=== PATIENT | male | born 1965 | race Caucasian/White ===

== ENCOUNTER → 2018-06-12 08:52 | Outpatient (CLI) | payer OTHER, SELFPAY ==
--- NOTE | 2018-06-12 08:55 | CT_ITS ---
STUDY: CT MAXILLOFACIAL SINUSES REASON FOR EXAM: Male, 53 years old. Chronic sinusitis. No prior sinus surgery. Antibiotics x 3 rounds RADIATION DOSAGE (If Supplied By Facility): CTDIvol = ( 33.06 ) mGy, DLP = ( 759.47 ) mGycm TECHNIQUE: The patient was scanned in a multi detector CT scanner. High resolution axial imaging was performed without the administration of intravenous contrast material. Sagittal and coronal images were reconstructed. Individualized dose optimization techniques were used for this CT. COMPARISON: CT brain noncontrast 09/13/2013 FINDINGS: FRONTAL SINUSES: Normal aeration, without mucosal inflammatory disease. ETHMOIDAL SINUSES: Normal aeration, with minimal mucosal thickening of the posterior ethmoid sinuses. MAXILLARY SINUSES: Normal aeration, without mucosal inflammatory disease. SPHENOIDAL SINUSES: Normal aeration, without mucosal inflammatory disease. There is patency of the bilateral maxillary infundibuli with normal uncinate processes, ethmoid bullae, and hiatus semilunaris. Normal bilateral middle turbinates. Normal bilateral inferior turbinates. There is no nasal septal deviation but a right sided nasal septal spur. There is patency of the bilateral nasal airways. The visualized osseous structures are normal. The visualized bilateral orbital contents are normal. Bilateral scattered cervical lymph nodes likely lymphoid hyperplasia. Atherosclerosis of the left carotid artery bulb. The bilateral mastoid air cells are clear. CT/Sinus/Facial Bone IMPRESSION: Minimal chronic posterior ethmoid sinus disease with mucosal thickening of approximately 1 mm. No outer sinus inflammation detected. Electronically Signed: Kendra Barnett MD at 7:47 EDT , Service support ,
== END ==
PROVIDERS: Family Provider Internal Medicine; PCP Internal Medicine; Visit Provider Otolaryngology
DX: J32.9 Chronic sinusitis, unspecified (principal)
CPT/HCPCS: 70486

== ENCOUNTER 2020-09-22 10:49 | Emergency (ER) | payer OTHER, SELFPAY ==
[2020-09-22 10:51] VITALS: BP 155/98; PULSE 102; RESP 17; TEMP 37; O2SAT 95; BMI 36.1
--- NOTE | 2020-09-22 11:12 | ED.DCSUM_ITS ---
- ER Visit Summary Date of Service: 09/22/20 Chief Complaint: Cough and fever History of Present Illness: The patient is a [address] [id number] diabetes and hypertension. Patient states he had a telemedicine visit and was started on medications for shingles but did not have any rash. For the last several days he has had a cough of clear sputum and a fever as high as 101.9. Said his on months ago had Covid but his Covid test was negative at that time. Also states he has some mild body aches. He denies any dysuria. No abdominal pain. No diarrhea. No chest pain. No earache. No sore throat. Physical Examination: Middle-aged male no acute distress. Vital signs are stable. Currently is afebrile his temperature is 98. His pulse ox is 95% on room air no signs hypoxia. He is in no distress. HEENT exam unremarkable. Posterior pharynx normal. No erythema or exudate. Neck nontender no lymphadenopathy no meningismus. Lungs clear to auscultation bilaterally. Heart regular rhythm rate about 95 no murmur. Chest wall nontender. Chest wall no rash. Back no rash. Back nontender. Abdomen soft nontender normal bowel sounds no peritoneal signs. Both the right upper and right lower quadrants are unremarkable. He is mildly obese. Patient is moving all 4 extremities. Calves nontender without edema or cords. Neurologically is awake alert with no focal motor deficits. Test Results: Rapid Covid antigen is positive. Portable chest x-ray 1 view interpreted by myself shows no acute abnormality. Normal cardiac silhouette mediastinum. Normal lung hutton. No pneumonia. No infiltrate. Radiologist also read the film as normal. Emergency Department Course and Treatment: Patient with URI symptoms. Clinically does not look ill. Most likely has a viral syndrome. Exam is be nign. Rapid Covid test and chest x-ray being obtained. Treatment Plan: Plenty of fluids and rest. Tylenol as needed. Follow-up with his doctor as needed. Disposition: Discharge Impression: Positive coronavirus (COVID-19) viral syndrome History of diabetes and hypertension This note was generated with [employer] dictation software. It may contain incorrect words, spelling, and punctuation that were not noted in review of the chart prior to signing ED Disposition - Plan for ED Patient: Referrals: Kristian Cadet MD [Primary Care Provider] -
--- NOTE | 2020-09-22 11:35 | RAD_ITS ---
STUDY: X-RAY CHEST REASON FOR EXAM: Male, 55 years old. cough and fever. TECHNIQUE: Single AP portable view of the chest. COMPARISON: 09/13/2013 FINDINGS: The lungs are clear and expanded. There is no demonstrated pleural abnormality. Normal size heart. Normal mediastinum and orion. Normal visualized pulmonary arteries. Normal visualized aortic arch and descending thoracic aorta. Normal visualized thoracic spine. Normal visualized ribs, clavicles, and shoulders. There is no demonstrated abnormality of the visualized soft tissue structures of the upper abdomen. RAD/Chest 1 View (Portable) IMPRESSION: Normal x-ray examination of the chest. Electronically Signed: Ryne Tagn MD at 12:01 EST Tel , Service support ,
--- NOTE | 2020-09-22 12:12 | ED.DEP ---
ED Disposition - Plan for ED Patient: Disposition: Home or Assisted Living Instructions: Coronavirus Disease 2019 (COVID-19): Caring for Yourself or Others Referrals: Kristian Cadet MD [Primary Care Provider] - 1 Week if not improving Additional Instructions: Plenty of fluids and rest. Tylenol Motrin as needed for fever. Quarantine for the next 7 days or 10 days from when your symptoms started on Thursday. Your coronavirus test was positive. Return if feeling a lot worse. Follow-up with your doctor if not improving.
== END 2020-09-22 12:17 | disposition home or self-care (01) ==
PROVIDERS: Emergency Provider Emergency Medicine; PCP Internal Medicine
DX: U07.1 COVID-19 (principal); E11.9 Type 2 diabetes mellitus without complications; I10 Essential (primary) hypertension; E66.9 Obesity, unspecified
CPT/HCPCS: 71045; 87426; 99282

== ENCOUNTER 2020-09-27 22:44 | Emergency (ER) | payer OTHER, SELFPAY ==
[2020-09-27 22:44] VITALS: BP 159/93; PULSE 113; RESP 16; TEMP 37.2; O2SAT 96; BMI 36.0
[2020-09-27 22:46] VITALS: BP 159/93; PULSE 100; RESP 22; TEMP 37.2; O2SAT 93
--- NOTE | 2020-09-27 22:56 | ED.VIS.GEN ---
History of Present Illness Chief Complaint: General Illness Informant: Patient Narrative: 55-year-old male presenting on day 8 of Covid symptoms. He notes myalgias and headache that is not relieved with Tylenol Motrin. He states he has had some diarrhea. Has been trying to stay hydrated so he has been doing Pedialyte today. He states that his chest feels tight but he is not having much shortness of breath. He states he has a history of diabetes and hypertension. He states that the first day of symptoms he talked to his doctor and they prescribed him a medicine that begins with asked for shingles. He does not know what it is but he is no longer taking it. Past Medical History - Allergies and Home Meds Allergies/Adverse Reactions: Allergies No Known Allergies Allergy (Verified 09/27/20 22:46) Primary Care Physician: Kristian Cadet MD [Primary Care Provider] - As Needed Past Medical History: - - Hypertension diabetes Surgical History: noncontributory Lives: Spouse/ Significant Other Smoking Status: Unknown if ever smoked Drugs: None Review of Systems General: Reports: Chills, Fever, Malaise. Denies: Sweats Eyes: Denies: Visual changes - bilaterally, Diplopia ENT: Reports: Rhinorrhea. Denies: Sore throat Cardiovascular: Denies: Chest pain, Palpitations Respiratory: Reports: Dyspnea, Cough. Denies: Dyspnea on exertion Gastrointestinal: Denies: Abdominal pain, Nausea, Vomiting, Diarrhea, Melena, Hematochezia Genitourinary: Denies: Dysuria, Hematuria, Frequency Musculoskeletal: Reports: Myalgias, Arthralgias. Denies: Back pain, Extremity Pain Skin: Denies: Rash, Wounds Neurological: Reports: Headache. Denies: Weakness, Numbness Physical Exam Vital Signs/Narrative: Vital Signs Temp Pulse Resp BP Pulse Ox 09/27/20 22:44 98.9 F 113 H 16 159/93 H 96 Inital Vital Signs reviewed: Yes General: Well nourished, Well developed, No Acute Distress Head: Normocephalic, Atraumatic Eyes: Perrl, EOMI ENT: Moist mucous membranes, No rhinorrhea Neck: Supple, Nontender Cardiovascular: Regular rate, No murmurs, Tachycardia Respiratory: No distress, CTA bilaterally, Chest nontender Abdomen: Soft, Nontender, Nondistended, Normal bowel sounds Back: Nontender, Normal Inspection Extremities: Nontender, No edema Skin: Normal color, No rash Neurological: Alert, Oriented x3, Cranial nerves II-XII grossly intact, Normal Strength, Normal Sensation Psychological: Normal affect, Normal Mood Diagnostic/Tx/Re-eval Clinical Impression(s) from Imaging Studies Chest X-Ray 09/27/20 23:19 IMPRESSION: No acute cardiopulmonary disease. There is no major interval change. Electronically Signed: Misael DengDO at 23:40 EST Tel [phone], Service support , Laboratory Last Values WBC 4.4 K/mm3 (4.4-11.0) 09/27/20 23:14 RBC 4.60 M/mm3 (4.6-6.2) 09/27/20 23:14 Hgb 13.6 g/dL (13.0-16.5) 09/27/20 23:14 Hct 40.4 % (40-54) 09/27/20 23:14 MCV 87.8 fL (80-94) 09/27/20 23:14 MCH 29.6 pg (27.0-32.0) 09/27/20 23:14 MCHC 33.7 g/dL (32-36) 09/27/20 23:14 RDW Std Deviation 41.4 fl (35.1-43.9) 09/27/20 23:14 RDW Coeff of Naamn 12.9 % (11.6-14.6) 09/27/20 23:14 Plt Count 219 K/mm3 (150-450) 09/27/20 23:14 MPV 8.5 fl (6.2-12.0) 09/27/20 23:14 Immature Gran % (Auto) 1.600 % (0.0-0.9) H 09/27/20 23:14 Neut % (Auto) 62.3 % (47-70) 09/27/20 23:14 Lymph % (Auto) 25.6 % (19-41) 09/27/20 23:14 [place] % (Auto) 8.9 % (0-10) 09/27/20 23:14 Eos % (Auto) 1.4 % (0-5) 09/27/20 23:14 Baso % (Auto) 0.2 % (0-1) 09/27/20 23:14 Absolute Neuts (auto) 2.7 X10^3/uL (2.0-7.7) 09/27/20 23:14 Absolute Lymphs (auto) 1.12 X10^3/uL (0.83-4.51) 09/27/20 23:14 Nucleated RBC % 0 % (0-5) 09/27/20 23:14 Sodium 136 mmol/L (136-145) 09/27/20 23:14 Potassium 3.6 mmol/L (3.5-5.1) 09/27/20 23:14 Chloride 102 mmol/L (98-107) 09/27/20 23:14 Carbon Dioxide 29.0 mmol/L (21.0-32.0) 09/27/20 23:14 Anion Gap 5 (5-15) 09/27/20 23:14 BUN 16 mg/dL (7-18) 09/27/20 23:14 Creatinine 1.29 mg/dL (0.70-1.30) 09/27/20 23:14 Estim Creat Clear Calc 63.94 ml/min 09/27/20 23:14 Est GFR (MDRD) Af Amer 74 mL/min (>60) 09/27/20 23:14 Est GFR (MDRD) Non-Af 61 mL/min (>60) 09/27/20 23:14 BUN/Creatinine Ratio 12.4 RATIO (10-20) 09/27/20 23:14 Glucose 137 mg/dL (74-106) H 09/27/20 23:14 Calcium 8.7 mg/dL (8.5-10.1) 09/27/20 23:14 Total Bilirubin 0.50 mg/dL (0.20-1.00) 09/27/20 23:14 AST 55 U/L (15-37) H 09/27/20 23:14 ALT 89 U/L (16-61) H 09/27/20 23:14 Alkaline Phosphatase 53 U/L (45-117) 09/27/20 23:14 Total Protein 7.2 g/dL (6.4-8.2) 09/27/20 23:14 Albumin 3.4 g/dL (3.2-5.0) 09/27/20 23:14 Globulin 3.8 g/dL (2.2-4.2) 09/27/20 23:14 Albumin/Globulin Ratio 0.9 RATIO (0.9-2.4) 09/27/20 23:14 - Medical Decision Making Patient's vital signs show normal oxygen saturation and blood pressure. He is slightly tachycardic. Basic blood work was obtained. Patient received IV fluids and Toradol. Basic blood work was negative. Slight elevation in his liver transaminases. My interpretation of the single view portable chest x-ray is no acute process. Patient will be discharged home with continued supportive care. I can write for some Toradol see if that improves his headache and myalgias. He is requesting a short course of steroids and I can write for some Decadron. ED Disposition - Plan for ED Patient: Disposition: Home or Assisted Living Diagnosis: COVID-19 Instructions: Coronavirus Disease 2019 (COVID-19): Caring for Yourself or Others Prescriptions: Dexamethasone [Decadron] 6 mg PO DAILY 4 Days #4 tab Prescription Printed Ketorolac [Toradol] 10 mg PO Q8H PRN #15 tab PRN Reason: Pain Prescription Printed Referrals: Kristian Cadet MD [Primary Care Provider] - As Needed Additional Instructions: Do not use ibuprofen or other anti-inflammatories if taking the Toradol. You may still use acetaminophen.
[2020-09-27] MEDS: Ketorolac 30 MG/ML Syringe IV (23:12)
[2020-09-27] MEDS: 0.9% Normal Saline 1,000 ML 1000 ML IV (23:12)
[2020-09-27 23:14] VITALS: PULSE 100; RESP 22; O2SAT 93
--- NOTE | 2020-09-27 23:19 | RAD_ITS ---
STUDY: X-RAY CHEST REASON FOR EXAM: Male, 55 years old. COVID 19. Dyspnea. TECHNIQUE: Single AP portable view of the chest. COMPARISON: 09/22/2020 FINDINGS: The lungs are clear and expanded. There is no demonstrated pleural abnormality. Normal size heart. Normal mediastinum and orion. Normal visualized pulmonary arteries. Normal visualized aortic arch and descending thoracic aorta. No visualized osseous changes. There is no demonstrated abnormality of the visualized soft tissue structures of the upper abdomen. RAD/Chest 1 View (Portable) IMPRESSION: No acute cardiopulmonary disease. There is no major interval change. Electronically Signed: Misael Deng DO at 23:40 EST Tel [phone], Service support ,
[2020-09-27 23:26] LABS: Absolute Lymphocyte Count 1.12 X10^3/uL (0.83-4.51); Absolute Neutrophil Count 2.7 X10^3/uL (2.0-7.7); Basophil# 0.01 X10^3/uL; Basophil% 0.2 % (0-1); Eosinophil# 0.06 X10^3/uL; Eosinophils% 1.4 % (0-5); Hematocrit 40.4 % (40-54); Hemoglobin 13.6 g/dL (13.0-16.5); Lymphocyte # 1.12 X10^3/ul (4.0); Lymphocyte % 25.6 % (19-41); Mean Corp Hgb Conc 33.7 g/dL (32-36); Mean Corpuscular Hgb 29.6 pg (27.0-32.0); Mean Corpuscular Volume 87.8 fL (80-94); Mean Platelet Vol. 8.5 fl (6.2-12.0); Monocyte# 0.39 X10^3/uL; Monocyte% 8.9 % (0-10); NRBC Flagged by Analyzer 0 % (0-5); Neutrophil # 2.73 X10^3/uL (2.7-7.7); Neutrophil % 62.3 % (47-70); Platelet Count 219 K/mm3 (150-450); RBC Distribution Width CV 12.9 % (11.6-14.6); RBC Distribution Width SD 41.4 fl (35.1-43.9); White Blood Count 4.4 K/mm3 (4.4-11.0)
[2020-09-27 23:41] LABS: ALB/GLOB Ratio 0.9 RATIO (0.9-2.4); AST(SGOT) 55 U/L (15-37); Alanine Aminotransfer ALT/SGPT 89 U/L (16-61); Albumin, Serum 3.4 g/dL (3.2-5.0); Alkaline Phosphatase 53 U/L (45-117); Anion Gap 5 (5-15); BUN 16 mg/dL (7-18); BUN/Creat Ratio 12.4 RATIO (10-20); Calcium,Total 8.7 mg/dL (8.5-10.1); Chloride 102 mmol/L (98-107); Creatinine, Serum 1.29 mg/dL (0.70-1.30); EST Glomerular Filtration Rate 61 mL/min (>60); Est Glom Filt Rate - Afr Amer 74 mL/min (>60); Estimated Creatinine Clearance 63.94 ml/min; Globulin 3.8 g/dL (2.2-4.2); Glucose 137 mg/dL (74-106); Potassium 3.6 mmol/L (3.5-5.1); Protein, Total 7.2 g/dL (6.4-8.2); Sodium Level 136 mmol/L (136-145)
[2020-09-28 00:07] VITALS: BP 170/90; PULSE 93; RESP 20; O2SAT 94
[2020-09-28] MEDS: dexAMETHasone 2 MG TABLET 6 MG PO (00:07)
== END 2020-09-28 00:36 | disposition home or self-care (01) ==
LOC: ED 23:30
PROVIDERS: Emergency Provider Emergency Medicine; PCP Internal Medicine
DX: U07.1 COVID-19 (principal); R19.7 Diarrhea, unspecified; R00.0 Tachycardia, unspecified; E11.9 Type 2 diabetes mellitus without complications; I10 Essential (primary) hypertension; Z79.899 Other long term (current) drug therapy
CPT/HCPCS: 71045; 80053; 85025; 96361; 96374; 99284; J7030; A4216

== ENCOUNTER 2025-04-11 16:15 | Outpatient (CLI) | payer OTHER, SELFPAY ==
--- NOTE | 2025-04-11 | COLBX_PTH ---
PATIENT: REJI BROOKS [facility] U#:[id number] AGE/SX: 59/M ROOM: RE04/11/[address]: Dr. Adele Davis MD : 1965 BED: DIS: 04/11/2025 SPEC #: [id number] RECD: 04/11/25 15:10 STATUS: RAFA REMary #: [id number] ANGELA: 04/11/25 00:[address]: Adele Davis DEPT: SURGICAL PATHOLOGY RECD BY: Frederic Cagle ENTERED: 04/11/25 16:16 SP TYPE: COLON BX OTHR DR: Dr. Kristian Cadet MD Tissues: A - Transverse colon Procedures: Surgery Specimen Level IV HEADER OPERATION: Colonoscopy PRE-OP DIAGNOSIS: Screening TISSUE SUBMITTED: A- Transverse colon polyp MICROSCOPIC DIAGNOSIS A. Transverse colon, polyp, biopsy: * Tubular adenoma MICROSCOPIC DESCRIPTION Slides are reviewed. GROSS DESCRIPTION A. Received in fixative is one container labeled with the patient's name and designated Transverse colon polyp. The specimen consists of one irregular fragment of light solomon soft tissue that measures 1 cm. The specimen is totally submitted in one cassette. 04/11/2025 CPT:73193
== END 2025-04-11 23:59 | disposition home or self-care (01) ==
PROVIDERS: PCP Internal Medicine; Referring Provider Surgery; Visit Provider Surgery
DX: Z12.11 Encounter for screening for malignant neoplasm of colon (principal); D12.3 Benign neoplasm of transverse colon
CPT/HCPCS: 88305

== ENCOUNTER 2025-09-15 12:14 | Emergency (ER) | payer OTHER, SELFPAY ==
[2025-09-15] VITALS (11 sets, daily range): BP systolic 133–162; BP diastolic 82–96; PULSE 53–103; RESP 16–30; TEMP 36–36.8; O2SAT 94–96; BMI 32.8
--- NOTE | 2025-09-15 13:01 | CT_ITS ---
PROCEDURE: CTA CHEST W/WO CONTRAST 09/15/2025 REASON FOR EXAM: CHEST PAIN POST OP PT / PULMONARY EMBOLISM TECHNIQUE: Procedure Code: [id number] Modality: CT Procedure: CTA CHEST W/WO CONTRAST Multidetector CT angiography of the chest with intravenous contrast including multiplanar and post-processed maximum intensity projection (MIP) were generated and interpreted. CONTRAST: Isovue 3 7 VOLUME: 100 mL One or more dose reduction techniques were used (e.g., Automated exposure control, adjustment of the mA and/or kV according to patient size, use of iterative reconstruction technique). RADIATION DOSE SUMMARY: DLP: 559.16 mGycm COMPARISON: None available. FINDINGS: Opacification of the pulmonary arterial tree is suboptimal. Pulmonary artery and thoracic vessels: There are no filling defects in the central pulmonary arteries. No evidence of thoracic aortic dissection. The main pulmonary artery and thoracic aorta are normal in caliber. Scattered atherosclerotic calcification and thoracic aorta. Pulmonary parenchyma: No focal lung consolidation. Mild dependent atelectasis.. Airways: The central airways are patent. Pleural space: No pneumothorax or pleural effusion. Heart and pericardium: The heart is normal in size. No pericardial effusion. There are coronary artery calcifications. Mediastinum and orion: Unremarkable. Osseous structures: No aggressive osseous lesion. Degenerative changes of the thoracic spine. Upper visualized abdomen: Unremarkable. CT/CTA Chest W/WO Contrast IMPRESSION: 1. Suboptimal opacification of the pulmonary arterial tree secondary to contras t bolus timing limits evaluation of segmental and subsegmental pulmonary arterial tree. No central pulmonary embolism. 2. No evidence of thoracic aortic dissection. 3. No focal lung consolidation. Reading Location: [id number]
--- NOTE | 2025-09-15 13:01 | EKG12_ITS ---
Test Reason : CP Blood Pressure : */* mmHG Vent. Rate : 95 BPM Atrial Rate : 95 BPM P-R Int : 160 ms QRS Dur : 98 ms QT Int : 350 ms P-R-T Axes : 28 -6 -18 degrees QTcB Int : 439 ms Normal sinus rhythm Normal ECG Confirmed by Miguel A Kaminski ([id number]), editor book LICHA LAROSE ([id number]) on 09/19/2025 6:17:03 AM Referred By: HAYDEE/ESTRADA Confirmed By: Miguel A Kaminski
--- OUTSIDE RECORDS SUMMARY | 2025-09-15 13:10 | XMS RPT_ITS | CCD ---
Author Organization [facility] Inform ion Partnership [facility] Care Team Providers Care Dairy Husbandry Worker Name Role Phone Helio HOGAN, Kristian Redding Primary Care Provider Helio HOGAN, Kristian Redding Primary Care Provider Adriana DOCUMENTATION NURSE.Ina DE LEÓN Unavailable Helio HOGAN, Dr. Townsend Primary Care Provider Ryan HOGAN, Dr. Angulo Attending Provider Ryan HOGAN, Dr. Angulo Referring Provider Kristian Cadet Primary Care Unavailable Adele Davis Referring Unavailable Adele Davis Attending Unavailable HA LOPEZ MD Attending Unavailable HA LOPEZ MD Primary Care Unavailable HA LOPEZ MD Admitting Unavailable KRISTIAN CADET Consulting Unavailable PROVIDER, UNKNOWN Consulting Unavailable INA WINSTON Referring Unavailable KRISTIAN CADET Primary Care Unavailable KRISTIAN CADET Primary Care Unavailable KRISTIAN CADET Primary Care Unavailable KRISTIAN CADET Referring Unavailable HELIO, KRISTIAN Redding Primary Care Unavailable HELIO, KRISTIAN Redding Primary Care Unavailable MERVIN ABREU Attending Unavailable KRISTIAN CADET Primary Care Unavailable KRISTIAN CADET Attending Unavailable INA WINSTON Referring Unavailable HELIO, KRISITAN Redding Primary Care Unavailable KRISTIAN CADET Referring Unavailable HELIO, KRISTIAN Redding Primary Care Unavailable ADELE DAVIS Attending Unavailable KRISTIAN CADET Referring Unavailable HELIO, KRISTIAN Redding Primary Care Unavailable REBA SUAREZ Attending Unavailable ADELE DAVIS Referring Unavailable HELIO, KRISTIAN Redding Primary Care Unavailable KRISTIAN CADET Primary Care Unavailable VY JORDAN Attending Unavailable KRISTIAN CADET Primary Care Unavailable EVA CHAIDEZ Attending Unavailable KRISTIAN CADET Primary Care Unavailable INA WINSTON Attending Unavailable KRISTIAN CADET Primary Care Unavailable INA WINSTON Referring Unavailable KRISTIAN CADET Primary Care Unavailable HELIO HOGAN, DR TOWNSEND Primary Care Unavailadriane AGUILAR MD, DR REJI Stoddard Attending Emerald Shearer MD, DR REJI Stoddard Attending Unavailab Derek HOGAN, DR TOWNSEND Primary Care Unavailadriane CADET MD, DR TOWNSEND Primary Care Unavailadriane AGUILAR MD, DR REJI Stoddard Attending Emerald Reed MD, DR TOWNSEND Primary Care Physician Allergies Allergy Classification Reported Allergen(s) Allergy Type Date of Onset Reaction(s) Facility (20 sources) Hops extract; Translations: [HOPS] Drug Allergy 04-12-2014 Itching [facility] (20 sources) Seasonal allergy; Translations: [SEASONAL ALLERGIES] Allergy to substance 05-22-2015 Unknown [facility] Medications Current Medications Medication Drug Class(es) Dates Sig (Normalized) Sig (Original) Advair Diskus 100 mcg-50 mcg/inh inhalation powder (2 sources) Start: 08-01-2025 take 1 dose by inhalation twice daily Advair Diskus 100 mcg-50 mcg/inh inhalation powder Dose = 1 puff(s), Inhalation, BID, 0 Refill(s) Start Date: 08/01/25 Status: Ordered Medication Dispense Status: Completed Total Allowed Fills: 1 Fills Dispensed: 0 Albuterol (20 sources) beta2-Adrenergic Agonist Start: 08-01-2025 take 1 puff(s) by inhalation every four hours as needed for wheezing Ventolin HFA MDI (90 mcg/inh) inhalation aerosol 1 puff(s), Inhalation, q4h, PRN as needed for shortness of breath or wheezing, # 6.7 gram(s), 0 Refill(s) Start Date: 08/01/25 Status: Ordered Medication Dispense Status: Completed Quantity: 6.7 Unit: g Total Allowed Fills: 1 Fills Dispensed: 0 Start: 04-01-2023 take 2 puff(s) by in halation every four hours as needed for wheezing albuterol HFA (PROVENTIL HFA, VENTOLIN HFA) 90 mcg/actuation inhaler Indications: Flu-like symptoms Inhale 2 Puffs as instructed every 4 hours as needed for wheezing/shortness of breath. 1 Each 1 04/01/2023 Active Start: 09-04-2022 take 2 puff(s) by in halation every four hours as needed for wheezing albuterol HFA (PROVENTIL HFA, VENTOLIN HFA) 90 mcg/actuation inhaler Indications: Flu-like symptoms Inhale 2 Puffs as instructed every 4 hours as needed for wheezing/shortness of breath. 1 Each 1 09/04/2022 Active Comment on above: Inhale 2 Puffs as in structed every 4 hours as needed for wheezing/shortness of breath. amoxicillin 875 mg / clavulanate 125 mg oral tablet (11 sources) Penicillin-class Antibacterial Start: 03-01-20 End: 03-08-20 take 1 tablet by mouth every twelve hours amoxicillin-clavu lanate potassium (AUGMENTIN) 875-125 mg per tablet Take 1 tablet by mouth every 12 hours for 7 days. 14 tablet 03/01/2025 03/08/2025 Active Start: 12-17-2024 End: 12-27-2024 take 1 tablet by mouth twice daily amoxicillin-clavulanate potassium (AUGMENTIN) 875-125 mg per tablet Indications: Acute non-recurrent streptococcal tonsillitis Take 1 tablet by mouth two times a day for 10 days. 20 tablet 12/17/2024 12/27/2024 Active Start: 11-14-2024 End: 11-21-2024 take 1 tablet by mouth twice daily amoxicillin-clavulanate potassium (AUGMENTIN) 875-125 mg per tablet Take 1 tablet by mouth two times a day for 7 days. 14 tablet 11/14/2024 11/21/2024 Active Start: 10-03-2024 End: 10-10-2024 take 1 tablet by mouth twice daily amoxicillin-clavulanate potassium (AUGMENTIN) 875-125 mg per tablet Indications: Sinus pressure Take 1 tablet by mouth two times a day for 7 days. 14 tablet 10/03/2024 10/10/2024 Active Start: 07-21-2023 End: 07-28-2023 take 1 tablet by mouth twice daily amoxicillin-clavulanate potassium (AUGMENTIN) 875-125 mg per tablet Take 1 tablet by mouth two times a day for 7 days. 14 tablet 0 07/21/2023 07/28/2023 Active Start: 08-13-2022 End: 08-18-2022 take 1 tablet by mouth twice daily amoxicillin-clavulanic acid (AUGMENTIN) 875-125 mg per tablet Take 1 tablet by mouth twice daily for 5 days. 10 tablet 0 08/13/2022 08/18/2022 Active Start: 05-21-2022 End: 05-28-2022 take 1 tablet by mouth twice daily amoxicillin-clavulanic acid (AUGMENTIN) 875-125 mg per tablet Indications: Sinus pressure Take 1 tablet by mouth twice daily for 7 days. 14 tablet 0 05/21/2022 05/28/2022 Active Start: 12-28-2021 End: 01-02-2022 take 1 tablet by mouth twice daily amoxicillin-clavulanic acid (AUGMENTIN) 875-125 mg per tablet Take 1 tablet by mouth twice daily for 5 days. 10 tablet 0 12/28/2021 01/02/2022 Active Comment on above: Take 1 tablet by terrie th twice daily for 5 days. Take 1 tablet by terrie th twice daily for 7 days. Take 1 tablet by terrie th two times a day for 7 days. aspirin 81 mg delayed release oral tablet (20 sources) Platelet Aggregation Inhibitor, Nonsteroidal Anti-inflammatory Drug Start: 08-01-2025 aspirin 81 mg oral delayed release tablet Dose : 81 mg = 1 tab(s), Oral, Daily, 0 Refill(s) Start Date: 08/01/25 Status: Ordered Medication Dispense Status: Completed Total Allowed Fills: 1 Fills Dispensed: 0 Start: 10-19-2009 aspirin(ECOTRI N LOW STRENGTH 81 MG TAB) Indications: Hypertension , Other and unspecified hyperlipidemia 0 10/19/2009 Active Budesonide / formoterol (20 sources) Corticosteroid, beta2-Adrenergic Agonist Start: 03-28-2025 take 2 puff(s) by inhalation twice daily budesonide-formoterol (SYMBICORT) 160-4.5 mcg/actuation inhaler Inhale 2 puffs as instructed two times a day. 2 each 6 03/28/2025 Active Start: 10-28-2023 End: 03-28-2025 take 2 puff(s) by inhalation twice daily budesonide-formoterol (SYMBICORT) 160-4.5 mcg/actuation inhaler Inhale 2 Puffs as instructed two times a day. 2 Each 6 10/28/2023 03/28/2025 Discontinued Start: 10-28-2023 take 2 puff(s) by in halation twice daily budesonide-formoterol (SYMBICORT) 160-4.5 mcg/actuation inhaler Inhale 2 Puffs as instructed two times a day. 2 Each 10/28/2023 Active Comment on above: Inhale 2 Puffs as in structed two times a day. cetirizine hydrochloride 10 mg oral tablet (20 sources) Histamine-1 Receptor Antagonist Start: 08-01-2025 cetirizine 10 mg oral tablet Dose : 10 mg = 1 tab(s), Oral, Daily, PRN for allergy symptoms, # 10 tab(s), 0 Refill(s) Start Date: 08/01/25 Status: Ordered Medication Dispense Status: Completed Quantity: 10.0 Unit: tab(s) Total Allowed Fills: 1 Fills Dispensed: 0 Start: 03-09-2021 End: 07-14-2023 Cetirizine (ZYRTEC) 10 mg ca p 03/09/2021 07/14/2023 Discontinued chlorthalidone 25 mg oral tablet (20 sources) Thiazide-like Diuretic Start: 07-14-2023 End: 03-02-2025 take 1 tablet by mouth once daily chlorthalidone (HYGROTON) 25 mg tablet Indications: Primary hypertension Take 1 tablet by mouth once daily. 90 tablet 3 03/03/2025 Active Comment on above: Take 1 tablet by terrie once daily. cholecalciferol 5000 unt / folic acid 1 mg oral tablet (20 sources) Vitamin D vitamin D3-folic acid 5,000 unit- 1 mg tab Take by mouth. Active Comment on above: Take by mouth. Chondroitin Sulfates / Glucosamine (2 sources) Start: 08-01-2025 take 1 dose by mouth once daily Glucosamine Chondroitin Oral, qDay, 0 Refill(s) Start Date: 08/01/25 Status: Ordered Medication Dispense Status: Completed Total Allowed Fills: 1 Fills Dispensed: 0 Co Q-10 100 mg oral capsule (2 sources) Start: 08-01-2025 Co Q-10 100 mg oral capsule Dose : 100 mg = 1 cap(s), Oral, Daily, 0 Refill(s) Start Date: 08/01/25 Status: Ordered Medication Dispense Status: Completed Total Allowed Fills: 1 Fills Dispensed: 0 COMPOUNDED PRESCRIPTION (20 sources) Start: 08-25-2018 COMPOUNDED PRESCRIPTION Allergy shots per [facility] 08/25/2018 Active Start: 08-25-2018 COMPOUNDED PRE SCRIPTION Allergy shots per [facility] 0 08/25/2018 Active Comment on above: Allergy shots per [facility] CPAP (20 sources) Start: 11-21-19 16 CPAP Indications: GENNY (obstructive sleep apnea) AutoPAP 8-20 cmH2O, suitable mask, humidity, filters. Lifetime supplies. Dx: 327.23. Fax compliance rpt to [facility] in 6 weeks. 1 Device 0 11/21/2015 Active Comment on above: AutoPAP 8-20 cmH2O, suitable mask, humidity, filters. Lifetime supplies. Dx: 327.23. Fax compliance rpt to [employer] in 6 weeks. CPAP/BIPAP/OTHER (20 sources) Start: 05-10-20 24 End: 09-25-19 52 CPAP/BIPAP/OTHER Type .CPAPSettings into a note to see current settings/supplies/DME information. 1 Each 05/10/2024 09/25/2051 Active cyclobenzaprine hydrochloride 10 mg oral tablet (10 sources) Muscle Relaxant Start: 05-07-20 End: 08-05-20 22 take 1 tablet by mouth every twelve hours as needed cyclobenzaprine (FLEXERIL) 10 mg tablet Take 1 tablet by mouth twice daily as needed. 180 tablet 0 05/07/2022 08/05/2022 Active Start: 10-31-2021 End: 01-29-2022 take 1 tablet by mouth every twelve hours as needed cyclobenzaprine (FLEXERIL) 10 mg tablet Take 1 tablet by mouth twice daily as needed. 180 tablet 0 10/31/2021 01/29/2022 Active Comment on above: Take 1 tablet by terrie twice daily as needed. doxycycline hyclate 100 mg oral tablet (4 sources) Tetracycline-clas s Drug Start: End: take 1 tablet by mouth twice daily doxycycline (VIBRA-TABS) 100 mg tablet Indications: Rhinosinusitis Take 1 tablet by mouth two times a day for 7 days. 14 tablet 07/30/2024 08/06/2024 Active Start: 10-21-2023 End: 10-28-2023 take 1 tablet by mouth twice daily doxycycline (VIBRA-TABS) 100 mg tablet Take 1 tablet by mouth two times a day for 7 days. 14 tablet 0 10/21/2023 10/28/2023 Comment on above: Take 1 tablet by terrie th two times a day for 7 days. 0.5 ml dulaglutide 1.5 mg/ml auto-injector (20 sources) GLP-1 Receptor Agonist Start: 08-01-2025 Trulicity Pen 0.75 mg/0.5 mL subcutaneous solution Dose : 0.75 mg = 0.5 mL, Subcutaneous, qWeek, 0 Refill(s), 0.5 mL/Pen Start Date: 08/01/25 Status: Ordered Medication Dispense Status: Completed Total Allowed Fills: 1 Fills Dispensed: 0 Start: 03-28-2025 inject 1.5 mg by sub cutaneous injection every week dulaglutide (TRULICITY) 1.5 mg/0.5 mL pen injector Indications: Controlled type 2 diabetes mellitus without complication, without long-term current use of insulin (HCC) Inject 1.5 mg subcutaneously one time a week. 6 mL 3 03/28/2025 Active Start: 02-14-2025 End: 03-28-2025 inject 0.75 mg by subcutaneous injection every week dulaglutide (TRULICITY) 0.75 mg/0.5 mL pen injector Indications: Controlled type 2 diabetes mellitus without complication, without long-term current use of insulin (HCC) Inject 0.75 mg subcutaneously one time a week. Inject dose once per week. Discard Pen After 1 each 02/17/2025 03/28/2025 Discontinued (Dosage adjustment) Start: 02-22-2024 End: 09-28-2024 inject 0.75 mg by subcutaneous injection every week dulaglutide (TRULICITY) 0.75 mg/0.5 mL pen injector Indications: Controlled type 2 diabetes mellitus without complication, without long-term current use of insulin (HCC) Inject 0.75 mg subcutaneously one time a week. Inject dose once per week. Discard Pen After 6 Each 1 09/28/2024 Active Start: 08-09-2022 End: 02-20-2024 inject 0.75 mg by subcutaneous injection every week dulaglutide (TRULICITY) 0.75 mg/0.5 mL pen injector Indications: Controlled type 2 diabetes mellitus without complication, without long-term current use of insulin (HCC) Inject 0.75 mg subcutaneously one time a week. Inject dose once per week. Discard Pen After 6 Each 1 07/14/2023 10/24/2023 Discontinued Comment on above: Inject 0.75 mg subcu taneously one time a week. Inject dose once per week. Discard Pen After fexofenadine hydrochloride 180 mg oral tablet (20 sources) Histamine-1 Receptor Antagonist take 1 tablet by mouth once daily fexofenadine (JOSUE) 180 mg tablet Take 180 mg by mouth once daily. Active Comment on above: Take 180 mg by mouth once daily. fluticasone propionate 0.05 mg/actuat metered dose nasal spray (20 sources) Corticosteroid Start: 08-01-20 take 50 ug nasal route twice daily fluticasone proprionate NASAL 50 mcg/ spray 50 mcg Dose = 1 spray(s), Nostril, each, BID, 0 Refill(s) Start Date: 08/01/25 Status: Ordered Medication Dispense Status: Completed Total Allowed Fills: 1 Fills Dispensed: 0 Start: 04-01-2023 End: 05-17-2025 take 2 spray(s) by mouth twice daily fluticasone (FLONASE) 50 mcg/actuation nasal spray Indications: Allergic rhinitis, unspecified seasonality, unspecified trigger Use 2 sprays in each nostril two times a day. Rinse mouth after use. 6 each 05/17/2025 Active Start: 2022 take 2 spray(s) by m outh twice daily fluticasone (FLONASE) 50 mcg/actuation nasal spray Indications: Allergic rhinitis, unspecified seasonality, unspecified trigger Use 2 Sprays in each nostril twice daily. Rinse mouth after use. 6 Each 3 2022 Active Start: 11-02-2020 End: 04-29-2022 take 2 spray(s) by mouth once daily fluticasone (FLONASE) 50 mcg/actuation nasal spray Indications: Allergic rhinitis, unspecified seasonality, unspecified trigger Use 2 Sprays in each nostril once daily. Rinse mouth after use. 3 Each 1 10/30/2021 04/29/2022 Discontinued Comment on above: Use 2 Sprays in each nostril once daily. Rinse mouth after use. Use 2 Sprays in each nostril twice daily. Rinse mouth after use. glucosamine/msm/chondroitin A ([id number]-[id number]-BSL ORAL) (20 sources) glucosamine/msm/ chondroiti n A (SISSBWWHGAL-UKGOEQ-PXI ORAL) Take by mouth. Active glucosamine/msm/ chondroitin A (NBCICNMMIDA-LWYXRH-FKW ORAL) Take by mouth. 0 Active Comment on above: Take by mouth. guaiFENesin (20 sources) End: 09-28-2024 guaifenesin (MUCINEX ORAL) T kalin by mouth. 09/28/2024 Discontinued (Course of therapy completed) guaifenesin (MUC INEX ORAL) Take by mouth. Active guaifenesin (MUC INEX ORAL) Take by mouth. 0 Active Comment on above: Take by mouth. herbal/nutritional product (2 sources) Start: 025 herbal/nutritional product URGENT LIVER 911, 0 Refill(s) Start Date: 08/01/25 Status: Ordered Medication Dispense Status: Completed Total Allowed Fills: 1 Fills Dispensed: 0 hydroCHLOROthiazide 12.5 mg oral tablet (20 sources) Thiazide Diuretic Start: 025 take 1 dose by mouth once daily hydroCHLOROthiazide Dose : 12.5 mg =, Oral, qDay, 0 Refill(s) Start Date: 08/01/25 Status: Ordered Medication Dispense Status: Completed Total Allowed Fills: 1 Fills Dispensed: 0 Start: 04-01-2023 End: 07-14-2023 take 1 tablet by mouth once daily hydroCHLOROthiazide 25 mg tablet Indications: Primary hypertension Take 1 tablet by mouth once daily. 90 tablet 3 04/01/2023 07/14/2023 Discontinued (Changing Therapy/Dosage Form) Start: 06-10-2021 End: 06-23-2022 take 1 tablet by mouth once daily hydroCHLOROthiazide (HYDRODIURIL, ESIDRIX) 25 mg tablet Indications: Primary hypertension Take 1 tablet by mouth once daily. 90 tablet 3 06/10/2021 06/23/2022 Discontinued Comment on above: Take 1 tablet by terrie th once daily. hydroCHLOROthiazide 12.5 mg / lisinopril 20 mg oral tablet (2 sources) Thiazide Diuretic, Angiotensin Converting Enzyme Inhibitor Start: take 1 tablet by mouth once daily hydrochlorothiazi de-lisinopril 12.5 mg-20 mg oral tablet Dose = 1 tab(s), Oral, Daily, # 30 tab(s), 0 Refill(s) Start Date: 08/01/25 Status: Ordered Medication Dispense Status: Completed Quantity: 30.0 Unit: tab(s) Total Allowed Fills: 1 Fills Dispensed: 0 Ipratropium (20 sources) Anticholinergic Start: ipratropium (0.03%) nasal 21 mcg/spray (Atrovent Nasal) Nasal, 0 Refill(s) Start Date: 08/01/25 Status: Ordered Medication Dispense Status: Completed Total Allowed Fills: 1 Fills Dispensed: 0 Start: 04-01-2023 Ipratropium Br omide (ATROVENT) 21 mcg (0.03 %) nasal spray Indications: Allergic rhinitis, unspecified seasonality, unspecified trigger Use 2 Sprays in the nose twice daily as needed (rhinorrhea). 30 mL 3 04/01/2023 Active Start: 09-25-2022 Ipratropium Br omide (ATROVENT) 21 mcg (0.03 %) nasal spray Indications: Allergic rhinitis, unspecified seasonality, unspecified trigger Use 2 Sprays in the nose twice daily as needed (rhinorrhea). 30 mL 3 09/25/2022 Active Start: 10-27-2020 End: 09-25-2022 Ipratropium [place] (ATROVEN T) 0.03 % nasal spray Indications: Allergic rhinitis, unspecified seasonality, unspecified trigger Use 2 Sprays in the nose every 12 hours. 3 Bottle 1 10/27/2020 09/25/2022 Discontinued Comment on above: Use 2 Sprays in the nose every 12 hours. Use 2 Sprays in the nose twice daily as needed (rhinorrhea). ketorolac tromethamine 10 mg oral tablet (1 source) Nonsteroidal Anti-inflammatory Drug, Cyclooxygenase Inhibitor Start: 09-27-19 take 1 tablet by mouth every eight hours as needed for pain Ketorolac 10 MG tablet Active 10 mg PO Q8H as needed for Pain September 28, 2020 12:08am lisinopril 20 mg oral tablet (20 sources) Angiotensin Converting Enzyme Inhibitor Start: 01-08-20 take 1 tablet by mouth once daily lisinopril (ZESTRIL) 20 mg tablet Indications: Primary hypertension Take 1 tablet by mouth once daily. 90 tablet 3 01/07/2025 Active Start: 04-01-2023 End: 01-05-2025 take 1 tablet by mouth once daily lisinopril (ZESTRIL) 20 mg tablet Indications: Primary hypertension Take 1 tablet by mouth once daily. 90 tablet 3 03/15/2024 01/05/2025 Discontinued Start: 09-13-2013 End: 06-23-2022 take 1 tablet by mouth once daily lisinopril (ZESTRIL, PRINIVIL) 20 mg tablet Indications: Primary hypertension Take 1 tablet by mouth once daily. 90 tablet 3 06/10/2021 06/23/2022 Discontinued Comment on above: Take 1 tablet by terrie th once daily. Magnesium Aspartate (20 sources) MAGNESIUM ASPART ATE HCL ORAL Take by mouth. Active MAGNESIUM ASPART ATE HCL ORAL Take by mouth. 0 Active Comment on above: Take by mouth. Magnesium Oxide (2 sources) Start: 08-01-2025 magnesium oxide Oral, 0 Refill(s) Start Date: 08/01/25 Status: Ordered Medication Dispense Status: Completed Total Allowed Fills: 1 Fills Dispensed: 0 meclizine hydrochloride 25 mg oral tablet (1 source) Antiemetic Start: 09-13-2013 take 1 tablet by mouth four times daily as needed Meclizine 25 MG tablet Active 25 mg PO 4 TIMES DAILY NEEDED as needed for Vertigo September 13, 2013 1:00am 24 hr metFORMIN hydrochloride 500 mg extended release oral tablet (20 sources) Biguanide Start: 08-01-2025 metFORMIN 500 mg oral tablet EXTENDED RELEASE Dose : 500 mg = 1 tab(s), Oral, Daily, # 100 tab(s), 0 Refill(s) Start Date: 08/01/25 Status: Ordered Medication Dispense Status: Completed Quantity: 100.0 Unit: tab(s) Total Allowed Fills: 1 Fills Dispensed: 0 Start: 01-07-2025 take 1 tablet by terrie th once daily at breakfast metFORMIN ER (GLUCOPHAGE XR) 500 mg 24 hr tablet Indications: Controlled type 2 diabetes mellitus without complication, without long-term current use of insulin (HCC) Take 1 tablet by mouth daily with breakfast. 90 tablet 3 01/07/2025 Active Start: 04-01-2023 End: 01-05-2025 take 1 tablet by mouth once daily at breakfast metFORMIN ER (GLUCOPHAGE XR) 500 mg 24 hr tablet Indications: Controlled type 2 diabetes mellitus without complication, without long-term current use of insulin (HCC) Take 1 tablet by mouth daily with breakfast. 90 tablet 3 03/15/2024 01/05/2025 Discontinued Start: 10-27-2020 End: 09-25-2022 take 1 tablet by mouth once daily at breakfast metFORMIN ER (GLUCOPHAGE XR) 500 mg 24 hr tablet Indications: Controlled type 2 diabetes mellitus without complication, without long-term current use of insulin (HCC) Take 1 tablet by mouth daily with breakfast. 90 tablet 3 09/25/2022 Active Comment on above: Take 1 tablet by terrie th daily with breakfast. montelukast 10 mg oral tablet (20 sources) Leukotriene Receptor Antagonist Start: 08-01-2025 montelukast 10 mg oral tablet 0 Refill(s) Start Date: 08/01/25 Status: Ordered Medication Dispense Status: Completed Total Allowed Fills: 1 Fills Dispensed: 0 Start: 01-07-2025 take 1 tablet by terrie th once daily at bedtime montelukast (SINGULAIR) 10 mg tablet Take 1 tablet by mouth daily at bedtime. 90 tablet 3 01/07/2025 Active Start: 04-01-2023 End: 01-05-2025 take 1 tablet by mouth once daily at bedtime montelukast (SINGULAIR) 10 mg tablet Take 1 tablet by mouth daily at bedtime. 90 tablet 3 03/15/2024 01/05/2025 Discontinued Start: 11-01-2021 End: 09-25-2022 take 1 tablet by mouth once daily at bedtime montelukast (SINGULAIR) 10 mg tablet Take 1 tablet by mouth daily at bedtime. 90 tablet 3 09/25/2022 Active Start: 10-27-2020 End: 10-30-2021 take 1 tablet by mouth once daily at bedtime montelukast (SINGULAIR) 10 mg tablet Take 1 tablet by mouth daily at bedtime. 90 tablet 3 10/27/2020 10/30/2021 Discontinued Comment on above: Take 1 tablet by terrie th daily at bedtime. Mucus Relief ER (2 sources) Start: 08-01-20 take 1 dose by mouth every twelve hours Mucus Relief ER Oral, q12h, 0 Refill(s) Start Date: 08/01/25 Status: Ordered Medication Dispense Status: Completed Total Allowed Fills: 1 Fills Dispensed: 0 Multivitamin preparation (2 sources) Start: 08-01-20 take 1 tablet by mouth once daily Multivitamin Dose = 1 tab(s), Oral, Daily, 0 Refill(s) Start Date: 08/01/25 Status: Ordered Medication Dispense Status: Completed Total Allowed Fills: 1 Fills Dispensed: 0 oseltamivir 75 mg oral capsule (1 source) Neuraminidase Inhibitor Start: 09-04-20 End: 09-09-20 take 1 capsule by mouth twice daily oseltamivir (TAMIFLU) 75 mg capsule Indications: Flu-like symptoms Take 1 capsule by mouth twice daily for 5 days. 10 capsule 0 09/04/2022 09/09/2022 Active Comment on above: Take 1 capsule by mo uth twice daily for 5 days. pantoprazole 40 mg delayed release oral tablet (20 sources) Proton Pump Inhibitor Start: 08-01-20 pantoprazole 40 mg oral enteric coated tablet Dose : 40 mg = 1 tab(s), Oral, qDay, # 30 tab(s), 0 Refill(s) Start Date: 08/01/25 Status: Ordered Medication Dispense Status: Completed Quantity: 30.0 Unit: tab(s) Total Allowed Fills: 1 Fills Dispensed: 0 Start: 01-07-2025 take 1 tablet by terrie th once daily 30 minutes before breakfast pantoprazole DR (PROTONIX) 40 mg tablet Indications: Gastroesophageal reflux disease without esophagitis Take 1 tablet by mouth once daily. 30 minutes before breakfast, take on empty stomach. 90 tablet 3 01/07/2025 Active Start: 04-01-2023 End: 01-05-2025 take 1 tablet by mouth once daily 30 minutes before breakfast pantoprazole DR (PROTONIX) 40 mg tablet Indications: Gastroesophageal reflux disease without esophagitis Take 1 tablet by mouth once daily. 30 minutes before breakfast, take on empty stomach. 90 tablet 3 03/15/2024 01/05/2025 Discontinued Start: 10-27-2020 End: 09-25-2022 take 1 tablet by mouth once daily 30 minutes before breakfast pantoprazole DR (PROTONIX) 40 mg tablet Indications: Gastroesophageal reflux disease without esophagitis Take 1 tablet by mouth once daily. 30 minutes before breakfast, take on empty stomach. 90 tablet 3 09/25/2022 Active Comment on above: Take 1 tablet by terrie once daily. 30 minutes before breakfast, take on empty stomach. polyethylene glycol 3350 35163 mg powder for oral solution (20 sources) Osmotic Laxative Start: 5 take 17 doses by mouth twice daily MiraLax oral powder for reconstitution Dose : 17 gram(s) =, Oral, BID, # 238 gram(s), 0 Refill(s) Start Date: 08/01/25 Status: Ordered Medication Dispense Status: Completed Quantity: 238.0 Unit: g Total Allowed Fills: 1 Fills Dispensed: 0 Start: 01-16-2021 End: 06-23-2022 polyethylene glycol 3350 (MS RALAX) 17 gram/dose powder Indications: Fatty liver disease, nonalcoholic Take 17 g by mouth twice daily. 850 g 5 06/23/2022 Active Comment on above: Take 17 g by mouth t wice daily. polyethylene glycol 3350 011686 mg / potassium chloride 2980 mg / sodium bicarbonate 6720 mg / sodium chloride 5840 mg / sodium sulfate 89983 mg powder for oral solution (1 source) Osmotic Laxative Start: 5 End: 5 peg 3350-electrolytes (GAVILYTE-C) 240-22.72-6.72 -5.84 gram solution Indications: Special screening for malignant neoplasms, colon Take 4,000 mL by mouth one time only for 1 dose. 4000 mL 03/28/2025 03/28/2025 Active Saw Newport 500 mg ORAL Cap (20 sources) Start: 1 take 1 capsule by mouth once Saw Newport 500 mg ORAL Cap Indications: Unspecified hyperplasia of prostate with urinary obstruction and other lower urinary tract symptoms (LUTS) Per package directions for prostate symptoms. 0 10/29/2010 Active Comment on above: Per package directio ns for prostate symptoms. saw palmetto oral capsule (2 sources) Start: 5 saw palmetto oral capsule 0 Refill(s) Start Date: 08/01/25 Status: Ordered Medication Dispense Status: Completed Total Allowed Fills: 1 Fills Dispensed: 0 simvastatin 40 mg oral tablet (20 sources) HMG-CoA Reductase Inhibitor Start: 5 simvastatin 40 mg oral tablet Dose : 40 mg = 1 tab(s), Oral, qHS, # 100 tab(s), 0 Refill(s) Start Date: 08/01/25 Status: Ordered Medication Dispense Status: Completed Quantity: 100.0 Unit: tab(s) Total Allowed Fills: 1 Fills Dispensed: 0 Start: 01-07-2025 take 1 tablet by terrie th once daily at bedtime simvastatin (ZOCOR) 40 mg tablet Indications: Other hyperlipidemia Take 1 tablet by mouth daily at bedtime. 90 tablet 3 01/07/2025 Active Start: 04-01-2023 End: 01-05-2025 take 1 tablet by mouth once daily at bedtime simvastatin (ZOCOR) 40 mg tablet Indications: Other hyperlipidemia Take 1 tablet by mouth daily at bedtime. 90 tablet 3 03/15/2024 01/05/2025 Discontinued Start: 10-27-2020 End: 09-25-2022 take 1 tablet by mouth once daily at bedtime simvastatin (ZOCOR) 40 mg tablet Indications: Other hyperlipidemia Take 1 tablet by mouth daily at bedtime. 90 tablet 3 09/25/2022 Active Start: 09-13-2013 take 1 tablet by terrie th at bedtime Simvastatin 20 MG tablet Active 20 mg PO AT BEDTIME September 13, 2013 1:00am Comment on above: Take 1 tablet by terrie th daily at bedtime. THERAPEUTIC MULTIVITAMIN TAB (20 sources) Start: 11-23-2007 THERAPEUTIC MULTIVITAMIN TAB Take one(1) tablet daily. 0 11/23/2007 Active Comment on above: Take one(1) tablet d aily. ubidecarenone (COQ-10 ORAL) (20 sources) ubidecarenone (C OQ-10 ORAL) Take by mouth. Active ubidecarenone (C OQ-10 ORAL) Take by mouth. 0 Active Comment on above: Take by mouth. Vitamin D3 125 mcg (5000 intl units) oral capsule (2 sources) Start: 08-01-2025 Vitamin D3 125 mcg (5000 intl units) oral capsule Dose : 125 mcg = 1 cap(s), Oral, qDay, # 100 cap(s), 0 Refill(s) Start Date: 08/01/25 Status: Ordered Medication Dispense Status: Completed Quantity: 100.0 Unit: cap(s) Total Allowed Fills: 1 Fills Dispensed: 0 Completed/Discontinued Medications Medication Drug Class(es) Dates Sig (Normalized) Sig (Original) calcium chloride 0.0014 meq/ml / potassium chloride 0.004 meq/ml / sodium chloride 0.103 meq/ml / sodium lactate 0.028 meq/ml injectable solution (1 source) Start: 04-11-2025 End: 04-11-2025 take 30 mL intravenously every hour 30 mL/hr, INTRAVENOUS, CONTINUOUS, Starting on Thu04/11/25 at 0730, Until Thu04/11/25 at 0817, Preprocedure dexamethasone 6 mg oral tablet (1 source) Corticosteroid Start: 09-27-2020 End: 10-01-2020 take 1 tablet by mouth once daily Dexamethasone 6 MG tablet Discontinued 6 mg PO DAILY 4 4 0 September 27, 2020 1:00am September 30, 2020 1:00am October 01, 2020 1:03am 1 ml fentaNYL 0.05 mg/ml injection (1 source) Opioid Agonist Start: 04-11-2025 End: 04-11-2025 25-100 mcg, INTRAVENOUS, DIRECTED, Starting on Thu04/11/25 at 0800, Until Thu04/11/25 at 1159, DOSING DIRECTED BY PHYSICIAN FOR PROCEDURAL SEDATION ONLY, Intraprocedure fluticasone / salmeterol (20 sources) Corticosteroid, beta2-Adrenergic Agonist Start: 10-25-2023 End: 10-28-2023 take 1 puff(s) by mouth twice daily fluticasone-salmete rol (ADVAIR DISKUS) 100-50 mcg/dose inhaler Inhale 1 Puff as instructed two times a day. Rinse mouth out after use with water. 3 Each 3 10/25/2023 10/28/2023 Discontinued (Not on Formulary) Start: 10-25-2023 take 1 puff(s) by mo uth twice daily fluticasone-salmeterol (ADVAIR DISKUS) 100-50 mcg/dose inhaler Inhale 1 Puff as instructed two times a day. Rinse mouth out after use with water. 3 Each 3 10/25/2023 Active Start: 04-01-2023 End: 10-24-2023 take 1 puff(s) by mouth twice daily fluticasone-salmeterol (ADVAIR DISKUS) 100-50 mcg/dose inhaler Inhale 1 Puff as instructed twice daily. Rinse mouth out after use with water. 3 Each 3 04/01/2023 10/24/2023 Discontinued Start: 04-01-2023 take 1 puff(s) by mo uth twice daily fluticasone-salmeterol (ADVAIR DISKUS) 100-50 mcg/dose inhaler Inhale 1 Puff as instructed twice daily. Rinse mouth out after use with water. 3 Each 3 04/01/2023 Active Start: 09-25-2022 take 1 puff(s) by mo uth twice daily fluticasone-salmeterol (ADVAIR DISKUS) 100-50 mcg/dose inhaler Inhale 1 Puff as instructed twice daily. Rinse mouth out after use with water. 3 Each 3 09/25/2022 Active Start: 10-30-2021 End: 09-25-2022 take 1 puff(s) by mouth twice daily fluticasone-salmeterol (ADVAIR DISKUS) 100-50 mcg/dose inhaler Inhale 1 Puff as instructed twice daily. Rinse mouth out after use with water. 3 Each 3 10/30/2021 09/25/2022 Discontinued Start: 10-30-2021 take 1 puff(s) by mo uth twice daily fluticasone-salmeterol (ADVAIR DISKUS) 100-50 mcg/dose inhaler Inhale 1 Puff as instructed twice daily. Rinse mouth out after use with water. 3 Each 3 10/30/2021 Active Start: 10-27-2020 End: 10-29-2021 take 1 puff(s) by mouth twice daily fluticasone-salmeterol (ADVAIR DISKUS) 100-50 mcg/dose Inhale 1 Puff as instructed twice daily. Rinse mouth out after use with water. 3 Inhaler 3 10/27/2020 10/29/2021 Discontinued Comment on above: Inhale 1 Puff as ins tructed twice daily. Rinse mouth out after use with water. Inhale 1 Puff as ins tructed two times a day. Rinse mouth out after use with water. 5 ml midazolam 1 mg/ml injection (1 source) Benzodiazepine Start: End: 1-5 mg, INTRAVENOUS, DIRECTED, Starting on Thu04/11/25 at 0800, Until Thu04/11/25 at 1159, DOSING DIRECTED BY PHYSICIAN FOR PROCEDURAL SEDATION ONLY, Intraprocedure 2 ml ondansetron 2 mg/ml injection (1 source) Serotonin-3 Receptor Antagonist Start: End: 4 mg, INTRAVENOUS, DIRECTED, Starting on Thu04/11/25 at 0830, Until Thu04/11/25 at 1229, Dosing as directed for intraprocedural use only, Intraprocedure pioglitazone 15 mg oral tablet (14 sources) Peroxisome Proliferator Receptor alpha Agonist, Peroxisome Proliferator Receptor gamma Agonist, Thiazolidinedione Start: End: take 1 tablet by mouth once daily pioglitazone (ACTOS) 15 mg tablet Take 1 tablet by mouth once daily. 30 tablet 3 01/28/2022 06/23/2022 Discontinued (Clinical Decision) Start: 08-13-2021 End: 10-29-2021 take 1 tablet by mouth once daily pioglitazone (ACTOS) 15 mg tablet Take 1 tablet by mouth once daily. 30 tablet 3 08/13/2021 10/29/2021 Discontinued Comment on above: Take 1 tablet by terrie th once daily. predniSONE 10 mg oral tablet (13 sources) Start: 10-21-2023 End: 03-23-2024 predniSONE (DELTASONE) 10 mg tablet Take 4 tabs daily for 3 days, then 2 tabs daily for 3 days, then 1 tab daily for 3 days with food. 21 tablet 0 10/21/2023 03/23/2024 Discontinued (Course of therapy completed) Start: 09-04-2022 End: 09-09-2022 take 2 tablets by mouth once daily predniSONE (DELTASONE) 20 mg tablet Indications: Flu-like symptoms Take 2 tablets by mouth once daily for 5 days. 10 tablet 0 09/04/2022 09/09/2022 Active Start: 05-21-2022 End: 05-26-2022 take 2 tablets by mouth once daily predniSONE (DELTASONE) 20 mg tablet Indications: URI, acute , Sinus pressure Take 2 tablets by mouth once daily for 5 days. 10 tablet 0 05/21/2022 05/26/2022 Active Start: 12-25-2021 End: 12-30-2021 take 5 tablets by mouth once daily, then take 4 tablets by mouth once daily, then take 3 tablets by mouth once daily, then take 2 tablets by mouth once daily, then take 1 tablet by mouth once daily predniSONE (DELTASONE) 10 mg tablet Indications: Cough , Mild intermittent asthmatic bronchitis with acute exacerbation Take 5 tablets by mouth once daily for 1 day, THEN 4 tablets once daily for 1 day, THEN 3 tablets once daily for 1 day, THEN 2 tablets once daily for 1 day, THEN 1 tablet once daily for 1 day. 15 tablet 0 12/25/2021 12/30/2021 Comment on above: Take 5 tablets by [facility] once daily for 1 day, THEN 4 tablets once daily for 1 day, THEN 3 tablets once daily for 1 day, THEN 2 tablets once daily for 1 day, THEN 1 tablet once daily for 1 day. Take 2 tablets by [facility] once daily for 5 days. Take 4 tabs daily fo r 3 days, then 2 tabs daily for 3 days, then 1 tab daily for 3 days with food. 0.25 mg, 0.5 mg dose 1.5 ml semaglutide 1.34 mg/ml pen injector (4 sources) Start: 06-23-20 End: 08-09-20 semaglutide (OZEMPIC) 0.25 mg or 0.5 mg(2 mg/1.5 mL) pen Indications: Controlled type 2 diabetes mellitus without complication, without long-term current use of insulin (HCC) Inject 0.25 mg subcutaneously one time a week. 1 Each 0 06/23/2022 08/09/2022 Discontinued (Not on Formulary) Comment on above: Inject 0.25 mg subcu taneously one time a week. vitamin e 450 mg oral capsule (1 source) Start: 05-10-20 End: 12-13-19 22 take 1 capsule by mouth once daily Vitamin E, dl, acetate, 1,000 unit capsule Take 1 capsule by mouth once daily. 30 capsule 05/10/2021 12/12/2021 Discontinued Problems Active Problems Problem Classification Problem Date Documented Date Episodic/Chronic Asthma (20 sources) Mild intermittent asthma; Translations: [Mild intermittent asthma with (acute) exacerbation] Onset: 01-18-2015 Chronic Diabetes mellitus without complication (20 sources) Type 2 diabetes mellitus without complication; Translations: [Type 2 diabetes mellitus without complications] Onset: 11-10-2019 11-10-2019 Chronic Disorders of lipid metabolism (20 sources) Hyperlipidemia; Translations: [Hyperlipidemia, unspecified] Onset: 10-04-2015 10-04-2015 Chronic Esophageal disorders (20 sources) Gastroesophageal reflux disease; Translations: [Gastro-esophageal reflux disease without esophagitis] Onset: 07-01-2012 07-01-2012 Chronic Essential hypertension (20 sources) Hypertensive disorder; Translations: [Essential (primary) hypertension] Onset: 10-19-2009 10-19-2009 Chronic Headache; including migraine (1 source) Sinus headache; Translations: [Sinus headache] 07-14-2023 Episodic Hepatitis (2 sources) Nonalcoholic steatohepatitis; Translations: [Nonalcoholic steatohepatitis (ADAN)] Chronic Hyperplasia of prostate (20 sources) Benign prostatic hypertrophy with outflow obstruction; Translations: [Benign prostatic hyperplasia with lower urinary tract symptoms] Onset: 10-29-2010 08-24-2017 Chronic Immunizations and screening for infectious disease (5 sources) Vaccination needed; Translations: [Encounter for immunization] Episodic Osteoarthritis (20 sources) Osteoarthritis of left knee joint; Translations: [Unilateral primary osteoarthritis, left knee] Onset: 09-17-2016 09-17-2016 Chronic Other and unspecified benign neoplasm (1 source) Tubular adenoma of colon; Translations: [Benign neoplasm of colon, unspecified] 04-20-2025 Episodic Other inflammatory condition of skin (1 source) Erythema; Translations: [Erythematous condition, unspecified] 04-29-2025 Episodic Other inflammatory condition of skin (1 source) Erythematous condition, unspecified; Translations: [Redness of skin] Onset: 04-29-2025 Episodic Other liver diseases (17 sources) Non-alcoholic fatty liver; Translations: [Fatty (change of) liver, not elsewhere classified] Onset: 01-23-2021 01-23-2021 Chronic Other liver diseases (20 sources) Fatty (change of) liver, not elsewhere classified; Translations: [Other chronic nonalcoholic liver disease] Onset: 01-23-2021 01-23-2021 Chronic Other lower respiratory disease (4 sources) Cough; Translations: [Cough] Episodic Other nutritional; endocrine; and metabolic disorders (20 sources) Obese class II; Translations: [Obesity, unspecified] Onset: 08-25-2018 Resolved: 06-10-2021 Chronic Other upper respiratory disease (20 sources) Allergic rhinitis; Translations: [Allergic rhinitis, unspecified] Onset: 01-18-2015 01-18-2015 Chronic Other upper respiratory disease (1 source) Congestion of nasal sinus; Translations: [Nasal congestion] Episodic Other upper respiratory disease (1 source) Nasal sinus problem; Translations: [Other specified disorders of nose and nasal sinuses] Episodic Other upper respiratory disease (1 source) Other specified disorders of nose and nasal sinuses; Translations: [Other disease of nasal cavity and sinuses] 10-03-2024 Episodic Other upper respiratory infections (4 sources) Chronic sinusitis, unspecified; Translations: [Unspecified sinusitis (chronic)] Onset: 03-01-2025 07-30-2024 Chronic Other upper respiratory infections (6 sources) Acute upper respiratory infection; Translations: [Acute upper respiratory infection, unspecified] Onset: 07-24-2025 Episodic Otitis media and related conditions (1 source) Acute bilateral otitis media ; Translations: [Otitis media, unspecified, bilateral] 11-14-2024 Episodic Residual codes; unclassified (20 sources) Obstructive sleep apnea syndrome; Translations: [Obstructive sleep apnea (adult) (pediatric)] Onset: 10-19-2009 09-17-2016 Chronic Residual codes; unclassified (1 source) Obstructive sleep apnea (adult) (pediatric); Translations: [GENNY on CPAP] Onset: 09-17-2016 Chronic Residual codes; unclassified (1 source) Other specified personal risk factors, not elsewhere classified; Translations: [Other specified personal history presenting hazards to health] Episodic Residual codes; unclassified (1 source) Influenza-like symptoms; Translations: [Other general symptoms and signs] Episodic Unclassified (1 source) Obesity, Class II, BMI 35-39.9; Translations: [Obesity, Class II, BMI 35-39.9] Onset: 06-23-2022 Viral infection (2 sources) Viral disease; Translations: [Viral infection, unspecified] 10-03-2024 Episodic Past or Other Problems Problem Classification Problem Date Documented Da te Episodic/Chronic Acute and chronic tonsillitis (20 sources) Hypertrophy of tonsils; Translations: [Hypertrophy of tonsils] Onset: 11-21-2015 Resolved: 02-22-2018 02-22-2018 Chronic Diabetes mellitus without complication (20 sources) Impaired fasting glycemia; Translations: [Impaired fasting glucose] Onset: 11-25-2015 Resolved: 11-10-2019 11-10-2019 Episodic Diverticulosis and diverticulitis (20 sources) Diverticulitis of large intestine without perforation or abscess without bleeding; Translations: [Diverticulitis of colon (without mention of hemorrhage)] Onset: 05-01-2006 Resolved: 01-18-2015 01-18-2015 Chronic Nonmalignant breast conditions (20 sources) Gynecomastia; Translations: [Hypertrophy of breast] Onset: 05-18-2014 Resolved: 02-22-2018 02-22-2018 Episodic Other and unspecified benign neoplasm (20 sources) Adenomatous polyp of colon ; Translations: [Benign neoplasm of colon, unspecified] Onset: 10-23-2014 01-18-2015 Episodic Other and unspecified benign neoplasm (1 source) Benign neoplasm of colon, unspecified; Translations: [Tubular adenoma of colon] Onset: 04-21-2025 Episodic Other connective tissue disease (20 sources) History of total knee arthroplasty; Translations: [Presence of unspecified artificial knee joint] Onset: 04-12-2014 Resolved: 01-18-2015 01-18-2015 Chronic Other connective tissue disease (20 sources) Calcaneal spur; Translations: [Calcaneal spur, unspecified foot] Onset: 05-05-2011 Resolved: 12-30-2011 12-30-2011 Episodic Other gastrointestinal disorders (20 sources) Irritable bowel syndrome; Translations: [Irritable bowel syndrome without diarrhea] Resolved: 02-22-2018 02-22-2018 Chronic Other nutritional; endocrine; and metabolic disorders (20 sources) Obese class I; Translations: [Obesity, unspecified] Onset: 06-10-2021 Resolved: 01-09-2023 06-10-2021 Chronic Other screening for suspected conditions (not mental disorders or infectious disease) (14 sources) Patient encounter status; Translations: [Encounter for screening for malignant neoplasm of prostate] Onset: 09-28-2024 Episodic Screening and history of mental health and substance abuse codes (2 sources) Encounter for screening for depression; Translations: [Encounter for screening examination for other mental health and behavioral disorders] Onset: 03-28-2025 Episodic Spondylosis; intervertebral disc disorders; other back problems (20 sources) Acute back pain with sciatica; Translations: [Lumbago with sciatica, right side] Onset: 10-31-2021 Resolved: 06-23-2022 10-31-2021 Episodic Unclassified (1 source) Fatty liver disease, nonalcoholic 10-11-2024 Unclassified (1 source) Elevated LFTs 10-11-2024 Unclassified (2 sources) Patient encounter status 03-28-2025 Results Test Name Value Interpretation Reference Range Facility CT KNEE W/O CONTRAST LEFTon 08-02-2025 CT KNEE W/O CONTRAST LEFT ORIGINAL EXAMINATION: CT OF THE LEFT KNEE WITHOUT CONTRAST 08/01/2025 11:46 am TECHNIQUE: CT of the left knee was performed without the administration of intravenous contrast. Multiplanar reformatted images are provided for review. Automated exposure control, iterative reconstruction, and/or weight based adjustment of the mA/kV was utilized to reduce the radiation dose to as low as reasonably achievable. [facility] protocol for with axial images through the left hip and left ankle. COMPARISON: None. HISTORY ORDERING SYSTEM PROVIDED HISTORY: Reason for Exam: Varus deformity, not elsewhere classified, left knee FINDINGS: There is no acute fracture or dislocation. There is no suspicious lytic or blastic osseous lesion. There is no aggressive periosteal reaction. Pubic symphysis maintained. There is a sclerotic multilobulated 1 cm lesion in the left acetabulum anteriorly favored to reflect a small bone island. Mild circumferential bladder wall thickening. The prostate is enlarged measuring up to 5.9 cm in transverse dimension. Tricompartmental osteoarthritis. Severe degenerative changes in the medial compartment with [id number], subchondral sclerosis, subchondral cysts and marginal osteophyte formation. Tricompartmental spurring. Spurring of the tibial spines are to condylar notch. Lateral coronal tibiofemoral subluxation. Trivial popliteal Hamilton's cyst. No significant knee joint effusion. There is no evidence of solid or cystic soft tissue mass. Limited evaluation the neurovascular structures lack of contrast. IMPRESSION: 1. Tricompartmental osteoarthritis of the knee most pronounced and severe in the medial compartment. 2. Prostatomegaly. 3. Mild circumferential bladder wall thickening, correlate with urinalysis. 4. Additional findings as detailed above. Interpreted by: Yasmine Jefferson Preliminary Report By: Yasmine Jefferson Electronically signed By Yasmine Jefferson Dictated Date: 08/02/2025 9:31:47 AM Prelim Date: 08/02/2025 9:39:10 AM Sign Date: 08/02/2025 9:39:10 AM Ordering Provider: REJI AGUILAR Normal [facility] .Auto Diffon 08-01-2025 Basophil, Absolute 0.0 10 3/mcL Normal 0.0-0.3 [facility] Comment on above: Performed By: #### A LB, ADIFF, ANEU, A1C, ABSGEL, BMP, GFR, CBC, ABOGEL #### [address] [address] Basophils/100 WBC (Bld) 0.7 % Normal 0.0-2.[address] [facility] Comment on above: Performed By: #### A LB, ADIFF, ANEU, A1C, ABSGEL, BMP, GFR, CBC, ABOGEL #### [address] [address] Eosinophil, Absolute 0.2 10 3/mcL Normal 0.0-0.7 [facility] Comment on above: Performed By: #### A LB, ADIFF, ANEU, A1C, ABSGEL, BMP, GFR, CBC, ABOGEL #### [address] [address] Eosinophils/100 WBC (Bld) 2.6 % Normal 0.0-6.[address] [facility] Comment on above: Performed By: #### A LB, ADIFF, ANEU, A1C, ABSGEL, BMP, GFR, CBC, ABOGEL #### [address] [address] Lymphocyte, Absolute 1.9 10 3/mcL Normal 0.9-4.3 [facility] Comment on above: Performed By: #### A LB, ADIFF, ANEU, A1C, ABSGEL, BMP, GFR, CBC, ABOGEL #### [address] [address] Lymphocytes/100 WBC (Bld) 30.9 % Normal 20.0-40.[address] [facility] Comment on above: Performed By: #### A LB, ADIFF, ANEU, A1C, ABSGEL, BMP, GFR, CBC, ABOGEL #### [address] [address] Monocyte, Absolute 0.5 10 3/mcL Normal 0.1-1.4 [facility] Comment on above: Performed By: #### A LB, ADIFF, ANEU, A1C, ABSGEL, BMP, GFR, CBC, ABOGEL #### [address] [address] Monocytes/100 WBC (Bld) 8.3 % Normal 2.0-13.[address] [facility] Comment on above: Performed By: #### A LB, ADIFF, ANEU, A1C, ABSGEL, BMP, GFR, CBC, ABOGEL #### [address] [address] Neutrophils/100 WBC (Bld) 57.5 % Normal 50.0-75.[address] [facility] Comment on above: Performed By: #### A LB, ADIFF, ANEU, A1C, ABSGEL, BMP, GFR, CBC, ABOGEL #### [address] [address] .GFRon 08-01-2025 Estimated Glomerular Filtration Rate 81 ml/min/1.73sqm Normal [facility] Comment on above: Result Comment: Stages of Chronic Kidney Disease (CKD) Stage Description eGFR(ml/min/1.73 sq.m.) CKD 1 Normal kidney function or >=90 normal kindney function with possible kidney damage (ex. Proteinuria) CKD 2 Kidney damage with mild loss 60-89 of kidney function CKD 3a Mild to moderate loss of kidney 45-59 function CKD 3b Moderate to severe loss of 30-44 of kindey function CKD 4 Severe loss of kidney function 15-29 CKD 5 Kidney failure <15 Note: (go live 2024) the eGFR calculation was updated to the 2020 CKD-EPI creatinine equation without a race factor to calculate the eGFR results. Performed By: #### A LB, ADIFF, ANEU, A1C, ABSGEL, BMP, GFR, CBC, ABOGEL #### [address] [address] .NEUABSon 08-01-2025 Neutrophil, Absolute 3.6 10 3/mcL Normal 2.3-8.1 [facility] Comment on above: Performed By: #### A LB, ADIFF, ANEU, A1C, ABSGEL, BMP, GFR, CBC, ABOGEL #### [address] [address] A1Con 08-01-2025 Glucose [Mass/Vol] 140 mg/dL Normal [facility] Comment on above: Result Comment: Maria Victoria mated Average Glucose calculated by equation ((28.7xA1C)-46.7) Estimated average glucose (eAG) is a calculated value from Hemoglobin A1C and is artist representative of the average blood glucose level in the last 2-3 month period. Normal range: less than 114 mg/dL Performed By: #### A LB, ADIFF, ANEU, A1C, ABSGEL, BMP, GFR, CBC, ABOGEL #### [address] [address] HbA1c (Bld) [Mass fraction] 6.5 % High 4.3-6.[address] [facility] Comment on above: Performed By: #### A LB, ADIFF, ANEU, A1C, ABSGEL, BMP, GFR, CBC, ABOGEL #### [id number] [place], [place] [address] ABO/Rh (Gel)on 08-01-2025 ABO/Rh Interp Positive Invalid Interpretation Code [facility] Comment on above: Performed By: #### A LB, ADIFF, ANEU, A1C, ABSGEL, BMP, GFR, CBC, ABOGEL #### [address] [address] ABS (Gel)on 08-01-2025 ABSC Interp (Gel) Negative Normal [facility] Comment on above: Performed By: #### A LB, ADIFF, ANEU, A1C, ABSGEL, BMP, GFR, CBC, ABOGEL #### [address] [address] ALBon 08-01-2025 Albumin Level 3.9 G/dL Normal 3.4-4.8 [facility] [facility] Comment on above: Performed By: #### A LB, ADIFF, ANEU, A1C, ABSGEL, BMP, GFR, CBC, ABOGEL #### [address] [address] BMPon 08-01-2025 BUN/Creatinine Ratio 25 ratio Normal 7-27 [facility] Comment on above: Performed By: #### A LB, ADIFF, ANEU, A1C, ABSGEL, BMP, GFR, CBC, ABOGEL #### [address] [address] Calcium [Mass/Vol] 9.4 mg/dL Normal 8.4-10.2 [facility] Comment on above: Performed By: #### A LB, ADIFF, ANEU, A1C, ABSGEL, BMP, GFR, CBC, ABOGEL #### [address] [address] Chloride [Moles/Vol] 100 mmol/L Normal 98-107 [facility] Comment on above: Performed By: #### A LB, ADIFF, ANEU, A1C, ABSGEL, BMP, GFR, CBC, ABOGEL #### [address] [address] CO2 [Moles/Vol] 26 mmol/L Normal 23-[address] [facility] Comment on above: Performed By: #### A LB, ADIFF, ANEU, A1C, ABSGEL, BMP, GFR, CBC, ABOGEL #### [address] [address] Creatinine [Mass/Vol] 1.05 mg/dL Normal 0.67-1.[address] [facility] Comment on above: Performed By: #### A LB, ADIFF, ANEU, A1C, ABSGEL, BMP, GFR, CBC, ABOGEL #### [address] [address] Electrolyte Balance 11.0 mEq/L Normal 4.0-15.0 [facility] Comment on above: Performed By: #### A LB, ADIFF, ANEU, A1C, ABSGEL, BMP, GFR, CBC, ABOGEL #### [address] [address] Glucose [Mass/Vol] 164 mg/dL High 80-115 [facility] Comment on above: Performed By: #### A LB, ADIFF, ANEU, A1C, ABSGEL, BMP, GFR, CBC, ABOGEL #### [address] [address] Potassium [Moles/Vol] 3.9 mmol/L Normal 3.5-5.[address] [facility] Comment on above: Performed By: #### A LB, ADIFF, ANEU, A1C, ABSGEL, BMP, GFR, CBC, ABOGEL #### [address] [address] Sodium [Moles/Vol] 137 mmol/L Normal 136-145 [facility] Comment on above: Performed By: #### A LB, ADIFF, ANEU, A1C, ABSGEL, BMP, GFR, CBC, ABOGEL #### [address] [address] Urea nitrogen [Mass/Vol] 26 mg/dL High 7-[address] [facility] Comment on above: Performed By: #### A LB, ADIFF, ANEU, A1C, ABSGEL, BMP, GFR, CBC, ABOGEL #### [address] [address] CBCon 08-01-2025 Erythrocyte distribution width (RBC) [Ratio] 13.5 % Normal 11.5-15.[address] [facility] Comment on above: Order Comment: Pre-A dmission Testing Performed By: #### A LB, ADIFF, ANEU, A1C, ABSGEL, BMP, GFR, CBC, ABOGEL #### [place] [address] Hematocrit (Bld) [Volume fraction] 41.9 % Normal 40.0-52.[address] [facility] Comment on above: Order Comment: Pre-A dmission Testing Performed By: #### A LB, ADIFF, ANEU, A1C, ABSGEL, BMP, GFR, CBC, ABOGEL #### [place] [address] Hgb 14.4 G/dL Normal 13.0-17.[address] [facility] Comment on above: Order Comment: Pre-A dmission Testing Performed By: #### A LB, ADIFF, ANEU, A1C, ABSGEL, BMP, GFR, CBC, ABOGEL #### [place] [address] MCH (RBC) [Entitic mass] 31.0 pg Normal 27.0-33.[address] [facility] Comment on above: Order Comment: Pre-A dmission Testing Performed By: #### A LB, ADIFF, ANEU, A1C, ABSGEL, BMP, GFR, CBC, ABOGEL #### [place] [address] MCHC 34.4 G/dL Normal 32.0-36.[address] [facility] Comment on above: Order Comment: Pre-A dmission Testing Performed By: #### A LB, ADIFF, ANEU, A1C, ABSGEL, BMP, GFR, CBC, ABOGEL #### [place] [address] MCV (RBC) [Entitic vol] 90.2 fL Normal 81.0-100.[address] [facility] Comment on above: Order Comment: Pre-A dmission Testing Performed By: #### A LB, ADIFF, ANEU, A1C, ABSGEL, BMP, GFR, CBC, ABOGEL #### [place] [id number] Platelet 298 10 3/mcL Normal 150-[address] [facility] Comment on above: Order Comment: Pre-A dmission Testing Performed By: #### A LB, ADIFF, ANEU, A1C, ABSGEL, BMP, GFR, CBC, ABOGEL #### [address] [address] Platelet mean volume (Bld) [Entitic vol] 7.4 fL Normal 6.4-10.[address] [facility] Comment on above: Order Comment: Pre-A dmission Testing Performed By: #### A LB, ADIFF, ANEU, A1C, ABSGEL, BMP, GFR, CBC, ABOGEL #### [place] [address] [place], [place] [address] RBC 4.64 10 6/mcL Normal 4.50-6.[address] [facility] Comment on above: Order Comment: Pre-A dmission Testing Performed By: #### A LB, ADIFF, ANEU, A1C, ABSGEL, BMP, GFR, CBC, ABOGEL #### [address] [address] WBC 6.3 10 3/mcL Normal 4.5-10.[address] [facility] Comment on above: Order Comment: Pre-A dmission Testing Performed By: #### A LB, ADIFF, ANEU, A1C, ABSGEL, BMP, GFR, CBC, ABOGEL #### [address] [address] LABORATORYOrdered By: Mika Soriano on 08-01-2025 ABO and Rh group Nom (Bld) Blood group A Rh(D) positive Invalid Interpretation Code AO BB Auto SS Blood group antibody screen Ql Negative ABSC (08/01/25 10:29 AM) Normal AO BB Auto SS LABORATORYOrdered By: SYSTEM SYSTEM on 08-01-2025 Albumin BCP dye [Mass/Vol] 3.9 G/dL Normal 3.4 - 4.8 G/dL AO ADM SS Basophils (Bld) [#/Vol] 0.0 103/mcL Normal 0.0 - 0.3 10^3/mcL AO Workflow SS Basophils/100 WBC (Bld) 0.7 % Normal 0.0 - 2.5 % AO Workflow SS Calcium [Mass/Vol] 9.4 mg/dL Normal 8.4 - 10. 2 mg/dL AO ADM SS Chloride [Moles/Vol] 100 mmol/L Normal 98 - 10 7 mmol/L AO ADM SS CO2 [Moles/Vol] 26 mmol/L Normal 23 - 31 mmol/L AO ADM SS Creatinine [Mass/Vol] 1.05 mg/dL Normal 0.67 - 1.17 mg/dL AO ADM SS Electrolyte Balance 11.0 mEq/L Normal 4.0 - 15 .0 mEq/L AO ADM SS Eosinophil, Absolute 0.2 103/mcL Normal 0.0 - 0 .7 10^3/mcL AO Workflow SS Eosinophils/100 WBC (Bld) 2.6 % Normal 0.0 - 6.0 % AO Workflow SS Erythrocyte distribution width (RBC) [Ratio] 13.5 % Normal 11.5 - 15.5 % AO Workflow SS GLOMERULAR FILTRATION RATE/1.73 SQ M.PREDICTED:ARVRAT:P T:SER/PLAS/BLD:QN:CR EATININE-BASED FORMULA (CKD-EPI 2020) 81 ml/min/1.73sqm Invalid Interpretation Code AO Chemistry S Comment on above: Interpretive Data: Stages of Chronic Kidney Disease (CKD) Stage Description eGFR(ml/min/1.73 sq.m.) CKD 1 Normal kidney function or >=90 normal kindney function with possible kidney damage (ex. Proteinuria) CKD 2 Kidney damage with mild loss 60-89 of kidney function CKD 3a Mild to moderate loss of kidney 45-59 function CKD 3b Moderate to severe loss of 30-44 of kindey function CKD 4 Severe loss of kidney function 15-29 CKD 5 Kidney failure <15 Note: (go live 2024) the eGFR calculation was updated to the 2020 CKD-EPI creatinine equation without a race factor to calculate the eGFR results. Glucose [Mass/Vol] 164 mg/dL High 80 - 115 mg/dL AO ADM SS Glucose [Mass/Vol] 140 mg/dL Invalid Interpretation Code AO Chemistry S Comment on above: Interpretive Data: E stimated average glucose (eAG) is a calculated value from Hemoglobin A1C and is artist representative of the average blood glucose level in the last 2-3 month period. Normal range: less than 114 mg/dL HbA1c (Bld) [Mass fraction] 6.5 % High 4.3 - 6.4 % AO ADM SS Hematocrit (Bld) [Volume fraction] 41.9 % Normal 40.0 - 52.0 % AO Workflow SS Hemoglobin (Bld) [Mass/Vol] 14.4 G/dL Normal 13.0 - 17.5 G/dL AO Workflow SS Lymphocytes (Bld) [#/Vol] 1.9 103/mcL Normal 0.9 - 4.3 10^3/mcL AO Workflow SS Lymphocytes/100 WBC (Bld) 30.9 % Normal 20.0 - 40.0 % AO Workflow SS MCH (RBC) [Entitic mass] 31.0 pg Normal 27.0 - 33.0 pg AO Workflow SS MCHC 34.4 G/dL Normal 32.0 - 36.0 G/dL AO Workflow SS MCV (RBC) [Entitic vol] 90.2 fL Normal 81.0 - 100.0 fL AO Workflow SS Monocytes (Bld) [#/Vol] 0.5 103/mcL Normal 0.1 - 1.4 10^3/mcL AO Workflow SS Monocytes/100 WBC (Bld) 8.3 % Normal 2.0 - 13.0 % AO Workflow SS Neutrophils (Bld) [#/Vol] 3.6 103/mcL Normal 2.3 - 8.1 10^3/mcL AO Workflow SS Neutrophils/100 WBC (Bld) 57.5 % Normal 50.0 - 75.0 % AO Workflow SS Platelet mean volume (Bld) [Entitic vol] 7.4 fL Normal 6.4 - 10.5 fL AO Workflow SS Platelets (Bld) [#/Vol] 298 103/mcL Normal 150 - 450 10^3/mcL AO Workflow SS Potassium [Moles/Vol] 3.9 mmol/L Normal 3.5 - 5.1 mmol/L AO ADM SS RBC (Bld) [#/Vol] 4.64 106/mcL Normal 4.50 - 6.0 0 10^6/mcL AO Workflow SS Sodium [Moles/Vol] 137 mmol/L Normal 136 - 145 mmol/L AO ADM SS Urea nitrogen [Mass/Vol] 26 mg/dL High 7 - 18 mg/dL AO ADM SS Urea nitrogen/Creatinine [Mass ratio] 25 ratio Normal 7 - 27 ratio AO ADM SS WBC (Bld) [#/Vol] 6.3 103/mcL Normal 4.5 - 10.8 10^3/mcL AO Workflow SS LABORATORYOrdered By: Myriam Dick on 08-01-2025 MRSA (PCR) Not Detected 1 (08/01/25 10:29 AM) Normal Not Detected Auto Viro/Sero SS Comment on above: Result Comment: [place] [id number] MRSA PCR Int See Below 2 *NA* (08/01/25 10:29 AM) Invalid Interpretation Code Auto Viro/Sero SS Comment on above: Result Comment: Clinical Interpretation: MRSA DNA not detected by Real-Time Polymerase Chain Reaction (PCR). A negative result may be due to intermittent colonization. Colonization may vary depending on patient treatment, patient status, or exposure to high-risk environments. As with all PCR based in vitro diagnostic tests, extremely low levels of target below the limit of detection of the assay may be detected, but results may not be reproducible. MRSAPCRon 08-01-2025 MRSA (PCR) Not detected Normal Not Detected [facility] Comment on above: Result Comment: [place] [id number] Performed By: #### M RSAPCR #### [place] [address] MRSA PCR Int See Below Normal [facility] Comment on above: Result Comment: Clinical Interpretation: MRSA DNA not detected by Real-Time Polymerase Chain Reaction (PCR). A negative result may be due to intermittent colonization. Colonization may vary depending on patient treatment, patient status, or exposure to high-risk environments. As with all PCR based in vitro diagnostic tests, extremely low levels of target below the limit of detection of the assay may be detected, but results may not be reproducible. Performed By: #### M RSAPCR #### [place] [id number] CNOVon 07-24-2025 CNOV Office Visit (WOU[facility]) REJI BRITO ([id number]) 1965 M NFR Date Time Provider Department 07/24/25 9:30 AM EVA CHAIDEZ During your visit today, we recorded the following information about you: Temperature Pulse Respiration Blood pressure 98.1 degrees 80/minute 21/minute 140/90 Weight 109.3 kg Eva Chaidez PA-C 07/24/2025 10:04 AM Signed [facility] Subjective Reji Brito is a 60 year old male. Patient presents with: Cough: Sinus issues, congestion, MARQUEZ x 2 weeks Patient is a 60-year-old male who complains of worsening congestion, sinus pressure, sinus pain, ear pain, throat irritation and cough that he has been experiencing for the past 2 weeks. Patient also reports low-grade fever. Patient has no history of asthma or COPD and does not smoke. Patient has been taking [id number] medications with no improvement in his symptoms. Cough Associated symptoms include ear pain and sore throat. Review of Systems HENT: Positive for congestion, ear pain, postnasal drip, sinus pressure, sneezing and sore throat. Respiratory: Positive for cough. Objective BP 140/90 Pulse 80 Temp 36.7 ?C (98.1 ?F) Resp 21 Wt 109.3 kg (240 lb 15.4 oz) SpO2 97% BMI 35.84 kg/m? Physical Exam Vitals and nursing note reviewed. Constitutional: Appearance: Normal appearance. He is normal weight. HENT: Head: Normocephalic and atraumatic. Right Ear: Tympanic membrane, ear canal and external ear normal. Left Ear: Tympanic membrane, ear canal and external ear normal. Nose: Congestion present. Mouth/Throat: Mouth: Mucous membranes are moist. Pharynx: Oropharynx is clear. Eyes: Extraocular Movements: Extraocular movements intact. Conjunctiva/sclera: Conjunctivae normal. Pupils: Pupils are equal, round, and reactive to light. Cardiovascular: Rate and Rhythm: Normal rate and regular rhythm. Pulses: Normal pulses. Heart sounds: Normal heart sounds. Pulmonary: Effort: Pulmonary effort is normal. Breath sounds: Normal breath sounds. Musculoskeletal: Cervical back: Normal range of motion and neck supple. Skin: General: Skin is warm and dry. Capillary Refill: Capillary refill takes less than 2 seconds. Neurological: General: No focal deficit present. Mental Status: He is alert and oriented to person, place, and time. Psychiatric: Mood and Affect: Mood normal. Behavior: Behavior normal. Thought Content: Thought content normal. Judgment: Judgment normal. MDM Physical exam findings as noted above. Patient was provided with prescriptions for Augmentin 875-125 mg and Tessalon 100 mg. Supportive care instructions were discussed the patient verbalizes good understanding of same. CLINICAL IMPRESSION: Acute Sinusitis ASSESSMENT/PLAN: 1. Acute non-recurrent sinusitis, unspecified location - ICD9: 461.9, ICD10: J01.90 - AMOXICILLIN 875 MG-POTASSIUM CLAVULANATE 125 MG TABLET - BENZONATATE 100 MG CAPSULE MDM Risk of Complications, Morbidity, and/or Mortality Presenting problems: low Diagnostic procedures: low Management options: ian Chaidez PA-C Allergies As of Date: 07/24/2025 Noted Allergy Reaction HOPS 04/12/2014 9 - Itching SEASONAL ALLERGIES 05/22/2015 16 - Unknown Comments: Trees, grasses, weeds, ragweed and cockroaches verified by skin testing Date Reviewed: 07/24/2025 Reviewed by: Jamee Sibley MA - Fully Assessed Reason for Visit: Cough [28] Cmt: Sinus issues, congestion, MARQUEZ x 2 weeks Primary Visit Diagnosis:Acute non-recurrent sinusitis, unspecified location [J01.90] Order(s):amoxicillin-clavul anate potassium (AUGMENTIN) 875-125 mg per tabletTake 1 tablet by mouth two times a day for 5 days.Disp: 10 tabletRfl: 0 benzonatate (TESSALON PERLE) 100 mg capsuleTake 1 capsule by mouth three times a day as needed for cough for up to 7 days.Disp: 21 capsuleRfl: 0 Prescriptions as of 07/24/2025 - amoxicillin-clavulanate potassium (AUGMENTIN) 875-125 mg per tablet Take 1 tablet by mouth two times a day for 5 days. - benzonatate (TESSALON PERLE) 100 mg capsule Take 1 capsule by mouth three times a day as needed for cough for up to 7 days. - fluticasone (FLONASE) 50 mcg/actuation nasal spray Use 2 sprays in each nostril two times a day. Rinse mouth after use. - budesonide-formoterol (SYMBICORT) 160-4.5 mcg/actuation inhaler Inhale 2 puffs as instructed two times a day. - dulaglutide (TRULICITY) 1.5 mg/0.5 mL pen injector Inject 1.5 mg subcutaneously one time a week. - chlorthalidone (HYGROTON) 25 mg tablet Take 1 tablet by mouth once daily. - lisinopril (ZESTRIL) 20 mg tablet Take 1 tablet by mouth once daily. - metFORMIN ER (GLUCOPHAGE XR) 500 mg 24 hr tablet Take 1 tablet by mouth daily with breakfast. - montelukast (SINGULAIR) 10 mg tablet Take 1 tablet by mouth daily at bedtime. - pantoprazole DR (PROTON (more content not included)... Normal [facility] URINE CULTURE [CCL]on 2024 Bacteria identified Cx Nom (U) URCUL See Results Below See Below CULTURE, URINE No growth (<1,000 CFU/ml) SOURCE: Urine (Nonspecific) [facility] [address] [place] [address] Guilherme Garcia III, M.D. [id number] SEND TO IC NO Normal [facility] Comment on above: Performed By: #### 2 [id number] #### [facility],[address] [place] [address] ED MED ADMINISTRATION DETAIL on 06-29-2025 ED MED ADMINISTRATION DETAIL Wellness Instructor - REJI BRITO, : 1965, , [place] [address] [id number] 06/28/2025 Patient: REJI BRITO Sex: Male : 1965 Age: 60y MEASUREMENTS: Wt: 107.0 kg, Ht/Aidan: 71.0 in, BMI: 32.91 ALLERGIES: No known drug allergies Medication Ordered Medication Administration Date/Time MORPHine IVP 4 21:57 06/28 MORPHine IVP 4 mg given via Site# 1. Given mg (NOW x1, Allergies verified and confirmed 5 rights. IV patency 21:57 06/28/2025 HIGH ALERT established. IV site checked: no pain, redness, or swelling. Deandra Denis R.N. MEDICATION) IV flushed thoroughly pre-medication administration. IVP Scanned given by nurse. Information reviewed with patient including reason for taking this medication, signs of allergic reaction, precautions and sedative warning. Verbalizes understanding. - 21:57 Deandra Denis R.N. KetorOLAC 21:58 10 KetorOLAC (Toradol) IVP 15 mg given via Given (Toradol) IVP 15 Site# 1. Allergies verified and confirmed 5 rights. IV 21:58 06/28/2025 mg (NOW x1) patency established. IV site checked: no pain, redness, or Deandra Denis R.N. swelling. IV flushed thoroughly pre-medication Scanned administration. IVP given by nurse. Information reviewed with patient including reason for taking this medication, signs of allergic reaction and precautions. Verbalizes understanding. Medication Wastage: 15 mg wasted. - 21:58 Deandra Denis R.N. 1 of 2 Wellness Instructor - REJI BRITO, : 1965, , Lidocaine 21:58 06/28 Lidocaine (Lidoderm) Transdermal Patch 1 Given (Lidoderm) patch given. Applied to affected area and secured by tape. 21:58 06/28/2025 Transdermal Allergies verified and confirmed 5 rights. Information Deandra Denis R.N. Patch 1 patch reviewed with patient including reason for taking this Scanned (NOW x1) medication, signs of allergic reaction and precautions. Verbalizes understanding. - 21:59 Deandra Denis R.N. Cyclobenzaprine 21:58 06/28 Cyclobenzaprine (Flexeril) PO 5 mg given. Given (Flexeril) PO 5 Allergies verified and confirmed 5 rights. Information 21:58 06/28/2025 mg (NOW x1) reviewed with patient including reason for taking this Deandra Denis R.N. medication, signs of allergic reaction, precautions and Scanned sedative warning. Verbalizes understanding. Medication Wastage: 5 mg wasted. - 21:58 Deandra Denis R.N. 2 of 2 [facility] ED NURSES CLINICAL NOTEon ED NURSES CLINICAL NOTE Nurse Narrative - REJI BRITO, : 1965, , Nurse Clinical Narrative [address] [place] [address] [phone] 06/28/2025 21:02:00 Patient: REJI BRITO Sex: Male : 1965 Age: 60y Disposition: Discharge to Home Disposition Decision Time: 00:03 06/29/2025 Departure Time: 00:15 06/29/2025 TRIAGE Arrived by private vehicle. Primary physician (Curtis). Triage time: 21:03 06/28/2025. Acuity: LEVEL 3. Chief Complaint: ABDOMINAL PAIN and (back/abdominal pain, left groin pain started yesterday). Alert. This started yesterday. The patient has had abdominal pain. No nausea, vomiting, diarrhea or fever. SEPSIS SCREEN: NEGATIVE. SIRS criteria negative. No possible sources of infection. -- 21:18 06/28/25 EDT Arianna Urena R.N. 21:06 06/28/25. BP: 143/80 (large cuff) taken on right arm, while lying. MAP: 101. HR: 82. Regular and normal rate. RR: 18. Regular and unlabored. Rate is normal. O2 saturation: 98% on room air. Temperature: 97.8 F. Pain level now 8/10. Describes the pain as aching. Constant. (lower abdominal pain, lower back pain and left groin pain). -- 21:18 06/28/25 EDT Arianna Urena R.N. Measurements: 21:18 06/28/25 Wt: 107.0 kg, Ht/Aidan: 71.0 in, BMI: 32.91 -- 21:18 06/28/25 EDT Arianna Urena R.N. Medications: 1 of 5 Nurse Narrative - REJI BRITO, : 1965, , simvastatin 40 mg tablet -- 21:20 06/28/25 EDT Arianna Urena R.N. lisinopril 20 mg tablet -- 21:20 06/28/25 EDT Arianna Urena R.N. chlorthalidone 25 mg tablet -- 21:20 06/28/25 SHARITA Urena R.N. montelukast 10 mg tablet -- 21:20 06/28/25 MARINAT Arianna Urena R.N. metformin ER 500 mg tablet,extended release 24 hr -- 21:20 06/28/25 MARINAT Arianna Urena R.N. fluticasone propionate 50 mcg/actuation nasal spray,suspension -- 21:20 06/28/25 MARINAT Arianna Urena R.N. Symbicort 160 mcg-4.5 mcg/actuation HFA aerosol inhaler -- 21:20 06/28/25 SHARITA Urena R.N. pantoprazole 40 mg tablet,delayed release -- 21:20 06/28/25 MARINAT Arianna Urena R.N. Trulicity 1.5 mg/0.5 mL subcutaneous pen injector -- 21:20 06/28/25 SHARITA Urena R.N. chlorthalidone 25 mg tablet: 25 mg once a day . -- 21:20 06/28/25 MARINAT Arianna Urena R.N. fluticasone propionate 50 mcg/actuation nasal spray,suspension: 2 sprays once a day . -- 21:20 06/28/25 SHARITA Urena R.N. lisinopril 20 mg tablet: 20 mg once a day . -- 21:21 06/28/25 SHARITA Urena R.N. metformin ER 500 mg tablet,extended release 24 hr: 500 mg once a day . -- 21:21 06/28/25 MARINAT Arianna Urena R.N. montelukast 10 mg tablet: 10 mg once a day . -- 21:22 06/28/25 MARINAT Arianna Urena R.N. pantoprazole 40 mg tablet,delayed release: 40 mg once a day . -- 21:22 06/28/25 MARINAT Arianna Urena R.N. simvastatin 40 mg tablet: 40 mg once a day . -- 21:22 06/28/25 MARINAT Arianna Urena R.N. Symbicort 160 mcg-4.5 mcg/actuation HFA aerosol inhaler: 2 inhalations once a day . -- 21:22 06/28/25 EDT Arianna Urena R.N. Trulicity 1.5 mg/0.5 mL subcutaneous pen injector: 1.5 mg weekly . -- 21:23 06/28/25 EDT Arianna Urena R.N. Allergies: no known drug allergies -- 21:15 06/28/25 EDT Arianna Urena R.N. Problems: Diabetes Mellitus -- 21:15 06/28/25 EDT Arianna Urena R.N. Hypertension -- 21:15 06/28/25 EDT Arianna Urena R.N. Seasonal allergic rhinitis -- 21:15 06/28/25 EDT Arianna Urena R.N. Surgeries: Colonoscopy -- 21:15 06/28/25 EDT Arianna Urena R.N. History 2 of 5 Nurse Narrative - TODDREJI MORALES, : 1965, , 21:03 06/28/25. SOCIAL HX: Never smoker. No alcohol use or drug use. The patient has not traveled outside the [place] Infectious disease exposure: No infectious disease exposure. ABUSE ASSESSMENT: The patient answered yes to the question(s) Do you feel safe in your home? and no to the question(s) Are you afraid to go home?. SELF HARM ASSESSMENT: Self harm assessment was performed. The patient answered no to the question(s) Have you recently felt down, depressed, or hopeless? and Do you have thoughts of harming or killing yourself?. FALL RISK ASSESSMENT: Fall risk assessment completed. No risk factors identified. -- 21:18 06/28/25 EDT Arianna Urena R.N. Interventions 21:03 06/28/25. Identification band on patient. Advanced care plan discussed with patient. Patient does not have advanced directive. -- 21:18 06/28/25 MARINAT Arianna Urena R.N. PHYSICAL ASSESSMENT 21:32 06/28/25. GENERAL / NEURO / PSYCH: Alert. Oriented X 4. Appears in pain. ( pt C/O lower back pain that radiates to left hip and left lower quadrant pain.). HEENT: Mucous membranes are pink. RESPIRATORY: Respirations not labored. Breath sounds within normal limits. CVS: Normal sinus rhythm noted. Capillary refill less than 2 seconds. GI / : The patient has had nausea. Abdomen soft. Abdominal tenderness. Bowel sounds within normal limits. SKIN (more content not included)... Normal [facility] ED ORDER SHEET (CPOE ONLY)on 06-29-2025 ED ORDER SHEET (CPOE ONLY) Order Sheet - REJI BRITO, : 1965, , Order Sheet [place] [id number] [place] [address] [id number] 06/28/2025 Patient: REJI BRITO Sex: Male : 1965 Age: 60y MEASUREMENTS: Wt: 107.0 kg, Ht/Aidan: 71.0 in, BMI: 32.91 ALLERGIES: No known drug allergies MEDICATION/IV/DRIP/FLUID ORDERS Acknowledge Order Description Priority Entered d Completed MORPHine IVP4 mg (NOW 21:46 06/28/2025 21:47 21:57 x1, HIGH ALERT MEDICATION) Ha Lopez M.D. 06/28/2025 06/28/2025 Deandra Edmonds, R.N. R.N. Reason for ordering with Benefits outweigh risks --21:46 06/28/2025 ricardo Gupta: Bella KetorOLAC (Toradol) IVP15 21:46 06/28/2025 21:47 21:58 mg (NOW x1) Ha Lopez M.D. 06/28/2025 06/28/2025 Deandra Edmonds R.N. R.N. Reason for ordering with Benefits outweigh risks --21:46 06/28/2025 ricardo Gupta: Bella Lidocaine (Lidoderm) 21:46 06/28/2025 21:47 21:59 Transdermal Patch1 patch Ha Lopez M.D. 06/28/2025 06/28/2025 (NOW x1) Deandra Edmonds R.N. R.N. 1 of 3 Order Sheet - REJI BRITO, : 1965, , Cyclobenzaprine (Flexeril) 21:46 06/28/2025 21:47 21:58 PO5 mg (NOW x1) Ha Lopez M.D. 06/28/2025 06/28/2025 Deandra Edmonds R.N. R.N. Reason for ordering with Benefits outweigh risks --21:46 06/28/2025 Ha Lopez, alerts: M.Alex[facility] LAB ORDERS Acknowledge Order Description Priority Entered d Collected Completed CBC w Diff Stat Stat 21:46 21:47 21:56 06/28/2025 06/28/2025 06/28/2025 Deandra Gupta R.N. Alivia King, R.N. M.D. CMP Stat Stat 21:46 21:47 21:56 06/28/2025 06/28/2025 06/28/2025 Deandra Gupta R.N. Alivia King, R.N. M.D. EKG - ED Stat Stat 21:46 21:47 21:56 06/28/2025 06/28/2025 06/28/2025 Deandra Gupta R.N. Alivia King, R.N. M.D. Urinalysis Stat Stat 21:46 21:47 23:30 06/28/2025 06/28/2025 06/28/2025 Deandra Gupta R.N. Anne Rutt, R.N. M.D. Urine Culture [CCL] Stat 21:46 21:47 23:30 Stat 06/28/2025 06/28/2025 06/28/2025 Deandra Gupta R.N. Anne Rutt, R.N. 2 of 3 Order Sheet - REJI BRITO, : 1965, , [facility] DIAGNOSTIC ST[facility]Y ORDERS Acknowledge Order Description Priority Entered d Completed CT ABD/PEL w Cont Stat Stat 21:46 06/28/2025 21:47 23:24 Ha Lopez M.D. 06/28/2025 06/28/2025 Arianna Edmonds R.N. R.N. Reason for Study: Abdominal Pain STAFF ORDERS Acknowledge Order Description Priority Entered d Collected Completed Bladder Scan 21:46 21:47 22:24 06/28/2025 06/28/2025 06/28/2025 Deandra Gupta R.N. Alivia King, R.N. M.D. [Electronically signed by Ha Lopez M.D. (06/29/2025 00:41 EDT)] 3 of 3 Normal [facility] ED PHYSICIAN CLINICAL REPORT on 06-29-2025 ED PHYSICIAN CLINICAL REPORT Narrative - REJI BRITO, : 1965, , Physician Clinical Narrative [address] [address] [id number] 06/28/2025 21:02:00 Patient: REJI BRITO Sex: Male : 1965 Age: 60y Disposition: Discharge to Home Disposition Decision Time: 00:03 06/29/2025 Departure Time: 00:15 06/29/2025 Measurements Wt: 107.0 kg, Ht/Aidan: 71.0 in, BMI: 32.91 Initial Vital Sign Measured Isai Time BP MAP HR RR O2Sat ETCO2 Temp n GCS RTS 21:06 143/80 101 82 18 98% RA 97.8 F 8 06/28/2025 Time Seen: 21:40 06/28/2025. HISTORY OF PRESENT ILLNESS Chief Complaint: BACK PAIN. It is described as being in the area of the left SI joint. Additional history - Has been going on for several weeks. Goes from his sacroiliac joint on the left to the knee and further down his leg and is a shooting and burning pain however now has pain in the groin and lower abdomen along with abdominal swelling. Denies any fever, chills, nausea, vomiting. Denies any weakness currently. He is not taking anything significant for pain. Has tried chiropractors offices along with ultrasound procedures to help with the pain. Was given a steroid shot and now this is delayed his knee replacement which will not be able to happen for at least 3 weeks. Denies any traumatic injury. Has a history of a broken tailbone as a kid but otherwise no recent trauma. No fever, chills, nausea, vomiting. No reported fecal incontinence. No issues with urinary retention. 1 of 10 REJI Kohli, : 1965, , Similar symptoms previously. ( Never radiating to the groin). Recent medical care: The patient was seen recently by a health care provider. ( Chiropractor's office. Also at orthopedics). REVIEW OF SYSTEMS All other systems reviewed and are negative. PAST HISTORY See nurses notes. Diabetes Mellitus Hypertension Seasonal allergic rhinitis Surgeries: Colonoscopy Medications: chlorthalidone 25 mg tablet: 25 mg once a day . fluticasone propionate 50 mcg/actuation nasal spray,suspension: 2 sprays once a day . lisinopril 20 mg tablet: 20 mg once a day . metformin ER 500 mg tablet,extended release 24 hr: 500 mg once a day . montelukast 10 mg tablet: 10 mg once a day . pantoprazole 40 mg tablet,delayed release: 40 mg once a day . simvastatin 40 mg tablet: 40 mg once a day . Symbicort 160 mcg-4.5 mcg/actuation HFA aerosol inhaler: 2 inhalations once a day . Trulicity 1.5 mg/0.5 mL subcutaneous pen injector: 1.5 mg weekly . Allergies: no known drug allergies ADDITIONAL NOTES The nursing notes have been reviewed. 2 of 10 REJI Kohli, : 1965, , PHYSICAL EXAM Vital Signs: Have been reviewed. Appearance: Alert. No acute distress. HEENT: Normal external inspection. Eyes: Pupils equal, round and reactive to light. Neck: Normal inspection. Neck nontender. Painless ROM. CVS: Heart sounds normal. Pulses normal. Respiratory: No respiratory distress. Painless inspiration. Breath sounds normal. Abdomen: No visible injury. Soft. Mild tenderness in the suprapubic area and left lower quadrant. Bowel sounds normal. No organomegaly. No mass. Back: Normal inspection. No tenderness. Painless ROM. No vertebral point tenderness, soft tissue tenderness or CVA tenderness. (Patient has some pain with palpation of the SI joint on the left side). Rectal: (Good gluteal squeeze). Extremities: Extremities exhibit normal ROM. Extremities nontender. Neuro: Oriented X 3. No cranial nerve deficit. No weakness. No sensory deficit. Straight leg raising: (Negative). Normal gait. (The patient has normal sensation of the bilateral lower extremities. Equal bilaterally. Patient has 2+ DP pulses bilaterally. Has normal plantar and patellar reflexes bilaterally.). LABS, X-RAYS, AND EKG 12-LEAD EKG: Rhythm is sinus with 1 P wave for every QRS 1 QRS for every P wave. ND, QRS, QT intervals are unremarkable. No axis deviation noted. No ST segment elevation or depression. Unremarkable T waves. Unremarkable EKG. Laboratory Tests: CBC + DIFF Final ANGELA: 06/28/2025 21:55:00 EDT MsgRcvd: 06/28/2025 22:17 EDT Lab Test Result Reference Status Received 06/28/2025 22:17 CBC + DIFF Final EDT CBC-COMPLETE BLOOD COUNT 3 of 10 [facility] - REJI BRITO, : 1965, , 06/28/2025 22:17 WBC 8.2 x 10/UL 4.5 - 10.8 Final EDT 06/28/2025 22:17 RBC 4.52 x 10/UL 4.50 - 6.00 Final EDT 06/28/2025 22:17 HEMOGLOBIN 13.8 g/dl 13.0 - 17.5 Final EDT 39.9 % 06/28/2025 22:17 HEMATOCRIT 40.0 - 52.0 Final Below low normal EDT 06/28/2025 22:17 MCV 88 fl 81 - 98 Final EDT 06/28/2025 22:17 MCH 30 pg 2 (more content not included)... Normal [facility] ED [facility] 06-29-2025 ED [facility] - REJI BRITO, : 1965, , [address] [address] [id number] 06/28/2025 Patient: REJI BRITO Sex: Male : 1965 Age: 60y Item Facility Profession Category Description Code al Code Quantity Fee Total Nurse/E/M EMERGENCY 761380 1 $0.00 $0.00 DEPT VISIT HIGH SEVERITYFU NCJ (92953- 25) Nurse/IV/IM/ IVP 082357 1 $0.00 $0.00 Infusions additional push (88268) Nurse/IV/IM/ IVP initial 804848 1 $0.00 $0.00 Infusions (53844) Physician/ Bladder scan 249683 1 $0.00 $0.00 Procedures (95291) Grand Total $0.00 Providers Ha Lopez M.D. 1 of 2 [facility] - REJI BRITO, : 1965, , Chief Complaint BACK PAIN. Principal Diagnosis Sciatica, L side. 2 of 2 [facility] ED VISIT SUMMARYon ED VISIT SUMMARY Visit Overview - REJI BHATTI, : 1965, , Visit [address] [address] [id number] 06/28/2025 Patient: REJI BRITO Sex: Male : 1965 Age: 60y 06/29/2025 12:41 AM EDT ED Arrival:21:02 06/28/2025 Status: Recent Travel:no EDT Language:eng Adv Directive:No Isolation Status: Infectious Disease Ethnicity:N Fall Risk:no risk Exposure:no Measurements:5'11 / 180.3 cm 236.0 lb / 107.0 Self-Harm Status:risk Sepsis Screen:negative kg Chief Complaint:ABDOMINAL PAIN, (back/abdominal pain, left groin pain started yesterday), and (Valezquez) ALLERGIES No Known Drug Allergies HOME MEDICATIONS chlorthalidone 25 mg tablet: 25 mg once a day . 1 of 3 Visit Overview - REJI BRITO, : 1965, , fluticasone propionate 50 mcg/actuation nasal spray,suspension: 2 sprays once a day . lisinopril 20 mg tablet: 20 mg once a day . metformin ER 500 mg tablet,extended release 24 hr: 500 mg once a day . montelukast 10 mg tablet: 10 mg once a day . pantoprazole 40 mg tablet,delayed release: 40 mg once a day . simvastatin 40 mg tablet: 40 mg once a day . Symbicort 160 mcg-4.5 mcg/actuation HFA aerosol inhaler: 2 inhalations once a day . Trulicity 1.5 mg/0.5 mL subcutaneous pen injector: 1.5 mg weekly . PAST MEDICAL HISTORY / PROBLEMS Diabetes Mellitus Hypertension Seasonal allergic rhinitis See nurses notes PAST SURGICAL HISTORY Colonoscopy SOCIAL HISTORY Smoking status: No Alcohol use: No Drug use: No ED COURSE MEDICATIONS GIVEN IN EMERGENCY DEPARTMENT 21:57 06/28/25 MORPHine IVP 4 mg 21:58 06/28/25 Cyclobenzaprine (Flexeril) PO 5 mg 21:58 06/28/25 KetorOLAC (Toradol) IVP 15 mg 21:58 06/28/25 Lidocaine (Lidoderm) Transdermal Patch 1 patch IV SITE INFORMATION INTAKE OUTPUT 2 of 3 Visit Overview - REJI BRITO, : 1965, , REASSESMENT (most recent) 21:32 06/28/25. GENERAL / NEURO / PSYCH: Alert. Oriented X 4. Appears in pain. ( pt C/O lower back pain that radiates to left hip and left lower quadrant pain.). HEENT: Mucous membranes are pink. RESPIRATORY: Respirations not labored. Breath sounds within normal limits. CVS: Normal sinus rhythm noted. Capillary refill less than 2 seconds. GI / : The patient has had nausea. Abdomen soft. Abdominal tenderness. Bowel sounds within normal limits. SKIN: Skin is warm and dry. VITAL SIGNS First Vitals Last Vitals Temp 21:06 06/28/25 97.8 F Temp 00:09 06/29/25 BP 21:06 06/28/25 143/80 BP 00:09 06/29/25 110/64 HR 21:06 06/28/25 82 HR 00:09 06/29/25 87 RR 21:06 06/28/25 18 RR 00:09 06/29/25 O2 Sat 21:06 06/28/25 98% RA O2 Sat 00:09 06/29/25 Pain 21:06 06/28/25 8 Pain 00:09 06/29/25 ETCO2 21:06 06/28/25 ETCO2 00:09 06/29/25 GCS 21:06 06/28/25 GCS 00:09 06/29/25 RTS 21:06 06/28/25 RTS 00:09 06/29/25 PROCEDURES NURSING INTERVENTIONS LABS / STUDIES LABS / STUDIES ORDERED CBC w Diff CMP CT ABD/PEL w Cont EKG - ED Urinalysis Urine Culture [CCL] CLINICAL IMPRESSION 3 of 3 Normal [facility] ED VITALS FLOW SHEETon 06-29 ED VITALS FLOW SHEET Vitals - REJI BRITO, : 1965, , Vital Sign Flow Sheet [address] [address] [id number] 06/28/2025 Patient: REJI BRITO Sex: Male : 1965 Age: 60y Measurements Wt: 107.0 kg, Ht/Aidan: 71.0 in, BMI: 32.91 Measured Isai Time BP MAP HR RR O2Sat ETCO2 Temp n GCS RTS 00:09 110/64 79 87 06/29/2025 23:17 89 94% 06/28/2025 23:12 73 94% 06/28/2025 23:10 140/96 104 91 06/28/2025 21:06 143/80 101 82 18 98% RA 97.8 F 8 06/28/2025 1 of 1 Normal [facility] Bacteria Ur Culton 5 Bacteria identified Cx Nom (U) CULTURE, URINE: No growth (<1,000 CFU/ml) Normal [facility] Comment on above: Performed By: #### 6 30-4 ####[facility] LABCLIA [id number] [place] [address] [place] CBC + DIFFon 06-28-2025 Baso # 0.04 x10EE3/UL Normal 0.00 - 0.10 [facility] Comment on above: Performed By: #### 2 16456 #### [facility],[address] [place] [address] Basophils/100 WBC (Bld) 0.5 % Normal 0.0 - 2.0 [facility] Comment on above: Performed By: #### 2 40937 #### [facility],[address] [place] [address] CBC + DIFF Normal [facility] Comment on above: Result Comment: CBC- COMPLETE BLOOD COUNT Performed By: #### 2 29806 #### [facility],[address] [place] [address] EO # 0.26 x10EE3/UL Normal 0.00 - 0.50 [facility] Comment on above: Performed By: #### 2 81082 #### [facility],[address] [place] [address] Eosinophils/100 WBC (Bld) 3.2 % Normal 0.0 - 7.0 [facility] Comment on above: Performed By: #### 2 13350 #### [facility],[address] [place] [address] Erythrocyte distribution width (RBC) [Ratio] 12.9 % Normal 12.0 - 15.6 [facility] Comment on above: Performed By: #### 2 85342 #### [facility],[address] [place] [address] Hematocrit (Bld) [Volume fraction] 39.9 % Low 40.0 - 52.0 [facility] Comment on above: Performed By: #### 2 43519 #### [facility],[address] [place] [address] Hemoglobin (Bld) [Mass/Vol] 13.8 g/dL Normal 13.0 - 17.5 [facility] Comment on above: Performed By: #### 2 68383 #### [facility],[address] [place] [address] Lymph # 2.49 x10EE3/UL Normal 0.80 - 2.80 [facility] Comment on above: Performed By: #### 2 69495 #### [facility],[address] [place] [address] Lymphocytes/100 WBC (Bld) 30.3 % Normal 20.0 - 45.0 [facility] Comment on above: Performed By: #### 2 13967 #### [facility],[address] [place], [place] [phone] MANUAL DIFF N/A Normal [facility] Comment on above: Performed By: #### 2 16268 #### [facility],[address] [place] [address] MCH (RBC) [Entitic mass] 30 pg Normal 27 - 33 [facility] Comment on above: Performed By: #### 2 00052 #### [facility],[address] [place] [address] MCHC 35 X10 3 Normal 32 - 36 [facility] Comment on above: Performed By: #### 2 68284 #### [facility],[address] [place], [place] [phone] MCV (RBC) [Entitic vol] 88 fL Normal 81 - 98 [facility] Comment on above: Performed By: #### 2 58848 #### [facility],[address] [place], [place] [phone] [place] # 0.78 x10EE3/UL Normal 0.20 - 1.00 [facility] Comment on above: Performed By: #### 2 99840 #### [facility],[address] [place] [address] MONOS % 9.5 % Normal 0.0 - 10.0 [facility] Comment on above: Performed By: #### 2 58077 #### [facility],[address] [place] [address] Morphology Brad (Bld) [Interp] N/A Normal [facility] Comment on above: Performed By: #### 2 19529 #### [facility],[address] [place] [address] Neut # 4.65 x10EE3/UL Normal 1.50 - 7.10 [facility] Comment on above: Performed By: #### 2 68071 #### [place] [address] Neutrophils/100 WBC (Bld) 56.5 % Normal 46.0 - 76.0 [facility] Comment on above: Performed By: #### 2 15412 #### [place] [address] PLATELET 293 x10EE3/UL Normal 150 - 450 [facility] Comment on above: Performed By: #### 2 08170 #### [place] [address] Platelet mean volume (Bld) [Entitic vol] 7.1 fL Normal 6.4 - 10.5 [facility] Comment on above: Result Comment: AUTO MATED DIFFERENTIAL Performed By: #### 2 21271 #### [place] [address] RBC 4.52 x 10EE6/UL Normal 4.50 - 6.00 [facility] Comment on above: Performed By: #### 2 74635 #### [place] [address] WBC 8.2 x 10EE3/UL Normal 4.5 - 10.8 [facility] Comment on above: Performed By: #### 2 22123 #### [address] [address] CMP with eGFRon 06-28-2025 AGE 60 years Normal [facility] Comment on above: Performed By: #### 2 28575 #### [facility],[address] [place] [address] Albumin [Mass/Vol] 3.6 g/dL Normal 3.4 - 5.0 [facility] Comment on above: Performed By: #### 2 65359 #### [facility],[address] [place] [address] Albumin/Globulin [Mass ratio] 1.1 {ratio} Normal 0.9 - 1.6 [facility] Comment on above: Performed By: #### 2 22582 #### [facility],[address] [place] [address] ALK PHOS 53 U/L Normal 46 - 116 [facility] Comment on above: Performed By: #### 2 15429 #### [facility],[address] [place] [address] ALT [Catalytic activity/Vol] 63 U/L Normal 16 - 63 [facility] Comment on above: Performed By: #### 2 59875 #### [facility],[address] [place] [address] Anion gap [Moles/Vol] 14 mmol/L Normal 10 - 20 [facility] Comment on above: Performed By: #### 2 79482 #### [facility],[address] [place] [address] AST [Catalytic activity/Vol] 33 U/L Normal 15 - 37 [facility] Comment on above: Performed By: #### 2 89855 #### [facility],[address] [place] [address] B/C RATIO 15 ratio Normal 0 - 30 [facility] Comment on above: Performed By: #### 2 25122 #### [facility],[address] [place] [address] Bilirubin [Mass/Vol] 0.4 mg/dL Normal 0.2 - 1.0 [facility] Comment on above: Performed By: #### 2 04005 #### [facility],[address] [place] [address] Calcium [Mass/Vol] 8.7 mg/dL Normal 8.5 - 10.1 [facility] Comment on above: Performed By: #### 2 09142 #### [facility],[address] [place], [place] [phone] Chloride [Moles/Vol] 100 mmol/L Normal 98 - 107 [facility] Comment on above: Performed By: #### 2 76578 #### [facility],[address] [place] [address] CMP with eGFR Normal [facility] Comment on above: Result Comment: COMP REHENSIVE METABOLIC PANEL Performed By: #### 2 57675 #### [facility],[address] [place] [address]101 CO2 [Moles/Vol] 28.5 mmol/L Normal 21.0 - 32.0 [facility] Comment on above: Performed By: #### 2 74264 #### [facility],[address] [place] [address] Creatinine [Mass/Vol] 1.37 mg/dL High 0.70 - 1.30 [facility] Comment on above: Performed By: #### 2 80540 #### [facility],[address] [place] [address] eGFR 53 ML/MINUTE Low 60 - 999 [facility] Comment on above: Performed By: #### 2 55416 #### [facility],[address] [place] [address] GFR/1.73 sq M.predicted among non-blacks MDRD (S/P/Bld) [Vol rate/Area] mL/min/{1.73_m2} Normal 60 - 999 [facility] Comment on above: Result Comment: ACCO RDING TO THE NATIONAL KIDNEY DISEASE EDUCATION PROGRAM(NKDE), A NORMAL eGFR IS A VALUE GREATER THAN OR EQUAL TO 60 ML/MIN/1.73 SQ METERS. CHRONIC KIDNEY DISEASE: <60mL/MIN/1.73 SQ METERS KIDNEY FAILURE: <15mL/MIN/1.73 SQ METERS THIS TEST SHOULD ONLY BE USED FOR PATIENTS 18 YEARS OF AGE AND OLDER. Performed By: #### 2 98886 #### [address] [address] Globulin (S) [Mass/Vol] 3.3 g/dL Normal 1.5 - 3.8 [facility] Comment on above: Performed By: #### 2 90496 #### [address] [address] Glucose [Mass/Vol] 129 mg/dL High 74 - 106 [facility] Comment on above: Performed By: #### 2 17875 #### [address] [address] Potassium [Moles/Vol] 4.0 mmol/L Normal 3.5 - 5.1 [facility] Comment on above: Performed By: #### 2 24866 #### [address] [address] Protein [Mass/Vol] 6.9 g/dL Normal 6.4 - 8.2 [facility] Comment on above: Performed By: #### 2 15985 #### [address] [address] Sodium [Moles/Vol] 138 mmol/L Normal 136 - 145 [facility] Comment on above: Performed By: #### 2 58562 #### [address] [address] Urea nitrogen [Mass/Vol] 20 mg/dL High 7 - 18 [facility] Comment on above: Performed By: #### 2 56622 #### [address] [address] [address] ABDOMEN/PELVIS [facility] 2024 CT ABDOMEN/PELVIS [address] ? [place] [address] ? Patient: REJI BRITO Phone#: : 1965 Age: 60 Gender: M Pt. Type: ER Account: [id number] Location: 052 Ordering: DR. HA LOPEZ Exam Date: 06/28/2025/23:11 Family Phys: Charge Code: 854632 Physician: Hockley Order #: [id number] Dose#: 28.8 PROCEDURE: CT ABDOMEN/PELVIS WITH CONTRAST COMPARISON: None. INDICATIONS: Abdominal pain. TECHNIQUE: After obtaining the patient's consent, CT images were created with non-ionic intravenous contrast material. All CT scans at this facility use dose modulation, iterative reconstruction, and/or weight based dosing when appropriate to reduce radiation dose to as low as reasonably achievable. IV CONTRAST: Omnipaque 350,80ml TOTAL DOSE: 28.8 CTDIvol(mGy) FINDINGS: LIVER: Normal. No enlargement, atrophy, abnormal density, or significant focal lesion. BILIARY: Gallbladder is present and contains a calcified stone measuring 0.6 cm. PANCREAS: There is mild pancreatic atrophy. SPLEEN: Normal. No enlargement or focal lesion. There is a splenule adjacent to the lower pole of the spleen KIDNEYS: Nonobstructing right nephrolithiasis measuring 0.3 cm. Nonobstructing left nephrolithiasis measuring 0.7 cm. Kidneys enhance and excrete contrast symmetrically. No hydronephrosis. ADRENALS: Normal. No mass or enlargement. AORTA/VASCULAR: No aortic aneurysm. Atherosclerotic calcifications of the aorta and branch vessels RETROPERITONEUM: Normal. No mass or adenopathy. BOWEL/MESENTERY: Ingested materials present in the stomach. No bowel obstruction or dilatation. Moderate to large stool burden throughout the colon. Appendix is present. Radiopaque density present adjacent to the tip the appendix. ABDOMINAL WALL: Fat containing umbilical hernia. URINARY BLADDER: Normal. No visible focal wall thickening, lesion, or calculus. PELVIC NODES: Normal. No adenopathy. Continued Report - Page 2 of 2 Patient: REJI BRITO Phone#: : 1965 Age: 60 Gender: M Pt. Type: ER Account: [id number] Location: 052 Ordering: DR. HA LOPEZ Exam Date: 06/28/2025/23:11 Family Phys: Charge Code: [id number] Physician: Hockley Order #: [id number] Dose#: 28.8 PELVIC ORGANS: Prostate is enlarged measuring 5.6 x 4.2 by 5.9 cm. BONES: Mild disc height loss from T12-L1 through L4-5. Facet arthropathy in the lower lumbar spine. LUNG BASES: Normal. No visible pulmonary or pleural disease. OTHER: Negative. CONCLUSION: 1. No appreciable acute intra-abdominal or pelvic abnormality 2. Cholelithiasis 3. Bilateral nonobstructing renal calculi 4. Constipation Dictated by: Joana Romero MD on 06/29/2025 at 9:37 Approved by: Joana Romero MD on 06/29/2025 at 9:44 Normal [facility] URINALYSISon 06-28-2025 Bilirubin Ql (U) Negative Normal NORMAL: NEGATIVE [facility] Comment on above: Performed By: #### 2 49357 #### [facility],[address] [place] [address] Clarity (U) clear Normal NORMAL: CLEAR [facility] Comment on above: Performed By: #### 2 84944 #### [facility],[address] [place] [address] Color (U) yellow Normal NORMAL: YELLOW [facility] Comment on above: Performed By: #### 2 23147 #### [facility],[address] [place] [address] Glucose Ql (U) NORM Normal NORMAL: NORMAL [facility] Comment on above: Performed By: #### 2 82896 #### [facility],[address] [place] [address] Hemoglobin Ql (U) Negative Normal NORMAL: NEGATIVE [facility] Comment on above: Performed By: #### 2 20831 #### [facility],[address] [place], [place] [phone] Ketone Negative Normal NORMAL: NEGATIVE [facility] Comment on above: Performed By: #### 2 52895 #### [facility],[address] [place] [address] Leukocytes Negative Normal NORMAL: NEGATIVE [facility] Comment on above: Performed By: #### 2 25376 #### [facility],[address] [place], [place] [phone] Nitrite Ql (U) Negative Normal NORMAL: NEGATIVE [facility] Comment on above: Performed By: #### 2 40578 #### [facility],[address] [place] [address] pH (U) 5 [pH] Normal NORMAL: 5.0-8.0 [facility] Comment on above: Performed By: #### 2 34149 #### [facility],[address] [place] [address] Protein Ql (U) 15 Abnormal NORMAL: NEGATIVE [facility] Comment on above: Performed By: #### 2 69043 #### [facility],[address] [place] [address] Sp [place] 1.020 Normal NORMAL: 1.010-1.030 [facility] Comment on above: Performed By: #### 2 70073 #### [facility],[address] [place] [address] Specimen Type R Normal [facility] Comment on above: Performed By: #### 2 10243 #### [facility],[address] [place], [place] [phone] Urinalysis dipstick W Reflex Microscopic panel (U) NOT INDICATED Normal [facility] Comment on above: Performed By: #### 2 20978 #### [facility],[address] [place], [place] [phone] Urobilinog NORM Normal NORMAL: NORMAL [facility] Comment on above: Performed By: #### 2 08335 #### [facility],[address] [facility] [address] CNOVon 04-29-2025 CNOV Office Visit ([facility]) REJI BRITO ([id number]) 1965 M NFR Date Time Provider Department 04/29/25 10:45 AM VY JORDAN During your visit today, we recorded the following information about you: Temperature Pulse Respiration Blood pressure 98.2 degrees 78/minute 20/minute 118/80 Weight 106.9 kg Vy Jordan APRN.WORD PROCESSOR TECHNICIAN 04/29/2025 11:17 AM Signed [facility] Subjective Reji Brito is a 59 year old male. Patient presents with: Rash: Rash on right side of face just noticed this morning HPI Facial Rash: - Rash on the face, extending to the neck. - Onset after being looked at by someone. - Denies applying any marker or being scratched. - Has a cat that he frequently picks up. - Denies eating anything unusual like peanuts or red foods. Review of Systems Skin: (+) facial rash Objective BP 118/80 Pulse 78 Temp 36.8 ?C (98.2 ?F) Resp 20 Wt 106.9 kg (235 lb 10.8 oz) SpO2 96% BMI 35.06 kg/m? Physical Exam General: No acute distress. Skin: Erythematous rash on face extending to neck. { 1. Redness of skin (L53.9) - Acute facial erythema of unclear etiology; no known exposure to irritants, allergens, or trauma reported. - Advised patient that the condition is benign and not a cause for concern. and Recording using [employer] software for draft documentation of the visit was discussed with the patient/authorized artist representative; all questions welcomed and answered. Patient/authorized artist representative agreed to proceed MDM Procedures Allergies As of Date: 04/29/2025 Noted Allergy Reaction HOPS 04/12/2014 9 - Itching SEASONAL ALLERGIES 05/22/2015 16 - Unknown Comments: Trees, grasses, weeds, ragweed and cockroaches verified by skin testing Date Reviewed: 04/29/2025 Reviewed by: Jamee Sibley MA - Fully Assessed Reason for Visit: Rash [1087] Cmt: Rash on right side of face just noticed this morning Primary Visit Diagnosis:Redness of skin [L53.9] Prescriptions as of 04/29/2025 - budesonide-formoterol (SYMBICORT) 160-4.5 mcg/actuation inhaler Inhale 2 puffs as instructed two times a day. - dulaglutide (TRULICITY) 1.5 mg/0.5 mL pen injector Inject 1.5 mg subcutaneously one time a week. - chlorthalidone (HYGROTON) 25 mg tablet Take 1 tablet by mouth once daily. - lisinopril (ZESTRIL) 20 mg tablet Take 1 tablet by mouth once daily. - metFORMIN ER (GLUCOPHAGE XR) 500 mg 24 hr tablet Take 1 tablet by mouth daily with breakfast. - montelukast (SINGULAIR) 10 mg tablet Take 1 tablet by mouth daily at bedtime. - pantoprazole DR (PROTONIX) 40 mg tablet Take 1 tablet by mouth once daily. 30 minutes before breakfast, take on empty stomach. - simvastatin (ZOCOR) 40 mg tablet Take 1 tablet by mouth daily at bedtime. - fluticasone (FLONASE) 50 mcg/actuation nasal spray Use 2 Sprays in each nostril two times a day. Rinse mouth after use. - CPAP/BIPAP/OTHER Type .CPAPSettings into a note to see current settings/supplies/DME information. - Ipratropium [place] (ATROVENT) 21 mcg (0.03 %) nasal spray Use 2 Sprays in the nose twice daily as needed (rhinorrhea). - albuterol HFA (PROVENTIL HFA, VENTOLIN HFA) 90 mcg/actuation inhaler Inhale 2 Puffs as instructed every 4 hours as needed for wheezing/shortness of breath. - polyethylene glycol 3350 (MIRALAX) 17 gram/dose powder Take 17 g by mouth twice daily. - fexofenadine (JOSUE) 180 mg tablet Take 180 mg by mouth once daily. - FREESTYLE LANCETS 28 gauge - ubidecarenone (COQ-10 ORAL) Take by mouth. - MAGNESIUM ASPARTATE HCL ORAL Take by mouth. - glucosamine/msm/chondroitin A ([id number]-QBOMCU-DJG ORAL) Take by mouth. - vitamin D3-folic acid 5,000 unit- 1 mg tab Take by mouth. - blood sugar diagnostic (BLOOD GLUCOSE TEST) test strip Test blood sugar(s) 2 times daily. Dx: Type 2 DM - Controlled E11.9 Insulin: No - COMPOUNDED PRESCRIPTION Allergy shots per [facility] - CPAP AutoPAP 8-20 cmH2O, suitable mask, humidity, filters. Lifetime supplies. Dx: 327.23. Fax compliance rpt to [facility] in 6 weeks. - Saw [place] 500 mg ORAL Cap Per package directions for prostate symptoms. - aspirin(ECOTRIN LOW STRENGTH 81 MG TAB) - THERAPEUTIC MULTIVITAMIN TAB Take one(1) tablet daily. Problem List As Of Date 04/29/2025 Noted Resolved Hypertension [I10] Irritable bowel syndrome [K58.9] 02/22/2018 Hyperlipidemia [E78.5] Diverticulitis of colon (without mention of hem*05/01/2006 01/18/2015 GENNY on CPAP [G47.33] 10/19/2009 BPH with obstruction/lower urinary tract sympto*10/29/2010 Calcaneal spur [M77.30] 05/05/2011 12/30/2011 GERD (gastroesophageal reflux disease) [K21.9] 07/01/2012 Total knee replacement status [Z96.659] 04/12/2014 01/18/2015 Adenomatous colon polyp [D12.6] 10/23/2014 Gynecomastia, male [N62] 05/18/2014 02/22/2018 Asthmatic bronchitis [J45.909] 01/18/2015 (more content not included)... [facility] CNOVon 04-21-2025 CNOV Office Visit (GENSWS ) REJI BRITO ([id number]) 1965 M NFR Date Time Provider Department 04/21/25 9:00 AM REBA SUAREZ During your visit today, we recorded the following information about you: Reba Suarez APRN.CNP 04/21/2025 9:17 AM Signed FOLLOW UP VISIT - ENDOSCOPY Reji Brito 1965 [id number] REFERRING PHYSICIAN: Adele Davis [address] [facility] [id number] Reji Brito is a patient I am following for screening colonoscopy. Dr. Davis performed lower endoscopy on 04/11/2025. The patient was found to have Impression: - Non-bleeding internal hemorrhoids. - One 1 to 2 mm polyp in the transverse colon, removed with a cold snare. Resected and retrieved. Pathology demonstrated: MICROSCOPIC DIAGNOSIS A. Transverse colon, polyp, biopsy: Tubular adenoma The patient notes no complaints since the procedure. VITALS: There were no vitals taken for this visit. General: patient is alert, cooperative, pleasant and in no acute distress On examination, the abdomen is benign. Assessment ASSESSMENT/PLAN: 1. Tubular adenoma of colon - ICD9: 211.3, ICD10: D12.6 The operative findings and pathology report were reviewed with the patient, and the patient has had the opportunity to ask questions and have questions answered. If the patient notes any problems or changes in bowel function, the patient should contact me immediately. Otherwise I recommend follow up endoscopy in 5 years. HM updated. Discussed treatment plan and patient voices understanding. Patient's questions answered appropriately. Medications and potential side effects were discussed and patient voices understanding. Return to the office as scheduled or as needed for worsening/no improvement. Reba Suarez APRN.CNP Referring Provider: ADELE DAVIS [[id number]] Allergies As of Date: 04/21/2025 Noted Allergy Reaction HOPS 04/12/2014 9 - Itching SEASONAL ALLERGIES 05/22/2015 16 - Unknown Comments: Trees, grasses, weeds, ragweed and cockroaches verified by skin testing Date Reviewed: 04/21/2025 Reviewed by: Reba Suarez APRN.CNP - Fully Assessed Reason for Visit: Follow Up [171] Cmt: Follow up. Denies GI problems Primary Visit Diagnosis:Tubular adenoma of colon [D12.6] Prescriptions as of 04/21/2025 - budesonide-formoterol (SYMBICORT) 160-4.5 mcg/actuation inhaler Inhale 2 puffs as instructed two times a day. - dulaglutide (TRULICITY) 1.5 mg/0.5 mL pen injector Inject 1.5 mg subcutaneously one time a week. - chlorthalidone (HYGROTON) 25 mg tablet Take 1 tablet by mouth once daily. - lisinopril (ZESTRIL) 20 mg tablet Take 1 tablet by mouth once daily. - metFORMIN ER (GLUCOPHAGE XR) 500 mg 24 hr tablet Take 1 tablet by mouth daily with breakfast. - montelukast (SINGULAIR) 10 mg tablet Take 1 tablet by mouth daily at bedtime. - pantoprazole DR (PROTONIX) 40 mg tablet Take 1 tablet by mouth once daily. 30 minutes before breakfast, take on empty stomach. - simvastatin (ZOCOR) 40 mg tablet Take 1 tablet by mouth daily at bedtime. - fluticasone (FLONASE) 50 mcg/actuation nasal spray Use 2 Sprays in each nostril two times a day. Rinse mouth after use. - CPAP/BIPAP/OTHER Type .CPAPSettings into a note to see current settings/supplies/DME information. - Ipratropium [place] (ATROVENT) 21 mcg (0.03 %) nasal spray Use 2 Sprays in the nose twice daily as needed (rhinorrhea). - albuterol HFA (PROVENTIL HFA, VENTOLIN HFA) 90 mcg/actuation inhaler Inhale 2 Puffs as instructed every 4 hours as needed for wheezing/shortness of breath. - polyethylene glycol 3350 (MIRALAX) 17 gram/dose powder Take 17 g by mouth twice daily. - fexofenadine (JOSUE) 180 mg tablet Take 180 mg by mouth once daily. - FREESTYLE LANCETS 28 gauge - ubidecarenone (COQ-10 ORAL) Take by mouth. - MAGNESIUM ASPARTATE HCL ORAL Take by mouth. - glucosamine/msm/chondroitin A ([id number]-HOXAAO-PSN ORAL) Take by mouth. - vitamin D3-folic acid 5,000 unit- 1 mg tab Take by mouth. - blood sugar diagnostic (BLOOD GLUCOSE TEST) test strip Test blood sugar(s) 2 times daily. Dx: Type 2 DM - Controlled E11.9 Insulin: No - COMPOUNDED PRESCRIPTION Allergy shots per [facility] - CPAP AutoPAP 8-20 cmH2O, suitable mask, humidity, filters. Lifetime supplies. Dx: 327.23. Fax compliance rpt to [facility] in 6 weeks. - Saw Newport 500 mg ORAL Cap Per package directions for prostate symptoms. - aspirin(ECOTRIN LOW STRENGTH 81 MG TAB) - THERAPEUTIC MULTIVITAMIN TAB Take one(1) tablet daily. Problem List As Of Date 04/21/2025 Noted Resolved Hypertension [I10] Irritable bowel syndrome [K58.9] 02/22/2018 Hyperlipidemia [E78.5] Diverticulitis of colon (without mention of hem*05/01/2006 01/18/2015 GENNY on CPAP [G47.33] 10/19/2009 BPH with obstruction/lower urinary tract (more content not included)... [facility] [id number] 04-11-2025 [id number] HNO ID: [id number] Author: MAUREEN CASTAÑEDA RN Service: ? Author Type: Registered Nurse Type: [id number] Filed: 04/11/2025 08:40 Note Text: The patient received a copy of Colonoscopy discharge instructions that contain information for how to contact the physician who performed the procedure and when to seek medical care. [facility] Colonoscopyon 04-11-2025 Colonoscopy [facility] Gastrointestinal Endoscopy Patient Name: Reji Brito Procedure Date: 04/11/2025 7:42 AM Date of : 1965 Admit Type: Outpatient Age: 59 Gender: Male Note Status: Finalized Procedure: Colonoscopy Indications: Screening for colorectal malignant neoplasm Providers: Adele Davis MD Patient Profile: Refer to note in patient chart for documentation of history and physical. Last Colonoscopy: 2019. Referring Physician: Kristian Cadet (Referring ) Medicines: Midazolam 3 mg IV, Fentanyl 100 micrograms IV, Ondansetron 4 mg IV Complications: No immediate complications. Requesting Provider: Procedure: Pre-Anesthesia Assessment: - Prior to the procedure, a History and Physical was performed, and patient medications and allergies were reviewed. The patient is competent. The risks and benefits of the procedure and the sedation options and risks were discussed with the patient. All questions were answered and informed consent was obtained. Patient identification and proposed procedure were verified by the physician in the pre-procedure area. Mental Status Examination: alert and oriented. Airway Examination: normal oropharyngeal airway and neck mobility. Respiratory Examination: clear to auscultation. CV Examination: normal. Prophylactic Antibiotics: The patient does not require prophylactic antibiotics. Prior Anticoagulants: The patient has taken no anticoagulant or antiplatelet agents. ASA Grade Assessment: III - A patient with severe systemic disease. After reviewing the risks and benefits, the patient was deemed in satisfactory condition to undergo the procedure. The anesthesia plan was to use moderate sedation / analgesia (conscious sedation). Immediately prior to administration of medications, the patient was re-assessed for adequacy to receive sedatives. The heart rate, respiratory rate, oxygen saturations, blood pressure, adequacy of pulmonary ventilation, and response to care were monitored throughout the procedure. The physical status of the patient was re-assessed after the procedure. After I obtained informed consent, the scope was passed under direct vision. Throughout the procedure, the patient's blood pressure, pulse, and oxygen saturations were monitored continuously. The Colonoscope was introduced through the anus and advanced to the cecum, identified by the appendiceal orifice, ileocecal valve and palpation. The colonoscopy was performed without difficulty. The patient tolerated the procedure well. The quality of the bowel preparation was adequate to identify polyps greater than 5 mm in size. The appendiceal orifice and the rectum were photographed. Moderate Sedation: The administration of moderate sedation was initiated at 07:45. Moderate (conscious) sedation was personally administered by the endoscopist. The following parameters were monitored: oxygen saturation, heart rate, blood pressure, respiratory rate, EKG, adequacy of pulmonary ventilation, and response to care. Total physician intraservice time was 20 minutes. Findings: The perianal and digital rectal examinations were normal. Non-bleeding internal hemorrhoids were found. A 1 to 2 mm polyp was found in the transverse colon. The polyp was sessile. The polyp was removed with a cold snare. Resection and retrieval were complete. Verification of patient identification for the specimen was done by the nurse. Estimated blood loss was minimal. Impression: - Non-bleeding internal hemorrhoids. - One 1 to 2 mm polyp in the transverse colon, removed with a cold snare. Resected and retrieved. Recommendation: - Repeat colonoscopy date to be determined after pending pathology results are reviewed for surveillance based on pathology results. Recommend MAC anesthesia for future endoscopies - patient with low oxygen saturation and recall - - Follow up with Mary Suarez NP, , may be via televisit for discussion of pathology results and determination of timing of future endoscopies - Patient has a contact number available for emergencies. The signs and symptoms of potential delayed complications were discussed with the patient. Return to normal activities tomorrow. Written discharge instructions were provided to the patient. - Continue present medications. - Resume previous diet. Procedure Code(s): --- Professional --- 45823, Colonoscopy, flexible; with removal of tumor(s), polyp(s), or other lesion(s) by snare technique 21382, 59, Moderate sedation services provided by the same physician or other qualified health specialist wound care performing the diagnostic or therapeutic service that the sedation supports, requiring the presence of an independent trained observer to assist in the monitoring of the patient's level of consciousness and physiological status; initial 15 minutes of intraservice t (more content not included)... [facility] Colonoscopy Study observatio non 04-11-2025 [facility] Gastrointestinal Endoscopy Patient Name: Reji Brito Procedure Date: 04/11/2025 7:42 AM Date of : 1965 Admit Type: Outpatient Age: 59 Gender: Male Note Status: Finalized Procedure: Colonoscopy Indications: Screening for colorectal malignant neoplasm Providers: Adele Davis MD Patient Profile: Refer to note in patient chart for documentation of history and physical. Last Colonoscopy: 2019. Referring Physician: Kristian Cadet (Referring ) Medicines: Midazolam 3 mg IV, Fentanyl 100 micrograms IV, Ondansetron 4 mg IV Complications: No immediate complications. Requesting Provider: Procedure: Pre-Anesthesia Assessment: - Prior to the procedure, a History and Physical was performed, and patient medications and allergies were reviewed. The patient is competent. The risks and benefits of the procedure and the sedation options and risks were discussed with the patient. All questions were answered and informed consent was obtained. Patient identification and proposed procedure were verified by the physician in the pre-procedure area. Mental Status Examination: alert and oriented. Airway Examination: normal oropharyngeal airway and neck mobility. Respiratory Examination: clear to auscultation. CV Examination: normal. Prophylactic Antibiotics: The patient does not require prophylactic antibiotics. Prior Anticoagulants: The patient has taken no anticoagulant or antiplatelet agents. ASA Grade Assessment: III - A patient with severe systemic disease. After reviewing the risks and benefits, the patient was deemed in satisfactory condition to undergo the procedure. The anesthesia plan was to use moderate sedation / analgesia (conscious sedation). Immediately prior to administration of medications, the patient was re-assessed for adequacy to receive sedatives. The heart rate, respiratory rate, oxygen saturations, blood pressure, adequacy of pulmonary ventilation, and response to care were monitored throughout the procedure. The physical status of the patient was re-assessed after the procedure. After I obtained informed consent, the scope was passed under direct vision. Throughout the procedure, the patient's blood pressure, pulse, and oxygen saturations were monitored continuously. The Colonoscope was introduced through the anus and advanced to the cecum, identified by the appendiceal orifice, ileocecal valve and palpation. The colonoscopy was performed without difficulty. The patient tolerated the procedure well. The quality of the bowel preparation was adequate to identify polyps greater than 5 mm in size. The appendiceal orifice and the rectum were photographed. Moderate Sedation: The administration of moderate sedation was initiated at 07:45. Moderate (conscious) sedation was personally administered by the endoscopist. The following parameters were monitored: oxygen saturation, heart rate, blood pressure, respiratory rate, EKG, adequacy of pulmonary ventilation, and response to care. Total physician intraservice time was 20 minutes. Findings: The perianal and digital rectal examinations were normal. Non-bleeding internal hemorrhoids were found. A 1 to 2 mm polyp was found in the transverse colon. The polyp was sessile. The polyp was removed with a cold snare. Resection and retrieval were complete. Verification of patient identification for the specimen was done by the nurse. Estimated blood loss was minimal. Impression: - Non-bleeding internal hemorrhoids. - One 1 to 2 mm polyp in the transverse colon, removed with a cold snare. Resected and retrieved. Recommendation: - Repeat colonoscopy date to be determined after pending pathology results are reviewed for (more content not included)... PROVATION [facility] Radiology Study observation (narrative) [facility] HISTORY PHYSICALon 5 HISTORY PHYSICAL HNO ID: [id number] Author: ADELE DAVIS MD Service: General Surgery Author Type: Physician Type: H&P Filed: 04/11/2025 07:28 Note Text: HISTORY AND PHYSICAL Reji Brito 1965 REFERRING PHYSICIAN: Kristian Cadet MD CHIEF COMPLAINT: No chief complaint on file. HPI: The patient is a 59 year old male here for colonoscopy. Last colonoscopy 2019 at [facility] of colon cancer in family. PAST MEDICAL HISTORY Diagnosis Date Acute right-sided back pain with sciatica 10/31/2021 Adenomatous colon polyp 10/23/2014 Allergic rhinitis 01/18/2015 Asthma ([facility]) Controlled type 2 diabetes mellitus without complication, without long-term current use of insulin ([facility]) 11/10/2019 Coronary artery disease COVID-19 09/24/2020 Depressive disorder 2008 DIVERTICULITIS OF COLON W/O BLEED 05/01/2006 Gynecomastia, male 05/18/2014 Hypertension Irritable bowel syndrome Lumbar disc disease 2003 Nonalcoholic fatty liver disease GENNY (obstructive sleep apnea) 10/19/2009 CPAP 8 cm H2O [facility] Other and unspecified hyperlipidemia Primary osteoarthritis of left knee 09/17/2016 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 Tonsillar hypertrophy 11/21/2015 Total knee replacement status 04/12/2014 Vertigo 08/2013 PAST SURGICAL HISTORY Procedure Laterality Date ARTHRP KNE CONDYLEANDPLATU MEDIALANDLAT COMPARTMENTS 01/03/2014 Knee replacement, total, Right COLONOSCOPY FLX DX W/COLLJ SPEC WHEN PFRMD 10/23/2014 Colonoscopy COLONOSCOPY GEN ANES 03/12/2020 hemorrhoids ENDOSCOPIC SEPTOPLASTY Bilateral 06/2018 [facility] SIGMOIDOSCOPY FLX DX W/COLLJ SPEC BR/WA IF PFRMD 03/17/2000 Sigmoidoscopy, flexible Current Outpatient Medications Medication Sig budesonide-formoterol (SYMBICORT) 160-4.5 mcg/actuation inhaler Inhale 2 puffs as instructed two times a day. dulaglutide (TRULICITY) 1.5 mg/0.5 mL pen injector Inject 1.5 mg subcutaneously one time a week. chlorthalidone (HYGROTON) 25 mg tablet Take 1 tablet by mouth once daily. lisinopril (ZESTRIL) 20 mg tablet Take 1 tablet by mouth once daily. metFORMIN ER (GLUCOPHAGE XR) 500 mg 24 hr tablet Take 1 tablet by mouth daily with breakfast. montelukast (SINGULAIR) 10 mg tablet Take 1 tablet by mouth daily at bedtime. pantoprazole DR (PROTONIX) 40 mg tablet Take 1 tablet by mouth once daily. 30 minutes before breakfast, take on empty stomach. simvastatin (ZOCOR) 40 mg tablet Take 1 tablet by mouth daily at bedtime. fluticasone (FLONASE) 50 mcg/actuation nasal spray Use 2 Sprays in each nostril two times a day. Rinse mouth after use. CPAP/BIPAP/OTHER Type .CPAPSettings into a note to see current settings/supplies/DME information. Ipratropium [place] (ATROVENT) 21 mcg (0.03 %) nasal spray Use 2 Sprays in the nose twice daily as needed (rhinorrhea). albuterol HFA (PROVENTIL HFA, VENTOLIN HFA) 90 mcg/actuation inhaler Inhale 2 Puffs as instructed every 4 hours as needed for wheezing/shortness of breath. polyethylene glycol 3350 (MIRALAX) 17 gram/dose powder Take 17 g by mouth twice daily. fexofenadine (JOSUE) 180 mg tablet Take 180 mg by mouth once daily. FREESTYLE LANCETS 28 gauge ubidecarenone (COQ-10 ORAL) Take by mouth. MAGNESIUM ASPARTATE HCL ORAL Take by mouth. glucosamine/msm/chondroitin A (BJPEUYWYLQE-VVWLPQ-DEZ ORAL) Take by mouth. vitamin D3-folic acid 5,000 unit- 1 mg tab Take by mouth. blood sugar diagnostic (BLOOD GLUCOSE TEST) test strip Test blood sugar(s) 2 times daily. Dx: Type 2 DM - Controlled E11.9 Insulin: No COMPOUNDED PRESCRIPTION Allergy shots per [facility] CPAP AutoPAP 8-20 cmH2O, suitable mask, humidity, filters. Lifetime supplies. Dx: 327.23. Fax compliance rpt to [facility] in 6 weeks. Saw Newport 500 mg ORAL Cap Per package directions for prostate symptoms. aspirin(ECOTRIN LOW STRENGTH 81 MG TAB) THERAPEUTIC MULTIVITAMIN TAB Take one(1) tablet daily. Current Facility-Administered Medications Medication Dose Route Frequency lactated ringers iv infusion 30 mL/hr INTRAVENOUS CONTINUOUS ALLERGIES: Hops and Seasonal Allergies PERSONAL HISTORY: Social History Tobacco Use Smoking status: Never Smokeless tobacco: Never Vaping Use Vaping status: Never Used Substance Use Topics Alcohol use: No Drug use: No FAMILY HISTORY Problem Relation Age of Onset Hypertension Mother Stroke Mother 86 age 86 Stroke Father Coronary Artery Disease Father PVD. Stents. Alive age 79 Hypertension Sister Heart Sister Lipids Sister Breast Cancer Sister Lipids Brother Kidney stones Brother COPD Paternal Grandfather MS age 50s Colon Cancer No Family History REVIEW OF SYMPTOMS: Denies chest pain Denies shortness of breath Physical examination: Vital signs in chart, reviewed and noted by me General - WD/WN in no apparent distress, alert and oriented Head - Normocephalic. EOM intact with sclera clear. Mouth with mucus membranes moist (more content not included)... [facility] Surgery Specimen Level Angelica 04-11-2025 Surgery Specimen Level IV Patient Age/Sex Location Account Attending Physician REJI BRITO 59/M [facility] [id number] Dr. Adele Davis MD Specimen: [id number] Received: 04/11/25 Status: RAFA Kaye Num: [id number] Spec Type: COLON BX Subm Dr: Dr. Adele Davis MD HEADER OPERATION: Colonoscopy PRE-OP DIAGNOSIS: Screening TISSUE SUBMITTED: A- Transverse colon polyp MICROSCOPIC DIAGNOSIS A. Transverse colon, polyp, biopsy: * Tubular adenoma MICROSCOPIC DESCRIPTION Slides are reviewed. GROSS DESCRIPTION A. Received in fixative is one container labeled with the patient's name and designated Transverse colon polyp. The specimen consists of one irregular fragment of light solomon soft tissue that measures 1 cm. The specimen is totally submitted in one cassette. CAMary 04/11/2025 CPT:36783 Patient Age/Sex Location Account Attending Physician REJI BRITO 59/M LABSPEC [id number] Dr. Adele Davis MD Signed (signature on file) Dr. Sarah Smith DO 04/19/25 1126 Normal [facility] Comment on above: Performed By: #### P SUIV #### [facility] [address] [place], [place], [address] [facility] 04-03-2025 CNPN Telephone (INTMWS) REJI BRITO ([id number]) 1965 M NF Date Time Provider Department 04/03/25 KRISTIAN CADET INTWS During your visit today, we recorded the following information about you: Zita Mullen RN 04/03/2025 3:13 PM Signed Spouse calls to request a CD copy of the x-ray of left knee completed on 03/28/2025. Please call spouse (Arti) at [phone] when available for sheepskin pickler. Arti also requests referral to orthopaedics be faxed. Faxed as requested to [phone]. Zita Mullen, Aubrie Gomez, DAFNE 04/03/2025 3:24 PM Signed CD READY FOR C[facility] AT [facility] Pt knows pt has to sign or a note from pt Allergies As of Date: 04/03/2025 Noted Allergy Reaction HOPS 04/12/2014 9 - Itching SEASONAL ALLERGIES 05/22/2015 16 - Unknown Comments: Trees, grasses, weeds, ragweed and cockroaches verified by skin testing Date Reviewed: 03/28/2025 Reviewed by: Gayatri Garcia LPN - Fully Assessed Reason for Visit: Consult [502] Copy of CD Left Knee [Other] Prescriptions as of 04/04/2025 - budesonide-formoterol (SYMBICORT) 160-4.5 mcg/actuation inhaler Inhale 2 puffs as instructed two times a day. - dulaglutide (TRULICITY) 1.5 mg/0.5 mL pen injector Inject 1.5 mg subcutaneously one time a week. - chlorthalidone (HYGROTON) 25 mg tablet Take 1 tablet by mouth once daily. - lisinopril (ZESTRIL) 20 mg tablet Take 1 tablet by mouth once daily. - metFORMIN ER (GLUCOPHAGE XR) 500 mg 24 hr tablet Take 1 tablet by mouth daily with breakfast. - montelukast (SINGULAIR) 10 mg tablet Take 1 tablet by mouth daily at bedtime. - pantoprazole DR (PROTONIX) 40 mg tablet Take 1 tablet by mouth once daily. 30 minutes before breakfast, take on empty stomach. - simvastatin (ZOCOR) 40 mg tablet Take 1 tablet by mouth daily at bedtime. - fluticasone (FLONASE) 50 mcg/actuation nasal spray Use 2 Sprays in each nostril two times a day. Rinse mouth after use. - CPAP/BIPAP/OTHER Type .CPAPSettings into a note to see current settings/supplies/DME information. - Ipratropium [place] (ATROVENT) 21 mcg (0.03 %) nasal spray Use 2 Sprays in the nose twice daily as needed (rhinorrhea). - albuterol HFA (PROVENTIL HFA, VENTOLIN HFA) 90 mcg/actuation inhaler Inhale 2 Puffs as instructed every 4 hours as needed for wheezing/shortness of breath. - polyethylene glycol 3350 (MIRALAX) 17 gram/dose powder Take 17 g by mouth twice daily. - fexofenadine (JOSUE) 180 mg tablet Take 180 mg by mouth once daily. - FREESTYLE LANCETS 28 gauge - ubidecarenone (COQ-10 ORAL) Take by mouth. - MAGNESIUM ASPARTATE HCL ORAL Take by mouth. - glucosamine/msm/chondroitin A (ATUASRNSXYF-DGMOVS-VEG ORAL) Take by mouth. - vitamin D3-folic acid 5,000 unit- 1 mg tab Take by mouth. - blood sugar diagnostic (BLOOD GLUCOSE TEST) test strip Test blood sugar(s) 2 times daily. Dx: Type 2 DM - Controlled E11.9 Insulin: No - COMPOUNDED PRESCRIPTION Allergy shots per [facility] - CPAP AutoPAP 8-20 cmH2O, suitable mask, humidity, filters. Lifetime supplies. Dx: 327.23. Fax compliance rpt to [facility] in 6 weeks. - Saw Newport 500 mg ORAL Cap Per package directions for prostate symptoms. - aspirin(ECOTRIN LOW STRENGTH 81 MG TAB) - THERAPEUTIC MULTIVITAMIN TAB Take one(1) tablet daily. Problem List As Of Date 04/03/2025 Noted Resolved Hypertension [I10] Irritable bowel syndrome [K58.9] 02/22/2018 Hyperlipidemia [E78.5] Diverticulitis of colon (without mention of hem*05/01/2006 01/18/2015 GENNY on CPAP [G47.33] 10/19/2009 BPH with obstruction/lower urinary tract sympto*10/29/2010 Calcaneal spur [M77.30] 05/05/2011 12/30/2011 GERD (gastroesophageal reflux disease) [K21.9] 07/01/2012 Total knee replacement status [Z96.659] 04/12/2014 01/18/2015 Adenomatous colon polyp [D12.6] 10/23/2014 Gynecomastia, male [N62] 05/18/2014 02/22/2018 Asthmatic bronchitis [J45.909] 01/18/2015 Allergic rhinitis [J30.9] 01/18/2015 Tonsillar hypertrophy [J35.1] 11/21/2015 02/22/2018 Impaired fasting glucose [R73.01] 11/25/2015 11/10/2019 Primary osteoarthritis of left knee [M17.12] 09/17/2016 Obesity, Class II, BMI 35-39.9 [E66.812] 08/25/2018 06/10/2021 Controlled type 2 diabetes mellitus without com*11/10/2019 Fatty liver disease, nonalcoholic [K76.0] 01/23/2021 Obesity, Class I, BMI 30-34.9 [E66.811] 06/10/2021 01/09/2023 Acute right-sided back pain with sciatica [M54.*10/31/2021 06/23/2022 Spasm of lumbar paraspinous muscle [M62.830] 10/31/2021 Obesity, Class II, BMI 35-39.9 [E66.812] 06/23/2022 Encounter Status:Closed by ZITA MULLEN on 04/04/25 Normal [facility] ALBUMIN/CREATININE RATIO, UR INEon 03-28-2025 Albumin DL <= 20 mg/L (U) [Mass/Vol] mg/dL Normal [facility] Comment on above: Order Comment: Speci men Type: URINE SPECIMEN Ordering Facility: [facility] Address: [address] [place] [address] Performed By: #### U ACR #### [facility] CLIA [id number] [address] [place] [address] [place] Albumin/Creatinine (U) [Mass ratio] <11 Normal <30 [facility] Comment on above: Order Comment: Speci men Type: URINE SPECIMEN Ordering Facility: [facility] Address: [address] [place] [address] Result Comment: Adul t Male and Female Nephrotic Criteria: <30 mg/g is considered normal to mildly increased 30-300 mg/g is considered moderately increased >300 mg/g is considered severely increased KDIGO. (2013). KDIGO 2012 Clinical Practice Guideline for the Evaluation and Management of Chronic Kidney Disease. Official Journal of the International Society of Nephrology, 3(1), 1-150. Performed By: #### U ACR #### [facility] CLIA [id number] [address] [place] [address] [place] Creatinine (U) [Mass/Vol] 114.2 mg/dL Normal 20.0-300.0 [facility] Comment on above: Order Comment: Speci men Type: URINE SPECIMEN Ordering Facility: [facility] Address: [address] [place] [address] Performed By: #### U ACR #### [facility] CLIA [id number] [address] [place] [address] STATES OF [facility] CNOVon 03-28-2025 CNOV Office Visit (INTMWS ) REJI BRITO ([id number]) 1965 M NFR Date Time Provider Department 03/28/25 8:00 AM KRISTIAN CADET INTMWS During your visit today, we recorded the following information about you: Temperature Pulse Respiration Blood pressure 97.4 degrees 84/minute 16/minute 120/82 Weight Height 106.8 kg 1.746 m Gayatri Garcia LPN 03/28/2025 9:03 AM Signed [facility] OPEN ACCESS QUESTIONNAIRE 1. Are you currently having any new or unusual stomach/gastrointestinal issues at this time such as constipation, diarrhea, abdominal pain, rectal bleeding etc?No 2. Do you have any difficulty swallowing? No 3. Do you have any implanted devices such as a defibrillator, pacemaker, cardiac stents or deep brain stimulator? No 4. Do you take any Blood thinners such as Coumadin, Plavix, Xarelto, Eliquis, Brilinta or any other blood thinner? YES:Low dose aspirin 5. Do you have any new or past cardiac (heart) or pulmonary (lung) issues? No 6. Do you currently use any oxygen? No 7. Have you been hospitalized in the past 6 weeks? No 8. Have you had difficulty with anesthesia previously re: Difficult intubation? No Other difficulty or allergic reaction to anesthesia other than post op N/V? No 9. Are you on dialysis? No 10. Do you have any bleeding disorders such as hemophilia or Factor 5? No 11. Are you an Insulin Dependent Diabetic? Yes: insulin dependent IF ANY OF THE TOP ELEVEN QUESTIONS ARE ANSWERED YES PLEASE SCHEDULE THE PATIENT FOR A CONSULT. advised 12. Is the patient's BMI 40 or greater? No:There is no height or weight on file to calculate BMI.. 13. Do you take any narcotics or anti-Anxiety medications? No 14. Do you use any illegal or recreational drugs including marijuana? No 15. Any alcohol use: No. 16. Have you been diagnosed with chronic liver disease such as hepatitis or cirrhosis? Yes / Fatty liver disease, nonalcoholic 17. Do you have a seizure disorder? No 18. Do you have ulcerative colitis or Crohn's disease? No 19. Are you or could you be ? No 20. Any other important health information we should be made aware of prior to your colonoscopy? No To be completed by LIP: Did patient have MAC anesthesia with a previous endoscopy procedure? No Patient appropriate for Open Access Colonoscopy: Yes: appropriate for Open Access Procedure Checklist: Prior to closing the encounter: Complete questionnaire: Yes Confirm Prep order has been Ordered/Pended: Yes. Patient's procedure could be delayed if not given the script for the prep. Please ensure the prep is escripted to pharmacy or printed. Instructions for the prep will print upon filing or pending this smartset. Please send all open access questionnaires to [facility] Pool #[id number] Kristian Cadet MD 03/28/2025 9:03 AM Signed This note was created using [employer]. Subjective Patient presents with: Physical Reji Brito is a 59 year old male. ASTHMA CONTROL TEST Date: 03/28/2025 In the last 4 weeks, how much of the time did your asthma keep you from getting as much done at work or home that you wanted to do? None of the time (5) In the last 4 weeks, how often have you had shortness of breath? Once or twice per week (4) In the last 4 weeks, how often did your asthma symptoms (wheezing, coughing, shortness of breath, chest tightness or pain) wake you up at night or earlier than usual? Not at all (5) In the last 4 weeks, how often have you used your rescue inhaler or nebulizer medication (such as Albuterol, Proventil, Ventolin, Maxair, Xoponex, or Primatene Mist)? Not at all (5) In the last 4 weeks, how would you rate your asthma control? Well controlled (4) Total: more than 20 He was using his CPAP nightly with good benefit. He cannot sleep without his CPAP. He gets his CPAP supplies from [employer]. He sees Dr. John Salcedo for ENT and allergies; [facility]. He needs to reschedule with GI in [place]. He had acute left knee posterior pain and swelling in October. He saw an online provider who recommended home exercises and this was better but still achy on arising in the morning, improving with activity. He had no injury. He had total right knee done in the past by Dr. Hardeep Carvajal. Review of Systems Constitutional: Negative for appetite change, fever and unexpected weight change. HENT: Positive for postnasal drip and sinus pressure. Respiratory: Negative for cough, shortness of breath and wheezing. Cardiovascular: Negative for chest pain, palpitations and leg swelling. Gastrointestinal: Positive for constipation. Negative for abdominal pain, diarrhea, nausea and vomiting. Genitourinary: Negative for difficulty urinating and dysuria. Musculoskeletal: Positive for arthralgias (left knee, right hip associated with left knee). Negative for back pain and (more content not included)... Normal [facility] Comprehensive metabolic 2000 panelon 03-28-2025 Albumin [Mass/Vol] 4.4 g/dL Normal 3.9-4.9 [facility] Comment on above: Order Comment: Speci men Type: URINE SPECIMEN Ordering Facility: [facility] Address: [address] [place] [address] Performed By: #### U ACR #### [facility] CLIA [id number] [address] [place] [address] [place] ALP [Catalytic activity/Vol] 42 U/L Normal 38-113 [facility] Comment on above: Order Comment: Speci men Type: URINE SPECIMEN Ordering Facility: [facility] Address: [address] [place] [address] Performed By: #### U ACR #### [facility] CLIA [id number] [address] [place] [address] [place] ALT [Catalytic activity/Vol] 51 U/L Normal 10-54 [facility] Comment on above: Order Comment: Speci men Type: URINE SPECIMEN Ordering Facility: [facility] Address: [address] [place] [address] Performed By: #### U ACR #### [facility] CLIA [id number] [address] [place] [address] [place] Anion gap [Moles/Vol] 12 mmol/L Normal 8-15 [facility] Comment on above: Order Comment: Speci men Type: URINE SPECIMEN Ordering Facility: [facility] Address: [address] [place] [address] Performed By: #### U ACR #### [facility] CLIA [id number] [address] [place] [address] [place] AST [Catalytic activity/Vol] 43 U/L High 14-40 [facility] Comment on above: Order Comment: Speci men Type: URINE SPECIMEN Ordering Facility: [facility] Address: [address] [place] [address] Performed By: #### U ACR #### [facility] CLIA [id number] [address] [place] [address] [place] Bilirubin [Mass/Vol] 0.3 mg/dL Normal 0.2-1.3 [facility] Comment on above: Order Comment: Speci men Type: URINE SPECIMEN Ordering Facility: [facility] Address: [address] [place] [address] Performed By: #### U ACR #### [facility] CLIA [id number] [address] [place] [address] [place] Calcium [Mass/Vol] 10.1 mg/dL Normal 8.5-10.2 [facility] Comment on above: Order Comment: Speci men Type: URINE SPECIMEN Ordering Facility: [facility] Address: [address] [place] [address] Performed By: #### U ACR #### [facility] CLIA [id number] [address] [place] [address] [place] Chloride [Moles/Vol] 100 mmol/L Normal 98-107 [facility] Comment on above: Order Comment: Speci men Type: URINE SPECIMEN Ordering Facility: [facility] Address: [address] [place] [address] Performed By: #### U ACR #### [facility] CLIA [id number] [address] [place] [address] [place] CO2 [Moles/Vol] 26 mmol/L Normal 22-30 [facility] Comment on above: Order Comment: Speci men Type: URINE SPECIMEN Ordering Facility: [facility] Address: [address] [place] [address] Performed By: #### U ACR #### [facility] CLIA [id number] [address] [place] [address] [place] Creatinine [Mass/Vol] 1.12 mg/dL Normal 0.73-1.22 [facility] Comment on above: Order Comment: Speci men Type: URINE SPECIMEN Ordering Facility: [facility] Address: [address] [place] [address] Performed By: #### U ACR #### [facility] CLIA [id number] [address] [place] [address] [place] Creatinine and Glomerular filtration rate.predicted panel (S/P/Bld) 75 mL/min/1.73m??? Normal >=60 [facility] Comment on above: Order Comment: Speci men Type: URINE SPECIMEN Ordering Facility: [facility] Address: [address] [place] [address] Result Comment: Maria Victoria mated Glomerular Filtration Rate (eGFR) is calculated using the 2020 CKD-EPI creatinine equation. This equation utilizes serum creatinine, sex, and age as parameters. The creatinine assay has traceable calibration to isotope dilution-mass spectrometry. Refer to KDIGO guidelines for clinical interpretation. In patients with unstable renal function, e.g. those with acute kidney injury, the eGFR may not accurately reflect actual GFR. Performed By: #### U ACR #### [facility] CLIA [id number] [address] [place] [address] [place] Glucose [Mass/Vol] 121 mg/dL High 74-99 [facility] Comment on above: Order Comment: Speci men Type: URINE SPECIMEN Ordering Facility: [facility] Address: [address] [place] [address] Result Comment: The [place] Diabetes Association (ADA) provides guidance for cutoff values for fasting glucose and random glucose. The ADA defines fasting as no caloric intake for at least 8 hours. Fasting plasma glucose results between 100 to 125 mg/dL indicate increased risk for diabetes (prediabetes). Fasting plasma glucose results greater than or equal to 126 mg/dL meet the criteria for diagnosis of diabetes. In the absence of unequivocal hyperglycemia, results should be confirmed by repeat testing. In a patient with classic symptoms of hyperglycemia or hyperglycemic crisis, random plasma glucose results greater than or equal to 200 mg/dL meet the criteria for diagnosis of diabetes. Reference: Standards of Medical Care in Diabetes 2016, [place] Diabetes Association. Diabetes Care. 2016.39(Suppl 1). Performed By: #### U ACR #### [facility] CLIA [id number] [address] [place] [address] [place] Potassium [Moles/Vol] 4.6 mmol/L Normal 3.7-5.1 [facility] Comment on above: Order Comment: Speci men Type: URINE SPECIMEN Ordering Facility: [facility] Address: [address] [place] [address] Performed By: #### U ACR #### [facility] CLIA [id number] [address] [place] [address] [place] Protein [Mass/Vol] 7.5 g/dL Normal 6.3-8.0 [facility] Comment on above: Order Comment: Speci men Type: URINE SPECIMEN Ordering Facility: [facility] Address: [address] [place] [address] Performed By: #### U ACR #### [facility] CLIA [id number] [address] [place] [address] [place] Sodium [Moles/Vol] 138 mmol/L Normal 136-144 [facility] Comment on above: Order Comment: Speci men Type: URINE SPECIMEN Ordering Facility: [facility] Address: [address] [place] [address] Performed By: #### U ACR #### [facility] CLIA [id number] [address] [place] [address] [place] Urea nitrogen [Mass/Vol] 22 mg/dL Normal 9-24 [facility] Comment on above: Order Comment: Speci men Type: URINE SPECIMEN Ordering Facility: [facility] Address: [address] [place] [address] Performed By: #### U ACR #### [facility] CLIA [id number] [address] [place] [address] [place] HbA1c (Bld)on 03-28-2025 Average glucose Estimated from glycated hemoglobin (Bld) [Mass/Vol] 146 mg/dL Normal [facility] Comment on above: Order Comment: Speci men Type: URINE SPECIMEN Ordering Facility: [facility] Address: [address] [place] [address] Result Comment: eAG: (Estimated average glucose) is a calculated value from HgbA1c and is artist representative of the average blood glucose level in the last 2-3 month period. Performed By: #### U ACR #### [facility] CLIA [id number] [address] [place] [address] [place] HbA1c (Bld) [Mass fraction] 6.7 % High 4.3-5.6 [facility] Comment on above: Order Comment: Speci men Type: URINE SPECIMEN Ordering Facility: [facility] Address: [address] [place] [address] Result Comment: Amer [place] Diabetes Association guidelines indicate that patients with HgbA1c in the range 5.7-6.4% are at increased risk for development of diabetes, and intervention by lifestyle modification may be beneficial. HgbA1c greater or equal to 6.5% is considered diagnostic of diabetes. Performed By: #### U ACR #### [facility] CLIA [id number] [address] [place] [address] [place] Lipid 1996 panelon 5 Cholesterol [Mass/Vol] 158 mg/dL Normal <200 [facility] Comment on above: Order Comment: Speci men Type: URINE SPECIMEN Ordering Facility: [facility] Address: [address] [place] [address] Result Comment: <200 mg/dL, Desirable 200-239 mg/dL, Borderline high >239 mg/dL, High Performed By: #### U ACR #### [facility] CLIA [id number] [address] [place] [address] [place] Cholesterol in HDL [Mass/Vol] 39 mg/dL Low >39 [facility] Comment on above: Order Comment: Speci men Type: URINE SPECIMEN Ordering Facility: [facility] Address: [address] [place] [address] Result Comment: 40-5 9 mg/dL, Acceptable >59 mg/dL, High: Negative risk factor for coronary heart disease <40 mg/dL, Low: Positive risk factor for coronary heart disease Performed By: #### U ACR #### [facility] CLIA [id number] [address] [place] [address] [place] [facility] Cholesterol in LDL [Mass/Vol] 96 mg/dL Normal <100 [facility] Comment on above: Order Comment: Speci men Type: URINE SPECIMEN Ordering Facility: [facility] Address: [address] [place] [address] Result Comment: <100 mg/dL, Optimal 100-129 mg/dL, Near optimal/above optimal 130-159 mg/dL, Borderline high 160-189 mg/dL, High >189 mg/dL, Very high Secondary prevention optimal LDL Cholesterol levels are recommended to be <70 mg/dL LDL cholesterol is calculated using the Barnes-NIH equation. Performed By: #### U ACR #### [facility] CLIA [id number] [address] [id number] [address] [place] Cholesterol in LDL/Cholesterol in HDL [Mass ratio] 2.46 {ratio} Normal <2.54 [facility] Comment on above: Order Comment: Speci men Type: URINE SPECIMEN Ordering Facility: [facility] Address: [address] [place] [address] Result Comment: Keely rankin: 1. National Cholesterol Education Program ATP III Guideline At-A-Glance Quick Desk Reference: National Heart, Lung, and Blood [place]. National Institutes of Health. 2001: NIH Publication No. 01-3305. 2. An International Atherosclerosis Society position paper: global recommendations for the management of dyslipidemia: executive summary, Atherosclerosis. 2014: 232(2):410-413. Performed By: #### U ACR #### [facility] CLIA [id number] [address] [place] [address] Cholesterol in VLDL [Mass/Vol] 20 mg/dL Normal <30 [facility] Comment on above: Order Comment: Speci men Type: URINE SPECIMEN Ordering Facility: [facility] Address: [address] [place] [address] Performed By: #### U ACR #### [facility] CLIA [id number] [address] [place] [address] [place] Cholesterol non HDL [Mass/Vol] 119 mg/dL Normal <130 [facility] Comment on above: Order Comment: Speci men Type: URINE SPECIMEN Ordering Facility: [facility] Address: [address] [place] [address] Result Comment: <130 mg/dL, Optimal 130-159 mg/dL, Near optimal/above optimal 160-189 mg/dL, Borderline high 190-219 mg/dL, High >219 mg/dL, Very high Secondary prevention optimal non HDL Cholesterol levels are recommended to be <100 mg/dL Performed By: #### U ACR #### [facility] CLIA [id number] [address] [place] [address] [place] Cholesterol.total/Ch olesterol in HDL [Mass ratio] 4.05 {ratio} Normal <5.10 [facility] Comment on above: Order Comment: Speci men Type: URINE SPECIMEN Ordering Facility: [facility] Address: [address] [place] [address] Performed By: #### U ACR #### [facility] CLIA [id number] [address] [place] [address] [place] FASTING TIME 12 hrs Normal [facility] Comment on above: Order Comment: Speci men Type: URINE SPECIMEN Ordering Facility: [facility] Address: [address] [place] [address] Performed By: #### U ACR #### [facility] CLIA [id number] [address] [place] [address] [place] Triglyceride [Mass/Vol] 126 mg/dL Normal <150 [facility] Comment on above: Order Comment: Speci men Type: URINE SPECIMEN Ordering Facility: [facility] Address: [address] [place] [address] Result Comment: <150 mg/dL, Normal 150-199 mg/dL, Borderline high 200-499 mg/dL, High >499 mg/dL, Very high Performed By: #### U ACR #### [facility] CLIA [id number] [address] [place] [address] [place] XR KNEE 4V AP/PA BOTH+LAT/ME R LTon 03-28-2025 XR KNEE 4V AP/PA BOTH+LAT/MEAGAN LT * * *Final Report* * * DATE OF EXAM: Mar 28 2025 9:20AM WOX [id number] - XR KNEE 4V AP/PA BOTH+LAT/MEAGAN LT / PROCEDURE REASON: Primary osteoarthritis of left knee * * * * Physician Interpretation * * * * PROCEDURE: Left knee INDICATION: Primary osteoarthritis of left knee .PT STS IN FOR LT KNEE PAIN SINCE OCT. NO PRV SX TO LT KNEE. RT KNEE SX 6 YRS AGO. TECHNIQUE: XR KNEE 4V AP/PA BOTH+LAT/MEAGAN LT COMPARISON: None FINDINGS: Severe medial joint compartment narrowing with [id number] in appearance and tricompartment spur formation. No fracture or dislocation. No joint effusion. Minimal mineralization in the popliteal fossa. Right TKA is noted. IMPRESSION: Advanced medial joint compartment osteoarthrosis Commissary Helper: PSCB Transcribe Date/Time: Mar 30 2025 7:10A Dictated by : JULIAN FRENCH MD This examination was interpreted and the report reviewed and electronically signed by: JULIAN FRENCH MD on Mar 30 2025 7:11AM EST [id number] Normal [facility] CNOVon 03-01-2025 CNOV Office Visit (UCWSTR ) REJI BRITO ([id number]) 1965 M NFR Date Time Provider Department 03/01/25 9:30 AM MERVIN [facility]REU [facility] During your visit today, we recorded the following information about you: Temperature Pulse Respiration Blood pressure 98.6 degrees 105/minute 16/minute 142/82 Weight 109.1 kg Mervin Abreu, FRANKLIN.WORD PROCESSOR TECHNICIAN 03/01/2025 9:49 AM Signed [facility] Subjective Reji Brito is a 59 year old male. Patient presents with: Pain, Sinus: Sinus pain and pressure, MARQUEZ and cough x 1 day HPI Patient is a 59 year old male with sinus congestion, head cough and fatigue that has been chronic for some time. He sees ENT Dr. Turner but they are unable to get him in for over a week. He got kenalog in november with some relief but symptoms have significantly progressed since then. Review of Systems Constitutional: Positive for fatigue. Negative for fever. HENT: Positive for congestion, sinus pressure, sinus pain, sneezing and sore throat. Eyes: Negative for discharge and itching. Respiratory: Negative for choking, chest tightness, shortness of breath, wheezing and stridor. Cardiovascular: Negative for chest pain. Objective BP 142/82 Pulse 105 Temp 37 ?C (98.6 ?F) (Tympanic) Resp 16 Wt 109.1 kg (240 lb 8.4 oz) SpO2 97% BMI 36.04 kg/m? PAST MEDICAL HISTORY Diagnosis Date Acute right-sided back pain with sciatica 10/31/2021 Adenomatous colon polyp 10/23/2014 Allergic rhinitis 01/18/2015 Asthma (HCC) Controlled type 2 diabetes mellitus without complication, without long-term current use of insulin ([facility]) 11/10/2019 Coronary artery disease COVID-19 09/24/2020 Depressive disorder 2007 DIVERTICULITIS OF COLON W/O BLEED 05/01/2006 Gynecomastia, male 05/18/2014 Hypertension Irritable bowel syndrome Lumbar disc disease 2003 Nonalcoholic fatty liver disease GENNY (obstructive sleep apnea) 10/19/2009 CPAP 8 cm H2O [facility] Other and unspecified hyperlipidemia Primary osteoarthritis of left knee 09/17/2016 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 Tonsillar hypertrophy 11/21/2015 Total knee replacement status 04/12/2014 Vertigo 08/2013 PAST SURGICAL HISTORY Procedure Laterality Date ARTHRP KNE CONDYLEANDPLATU MEDIALANDLAT COMPARTMENTS 01/03/2014 Knee replacement, total, Right COLONOSCOPY FLX DX W/COLLJ SPEC WHEN PFRMD 10/23/2014 Colonoscopy COLONOSCOPY GEN ANES 03/12/2020 hemorrhoids ENDOSCOPIC SEPTOPLASTY Bilateral 06/2018 [facility] SIGMOIDOSCOPY FLX DX W/COLLJ SPEC BR/WA IF PFRMD 03/17/2000 Sigmoidoscopy, flexible ALLERGIES Hops and Seasonal Allergies MEDICATIONS dulaglutide (TRULICITY) 0.75 mg/0.5 mL pen injector Inject 0.75 mg subcutaneously one time a week. Inject dose once per week. Discard Pen After dulaglutide (TRULICITY) 0.75 mg/0.5 mL pen injector Inject 0.75 mg subcutaneously one time a week. Inject dose once per week. Discard Pen After lisinopril (ZESTRIL) 20 mg tablet Take 1 tablet by mouth once daily. metFORMIN ER (GLUCOPHAGE XR) 500 mg 24 hr tablet Take 1 tablet by mouth daily with breakfast. montelukast (SINGULAIR) 10 mg tablet Take 1 tablet by mouth daily at bedtime. pantoprazole DR (PROTONIX) 40 mg tablet Take 1 tablet by mouth once daily. 30 minutes before breakfast, take on empty stomach. simvastatin (ZOCOR) 40 mg tablet Take 1 tablet by mouth daily at bedtime. fluticasone (FLONASE) 50 mcg/actuation nasal spray Use 2 Sprays in each nostril two times a day. Rinse mouth after use. CPAP/BIPAP/OTHER Type .CPAPSettings into a note to see current settings/supplies/DME information. chlorthalidone (HYGROTON) 25 mg tablet Take 1 tablet by mouth once daily. budesonide-formoterol (SYMBICORT) 160-4.5 mcg/actuation inhaler Inhale 2 Puffs as instructed two times a day. Ipratropium [place] (ATROVENT) 21 mcg (0.03 %) nasal spray Use 2 Sprays in the nose twice daily as needed (rhinorrhea). albuterol HFA (PROVENTIL HFA, VENTOLIN HFA) 90 mcg/actuation inhaler Inhale 2 Puffs as instructed every 4 hours as needed for wheezing/shortness of breath. polyethylene glycol 3350 (MIRALAX) 17 gram/dose powder Take 17 g by mouth twice daily. fexofenadine (JOSUE) 180 mg tablet Take 180 mg by mouth once daily. FREESTYLE LANCETS 28 gauge ubidecarenone (COQ-10 ORAL) Take by mouth. MAGNESIUM ASPARTATE HCL ORAL Take by mouth. glucosamine/msm/chondroitin A (RNREVEPUVAB-ARKQHH-IID ORAL) Take by mouth. vitamin D3-folic acid 5,000 unit- 1 mg tab Take by mouth. blood sugar diagnostic (BLOOD GLUCOSE TEST) test strip Test blood sugar(s) 2 times daily. Dx: Type 2 DM - Controlled E11.9 Insulin: No COMPOUNDED PRESCRIPTION Allergy shots per [facility] CPAP AutoPAP 8-20 cmH2O, suitable mask, humidity, filters. Lifetime supplies. Dx: 327.23. Fax compliance rpt to [facility] in 6 weeks. Saw Newport 500 mg ORAL Cap Per pack (more content not included)... Normal [facility] Matt 12-19-2024 GENETN Telephone (ANTONIO) REJI BRITO ([id number]) 1965 M NFR Date Time Provider Department 12/19/24 KRISTIAN CADET During your visit today, we recorded the following information about you: Brittny Tran LPN 12/19/2024 2:14 PM Signed Pt calls to report [facility] cancelled his Trulicity because a prior auth is needed. PRIOR AUTHORIZATION Medication for Prior Authorization: Trulicity 0.75mg/0.5 ml Other formulary meds available : unknown Insurance Company: [employer] phone number: Patient insurance ID number: [id number] Group ID number: [id number] HIRA Gomez [place], [place] 12/19/2024 3:28 PM Signed Form completed and fax to [facility] KIERRA Burns Janice, LPN 12/23/2024 4:32 PM Signed Fax approval from [facility] for trulicity from 12/20/24 to 12/20/25. Pt notified. Allergies As of Date: 12/19/2024 Noted Allergy Reaction HOPS 04/12/2014 9 - Itching SEASONAL ALLERGIES 05/22/2015 16 - Unknown Comments: Trees, grasses, weeds, ragweed and cockroaches verified by skin testing Date Reviewed: 12/17/2024 Reviewed by: Miguelina Gamble MA - Fully Assessed Reason for Visit: Insurance Authorization [[id number]] Prescriptions as of 12/23/2024 - amoxicillin-clavulanate potassium (AUGMENTIN) 875-125 mg per tablet Take 1 tablet by mouth two times a day for 10 days. - dulaglutide (TRULICITY) 0.75 mg/0.5 mL pen injector Inject 0.75 mg subcutaneously one time a week. Inject dose once per week. Discard Pen After - fluticasone (FLONASE) 50 mcg/actuation nasal spray Use 2 Sprays in each nostril two times a day. Rinse mouth after use. - CPAP/BIPAP/OTHER Type .CPAPSettings into a note to see current settings/supplies/DME information. - chlorthalidone (HYGROTON) 25 mg tablet Take 1 tablet by mouth once daily. - pantoprazole DR (PROTONIX) 40 mg tablet Take 1 tablet by mouth once daily. 30 minutes before breakfast, take on empty stomach. - lisinopril (ZESTRIL) 20 mg tablet Take 1 tablet by mouth once daily. - montelukast (SINGULAIR) 10 mg tablet Take 1 tablet by mouth daily at bedtime. - metFORMIN ER (GLUCOPHAGE XR) 500 mg 24 hr tablet Take 1 tablet by mouth daily with breakfast. - simvastatin (ZOCOR) 40 mg tablet Take 1 tablet by mouth daily at bedtime. - budesonide-formoterol (SYMBICORT) 160-4.5 mcg/actuation inhaler Inhale 2 Puffs as instructed two times a day. - Ipratropium [place] (ATROVENT) 21 mcg (0.03 %) nasal spray Use 2 Sprays in the nose twice daily as needed (rhinorrhea). - albuterol HFA (PROVENTIL HFA, VENTOLIN HFA) 90 mcg/actuation inhaler Inhale 2 Puffs as instructed every 4 hours as needed for wheezing/shortness of breath. - polyethylene glycol 3350 (MIRALAX) 17 gram/dose powder Take 17 g by mouth twice daily. - fexofenadine (JOSUE) 180 mg tablet Take 180 mg by mouth once daily. - FREESTYLE LANCETS 28 gauge - ubidecarenone (COQ-10 ORAL) Take by mouth. - MAGNESIUM ASPARTATE HCL ORAL Take by mouth. - glucosamine/msm/chondroitin A (QNURPKVCVOM-RLZSVW-TFN ORAL) Take by mouth. - vitamin D3-folic acid 5,000 unit- 1 mg tab Take by mouth. - blood sugar diagnostic (BLOOD GLUCOSE TEST) test strip Test blood sugar(s) 2 times daily. Dx: Type 2 DM - Controlled E11.9 Insulin: No - COMPOUNDED PRESCRIPTION Allergy shots per [facility] - CPAP AutoPAP 8-20 cmH2O, suitable mask, humidity, filters. Lifetime supplies. Dx: 327.23. Fax compliance rpt to [facility] in 6 weeks. - Saw Newport 500 mg ORAL Cap Per package directions for prostate symptoms. - aspirin(ECOTRIN LOW STRENGTH 81 MG TAB) - THERAPEUTIC MULTIVITAMIN TAB Take one(1) tablet daily. Problem List As Of Date 12/19/2024 Noted Resolved Hypertension [I10] Irritable bowel syndrome [K58.9] 02/22/2018 Hyperlipidemia [E78.5] Diverticulitis of colon (without mention of hem*05/01/2006 01/18/2015 GENNY on CPAP [G47.33] 10/19/2009 BPH with obstruction/lower urinary tract sympto*10/29/2010 Calcaneal spur [M77.30] 05/05/2011 12/30/2011 GERD (gastroesophageal reflux disease) [K21.9] 07/01/2012 Total knee replacement status [Z96.659] 04/12/2014 01/18/2015 Adenomatous colon polyp [D12.6] 10/23/2014 Gynecomastia, male [N62] 05/18/2014 02/22/2018 Asthmatic bronchitis [J45.909] 01/18/2015 Allergic rhinitis [J30.9] 01/18/2015 Tonsillar hypertrophy [J35.1] 11/21/2015 02/22/2018 Impaired fasting glucose [R73.01] 11/25/2015 11/10/2019 Primary osteoarthritis of left knee [M17.12] 09/17/2016 Obesity, Class II, BMI 35-39.9 [E66.812] 08/25/2018 06/10/2021 Controlled type 2 diabetes mellitus without com*11/10/2019 Fatty liver disease, nonalcoholic [K76.0] 01/23/2021 Obesity, Class I, BMI 30-34.9 [E66.811] 06/10/2021 01/09/2023 Acute right-sided back pain with sciatica [M54.*10/31/2021 06/23/2022 Spasm of lumbar paraspinous muscle [M62.830] 10/31/2021 Obesity, (more content not included)... Normal [facility] CNOVon 12-17-2024 CNOV Office Visit (UCWSTR ) REJI BRITO ([id number]) 1965 M NFR Date Time Provider Department 12/17/24 9:45 AM KAYLYNNEVA [facility] During your visit today, we recorded the following information about you: Temperature Pulse Respiration Blood pressure 96.8 degrees 82/minute 16/minute 128/74 Weight 110.5 kg Eva Chaidez PA-C 12/17/2024 9:42 AM Signed This note was created using [employer]. Subjective Reji Brito is a 59 year old male. Patient is a 59-year-old male who complains of worsening congestion, sinus pressure, sinus pain, ear pain and throat irritation that he has been experiencing for the past 1-1/2 weeks. Patient states he has not developed a significant cough and is noted no fever, chills or bodyaches. Patient recently returned from a camping trip to [place]. Patient did not travel via commercial airline. Patient reports that he does have a history of sinus infection and that his current symptoms are consistent with same. Patient has been taking fpad-ykw-qppqnel medications with no improvement in his symptoms. Sinus Problem Associated symptoms include congestion and headaches. Review of Systems HENT: Positive for congestion, ear pain, sinus pressure and sinus pain. Neurological: Positive for headaches. All other systems reviewed and are negative. Objective BP 128/74 Pulse 82 Temp 36 ?C (96.8 ?F) Resp 16 Wt 110.5 kg (243 lb 9.7 oz) SpO2 96% BMI 36.50 kg/m? Physical Exam Vitals and nursing note reviewed. Constitutional: Appearance: Normal appearance. He is normal weight. HENT: Head: Normocephalic and atraumatic. Right Ear: Tympanic membrane, ear canal and external ear normal. Left Ear: Tympanic membrane, ear canal and external ear normal. Nose: Congestion present. Mouth/Throat: Mouth: Mucous membranes are moist. Pharynx: Oropharynx is clear. Eyes: Extraocular Movements: Extraocular movements intact. Conjunctiva/sclera: Conjunctivae normal. Pupils: Pupils are equal, round, and reactive to light. Cardiovascular: Rate and Rhythm: Normal rate and regular rhythm. Pulses: Normal pulses. Heart sounds: Normal heart sounds. Pulmonary: Effort: Pulmonary effort is normal. Breath sounds: Normal breath sounds. Musculoskeletal: Cervical back: Normal range of motion and neck supple. Skin: General: Skin is warm and dry. Capillary Refill: Capillary refill takes less than 2 seconds. Neurological: General: No focal deficit present. Mental Status: He is alert and oriented to person, place, and time. Psychiatric: Mood and Affect: Mood normal. Behavior: Behavior normal. Thought Content: Thought content normal. Judgment: Judgment normal. Assessment and Plan Physical exam findings as noted above. Patient was provided with a prescription for Augmentin 875-125 mg and supportive care instructions were discussed. Patient verbalizes clear understanding of same. CLINICAL IMPRESSION: Acute SInusitis ASSESSMENT/PLAN: 1. Acute recurrent sinusitis, unspecified location - ICD9: 461.9, ICD10: J01.91 (primary diagnosis) 2. Acute non-recurrent streptococcal tonsillitis - ICD9: 034.0, ICD10: J03.00 - AMOXICILLIN 875 MG-POTASSIUM CLAVULANATE 125 MG TABLET MDM Risk of Complications, Morbidity, and/or Mortality Presenting problems: low Diagnostic procedures: low Management options: ian Chaidez PA-C Allergies As of Date: 12/17/2024 Noted Allergy Reaction HOPS 04/12/2014 9 - Itching SEASONAL ALLERGIES 05/22/2015 16 - Unknown Comments: Trees, grasses, weeds, ragweed and cockroaches verified by skin testing Date Reviewed: 12/17/2024 Reviewed by: Miguelina Gamble MA - Fully Assessed Reason for Visit: Sinus Problem [99] Cmt: sinus pressure and drainage x 1 week Primary Visit Diagnosis:Acute recurrent sinusitis, unspecified location [J01.91] Other Visit Diagnosis:Acute non-recurrent streptococcal tonsillitis [J03.00] Order(s):amoxicillin-clavul anate potassium (AUGMENTIN) 875-125 mg per tabletTake 1 tablet by mouth two times a day for 10 days.Disp: 20 tabletRfl: 0 Prescriptions as of 12/17/2024 - amoxicillin-clavulanate potassium (AUGMENTIN) 875-125 mg per tablet Take 1 tablet by mouth two times a day for 10 days. - dulaglutide (TRULICITY) 0.75 mg/0.5 mL pen injector Inject 0.75 mg subcutaneously one time a week. Inject dose once per week. Discard Pen After - fluticasone (FLONASE) 50 mcg/actuation nasal spray Use 2 Sprays in each nostril two times a day. Rinse mouth after use. - CPAP/BIPAP/OTHER Type .CPAPSettings into a note to see current settings/supplies/DME information. - chlorthalidone (HYGROTON) 25 mg tablet Take 1 tablet by mouth once daily. - pantoprazole DR (PROTONIX) 40 mg tablet Take 1 tablet by mouth once daily. 30 minutes before breakfast, take on empty stomach. - lisinopril (ZESTRIL) 20 mg tablet (more content not included)... Normal [facility] CNOVon 11-14-2024 CNOV Office Visit (UCWSTR ) REJI BRITO ([id number]) 1965 M NFR Date Time Provider Department 11/14/24 8:30 AM LISA WANG [facility] During your visit today, we recorded the following information about you: Temperature Pulse Respiration Blood pressure 97.7 degrees 71/minute 16/minute 124/82 Weight 112.1 kg Lisa Wang APRN.WORD PROCESSOR TECHNICIAN 11/14/2024 9:19 AM Signed This note was created using [employer]. Subjective Reji Brito is a 59 year old male. 59 year old male with PMH HTN, hyperlipidemia and acid reflux presents for illness. Acute onset one week ago +sinus pressure +sinus congestion +ear pain +post nasal drainage Mild cough Denies dyspnea Denies CP Denies N/V/D Denies abdominal pain Has used Coridicin relief Endorses no relief with symptoms. History of He has ENT through [facility] Denies tobacco usage The history is provided by the patient. No speech language assistant was used. Sinus Problem This is a new problem. The current episode started 1 to 4 weeks ago. The problem occurs constantly. The problem has been gradually worsening. Associated symptoms include congestion and a sore throat. Pertinent negatives include no abdominal pain, anorexia, arthralgias, change in bowel habit, chest pain, chills, coughing, fever, headaches, joint swelling, nausea, neck pain, rash, urinary symptoms, vertigo, visual change, vomiting or weakness. Nothing aggravates the symptoms. Treatments tried: Coricidin. The treatment provided no relief. PAST MEDICAL HISTORY Diagnosis Date Acute right-sided back pain with sciatica 10/31/2021 Adenomatous colon polyp 10/23/2014 Allergic rhinitis 01/18/2015 Asthma Controlled type 2 diabetes mellitus without complication, without long-term current use of insulin ([facility]) 11/10/2019 Coronary artery disease COVID-19 09/24/2020 Depressive disorder 2008 DIVERTICULITIS OF COLON W/O BLEED 05/01/2006 Gynecomastia, male 05/18/2014 Hypertension Irritable bowel syndrome Lumbar disc disease 2002 Nonalcoholic fatty liver disease GENNY (obstructive sleep apnea) 10/19/2009 CPAP 8 cm H2O DME [facility] Other and unspecified hyperlipidemia Primary osteoarthritis of left knee 09/17/2016 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 Tonsillar hypertrophy 11/21/2015 Total knee replacement status 04/12/2014 Vertigo 08/2013 PAST SURGICAL HISTORY Procedure Laterality Date ARTHRP KNE CONDYLEANDPLATU MEDIALANDLAT COMPARTMENTS 01/03/2014 Knee replacement, total, Right COLONOSCOPY FLX DX W/COLLJ SPEC WHEN PFRMD 10/23/2014 Colonoscopy COLONOSCOPY GEN ANES 03/12/2020 hemorrhoids ENDOSCOPIC SEPTOPLASTY Bilateral 06/2018 [facility] SIGMOIDOSCOPY FLX DX W/COLLJ SPEC BR/WA IF PFRMD 03/17/2000 Sigmoidoscopy, flexible ALLERGIES Hops and Seasonal Allergies MEDICATIONS dulaglutide (TRULICITY) 0.75 mg/0.5 mL pen injector Inject 0.75 mg subcutaneously one time a week. Inject dose once per week. Discard Pen After fluticasone (FLONASE) 50 mcg/actuation nasal spray Use 2 Sprays in each nostril two times a day. Rinse mouth after use. CPAP/BIPAP/OTHER Type .CPAPSettings into a note to see current settings/supplies/DME information. chlorthalidone (HYGROTON) 25 mg tablet Take 1 tablet by mouth once daily. pantoprazole DR (PROTONIX) 40 mg tablet Take 1 tablet by mouth once daily. 30 minutes before breakfast, take on empty stomach. lisinopril (ZESTRIL) 20 mg tablet Take 1 tablet by mouth once daily. montelukast (SINGULAIR) 10 mg tablet Take 1 tablet by mouth daily at bedtime. metFORMIN ER (GLUCOPHAGE XR) 500 mg 24 hr tablet Take 1 tablet by mouth daily with breakfast. simvastatin (ZOCOR) 40 mg tablet Take 1 tablet by mouth daily at bedtime. budesonide-formoterol (SYMBICORT) 160-4.5 mcg/actuation inhaler Inhale 2 Puffs as instructed two times a day. Ipratropium [place] (ATROVENT) 21 mcg (0.03 %) nasal spray Use 2 Sprays in the nose twice daily as needed (rhinorrhea). albuterol HFA (PROVENTIL HFA, VENTOLIN HFA) 90 mcg/actuation inhaler Inhale 2 Puffs as instructed every 4 hours as needed for wheezing/shortness of breath. polyethylene glycol 3350 (MIRALAX) 17 gram/dose powder Take 17 g by mouth twice daily. fexofenadine (JOSUE) 180 mg tablet Take 180 mg by mouth once daily. FREESTYLE LANCETS 28 gauge ubidecarenone (COQ-10 ORAL) Take by mouth. MAGNESIUM ASPARTATE HCL ORAL Take by mouth. glucosamine/msm/chondroitin A (KJHIFFTOTWC-GIWCWZ-HWP ORAL) Take by mouth. vitamin D3-folic acid 5,000 unit- 1 mg tab Take by mouth. blood sugar diagnostic (BLOOD GLUCOSE TEST) test strip Test blood sugar(s) 2 times daily. Dx: Type 2 DM - Controlled E11.9 Insulin: No COMPOUNDED PRESCRIPTION Allergy shots per [facility] CPAP AutoPAP 8-20 cmH2O, suitable mask, humidity, filters. Lifetime supplies. Dx: 327.23. Fax compliance rpt to [facility] in 6 weeks. (more content not included)... Normal [facility] US ABD RIGHT UPPER QUADRANTo n 10-11-2024 US ABD RIGHT UPPER QUADRANT * * *Final Report* * * DATE OF EXAM: Oct 11 2024 7:28AM WRU 1032 - US ABD RIGHT UPPER QUADRANT / PROCEDURE REASON: multiple diagnoses * * * * Physician Interpretation * * * * EXAMINATION: RIGHT UPPER QUADRANT ULTRASOUND CLINICAL HISTORY: Nonalcoholic fatty liver disease. Elevated liver function tests. TECHNIQUE: Sonography of the right upper quadrant was performed. Images were obtained and stored in a permanent archive and interpreted remotely. MQ: URUQ_2 COMPARISON: Ultrasound dated 06/19/2022 RESULT: Pancreas: Normal sonographic appearance and its visualized proximal portions. Portions obscured: Distal body and tail Liver: Echotexture: Normal, homogeneous. Echogenicity: Increased compatible with hepatic steatosis with mild sparing near the gallbladder fossa. Surface contour: Smooth Lesions: None. Biliary: No intrahepatic biliary duct dilation. CBD: 0.4 cm at the hilum. Gallbladder: Normal caliber -Contents: No cholelithiasis -Wall: Normal -Other: No pericholecystic fluid. Right Kidney: Normal cortical echogenicity. No hydronephrosis. Ascites: None. IMPRESSION: Hepatic steatosis. Commissary Helper: MICHEAL Transcribe Date/Time: Oct 11 2024 8:33A Dictated by : GRACIE KRUGER MD This examination was interpreted and the report reviewed and electronically signed by: GRACIE KRUGER MD on Oct 11 2024 8:35AM EST [id number] Normal [facility] US Abdomen RUQon 10-11-2024 IMPRESSION: Hepatic steatosis. Commissary Helper: [facility] Transcribe Date/Time: Oct 11 2024 8:33A Dictated by : GRACIE KRUGER MD This examination was interpreted and the report reviewed and electronically signed by: GRACIE KRUGER MD on Oct 11 2024 8:35AM EST DIVISION OF RADIOLOGY * * *Final Report* * * DATE OF EXAM: Oct 11 2024 7:28AM WRU 1032 - US ABD RIGHT UPPER QUADRANT / PROCEDURE REASON: multiple diagnoses * * * * Physician Interpretation * * * * EXAMINATION: RIGHT UPPER QUADRANT ULTRASOUND CLINICAL HISTORY: Nonalcoholic fatty liver disease. Elevated liver function tests. TECHNIQUE: Sonography of the right upper quadrant was performed. Images were obtained and stored in a permanent archive and interpreted remotely. MQ: URUQ_2 COMPARISON: Ultrasound dated 06/19/2022 RESULT: Pancreas: Normal sonographic appearance and its visualized proximal portions. Portions obscured: Distal body and tail Liver: Echotexture: Normal, homogeneous. Echogenicity: Increased compatible with hepatic steatosis with mild sparing near the gallbladder fossa. Surface contour: Smooth Lesions: None. Biliary: No intrahepatic biliary duct dilation. CBD: 0.4 cm at the hilum. Gallbladder: Normal caliber -Contents: No cholelithiasis -Wall: Normal -Other: No pericholecystic fluid. Right Kidney: Normal cortical echogenicity. No hydronephrosis. Ascites: None. DIVISION OF RADIOLOGY Provider, Gerardo Costa - 10/11/2024 * * *Final Report* * * DATE OF EXAM: Oct 11 2024 7:28AM WRU 1032 - US ABD RIGHT UPPER QUADRANT / PROCEDURE REASON: multiple diagnoses * * * * Physician Interpretation * * * * EXAMINATION: RIGHT UPPER QUADRANT ULTRASOUND CLINICAL HISTORY: Nonalcoholic fatty liver disease. Elevated liver function tests. TECHNIQUE: Sonography of the right upper quadrant was performed. Images were obtained and stored in a permanent archive and interpreted remotely. MQ: [id number] COMPARISON: Ultrasound dated 06/19/2022 RESULT: Pancreas: Normal sonographic appearance and its visualized proximal portions. Portions obscured: Distal body and tail Liver: Echotexture: Normal, homogeneous. Echogenicity: Increased compatible with hepatic steatosis with mild sparing near the gallbladder fossa. Surface contour: Smooth Lesions: None. Biliary: No intrahepatic biliary duct dilation. CBD: 0.4 cm at the hilum. Gallbladder: Normal caliber -Contents: No cholelithiasis -Wall: Normal -Other: No pericholecystic fluid. Right Kidney: Normal cortical echogenicity. No hydronephrosis. Ascites: None. IMPRESSION IMPRESSION: Hepatic steatosis. Commissary Helper: MICHEAL Transcribe Date/Time: Oct 11 2024 8:33A Dictated by : GRACIE KRUGER MD This examination was interpreted and the report reviewed and electronically signed by: GRACIE KRUGER MD on Oct 11 2024 8:35AM EST [facility] Radiology Study observation (narrative) [facility] US Abdomen RUQOrdered By: Suyapa etsrada Provider on 10-11-2024 [facility] Mtat 10-04-2024 YAIR Telephone (INTMWS) TODDREJI MORALES ([id number]) 1965 M NFR Date Time Provider Department 10/04/24 INA WINSTON During your visit today, we recorded the following information about you: Loni Trinidad LPN 10/04/2024 9:07 AM Signed ----- Message from Ina Winston APRN.WORD PROCESSOR TECHNICIAN sent at 10/04/2024 8:52 AM EST ----- Please let the patient know liver enzymes are trending up again, recommend repeating ultrasound of the liver. HgbA1c was 6.9 which is a little higher than previous but diabetes is still well controlled. PSA and CBC were normal JACKSON Saucedo Beth, LPN 10/04/2024 9:11 AM Signed Phoned patient went over results, notes from Ina Winston CUSTOMER RELATIONS CONSULTANT with understanding. Patient is willing to do the ultrasound, need order please. Pending order needs diagnosis. Magui Rocha MA 10/04/2024 10:00 AM Signed Please call patient to schedule US Magui Rocha MA Allergies As of Date: 10/04/2024 Noted Allergy Reaction HOPS 04/12/2014 9 - Itching SEASONAL ALLERGIES 05/22/2015 16 - Unknown Comments: Trees, grasses, weeds, ragweed and cockroaches verified by skin testing Date Reviewed: 10/03/2024 Reviewed by: Jamee Sibley MA - Fully Assessed Reason for Visit: Results [95] Primary Visit Diagnosis:Fatty liver disease, nonalcoholic [K76.0] Other Visit Diagnosis:Elevated LFTs [R79.89] Order(s):US ABD RIGHT UPPER QUADRANT [[id number]] Order #: [id number] FUTURE Prescriptions as of 11/12/2024 - dulaglutide (TRULICITY) 0.75 mg/0.5 mL pen injector Inject 0.75 mg subcutaneously one time a week. Inject dose once per week. Discard Pen After - fluticasone (FLONASE) 50 mcg/actuation nasal spray Use 2 Sprays in each nostril two times a day. Rinse mouth after use. - CPAP/BIPAP/OTHER Type .CPAPSettings into a note to see current settings/supplies/DME information. - chlorthalidone (HYGROTON) 25 mg tablet Take 1 tablet by mouth once daily. - pantoprazole DR (PROTONIX) 40 mg tablet Take 1 tablet by mouth once daily. 30 minutes before breakfast, take on empty stomach. - lisinopril (ZESTRIL) 20 mg tablet Take 1 tablet by mouth once daily. - montelukast (SINGULAIR) 10 mg tablet Take 1 tablet by mouth daily at bedtime. - metFORMIN ER (GLUCOPHAGE XR) 500 mg 24 hr tablet Take 1 tablet by mouth daily with breakfast. - simvastatin (ZOCOR) 40 mg tablet Take 1 tablet by mouth daily at bedtime. - budesonide-formoterol (SYMBICORT) 160-4.5 mcg/actuation inhaler Inhale 2 Puffs as instructed two times a day. - Ipratropium Lancaster (ATROVENT) 21 mcg (0.03 %) nasal spray Use 2 Sprays in the nose twice daily as needed (rhinorrhea). - albuterol HFA (PROVENTIL HFA, VENTOLIN HFA) 90 mcg/actuation inhaler Inhale 2 Puffs as instructed every 4 hours as needed for wheezing/shortness of breath. - polyethylene glycol 3350 (MIRALAX) 17 gram/dose powder Take 17 g by mouth twice daily. - fexofenadine (JOSUE) 180 mg tablet Take 180 mg by mouth once daily. - FREESTYLE LANCETS 28 gauge - ubidecarenone (COQ-10 ORAL) Take by mouth. - MAGNESIUM ASPARTATE HCL ORAL Take by mouth. - glucosamine/msm/chondroitin A (SNIDHOKPKLD-JFMXEI-AOH ORAL) Take by mouth. - vitamin D3-folic acid 5,000 unit- 1 mg tab Take by mouth. - blood sugar diagnostic (BLOOD GLUCOSE TEST) test strip Test blood sugar(s) 2 times daily. Dx: Type 2 DM - Controlled E11.9 Insulin: No - COMPOUNDED PRESCRIPTION Allergy shots per [facility] - CPAP AutoPAP 8-20 cmH2O, suitable mask, humidity, filters. Lifetime supplies. Dx: 327.23. Fax compliance rpt to [facility] in 6 weeks. - Saw Newport 500 mg ORAL Cap Per package directions for prostate symptoms. - aspirin(ECOTRIN LOW STRENGTH 81 MG TAB) - THERAPEUTIC MULTIVITAMIN TAB Take one(1) tablet daily. Problem List As Of Date 10/04/2024 Noted Resolved Hypertension [I10] Irritable bowel syndrome [K58.9] 02/22/2018 Hyperlipidemia [E78.5] Diverticulitis of colon (without mention of hem*05/01/2006 01/18/2015 GENNY on CPAP [G47.33] 10/19/2009 BPH with obstruction/lower urinary tract sympto*10/29/2010 Calcaneal spur [M77.30] 05/05/2011 12/30/2011 GERD (gastroesophageal reflux disease) [K21.9] 07/01/2012 Total knee replacement status [Z96.659] 04/12/2014 01/18/2015 Adenomatous colon polyp [D12.6] 10/23/2014 Gynecomastia, male [N62] 05/18/2014 02/22/2018 Asthmatic bronchitis [J45.909] 01/18/2015 Allergic rhinitis [J30.9] 01/18/2015 Tonsillar hypertrophy [J35.1] 11/21/2015 02/22/2018 Impaired fasting glucose [R73.01] 11/25/2015 11/10/2019 Primary osteoarthritis of left knee [M17.12] 09/17/2016 Obesity, Class II, BMI 35-39.9 [E66.812] 08/25/2018 06/10/2021 Controlled type 2 diabetes mellitus without com*11/10/2019 Fatty liver disease, nonalcoholic [K76.0] 01/23/2021 Obesity, Class I, BMI 30-34.9 [E66.811] 06/10/2021 01/09/2023 Acute right- (more content not included)... Normal [facility] CNOVon 10-03-2024 CNOV Office Visit (UCWSTR ) REJI BRITO ([id number]) 1965 M NFR Date Time Provider Department 10/03/24 2:00 PM RONALD DENIS UCWSTR During your visit today, we recorded the following information about you: Temperature Pulse Respiration Blood pressure 98.8 degrees 110/minute 22/minute 110/76 Weight 108.2 kg Ronald Denis APRN.WORD PROCESSOR TECHNICIAN 10/03/2024 3:34 PM Signed Subjective HPI HPI Reji Brito is a 59 year old male who presents today for CC of n/v/d, sinus pressure, cough. This started 4 days ago. Has tried otc medication for relief. Symptoms are worsened by nothing. Risk factors sick exposures at work. Nonsmoker. Hx of sinus infections. .Patient presents with: Nausea AND Vomiting: Diarrhea, stomach cramps, cough, sore throat x 4 days PAST MEDICAL HISTORY Diagnosis Date Acute right-sided back pain with sciatica 10/31/2021 Adenomatous colon polyp 10/23/2014 Allergic rhinitis 01/18/2015 Asthma Controlled type 2 diabetes mellitus without complication, without long-term current use of insulin ([facility]) 11/10/2019 Coronary artery disease COVID-19 09/24/2020 Depressive disorder 2008 DIVERTICULITIS OF COLON W/O BLEED 05/01/2006 Gynecomastia, male 05/18/2014 Hypertension Irritable bowel syndrome Lumbar disc disease 2003 Nonalcoholic fatty liver disease GENNY (obstructive sleep apnea) 10/19/2009 CPAP 8 cm H2O [facility] Other and unspecified hyperlipidemia Primary osteoarthritis of left knee 09/17/2016 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 Tonsillar hypertrophy 11/21/2015 Total knee replacement status 04/12/2014 Vertigo 08/2013 PAST SURGICAL HISTORY Procedure Laterality Date ARTHRP KNE CONDYLEANDPLATU MEDIALANDLAT COMPARTMENTS 01/03/2014 Knee replacement, total, Right COLONOSCOPY FLX DX W/COLLJ SPEC WHEN PFRMD 10/23/2014 Colonoscopy COLONOSCOPY GEN ANES 03/12/2020 hemorrhoids ENDOSCOPIC SEPTOPLASTY Bilateral 06/2018 [place] [facility] SIGMOIDOSCOPY FLX DX W/COLLJ SPEC BR/WA IF PFRMD 03/17/2000 Sigmoidoscopy, flexible ALLERGIES Hops and Seasonal Allergies MEDICATIONS dulaglutide (TRULICITY) 0.75 mg/0.5 mL pen injector Inject 0.75 mg subcutaneously one time a week. Inject dose once per week. Discard Pen After fluticasone (FLONASE) 50 mcg/actuation nasal spray Use 2 Sprays in each nostril two times a day. Rinse mouth after use. CPAP/BIPAP/OTHER Type .CPAPSettings into a note to see current settings/supplies/DME information. chlorthalidone (HYGROTON) 25 mg tablet Take 1 tablet by mouth once daily. pantoprazole DR (PROTONIX) 40 mg tablet Take 1 tablet by mouth once daily. 30 minutes before breakfast, take on empty stomach. lisinopril (ZESTRIL) 20 mg tablet Take 1 tablet by mouth once daily. montelukast (SINGULAIR) 10 mg tablet Take 1 tablet by mouth daily at bedtime. metFORMIN ER (GLUCOPHAGE XR) 500 mg 24 hr tablet Take 1 tablet by mouth daily with breakfast. simvastatin (ZOCOR) 40 mg tablet Take 1 tablet by mouth daily at bedtime. budesonide-formoterol (SYMBICORT) 160-4.5 mcg/actuation inhaler Inhale 2 Puffs as instructed two times a day. Ipratropium [place] (ATROVENT) 21 mcg (0.03 %) nasal spray Use 2 Sprays in the nose twice daily as needed (rhinorrhea). albuterol HFA (PROVENTIL HFA, VENTOLIN HFA) 90 mcg/actuation inhaler Inhale 2 Puffs as instructed every 4 hours as needed for wheezing/shortness of breath. polyethylene glycol 3350 (MIRALAX) 17 gram/dose powder Take 17 g by mouth twice daily. fexofenadine (JOSUE) 180 mg tablet Take 180 mg by mouth once daily. FREESTYLE LANCETS 28 gauge ubidecarenone (COQ-10 ORAL) Take by mouth. MAGNESIUM ASPARTATE HCL ORAL Take by mouth. glucosamine/msm/chondroitin A (BWLQCMTCXYH-CGNYNY-YQU ORAL) Take by mouth. vitamin D3-folic acid 5,000 unit- 1 mg tab Take by mouth. blood sugar diagnostic (BLOOD GLUCOSE TEST) test strip Test blood sugar(s) 2 times daily. Dx: Type 2 DM - Controlled E11.9 Insulin: No COMPOUNDED PRESCRIPTION Allergy shots per Kathie ENT CPAP AutoPAP 8-20 cmH2O, suitable mask, humidity, filters. Lifetime supplies. Dx: 327.23. Fax compliance rpt to [facility] in 6 weeks. Saw Newport 500 mg ORAL Cap Per package directions for prostate symptoms. aspirin(ECOTRIN LOW STRENGTH 81 MG TAB) THERAPEUTIC MULTIVITAMIN TAB Take one(1) tablet daily. FAMILY HISTORY Problem Relation Age of Onset Hypertension Mother Stroke Father Coronary Artery Disease Father PVD. Stents. Alive age 79 Hypertension Sister Heart Sister Lipids Sister Breast Cancer Sister Lipids Brother None Brother COPD Paternal Grandfather MS age 50s Colon Cancer No Family History Social History Tobacco Use Smoking status: Never Smokeless tobacco: Never Vaping Use Vaping status: Never Used Substance Use Topics Alcohol use: No Drug use: No Review of Systems Constitutional: Negative for fever. HE (more content not included)... Normal [facility] CBC panel Auto (Bld)on 09-28 Erythrocyte distribution width (RBC) [Ratio] 13.0 % Normal 11.5-15.0 [facility] Comment on above: Order Comment: Speci men Type: URINE SPECIMEN Ordering Facility: [facility] Address: [address] [place] [address] Performed By: #### U ACR #### [facility] CLIA [id number] [address] [place] [address] [place] Hematocrit (Bld) [Volume fraction] 45.8 % Normal 39.0-51.0 [facility] Comment on above: Order Comment: Speci men Type: URINE SPECIMEN Ordering Facility: [facility] Address: [address] [place] [address] Performed By: #### U ACR #### [facility] CLIA [id number] [address] [place] [address] [place] Hemoglobin (Bld) [Mass/Vol] 15.3 g/dL Normal 13.0-17.0 [facility] Comment on above: Order Comment: Speci men Type: URINE SPECIMEN Ordering Facility: [facility] Address: [address] [place] [address] Performed By: #### U ACR #### [facility] CLIA [id number] [address] [place] [address] [place] MCH (RBC) [Entitic mass] 30.7 pg Normal 26.0-34.0 [facility] Comment on above: Order Comment: Speci men Type: URINE SPECIMEN Ordering Facility: [facility] Address: [address] [place] [address] Performed By: #### U ACR #### [facility] CLIA [id number] [address] [place] [address] [place] MCHC (RBC) [Mass/Vol] 33.4 g/dL Normal 30.5-36.0 [facility] Comment on above: Order Comment: Speci men Type: URINE SPECIMEN Ordering Facility: [facility] Address: [address] [place] [address] Performed By: #### U ACR #### [facility] CLIA [id number] [address] [place] [address] [place] MCV (RBC) [Entitic vol] 92.0 fL Normal 80.0-100.0 [facility] Comment on above: Order Comment: Speci men Type: URINE SPECIMEN Ordering Facility: [facility] Address: [address] [place] [address] Performed By: #### U ACR #### [facility] CLIA [id number] [address] [place] [address] [place] Nucleated RBC (Bld) [#/Vol] 10*3/uL Normal <0.01 [facility] Comment on above: Order Comment: Speci men Type: URINE SPECIMEN Ordering Facility: [facility] Address: [address] [place] [address] Performed By: #### U ACR #### [facility] CLIA [id number] [address] [place] [address] [place] Platelet mean volume (Bld) [Entitic vol] 9.1 fL Normal 9.0-12.7 [facility] Comment on above: Order Comment: Speci men Type: URINE SPECIMEN Ordering Facility: [facility] Address: [address] [place] [address] Performed By: #### U ACR #### [facility] CLIA [id number] [address] [place] [address] [place] Platelets (Bld) [#/Vol] 358 10*3/uL Normal 150-400 [facility] Comment on above: Order Comment: Speci men Type: URINE SPECIMEN Ordering Facility: [facility] Address: [address] [place] [address] Performed By: #### U ACR #### [facility] CLIA [id number] [address] [place] [address] [place] RBC (Bld) [#/Vol] 4.98 10*6/uL Normal 4.20-6.00 [facility] Comment on above: Order Comment: Speci men Type: URINE SPECIMEN Ordering Facility: [facility] Address: [address] [place] [address] Performed By: #### U ACR #### [facility] CLIA [id number] [address] [place] [address] [place] WBC (Bld) [#/Vol] 6.80 10*3/uL Normal 3.70-11.00 [facility] Comment on above: Order Comment: Speci men Type: URINE SPECIMEN Ordering Facility: [facility] Address: [address] [place] [address] Performed By: #### U ACR #### [facility] CLIA [id number] [address] [place] [address] OF [facility] CNOVon 09-28-2024 CNOV Office Visit (INTMWS ) REJI BRITO ([id number]) 1965 M NFR Date Time Provider Department 09/28/24 8:20 AM INA WINSTON INTMWS During your visit today, we recorded the following information about you: Temperature Pulse Respiration Blood pressure 97.6 degrees 85/minute 12/minute 132/78 Weight 111.4 kg Ina Winston, DOCUMENTATION NURSE.WORD PROCESSOR TECHNICIAN 09/28/2024 9:40 AM Signed CC: Patient presents with: Follow Up: 6 months HPI Reji Brito is a 59 year old male who presents today for above. He reports chronic sinus/nasal congestion associated with runny nose and cough. He was treated for sinus infection with Augmentin in March and Doxycycline in July. Symptoms improve but never completely resolve. Denies recent fever, chills, SOB, wheezing, malaise, poor appetite, epistaxis or hemoptysis. He has asthma that is treated with Symbicort and Singulair, rarely needs albuterol inhaler. Getting weekly allergy shots and next follow-up with ENT is in April. Taking all medications as prescribed, denies side effects. He does not check his blood sugars consistently, last time was about 6 months ago. Denies pain, numbness or tingling in his extremities. Last ophthalmology appointment was a few months ago. He does not check BP at home. Wearing CPAP nightly. Denies snoring, un-refreshed sleep, insomnia, excessive daytime drowsiness. Review of Systems Constitutional: Negative for chills, diaphoresis, fatigue, fever and unexpected weight change. HENT: Negative for ear pain, facial swelling, sore throat and trouble swallowing. Cardiovascular: Negative for chest pain, palpitations and leg swelling. Allergic/Immunologic: Positive for environmental allergies. Neurological: Negative for dizziness, syncope, weakness, light-headedness and headaches. PAST MEDICAL HISTORY Diagnosis Date Acute right-sided back pain with sciatica 10/31/2021 Adenomatous colon polyp 10/23/2014 Allergic rhinitis 01/18/2015 Asthma Controlled type 2 diabetes mellitus without complication, without long-term current use of insulin ([facility]) 11/10/2019 Coronary artery disease COVID-19 09/24/2020 Depressive disorder 2008 DIVERTICULITIS OF COLON W/O BLEED 05/01/2006 Gynecomastia, male 05/18/2014 Hypertension Irritable bowel syndrome Lumbar disc disease 2003 Nonalcoholic fatty liver disease GENNY (obstructive sleep apnea) 10/19/2009 CPAP 8 cm H2O DME [facility] Other and unspecified hyperlipidemia Primary osteoarthritis of left knee 09/17/2016 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 Tonsillar hypertrophy 11/21/2015 Total knee replacement status 04/12/2014 Vertigo 08/2013 PAST SURGICAL HISTORY Procedure Laterality Date ARTHRP KNE CONDYLEANDPLATU MEDIALANDLAT COMPARTMENTS 01/03/2014 Knee replacement, total, Right COLONOSCOPY FLX DX W/COLLJ SPEC WHEN PFRMD 10/23/2014 Colonoscopy COLONOSCOPY GEN ANES 03/12/2020 hemorrhoids ENDOSCOPIC SEPTOPLASTY Bilateral 06/2018 [place] [facility] SIGMOIDOSCOPY FLX DX W/COLLJ SPEC BR/WA IF PFRMD 03/17/2000 Sigmoidoscopy, flexible ALLERGIES Hops and Seasonal Allergies MEDICATIONS fluticasone (FLONASE) 50 mcg/actuation nasal spray Use 2 Sprays in each nostril two times a day. Rinse mouth after use. dulaglutide (TRULICITY) 0.75 mg/0.5 mL pen injector Inject 0.75 mg subcutaneously one time a week. Inject dose once per week. Discard Pen After CPAP/BIPAP/OTHER Type .CPAPSettings into a note to see current settings/supplies/DME information. chlorthalidone (HYGROTON) 25 mg tablet Take 1 tablet by mouth once daily. pantoprazole DR (PROTONIX) 40 mg tablet Take 1 tablet by mouth once daily. 30 minutes before breakfast, take on empty stomach. lisinopril (ZESTRIL) 20 mg tablet Take 1 tablet by mouth once daily. montelukast (SINGULAIR) 10 mg tablet Take 1 tablet by mouth daily at bedtime. metFORMIN ER (GLUCOPHAGE XR) 500 mg 24 hr tablet Take 1 tablet by mouth daily with breakfast. simvastatin (ZOCOR) 40 mg tablet Take 1 tablet by mouth daily at bedtime. budesonide-formoterol (SYMBICORT) 160-4.5 mcg/actuation inhaler Inhale 2 Puffs as instructed two times a day. albuterol HFA (PROVENTIL HFA, VENTOLIN HFA) 90 mcg/actuation inhaler Inhale 2 Puffs as instructed every 4 hours as needed for wheezing/shortness of breath. polyethylene glycol 3350 (MIRALAX) 17 gram/dose powder Take 17 g by mouth twice daily. fexofenadine (JOSUE) 180 mg tablet Take 180 mg by mouth once daily. FREESTYLE LANCETS 28 gauge ubidecarenone (COQ-10 ORAL) Take by mouth. MAGNESIUM ASPARTATE HCL ORAL Take by mouth. vitamin D3-folic acid 5,000 unit- 1 mg tab Take by mouth. blood sugar diagnostic (BLOOD GLUCOSE TEST) test strip Test blood sugar(s) 2 times daily. Dx: Type 2 DM - Controlled E11.9 Insulin: No CPAP AutoPAP 8-20 cmH2O, suitable mask, humidity, filters. Lifetime supplies. Dx: 327.23. Fax com (more content not included)... Normal [facility] Comprehensive metabolic 2000 panelon 09-28-2024 Albumin [Mass/Vol] 4.5 g/dL Normal 3.9-4.9 [facility] Comment on above: Order Comment: Speci men Type: BLOOD SPECIMEN Ordering Facility: [facility] Address: [address] [place] [address] Performed By: #### 2 4323-8 #### [facility] CLIA [id number] [address] [place] [address] [place] ALP [Catalytic activity/Vol] 52 U/L Normal 38-113 [facility] Comment on above: Order Comment: Speci men Type: BLOOD SPECIMEN Ordering Facility: [facility] Address: [address] [place] [address] Performed By: #### 2 4323-8 #### [facility] CLIA [id number] [address] [place] [address] [place] ALT [Catalytic activity/Vol] 63 U/L High 10-54 [facility] Comment on above: Order Comment: Speci men Type: BLOOD SPECIMEN Ordering Facility: [facility] Address: [address] [place] [address] Performed By: #### 2 4323-8 #### [facility] CLIA [id number] [address] [place] [address] [place] Anion gap [Moles/Vol] 13 mmol/L Normal 8-15 [facility] Comment on above: Order Comment: Speci men Type: BLOOD SPECIMEN Ordering Facility: [facility] Address: [address] [place] [address] Performed By: #### 2 4323-8 #### [facility] CLIA [id number] [address] [place] [address] [place] AST [Catalytic activity/Vol] 56 U/L High 14-40 [facility] Comment on above: Order Comment: Speci men Type: BLOOD SPECIMEN Ordering Facility: [facility] Address: [address] [place] [address] Performed By: #### 2 4323-8 #### [facility] CLIA [id number] [address] [place] [address] [place] Bilirubin [Mass/Vol] 0.4 mg/dL Normal 0.2-1.3 [facility] Comment on above: Order Comment: Speci men Type: BLOOD SPECIMEN Ordering Facility: [facility] Address: [address] [place] [address] Performed By: #### 2 4323-8 #### [facility] CLIA [id number] [address] [place] [address] [place] Calcium [Mass/Vol] 10.2 mg/dL Normal 8.5-10.2 [facility] Comment on above: Order Comment: Speci men Type: BLOOD SPECIMEN Ordering Facility: [facility] Address: [address] [place] [address] Performed By: #### 2 4323-8 #### [facility] CLIA [id number] [address] [place] [address] [place] Chloride [Moles/Vol] 98 mmol/L Normal 98-107 [facility] Comment on above: Order Comment: Speci men Type: BLOOD SPECIMEN Ordering Facility: [facility] Address: [address] [place], [place] [id number] Performed By: #### 2 4323-8 #### [facility] CLIA [id number] [facility] [place] [address] [place] CO2 [Moles/Vol] 25 mmol/L Normal 22-30 [facility] Comment on above: Order Comment: Speci men Type: BLOOD SPECIMEN Ordering Facility: [facility] Address: [address] [place] [address] Performed By: #### 2 4323-8 #### [facility] CLIA [id number] [address] [place] [address] [place] Creatinine [Mass/Vol] 1.14 mg/dL Normal 0.73-1.22 [facility] Comment on above: Order Comment: Speci men Type: BLOOD SPECIMEN Ordering Facility: [facility] Address: [address] [place] [address] Performed By: #### 2 4323-8 #### [facility] CLIA [id number] [address] [place] [address] [place] Creatinine and Glomerular filtration rate.predicted panel (S/P/Bld) 74 mL/min/1.73m??? Normal >=60 [facility] Comment on above: Order Comment: Speci men Type: BLOOD SPECIMEN [facility] [facility] Address: [address] [place] [address] Result Comment: Maria Victoria mated Glomerular Filtration Rate (eGFR) is calculated using the 2020 CKD-EPI creatinine equation. This equation utilizes serum creatinine, sex, and age as parameters. The creatinine assay has traceable calibration to isotope dilution-mass spectrometry. Refer to KDIGO guidelines for clinical interpretation. In patients with unstable renal function, e.g. those with acute kidney injury, the eGFR may not accurately reflect actual GFR. Performed By: #### 2 4323-8 #### [facility] CLIA [id number] [address] [place] [address] [place] Glucose [Mass/Vol] 112 mg/dL High 74-99 [facility] Comment on above: Order Comment: Speci men Type: BLOOD SPECIMEN Ordering Facility: [facility] Address: [address] [place] [address] Result Comment: The [place] Diabetes Association (ADA) provides guidance for cutoff values for fasting glucose and random glucose. The ADA defines fasting as no caloric intake for at least 8 hours. Fasting plasma glucose results between 100 to 125 mg/dL indicate increased risk for diabetes (prediabetes). Fasting plasma glucose results greater than or equal to 126 mg/dL meet the criteria for diagnosis of diabetes. In the absence of unequivocal hyperglycemia, results should be confirmed by repeat testing. In a patient with classic symptoms of hyperglycemia or hyperglycemic crisis, random plasma glucose results greater than or equal to 200 mg/dL meet the criteria for diagnosis of diabetes. Reference: Standards of Medical Care in Diabetes 2016, [place] Diabetes Association. Diabetes Care. 2016.39(Suppl 1). Performed By: #### 2 4323-8 #### [facility] CLIA [id number] [address] [place] [address] [place] Potassium [Moles/Vol] 4.3 mmol/L Normal 3.7-5.1 [facility] Comment on above: Order Comment: Speci men Type: BLOOD SPECIMEN Ordering Facility: [facility] Address: [address] [place] [address] Performed By: #### 2 4323-8 #### [facility] CLIA [id number] [address] [place] [address] [place] Protein [Mass/Vol] 7.8 g/dL Normal 6.3-8.0 [facility] Comment on above: Order Comment: Speci men Type: BLOOD SPECIMEN Ordering Facility: [facility] Address: [address] [place] [address] Performed By: #### 2 4323-8 #### [facility] CLIA [id number] [address] [place] [address] [place] Sodium [Moles/Vol] 136 mmol/L Normal 136-144 [facility] Comment on above: Order Comment: Speci men Type: BLOOD SPECIMEN Ordering Facility: [facility] Address: [address] [place] [address] Performed By: #### 2 4323-8 #### [facility] CLIA [id number] [address] [place] [address] [place] Urea nitrogen [Mass/Vol] 25 mg/dL High 9-24 [facility] Comment on above: Order Comment: Speci men Type: BLOOD SPECIMEN Ordering Facility: [facility] Address: [address] [place] [address] Performed By: #### 2 4323-8 #### [facility] CLIA [id number] [address] [place] [address] [place] HbA1c (Bld)on 09-28-2024 Average glucose Estimated from glycated hemoglobin (Bld) [Mass/Vol] 151 mg/dL Normal [facility] Comment on above: Order Comment: Speci men Type: URINE SPECIMEN Ordering Facility: [facility] Address: [address] [place] [address] Result Comment: eAG: (Estimated average glucose) is a calculated value from HgbA1c and is artist representative of the average blood glucose level in the last 2-3 month period. Performed By: #### U ACR #### [facility] CLIA [id number] [address] [place] [address] [place] HbA1c (Bld) [Mass fraction] 6.9 % High 4.3-5.6 [facility] Comment on above: Order Comment: Speci men Type: URINE SPECIMEN Ordering Facility: [facility] Address: [address] [place] [address] Result Comment: [place] Diabetes Association guidelines indicate that patients with HgbA1c in the range 5.7-6.4% are at increased risk for development of diabetes, and intervention by lifestyle modification may be beneficial. HgbA1c greater or equal to 6.5% is considered diagnostic of diabetes. Performed By: #### U ACR #### [facility] CLIA [id number] [address] [place] [address] [place] PSA/PROSTATE SPECIFIC ANTIGE N SCREENINGon 09-28-2024 Prostate specific Ag [Mass/Vol] 1.71 ng/mL Normal <2.60 [facility] Comment on above: Order Comment: Speci men Type: URINE SPECIMEN Ordering Facility: [facility] Address: [address] [place] [address] Result Comment: Remberto l PSA test methodology used is the Electrochemiluminescence Immunoassay by [employer]. Total PSA values by differing methodologies cannot be interchanged. Performed By: #### U ACR #### [facility] CLIA [id number] [address] [place] [address] CNOVon 07-30-2024 CNOV Office Visit (UCWSTR ) TODDREJI Anguiano ([id number]) 1965 M NFR Date Time Provider Department 07/30/24 11:15 AM [facility] During your visit today, we recorded the following information about you: Temperature Pulse Respiration Blood pressure 97.3 degrees 78/minute 18/minute 158/78 Weight 112.4 kg Vy Jordan APRN.[facility] 07/30/2024 11:13 AM Signed CC: Patient presents with: Sinus congestion: Sinus pain and pressure, cough x3 weeks HPI: Reji Brito is a 59 year old male who presents to the office with complaint of head congestion and sinus symptoms for 3 weeks. Symptoms are worsening Associated symptoms includes nasal congestion, facial pain/pressure, and cough. Denies nausea, vomiting , and diarrhea. Treatments tried include nothing so far. with no relief of symptoms. Sick contacts: unknown. History of asthma, frequent episodes of bronchitis, chronic bronchitis, bronchiectasis or COPD: No Smoker: No Seasonal/environmental allergies: No The ROS is otherwise negative. The patient's pmh, medications, allergies, and past visits are reviewed. PHYSICAL EXAM: BP 158/78 Pulse 78 Temp 36.3 ?C (97.3 ?F) Resp 18 Wt 112.4 kg (247 lb 12.8 oz) SpO2 98% BMI 37.13 kg/m? General appearance: alert, cooperative, pleasant, in no acute distress Head: Normocephalic Eyes: EOM's intact, conjunctiva pink and moist, no icterus, sclera white, non-injected Ears: Right ear: External ear/canal- Normal, TM - erythematous. Left ear: External ear/canal- Normal, TM - erythematous Oropharynx:moist without lesions, No erythema, exudates or tonsillar hypertrophy. Uvula midline post nasal drainage. Maxillary sinus pressure Heart: Negative. RRR without obvious murmur, gallop, or rubs. No ectopy. Lungs: clear to auscultation, without rales or wheeze, good air exchange PAST MEDICAL HISTORY Diagnosis Date Acute right-sided back pain with sciatica 10/31/2021 Adenomatous colon polyp 10/23/2014 Allergic rhinitis 01/18/2015 Asthma Controlled type 2 diabetes mellitus without complication, without long-term current use of insulin ([facility]) 11/10/2019 Coronary artery disease COVID-19 09/24/2020 Depressive disorder 2008 DIVERTICULITIS OF COLON W/O BLEED 05/01/2006 Gynecomastia, male 05/18/2014 Hypertension Irritable bowel syndrome Lumbar disc disease 2003 Nonalcoholic fatty liver disease GENNY (obstructive sleep apnea) 10/19/2009 CPAP 8 cm H2O [facility] Other and unspecified hyperlipidemia Primary osteoarthritis of left knee 09/17/2016 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 Tonsillar hypertrophy 11/21/2015 Total knee replacement status 04/12/2014 Vertigo 08/2013 PAST SURGICAL HISTORY Procedure Laterality Date ARTHRP KNE CONDYLEANDPLATU MEDIALANDLAT COMPARTMENTS 01/03/2014 Knee replacement, total, Right COLONOSCOPY FLX DX W/COLLJ SPEC WHEN PFRMD 10/23/2014 Colonoscopy COLONOSCOPY GEN ANES 03/12/2020 hemorrhoids ENDOSCOPIC SEPTOPLASTY Bilateral 06/2018 [facility] SIGMOIDOSCOPY FLX DX W/COLLJ SPEC BR/WA IF PFRMD 03/17/2000 Sigmoidoscopy, flexible ALLERGIES Hops and Seasonal Allergies MEDICATIONS fluticasone (FLONASE) 50 mcg/actuation nasal spray Use 2 Sprays in each nostril two times a day. Rinse mouth after use. dulaglutide (TRULICITY) 0.75 mg/0.5 mL pen injector Inject 0.75 mg subcutaneously one time a week. Inject dose once per week. Discard Pen After CPAP/BIPAP/OTHER Type .CPAPSettings into a note to see current settings/supplies/DME information. chlorthalidone (HYGROTON) 25 mg tablet Take 1 tablet by mouth once daily. pantoprazole DR (PROTONIX) 40 mg tablet Take 1 tablet by mouth once daily. 30 minutes before breakfast, take on empty stomach. lisinopril (ZESTRIL) 20 mg tablet Take 1 tablet by mouth once daily. montelukast (SINGULAIR) 10 mg tablet Take 1 tablet by mouth daily at bedtime. metFORMIN ER (GLUCOPHAGE XR) 500 mg 24 hr tablet Take 1 tablet by mouth daily with breakfast. simvastatin (ZOCOR) 40 mg tablet Take 1 tablet by mouth daily at bedtime. budesonide-formoterol (SYMBICORT) 160-4.5 mcg/actuation inhaler Inhale 2 Puffs as instructed two times a day. Ipratropium [place] (ATROVENT) 21 mcg (0.03 %) nasal spray Use 2 Sprays in the nose twice daily as needed (rhinorrhea). albuterol HFA (PROVENTIL HFA, VENTOLIN HFA) 90 mcg/actuation inhaler Inhale 2 Puffs as instructed every 4 hours as needed for wheezing/shortness of breath. polyethylene glycol 3350 (MIRALAX) 17 gram/dose powder Take 17 g by mouth twice daily. fexofenadine (JOSUE) 180 mg tablet Take 180 mg by mouth once daily. FREESTYLE LANCETS 28 gauge ubidecarenone (COQ-10 ORAL) Take by mouth. MAGNESIUM ASPARTATE HCL ORAL Take by mouth. glucosamine/msm/chondroitin A (ZPGSPNUJGEZ-PUEKLT-XVP ORAL) Take by mouth. vitamin D3-folic acid 5,000 unit- 1 mg tab T (more content not included)... Normal [facility] XR Chest PA and Lateralon IMPRESSION: No acute radiographic abnormality. Commissary Helper: MICHEAL Transcribe Date/Time: Oct 21 2023 7:12P Dictated by : JULIAN FRENCH MD This examination was interpreted and the report reviewed and electronically signed by: JULIAN FRENCH MD on Oct 21 2023 7:12PM EST DIVISION OF RADIOLOGY * * *Final Report* * * DATE OF EXAM: Oct 21 2023 7:10PM WOX 5291 - XR CHEST 2V FRONTAL/LAT / PROCEDURE REASON: Acute cough * * * * Physician Interpretation * * * * EXAMINATION: CHEST RADIOGRAPH (2 VIEW FRONTAL & LATERAL) CLINICAL HISTORY: Acute cough MQ: XC2_6 EXAM DATE/TIME: 10/21/2023 7:10 PM COMPARISON: 12/25/2021 RESULT: Lines, tubes, and devices: None. Lungs and pleura: No consolidation. No lung mass. No pleural effusion. No pneumothorax. Cardiomediastinal silhouette: Normal cardiomediastinal silhouette. Bones and soft tissues: Unremarkable. DIVISION OF RADIOLOGY Provider, [facility] - 10/21/2023 * * *Final Report* * * DATE OF EXAM: Oct 21 2023 7:10PM WOX 5291 - XR CHEST 2V FRONTAL/LAT / PROCEDURE REASON: Acute cough * * * * Physician Interpretation * * * * EXAMINATION: CHEST RADIOGRAPH (2 VIEW FRONTAL & LATERAL) CLINICAL HISTORY: Acute cough MQ: XC2_6 EXAM DATE/TIME: 10/21/2023 7:10 PM COMPARISON: 12/25/2021 RESULT: Lines, tubes, and devices: None. Lungs and pleura: No consolidation. No lung mass. No pleural effusion. No pneumothorax. Cardiomediastinal silhouette: Normal cardiomediastinal silhouette. Bones and soft tissues: Unremarkable. IMPRESSION IMPRESSION: No acute radiographic abnormality. Commissary Helper: MICHEAL Transcribe Date/Time: Oct 21 2023 7:12P Dictated by : JULIAN FRENCH MD This examination was interpreted and the report reviewed and electronically signed by: JULIAN FRENCH MD on Oct 21 2023 7:12PM EST [facility] Radiology Study observation (narrative) [facility] XR Chest PA and LateralOrder ed By: Ccf Provider on 10-21-2023 [facility] No Panel Informationon 06-19 [facility] XR CHEST 2V FRONTAL/LATon [facility] XR Chest PA and Lateralon IMPRESSION: No acute radiographic abnormality. Commissary Helper: MICHEAL Transcribe Date/Time: Dec 25 2021 12:26P Dictated by : JULIAN FRENCH MD This examination was interpreted and the report reviewed and electronically signed by: JULIAN FRENCH MD on Dec 25 2021 12:27PM [facility] DIVISION OF RADIOLOGY * * *Final Report* * * DATE OF EXAM: Dec 25 2021 12:20PM WOX 5291 - XR CHEST 2V FRONTAL/LAT / PROCEDURE REASON: Cough * * * * Physician Interpretation * * * * EXAMINATION: CHEST RADIOGRAPH (2 VIEW FRONTAL & LATERAL) CLINICAL HISTORY: Cough MQ: XC2_6 EXAM DATE/TIME: 12/25/2021 12:20 PM COMPARISON: 01/18/2015 RESULT: Lines, tubes, and devices: None. Lungs and pleura: No consolidation. No lung mass. No pleural effusion. No pneumothorax. Cardiomediastinal silhouette: Normal cardiomediastinal silhouette. Bones and soft tissues: Unremarkable. DIVISION OF RADIOLOGY Provider, [facility] - 12/25/2021 * * *Final Report* * * DATE OF EXAM: Dec 25 2021 12:20PM WOX 5291 - XR CHEST 2V FRONTAL/LAT / PROCEDURE REASON: Cough * * * * Physician Interpretation * * * * EXAMINATION: CHEST RADIOGRAPH (2 VIEW FRONTAL & LATERAL) CLINICAL HISTORY: Cough MQ: XC2_6 EXAM DATE/TIME: 12/25/2021 12:20 PM COMPARISON: 01/18/2015 RESULT: Lines, tubes, and devices: None. Lungs and pleura: No consolidation. No lung mass. No pleural effusion. No pneumothorax. Cardiomediastinal silhouette: Normal cardiomediastinal silhouette. Bones and soft tissues: Unremarkable. IMPRESSION IMPRESSION: No acute radiographic abnormality. Commissary Helper: MICHEAL Transcribe Date/Time: Dec 25 2021 12:26P Dictated by : JULIAN FRENCH MD This examination was interpreted and the report reviewed and electronically signed by: JULIAN FRENCH MD on Dec 25 2021 12:27PM [facility] Radiology Study observation (narrative) [facility] XR Chest PA and LateralOrder ed By: Ccf Provider on 12-25-2021 [facility] No Panel Informationon 10-23 Radiology Study observation (narrative) [facility] XR Lumbar spine 3 Viewson IMPRESSION: Lumbar s pine degenerative changes as described above. Commissary Helper: MICHEAL Transcribe Date/Time: Oct 23 2021 9:02A Dictated by : TONY CRESPO MD This examination was interpreted and the report reviewed and electronically signed by: TONY CRESPO MD on Oct 23 2021 9:05AM [facility] DIVISION OF RADIOLOGY * * *Final Report* * * DATE OF EXAM: Oct 23 2021 8:57AM WOX 5228 - XR LUMBAR 3V AP/LAT/L5-S1 / PROCEDURE REASON: Acute right-sided low back pain with right-sided sciatica * * * * Physician Interpretation * * * * EXAM TITLE: XR LUMBAR 3V AP/LAT/L5-S1 EXAM DATE/TIME: 10/23/2021 8:57 AM COMPARISON: None. CLINICAL INDICATION/HISTORY: Low back pain. TECHNIQUE: AP, lateral and cone down lateral views of the lumbar spine are presented. FINDINGS: There are five bvo-slb-galnmaz lumbar vertebrae. No acute fracture or subluxations are noted. Questionable L4-5 mild disc space narrowing. There is at least moderate osteophyte formation. DIVISION OF RADIOLOGY Provider, Gerardo Costa - 10/23/2021 * * *Final Report* * * DATE OF EXAM: Oct 23 2021 8:57AM WOX 5228 - XR LUMBAR 3V AP/LAT/L5-S1 / PROCEDURE REASON: Acute right-sided low back pain with right-sided sciatica * * * * Physician Interpretation * * * * EXAM TITLE: XR LUMBAR 3V AP/LAT/L5-S1 EXAM DATE/TIME: 10/23/2021 8:57 AM COMPARISON: None. CLINICAL INDICATION/HISTORY: Low back pain. TECHNIQUE: AP, lateral and cone down lateral views of the lumbar spine are presented. FINDINGS: There are five jja-cmu-otjyzdv lumbar vertebrae. No acute fracture or subluxations are noted. Questionable L4-5 mild disc space narrowing. There is at least moderate osteophyte formation. IMPRESSION IMPRESSION: Lumbar spine degenerative changes as described above. Commissary Helper: MICHEAL Transcribe Date/Time: Oct 23 2021 9:02A Dictated by : TONY CRESPO MD This examination was interpreted and the report reviewed and electronically signed by: TONY CRESPO MD on Oct 23 2021 9:05AM EST [facility] XR Lumbar spine 3 ViewsOrder ed By: Ccf Provider on 10-23-2021 [facility] XR Sacrum and Coccyx 3 Views on 10-23-2021 IMPRESSION: Unremark able sacrum/coccyx x-ray. Commissary Helper: [facility] Transcribe Date/Time: Oct 23 2021 9:05A Dictated by : TONY CRESPO MD This examination was interpreted and the report reviewed and electronically signed by: TONY CRESPO MD on Oct 23 2021 9:08AM EST DIVISION OF RADIOLOGY * * *Final Report* * * DATE OF EXAM: Oct 23 2021 8:57AM WOX 5246 - XR SACRUM/COCCYX 3V AP/LAT / PROCEDURE REASON: Acute right-sided low back pain with right-sided sciatica * * * * Physician Interpretation * * * * EXAM TITLE: XR SACRUM/COCCYX 3V AP/LAT EXAM DATE/TIME: 10/23/2021 8:57 AM COMPARISON: None. CLINICAL INDICATION/HISTORY: Right-sided low back pain. TECHNIQUE: AP and lateral views of the sacrum/coccyx are presented. FINDINGS: No acute fractures demonstrated in the sacrum. No subluxation of the coccyx. The visualized other pelvic bones are intact. The hip joints are symmetric bilaterally. DIVISION OF RADIOLOGY Provider, [facility] - 10/23/2021 * * *Final Report* * * DATE OF EXAM: Oct 23 2021 8:57AM WOX 5246 - XR SACRUM/COCCYX 3V AP/LAT / PROCEDURE REASON: Acute right-sided low back pain with right-sided sciatica * * * * Physician Interpretation * * * * EXAM TITLE: XR SACRUM/COCCYX 3V AP/LAT EXAM DATE/TIME: 10/23/2021 8:57 AM COMPARISON: None. CLINICAL INDICATION/HISTORY: Right-sided low back pain. TECHNIQUE: AP and lateral views of the sacrum/coccyx are presented. FINDINGS: No acute fractures demonstrated in the sacrum. No subluxation of the coccyx. The visualized other pelvic bones are intact. The hip joints are symmetric bilaterally. IMPRESSION IMPRESSION: Unremarkable sacrum/coccyx x-ray. Commissary Helper: MICHEAL Transcribe Date/Time: Oct 23 2021 9:05A Dictated by : TONY CRESPO MD This examination was interpreted and the report reviewed and electronically signed by: TONY CRESPO MD on Oct 23 2021 9:08AM EST [facility] HBV surface Ab IA Ql (S)on 0 01-14-2021 HBV surface Ag Ql (S) Negative Normal Negative [facility] Comment on above: Order Comment: Speci men Type: BLOOD SPECIMEN Performed By: #### 1 0900-9, IRON #### [facility] CLIA [id number] [address] [place] [address] HCV Ab Ser Qlon 01-14-2021 HCV Ab Ql (S) Negative Normal Negative [facility] Comment on above: Order Comment: Speci men Type: BLOOD SPECIMEN Performed By: #### 1 6128-1 #### [facility] CLIA [id number] [address] [place] [address] IRON + TIBCon 01-14-2021 Iron [Mass/Vol] 83 ug/dL Normal 41-186 [facility] Comment on above: Order Comment: Speci men Type: BLOOD SPECIMEN Performed By: #### 1 0900-9, IRON #### [facility] CLIA [id number] [address] [place] [address] Iron binding capacity [Mass/Vol] 337 ug/dL Normal 232-386 [facility] Comment on above: Order Comment: Speci men Type: BLOOD SPECIMEN Performed By: #### 1 0900-9, IRON #### [facility] CLIA [id number] [address] [place] [address] Iron saturation [Mass fraction] 25 % Normal 15-57 [facility] Comment on above: Order Comment: Speci men Type: BLOOD SPECIMEN Performed By: #### 1 0900-9, IRON #### [facility] CLIA [id number] [address] [place] [address] MITOCHONDRIAL AB PNL SCRNon 01-14-2021 Mitochondria Ab IF Ql (S) Negative Normal [facility] Comment on above: Order Comment: Speci men Type: BLOOD SPECIMEN Result Comment: Norm al range : negative at a 1:20 serum dilution. Performed By: #### S BRANDON LOPEZ #### [facility] CLIA [id number] [address] [place] [address] SMOOTH MUSCLE AB PNL [facility] 01-14-2021 Smooth muscle Ab IF Ql (S) Negative Normal [facility] Comment on above: Order Comment: Speci men Type: BLOOD SPECIMEN Result Comment: Norm al range : negative at a 1:20 serum dilution. Performed By: #### S JOHN BRANDON #### [facility] CLIA [id number] [address] [place] [address] XR ABDOMEN 1V SUPINEon 01-14 XR ABDOMEN 1V SUPINE * * *Final Report* * * DATE OF EXAM: Jan 14 2021 10:22AM AWX [id number] - XR ABDOMEN 1V SUPINE / PROCEDURE REASON: Bloating * * * * Physician Interpretation * * * * TECHNIQUE: XR ABDOMEN 1V SUPINE EXAM DATE: 01/14/2021 10:22 AM COMPARISON STUDIES: None CLINICAL HISTORY: Bloating RESULT: Large stool burden. Mildly dilated transverse colon 6.4 cm tapering to normal caliber, may reflect ileus. No dilated small bowel. No pathologic calcifications. Osseous degenerative changes. . IMPRESSION: Large stool burden. Mildly dilated transverse colon 6.4 cm tapering to normal caliber, may reflect ileus. Commissary Helper: [facility] Transcribe Date/Time: Jan 14 2021 6:29P Dictated by : RANJIT ADLER MD This examination was interpreted and the report reviewed and electronically signed by: RANJIT ADLER MD on Jan 14 2021 6:30PM EST [id number] Normal [facility] Coronavirus 2019on 0 COVID 19 Result CUSTOMER RELATIONS CONSULTANT Normal Negative for COVID19 (SARS CoV2) by PCR. [facility] Comment on above: Result Comment: Nega tive for This test was developed and its performance characteristics determined by [facility]'s [facility] Pathology and Laboratory Medicine [place]. This test has been authorized by FDA under an Emergency Use Authorization (EUA). This test has been validated in accordance with the FDA's Guidance Document Policy for Diagnostics Testing in Laboratories Certified to Perform High Complexity Testing under CLIA prior to Emergency use Authorization for Coronavirus Disease 2019 during the Public Health Emergency issued on November 19, 2019. COVID19 (SARS This test was developed and its performance characteristics determined by [facility] and Laboratory Medicine [place]. This test has been authorized by FDA under an Emergency Use Authorization (EUA). This test has been validated in accordance with the FDA's Guidance Document Policy for Diagnostics Testing in Laboratories Certified to Perform High Complexity Testing under CLIA prior to Emergency use Authorization for Coronavirus Disease 2019 during the Public Health Emergency issued on November 19, 2019. CoV2) by PCR. This test was developed and its performance characteristics determined by [facility] and Laboratory Medicine [place]. This test has been authorized by FDA under an Emergency Use Authorization (EUA). This test has been validated in accordance with the FDA's Guidance Document Policy for Diagnostics Testing in Laboratories Certified to Perform High Complexity Testing under CLIA prior to Emergency use Authorization for Coronavirus Disease 2019 during the Public Health Emergency issued on November 19, 2019. Coronavirus 2019on 0 COVID 19 Source CUSTOMER RELATIONS CONSULTANT Normal [facility] Reference Lab Comment on above: Result Comment: Naso pharyngeal Corrected on 08/21 AT 1345: Previously reported as CUSTOMER RELATIONS CONSULTANT SWAB Swab Corrected on 08/21 AT 1345: Previously reported as CUSTOMER RELATIONS CONSULTANT SWAB Coronavirus 2019on 0 COVID 19 Result CUSTOMER RELATIONS CONSULTANT Normal Negative for COVID19 (SARS CoV2) by PCR. [facility] Reference Lab Comment on above: Result Comment: Nega tive for This test was developed and its performance characteristics determined by [facility] and [facility] [place]. This test has been authorized by FDA under an Emergency Use Authorization (EUA). This test has been validated in accordance with the FDA's Guidance Document Policy for Diagnostics Testing in Laboratories Certified to Perform High Complexity Testing under CLIA prior to Emergency use Authorization for Coronavirus Disease 2019 during the Public Health Emergency issued on November 19, 2019. COVID19 (SARS This test was developed and its performance characteristics determined by [facility]'s [facility] Pathology and Laboratory [facility] [place]. This test has been authorized by FDA under an Emergency Use Authorization (EUA). This test has been validated in accordance with the FDA's Guidance Document Policy for Diagnostics Testing in Laboratories Certified to Perform High Complexity Testing under CLIA prior to Emergency use Authorization for Coronavirus Disease 2019 during the Public Health Emergency issued on November 19, 2019. CoV2) by PCR. This test was developed and its performance characteristics determined by [facility]'s [facility] Pathology and [facility] [place]. This test has been authorized by FDA under an Emergency Use Authorization (EUA). This test has been validated in accordance with the FDA's Guidance Document Policy for Diagnostics Testing in Laboratories Certified to Perform High Complexity Testing under CLIA prior to Emergency use Authorization for Coronavirus Disease 2019 during the Public Health Emergency issued on November 19, 2019. COVID 19 Source CUSTOMER RELATIONS CONSULTANT Normal [facility] Reference Lab Comment on above: Result Comment: Naso pharyngeal Corrected on 03/13 AT 0028: Previously reported as NASAL Swab Corrected on 03/13 AT 0028: Previously reported as NASAL Vital Signs Date Time Vital Sign Value Performing Clinician Faci [facility] 08-01-2025 10:09-[address] Pressure Cuff Size DR REJI AGUILAR MD [facility] 08-01-2025 10:09-[address] REJI AGUILAR MD [facility] 08-01-2025 10:09-[address] REJI AGUILAR MD [facility] 08-01-2025 10:09-0500 Body height 177.[address] REJI AGUILAR MD [facility] 08-01-2025 10:09-0500 Body weight 34.01 kg/m2 DR REJI AGUILAR MD [facility] 08-01-2025 10:09-0500 Body weight 107.[address] REJI AGUILAR MD [facility] 08-01-2025 10:09-0500 Diastolic Blood Pressure Non-Invasive 78 mm[Hg] DR REJI AGUILAR MD [facility] 08-01-2025 10:09-0500 Heart rate 88 /min DR REJI AGUILAR MD [facility] 08-01-2025 10:09-0500 Systolic Blood Pressure Non-Invasive 139 mm[Hg] DR REJI AGUILAR MD [facility] 04-29-2025 10:57-0400 Body mass index (BMI) [Ratio] 35.06 kg/m2 Vy Jordan APRN.WORD PROCESSOR TECHNICIAN Work Phone: [facility] 04-29-2025 10:57-0400 Body temperature 98.2 [degF] Vy Jordan APRN.WORD PROCESSOR TECHNICIAN Work Phone: [facility] 04-29-2025 10:57-0400 Body weight 106.9 kg Vy Jordan APRN.WORD PROCESSOR TECHNICIAN Work Phone: [facility] 04-29-2025 10:57-0400 Diastolic blood pressure 80 mm[Hg] Vy Jordan APRN.WORD PROCESSOR TECHNICIAN Work Phone: [facility] 04-29-2025 10:57-0400 Heart rate 78 /min Vy Jordan APRN.WORD PROCESSOR TECHNICIAN Work Phone: [facility] 04-29-2025 10:57-0400 Respiratory rate 20 /min Vy Jordan APRN.WORD PROCESSOR TECHNICIAN Work Phone: [facility] 04-29-2025 10:57-0400 SaO2% (BldA) [Mass fraction] 96 % Vy Jordan APRN.WORD PROCESSOR TECHNICIAN Work Phone: [facility] 04-29-2025 10:57-0400 Systolic blood pressure 118 mm[Hg] Vy Jordan APRN.WORD PROCESSOR TECHNICIAN Work Phone: [facility] 04-11-2025 16:15-0400 Body height 180.[address] Kristian Cadet MD Work Phone: [facility] 04-11-2025 08:33-0400 Diastolic blood pressure 67 mm[Hg] Adele Davis MD Work Phone: [facility] 04-11-2025 08:33-0400 Heart rate 69 /min Adele Davis MD Work Phone: [facility] 04-11-2025 08:33-0400 Respiratory rate 16 /min Adele Davis MD Work Phone: [facility] 04-11-2025 08:33-0400 SaO2% (BldA) [Mass fraction] 95 % Adele Davis MD Work Phone: [facility] 04-11-2025 08:33-0400 Systolic blood pressure 117 mm[Hg] Adele Davis MD Work Phone: [facility] 04-11-2025 07:32-0400 Body mass index (BMI) [Ratio] 35.02 kg/m2 Adele Davis MD Work Phone: [facility] 04-11-2025 07:32-0400 Body temperature 97 [degF] Adele Davsi MD Work Phone: [facility] 04-11-2025 07:32-0400 Body weight 106.8 kg Adele Davis MD Work Phone: [facility] 03-28-2025 08:08-0400 Body height 174.6 cm Kristian Cadet MD Work Phone: [facility] 03-28-2025 08:08-0400 Body mass index (BMI) [Ratio] 35.02 kg/m2 Kristian Cadet MD Work Phone: [facility] 03-28-2025 08:08-0400 Body temperature 97.39 [degF] Kristian Cadet MD Work Phone: [facility] 03-28-2025 08:08-0400 Body weight 106.8 kg Kristian Cadet MD Work Phone: [facility] 03-28-2025 08:08-0400 Diastolic blood pressure 82 mm[Hg] Kristian Cadet MD Work Phone: [facility] 03-28-2025 08:08-0400 Heart rate 84 /min Kristian Cadet MD Work Phone: [facility] 03-28-2025 08:08-0400 Respiratory rate 16 /min Kristian Cadet MD Work Phone: [facility] 03-28-2025 08:08-0400 Systolic blood pressure 120 mm[Hg] Kristian Cadet MD Work Phone: [facility] 03-01-2025 09:26-0400 Body mass index (BMI) [Ratio] 36.04 kg/m2 Mervin Swank DOCUMENTATION NURSE.WORD PROCESSOR TECHNICIAN Work Phone: [facility] 03-01-2025 09:26-0400 Body temperature 98.6 [degF] Mervin Swank DOCUMENTATION NURSE.WORD PROCESSOR TECHNICIAN Work Phone: [facility] 03-01-2025 09:26-0400 Body weight 109.1 kg Mervin Swank DOCUMENTATION NURSE.WORD PROCESSOR TECHNICIAN Work Phone: [facility] 03-01-2025 09:26-0400 Diastolic blood pressure 82 mm[Hg] Mervin Swank DOCUMENTATION NURSE.WORD PROCESSOR TECHNICIAN Work Phone: [facility] 03-01-2025 09:26-0400 Heart rate 105 /min Mervin Swank DOCUMENTATION NURSE.WORD PROCESSOR TECHNICIAN Work Phone: [facility] 03-01-2025 09:26-0400 Respiratory rate 16 /min Mervin Swank DOCUMENTATION NURSE.WORD PROCESSOR TECHNICIAN Work Phone: [facility] 03-01-2025 09:26-0400 SaO2% (BldA) [Mass fraction] 97 % Mervin Swank DOCUMENTATION NURSE.WORD PROCESSOR TECHNICIAN Work Phone: [facility] 03-01-2025 09:26-0400 Systolic blood pressure 142 mm[Hg] Mervin Swank DOCUMENTATION NURSE.WORD PROCESSOR TECHNICIAN Work Phone: [facility] 12-17-2024 09:32-0400 Body mass index (BMI) [Ratio] 36.5 kg/m2 Eva Clutter PA-C Work Phone: [facility] 12-17-2024 09:32-0400 Body temperature 96.8 [degF] Eva Clutter PA-C Work Phone: [facility] 12-17-2024 09:32-0400 Body weight 110.5 kg Eva Clutter PA-C Work Phone: [facility] 12-17-2024 09:32-0400 Diastolic blood pressure 74 mm[Hg] Eva Clutter PA-C Work Phone: [facility] 12-17-2024 09:32-0400 Heart rate 82 /min Eva Clutter PA-C Work Phone: [facility] 12-17-2024 09:32-0400 Respiratory rate 16 /min Eva Clutter PA-C Work Phone: [facility] 12-17-2024 09:32-0400 SaO2% (BldA) [Mass fraction] 96 % Eva Clutter PA-C Work Phone: [facility] 12-17-2024 09:32-0400 Systolic blood pressure 128 mm[Hg] Eva Clutter PA-C Work Phone: [facility] 11-14-2024 08:33-0500 Body mass index (BMI) [Ratio] 37.03 kg/m2 Lisa Wang DOCUMENTATION NURSE.WORD PROCESSOR TECHNICIAN Work Phone: [facility] 11-14-2024 08:33-0500 Body temperature 97.7 [degF] Lisa Wang DOCUMENTATION NURSE.WORD PROCESSOR TECHNICIAN Work Phone: [facility] 11-14-2024 08:33-0500 Body weight 112.1 kg Lisa Wang DOCUMENTATION NURSE.WORD PROCESSOR TECHNICIAN Work Phone: [facility] 11-14-2024 08:33-0500 Diastolic blood pressure 82 mm[Hg] Lisa Wang DOCUMENTATION NURSE.WORD PROCESSOR TECHNICIAN Work Phone: [facility] 11-14-2024 08:33-0500 Heart rate 71 /min Lisa Wang DOCUMENTATION NURSE.WORD PROCESSOR TECHNICIAN Work Phone: [facility] 11-14-2024 08:33-0500 Respiratory rate 16 /min Lisa Wang DOCUMENTATION NURSE.WORD PROCESSOR TECHNICIAN Work Phone: [facility] 11-14-2024 08:33-0500 SaO2% (BldA) [Mass fraction] 95 % Lisa Wang DOCUMENTATION NURSE.WORD PROCESSOR TECHNICIAN Work Phone: [facility] 11-14-2024 08:33-0500 Systolic blood pressure 124 mm[Hg] Lisa Wang DOCUMENTATION NURSE.WORD PROCESSOR TECHNICIAN Work Phone: [facility] 10-03-2024 12:25-0500 Body mass index (BMI) [Ratio] 35.74 kg/m2 Ronald Adeel DOCUMENTATION NURSE.WORD PROCESSOR TECHNICIAN Work Phone: [facility] 10-03-2024 12:25-0500 Body temperature 98.8 [degF] Ronald Adeel DOCUMENTATION NURSE.WORD PROCESSOR TECHNICIAN Work Phone: [facility] 10-03-2024 12:25-0500 Body weight 108.2 kg Ronald Denis DOCUMENTATION NURSE.WORD PROCESSOR TECHNICIAN Work Phone: [facility] 10-03-2024 12:25-0500 Diastolic blood pressure 76 mm[Hg] Ronald Adeel DOCUMENTATION NURSE.WORD PROCESSOR TECHNICIAN Work Phone: [facility] 10-03-2024 12:25-0500 Heart rate 110 /min Ronald Adeel DOCUMENTATION NURSE.WORD PROCESSOR TECHNICIAN Work Phone: [facility] 10-03-2024 12:25-0500 Respiratory rate 22 /min Ronald Adeel DOCUMENTATION NURSE.WORD PROCESSOR TECHNICIAN Work Phone: [facility] 10-03-2024 12:25-0500 SaO2% (BldA) [Mass fraction] 97 % Ronald Denis DOCUMENTATION NURSE.WORD PROCESSOR TECHNICIAN Work Phone: [facility] 10-03-2024 12:25-0500 Systolic blood pressure 110 mm[Hg] Ronald Denis DOCUMENTATION NURSE.WORD PROCESSOR TECHNICIAN Work Phone: [facility] 09-28-2024 08:28-0500 Body mass index (BMI) [Ratio] 36.79 kg/m2 Ina Winston DOCUMENTATION NURSE.WORD PROCESSOR TECHNICIAN Work Phone: [facility] 09-28-2024 08:28-0500 Body temperature 97.59 [degF] Ina Winston DOCUMENTATION NURSE.WORD PROCESSOR TECHNICIAN Work Phone: [facility] 09-28-2024 08:28-0500 Body weight 111.4 kg Ina Winston DOCUMENTATION NURSE.WORD PROCESSOR TECHNICIAN Work Phone: [facility] 09-28-2024 08:28-0500 Diastolic blood pressure 78 mm[Hg] Ina Winston DOCUMENTATION NURSE.WORD PROCESSOR TECHNICIAN Work Phone: [facility] 09-28-2024 08:28-0500 Heart rate 85 /min Ina Winston APRN.WORD PROCESSOR TECHNICIAN Work Phone: [facility] 09-28-2024 08:28-0500 Respiratory rate 12 /min Ina Winston APRN.WORD PROCESSOR TECHNICIAN Work Phone: [facility] 09-28-2024 08:28-0500 SaO2% (BldA) [Mass fraction] 94 % Ina Winston DOCUMENTATION NURSE.WORD PROCESSOR TECHNICIAN Work Phone: [facility] 09-28-2024 08:28-0500 Systolic blood pressure 132 mm[Hg] Ina Winston DOCUMENTATION NURSE.WORD PROCESSOR TECHNICIAN Work Phone: [facility] 07-30-2024 11:05-0500 Body mass index (BMI) [Ratio] 37.13 kg/m2 Vy Jordan DOCUMENTATION NURSE.WORD PROCESSOR TECHNICIAN Work Phone: [facility] 07-30-2024 11:05-0500 Body temperature 97.3 [degF] Vy Jordan DOCUMENTATION NURSE.WORD PROCESSOR TECHNICIAN Work Phone: [facility] 07-30-2024 11:05-0500 Body weight 112.4 kg Vy Jordan APRN.WORD PROCESSOR TECHNICIAN Work Phone: [facility] 07-30-2024 11:05-0500 Diastolic blood pressure 78 mm[Hg] Vy Jordan APRN.WORD PROCESSOR TECHNICIAN Work Phone: [facility] 07-30-2024 11:05-0500 Heart rate 78 /min Vy Jordan APRN.WORD PROCESSOR TECHNICIAN Work Phone: [facility] 07-30-2024 11:05-0500 Respiratory rate 18 /min Vy Jordan APRN.WORD PROCESSOR TECHNICIAN Work Phone: [facility] 07-30-2024 11:05-0500 SaO2% (BldA) [Mass fraction] 98 % Vy Jordan APRN.WORD PROCESSOR TECHNICIAN Work Phone: [facility] 07-30-2024 11:05-0500 Systolic blood pressure 158 mm[Hg] Vy Jordan APRN.WORD PROCESSOR TECHNICIAN Work Phone: [facility] 03-23-2024 17:24-0400 Diastolic blood pressure 70 mm[Hg] Ina CamarenaAdriana DOCUMENTATION NURSE.WORD PROCESSOR TECHNICIAN Work Phone: [facility] 03-23-2024 17:24-0400 Systolic blood pressure 110 mm[Hg] Ina Winston DOCUMENTATION NURSE.WORD PROCESSOR TECHNICIAN Work Phone: [facility] 03-23-2024 17:03-0400 Body height 174 cm Ina Winston DOCUMENTATION NURSE.WORD PROCESSOR TECHNICIAN Work Phone: [facility] 03-23-2024 17:03-0400 Body mass index (BMI) [Ratio] 36.63 kg/m2 Ina CamarenaAdriana DOCUMENTATION NURSE.WORD PROCESSOR TECHNICIAN Work Phone: [facility] 03-23-2024 17:03-0400 Body weight 110.9 kg Ina Winston DOCUMENTATION NURSE.WORD PROCESSOR TECHNICIAN Work Phone: [facility] 03-23-2024 17:03-0400 Heart rate 101 /min Ina Winston DOCUMENTATION NURSE.WORD PROCESSOR TECHNICIAN Work Phone: [facility] 03-23-2024 17:03-0400 Respiratory rate 20 /min Ina Adriana DOCUMENTATION NURSE.WORD PROCESSOR TECHNICIAN Work Phone: [facility] 03-23-2024 17:03-0400 SaO2% (BldA) [Mass fraction] 93 % Ina Adriana DOCUMENTATION NURSE.WORD PROCESSOR TECHNICIAN Work Phone: [facility] 07-21-2023 12:06-0400 Body temperature 97.5 [degF] Nichole Leonard DOCUMENTATION NURSE.WORD PROCESSOR TECHNICIAN Work Phone: [facility] 07-21-2023 12:06-0400 Body weight 109.68 kg Nichole Leonard DOCUMENTATION NURSE.WORD PROCESSOR TECHNICIAN Work Phone: [facility] 07-21-2023 12:06-0400 Diastolic blood pressure 84 mm[Hg] Nichole Leonard DOCUMENTATION NURSE.WORD PROCESSOR TECHNICIAN Work Phone: [facility] 07-21-2023 12:06-0400 Heart rate 89 /min Nichole Leonard DOCUMENTATION NURSE.WORD PROCESSOR TECHNICIAN Work Phone: [facility] 07-21-2023 12:06-0400 Respiratory rate 16 /min Nichole Leonard DOCUMENTATION NURSE.WORD PROCESSOR TECHNICIAN Work Phone: [facility] 07-21-2023 12:06-0400 SaO2% (BldA) [Mass fraction] 95 % Nichole Leonard DOCUMENTATION NURSE.WORD PROCESSOR TECHNICIAN Work Phone: [facility] 07-21-2023 12:06-0400 Systolic blood pressure 134 mm[Hg] Nichole Leonard DOCUMENTATION NURSE.WORD PROCESSOR TECHNICIAN Work Phone: [facility] 07-14-2023 08:54-0400 Diastolic blood pressure 88 mm[Hg] Kristian Cadet MD Work Phone: [facility] 07-14-2023 08:54-0400 Heart rate 74 /min Kristian Cadet MD Work Phone: [facility] 07-14-2023 08:54-0400 Systolic blood pressure 132 mm[Hg] Kristian Cadet MD Work Phone: [facility] 07-14-2023 08:43-0400 Body weight 110.68 kg Kristian Cadet MD Work Phone: [facility] 07-14-2023 08:43-0400 Respiratory rate 20 /min Kristian Cadet MD Work Phone: [facility] 09-25-2022 08:43-0500 Diastolic blood pressure 84 mm[Hg] Kristian Cadet MD Work Phone: [facility] 09-25-2022 08:43-0500 Heart rate 75 /min Kristian Cadet MD Work Phone: [facility] 09-25-2022 08:43-0500 Systolic blood pressure 129 mm[Hg] Kristian Cadet MD Work Phone: [facility] 09-25-2022 08:34-0500 Body temperature 97.59 [degF] Kristian Cadet MD Work Phone: [facility] 09-25-2022 08:34-0500 Body weight 109.32 kg Kristian Cadet MD Work Phone: [facility] 09-25-2022 08:34-0500 Respiratory rate 16 /min Kristian Cadet MD Work Phone: [facility] 09-04-2022 12:30-0500 Body temperature 97.5 [degF] Precious Denbow PA-C Work Phone: [facility] 09-04-2022 12:30-0500 Body weight 111.04 kg Precious Denbow PA-C Work Phone: [facility] 09-04-2022 12:30-0500 Diastolic blood pressure 76 mm[Hg] Precious Denbow PA-C Work Phone: [facility] 09-04-2022 12:30-0500 Heart rate 110 /min Precious Denbow PA-C Work Phone: [facility] 09-04-2022 12:30-0500 Respiratory rate 21 /min Precious Denbow PA-C Work Phone: [facility] 09-04-2022 12:30-0500 SaO2% (BldA) [Mass fraction] 95 % Precious LUNDBERG-C Work Phone: [facility] 09-04-2022 12:30-0500 Systolic blood pressure 142 mm[Hg] Precious Singleton PA-C Work Phone: [facility] 08-13-2022 17:18-0500 Body temperature 98.49 [degF] Nichole Leonard DOCUMENTATION NURSE.WORD PROCESSOR TECHNICIAN Work Phone: [facility] 08-13-2022 17:18-0500 Body weight 108.59 kg Nichole Leonard DOCUMENTATION NURSE.WORD PROCESSOR TECHNICIAN Work Phone: [facility] 08-13-2022 17:18-0500 Diastolic blood pressure 86 mm[Hg] Nichole Leonard DOCUMENTATION NURSE.WORD PROCESSOR TECHNICIAN Work Phone: [facility] 08-13-2022 17:18-0500 Heart rate 125 /min Nichole Leonard DOCUMENTATION NURSE.WORD PROCESSOR TECHNICIAN Work Phone: [facility] 08-13-2022 17:18-0500 Respiratory rate 20 /min Nichole Leonard DOCUMENTATION NURSE.WORD PROCESSOR TECHNICIAN Work Phone: [facility] 08-13-2022 17:18-0500 SaO2% (BldA) [Mass fraction] 97 % Nichole Leonard DOCUMENTATION NURSE.WORD PROCESSOR TECHNICIAN Work Phone: [facility] 08-13-2022 17:18-0500 Systolic blood pressure 134 mm[Hg] Nichole Leonard DOCUMENTATION NURSE.WORD PROCESSOR TECHNICIAN Work Phone: [facility] 07-16-2022 11:18-0400 Body temperature 97.9 [degF] Vy Jordan DOCUMENTATION NURSE.WORD PROCESSOR TECHNICIAN Work Phone: [facility] 07-16-2022 11:18-0400 Body weight 109.32 kg Vy Jordan DOCUMENTATION NURSE.WORD PROCESSOR TECHNICIAN Work Phone: [facility] 07-16-2022 11:18-0400 Diastolic blood pressure 88 mm[Hg] Vy Jordan DOCUMENTATION NURSE.WORD PROCESSOR TECHNICIAN Work Phone: [facility] 07-16-2022 11:18-0400 Heart rate 77 /min Vy Jordan APRN.WORD PROCESSOR TECHNICIAN Work Phone: [facility] 07-16-2022 11:18-0400 Respiratory rate 22 /min Vy Jordan APRN.WORD PROCESSOR TECHNICIAN Work Phone: [facility] 07-16-2022 11:18-0400 SaO2% (BldA) [Mass fraction] 98 % Vy Jordan APRN.WORD PROCESSOR TECHNICIAN Work Phone: [facility] 07-16-2022 11:18-0400 Systolic blood pressure 130 mm[Hg] Vy Jordan APRN.WORD PROCESSOR TECHNICIAN Work Phone: [facility] 06-23-2022 17:15-0400 Body height 172.7 cm Kristian Cadet MD Work Phone: [facility] 06-23-2022 17:15-0400 Body temperature 96.91 [degF] Kristian Cadet MD Work Phone: [facility] 06-23-2022 17:15-0400 Body weight 110.22 kg Kristian Cadet MD Work Phone: [facility] 06-23-2022 17:15-0400 Diastolic blood pressure 70 mm[Hg] Kristian Cadet MD Work Phone: [facility] 06-23-2022 17:15-0400 Heart rate 80 /min Kristian Cadet MD Work Phone: [facility] 06-23-2022 17:15-0400 Respiratory rate 20 /min Kristian Cadet MD Work Phone: [facility] 06-23-2022 17:15-0400 Systolic blood pressure 118 mm[Hg] Kristian Cadet MD Work Phone: [facility] 06-16-2022 08:52-0400 Body height 180.3 cm Yaz Sotelo PA-C Work Phone: [facility] 06-16-2022 08:52-0400 Body weight 110.68 kg Yaz Deepak PA-C Work Phone: [facility] 06-16-2022 08:52-0400 Diastolic blood pressure 84 mm[Hg] Yaz Deepak PA-C Work Phone: [facility] 06-16-2022 08:52-0400 Heart rate 79 /min Yaz Deepak PA-C Work Phone: [facility] 06-16-2022 08:52-0400 Systolic blood pressure 126 mm[Hg] Yaz Deepak PA-C Work Phone: [facility] 05-21-2022 08:00-0400 Body temperature 97 [degF] Ronald Denis DOCUMENTATION NURSE.WORD PROCESSOR TECHNICIAN Work Phone: [facility] 05-21-2022 08:00-0400 Body weight 111.13 kg Ronald Denis DOCUMENTATION NURSE.WORD PROCESSOR TECHNICIAN Work Phone: [facility] 05-21-2022 08:00-0400 Diastolic blood pressure 74 mm[Hg] Ronald Denis DOCUMENTATION NURSE.WORD PROCESSOR TECHNICIAN Work Phone: [facility] 05-21-2022 08:00-0400 Heart rate 90 /min Ronald Denis DOCUMENTATION NURSE.WORD PROCESSOR TECHNICIAN Work Phone: [facility] 05-21-2022 08:00-0400 Respiratory rate 16 /min Ronald Denis DOCUMENTATION NURSE.WORD PROCESSOR TECHNICIAN Work Phone: [facility] 05-21-2022 08:00-0400 SaO2% (BldA) [Mass fraction] 97 % Ronald Denis DOCUMENTATION NURSE.WORD PROCESSOR TECHNICIAN Work Phone: [facility] 05-21-2022 08:00-0400 Systolic blood pressure 128 mm[Hg] Ronald Denis DOCUMENTATION NURSE.WORD PROCESSOR TECHNICIAN Work Phone: [facility] 12-28-2021 10:41-0400 Body temperature 100.51 [degF] Vy Jordan DOCUMENTATION NURSE.WORD PROCESSOR TECHNICIAN Work Phone: [facility] 12-28-2021 10:41-0400 Body weight 110.04 kg Vy Jordan APRN.WORD PROCESSOR TECHNICIAN Work Phone: [facility] 12-28-2021 10:41-0400 Diastolic blood pressure 80 mm[Hg] Vy Jordan APRN.WORD PROCESSOR TECHNICIAN Work Phone: [facility] 12-28-2021 10:41-0400 Heart rate 125 /min Vy Jordan APRN.WORD PROCESSOR TECHNICIAN Work Phone: [facility] 12-28-2021 10:41-0400 Respiratory rate 21 /min Vy Jordan APRN.WORD PROCESSOR TECHNICIAN Work Phone: [facility] 12-28-2021 10:41-0400 SaO2% (BldA) [Mass fraction] 96 % Vy Jordan APRN.WORD PROCESSOR TECHNICIAN Work Phone: [facility] 12-28-2021 10:41-0400 Systolic blood pressure 120 mm[Hg] Vy Jordan APRN.WORD PROCESSOR TECHNICIAN Work Phone: [facility] 12-25-2021 11:05-0400 Body temperature 98.49 [degF] John Pires MD Work Phone: [facility] 12-25-2021 11:05-0400 Body weight 107.5 kg John Pires MD Work Phone: [facility] 12-25-2021 11:05-0400 Diastolic blood pressure 78 mm[Hg] John Pires MD Work Phone: [facility] 12-25-2021 11:05-0400 Heart rate 112 /min John Pires MD Work Phone: [facility] 12-25-2021 11:05-0400 Respiratory rate 16 /min John Pires MD Work Phone: [facility] 12-25-2021 11:05-0400 SaO2% (BldA) [Mass fraction] 96 % John Pires MD Work Phone: [facility] 12-25-2021 11:05-0400 Systolic blood pressure 124 mm[Hg] John Pires MD Work Phone: [facility] Encounters Encounter Date Encounter Type Care Provider Facility Start: 08-01-2025 End: 08-01-[address] REJI AGUILAR [place] Start: 08-01-2025 End: 08-01-[address] REJI AGUILAR MD [facility] Start: 08-01-2025 End: 08-01-[address] REJI AGUILAR MD [facility] Start: 08-01-2025 End: 08-01-[address] KRISTIAN CADET MD [place] Start: 07-24-[address] KRISTIAN BENDER MD [place] Start: 07-24-2025 End: 07-24-2025 ambulatory KRISTIAN CADET Facility:[facility] Start: 06-28-2025 End: 06-29-2025 Emergency department patient visit HA HOG[facility] Start: 05-17-2025 End: 05-17-2025 Refill Kristian Cadet MD Work Phone: [facility] [place] Comment on above: Refill Request Start: 04-29-2025 End: 04-29-2025 Patient encounter procedure Vy Jordan APRN.WORD PROCESSOR TECHNICIAN Work Phone: [facility] [place] Comment on above: Redness of skin (Jelly sebas Dx) Start: 04-29-2025 End: 04-29-2025 ambulatory KRISTIAN CADTE Facility:[facility] Start: 04-21-2025 End: 04-21-2025 Patient encounter procedure Reba Suarez DOCUMENTATION NURSE.WORD PROCESSOR TECHNICIAN Work Phone: General Surgery Comment on above: Tubular adenoma of c olon (Primary Dx) Start: 04-21-2025 End: 04-21-2025 ambulatory REBA SUAREZ Facility:[facility] Start: 04-11-2025 End: 04-11-[address] Kristian Cadet MD Work Phone: -Laboratory Specimen Start: 04-11-2025 End: 04-11-[address] Adele Davis MD -Laboratory Specimen Work Phone: Start: 04-11-2025 ambulatory ADELE DAVIS Facili ty:[facility] Start: 04-11-2025 End: 04-11-2025 Subsequent hospital visit by physician Adele Davis MD Work Phone: Ambulatory Surgery Comment on above: Special screening fo r malignant neoplasms, colon [Z12.11] Start: 04-07-2025 End: 04-07-2025 Admission to same day surgery center Adele Davis MD Work Phone: Ambulatory Surgery Comment on above: bowel prep instructi ons Start: 04-07-2025 End: 04-07-2025 E-mail encounter from caregiver Adele Davis MD Work Phone: Ambulatory Surgery Start: 04-03-2025 End: 04-04-2025 Telephone encounter Kristian Cadet MD Work Phone: Internal Medicine [place] Comment on above: Consult; Copy of CD Left Knee Start: 03-30-2025 End: 04-01-2025 Follow-up encounter Kristian Cadet MD Work Phone: Internal Medicine [place] Start: 03-28-2025 End: 03-28-2025 ambulatory KRISTIAN CADET Facility:[facility] Start: 03-28-2025 End: 03-28-2025 Subsequent hospital visit by physician Molly [facility] [place] Work Phone: Radiology Comment on above: Primary osteoarthrit is of left knee [M17.12] Start: 03-28-2025 End: 03-28-2025 Patient encounter procedure Kristian Cadet MD Work Phone: [facility] Medicine [place] Comment on above: Wellness examination (Primary Dx); Screening for depression; Encounter for screening examination for other mental health and behavioral disorders; Special screening for malignant neoplasms, colon; Primary hypertension; Other hyperlipidemia; GENNY on CPAP; Controlled type 2 diabetes mellitus without complication, without long-term current use of insulin (HCC); Primary osteoarthritis of left knee; Fatty liver disease, nonalcoholic; Obesity, Class II, BMI 35-39.9 Start: 03-28-2025 End: 03-28-2025 Patient encounter status Kristian Cadet MD Work Phone: [facility] Start: 03-28-2025 End: 03-28-2025 ambulatory KRISTIAN CADET Facility:[facility] Start: 03-28-2025 Encounter for genera l adult medical examination without abnormal findings KRISTIAN CADET [facility] Start: 03-02-2025 End: 03-03-2025 Refill Ina Winston APRN.WORD PROCESSOR TECHNICIAN Work Phone: Internal Medicine [place] Comment on above: Refill Request Start: 03-01-2025 End: 03-01-2025 Patient encounter procedure Mervin Dickersonsegundo REID.WORD PROCESSOR TECHNICIAN Work Phone: [facility] Comment on above: Chronic sinusitis, u nspecified location (Primary Dx) Start: 03-01-2025 End: 03-01-2025 ambulatory KRISTIAN CADET Facility:[facility] Start: 02-16-2025 End: 02-17-2025 Refill Kristian Cadet MD Work Phone: [facility] Medicine [place] Comment on above: Refill Request Start: 01-05-2025 End: 01-07-2025 Refill Kristian Cadet MD Work Phone: [facility] Medicine [place] Comment on above: Refill Request Start: 12-19-2024 End: 12-23-2024 Telephone encounter Kristian Cadet MD Work Phone: Family Medicine [place] Comment on above: Insurance Authorizat ion Start: 12-17-2024 End: 12-17-2024 ambulatory KRISTIAN CADET Facility:[facility] Start: 12-17-2024 End: 12-17-2024 Office outpatient visit 25 minutes Eva Chaidez PA-C Work Phone: [place] [facility] Comment on above: Acute recurrent sinu sitis, unspecified location (Primary Dx); Acute non-recurrent streptococcal tonsillitis Start: 11-14-2024 End: 11-14-2024 ambulatory KRISTIAN CADET Facility:[facility] Start: 11-14-2024 End: 11-14-2024 Patient encounter procedure Lisamariam Wang APRN.WORD PROCESSOR TECHNICIAN Work Phone: [facility] Comment on above: Rhinosinusitis (Prim mian Dx); Acute otitis media, bilateral Start: 10-11-2024 End: 10-11-2024 ambulatory INA WINSTON Facility:[facility] Start: 10-11-2024 End: 10-11-2024 Subsequent hospital visit by physician [facility] Work Phone: Radiology Comment on above: Fatty liver disease, nonalcoholic [K76.0] Start: 10-04-2024 End: 11-12-2024 Telephone encounter Ina Winston APRN.WORD PROCESSOR TECHNICIAN Work Phone: [facility] [place] Comment on above: Results Start: 10-03-2024 End: 10-03-2024 Patient encounter procedure Ronald Denis APRN.WORD PROCESSOR TECHNICIAN Work Phone: [facility] Comment on above: Sinus pressure (Prim mian Dx); Viral syndrome Start: 10-03-2024 End: 10-03-2024 ambulatory KRISTIAN CADET Facility:[facility] Start: 09-28-2024 End: 09-28-2024 ambulatory INA WINSTON Facility:[facility] Start: 09-28-2024 End: 09-28-2024 Patient encounter procedure Ina Winston APRN.WORD PROCESSOR TECHNICIAN Work Phone: [facility] [place] Comment on above: Controlled type 2 di abetes mellitus without complication, without long-term current use of insulin (HCC) (Primary Dx); Allergic rhinitis, unspecified seasonality, unspecified trigger; Mild intermittent asthmatic bronchitis without complication; Elevated LFTs; Primary hypertension; GENNY on CPAP; Encounter for immunization; Screening for prostate cancer Start: 07-30-2024 End: 07-30-2024 Patient encounter procedure Vy Jordan APRN.WORD PROCESSOR TECHNICIAN Work Phone: [place] [facility] Comment on above: Rhinosinusitis (Prim mian Dx) Start: 07-30-2024 End: 07-30-2024 ambulatory KRISTIAN CADET Facility:[facility] Start: 05-27-2024 End: 05-27-2024 Refill Kristian Cadet MD Work Phone: Internal Medicine [place] Comment on above: Refill Request Start: 05-04-2024 End: 05-10-2024 Telephone encounter Kristian Cadet MD Work Phone: Internal Medicine [place] Comment on above: CPAP Supplies (New C pap and supplies) Start: 03-23-2024 End: 03-23-2024 Patient encounter procedure Ina Winston APRN.WORD PROCESSOR TECHNICIAN Work Phone: [facility] [place] Comment on above: Wellness examination (Primary Dx); Elevated LFTs; Primary hypertension; Fatty liver disease, nonalcoholic; Controlled type 2 diabetes mellitus without complication, without long-term current use of insulin (HCC); GENNY on CPAP; Other hyperlipidemia Start: 03-23-2024 End: 03-23-2024 Patient encounter status Ina Winston APRN.WORD PROCESSOR TECHNICIAN Work Phone: [facility] Start: 03-15-2024 Refill Kristian lynch MD Work Phone: [facility] [place] Comment on above: Refill Request Start: 03-02-2024 Refill Kristian lynch MD Work Phone: Internal Medicine [place] Comment on above: Refill Request Start: 02-20-2024 Refill Kristian lynch MD Work Phone: [place] [facility] Comment on above: Refill Request Start: 11-06-2023 Telephone encounter Kristian roland MD Work Phone: [facility] [place] Comment on above: CPAP mask & hose req uest Start: 10-28-2023 Telephone encounter Kristian roland MD Work Phone: [facility] [place] Comment on above: Medication Problem Start: 10-26-2023 Telephone encounter Kristian roland MD Work Phone: [facility] Medicine [place] Comment on above: Insurance Authorizat ion Start: 10-24-2023 Refill Kristian lynch MD Work Phone: [facility] [place] Comment on above: Refill Request Start: 10-21-2023 End: 10-21-2023 Subsequent hospital visit by physician Molly [facility] [place] Work Phone: Radiology Comment on above: Acute cough [R05.1] Start: 07-21-2023 End: 07-21-2023 Patient encounter procedure Nichole Valle JACKSON Work Phone: [facility] Comment on above: Acute non-recurrent pansinusitis (Primary Dx) Start: 07-14-2023 End: 07-14-2023 Patient encounter procedure Kristian Cadet MD Work Phone: Internal Medicine [place] Comment on above: Sinus headache (Prim mian Dx); Controlled type 2 diabetes mellitus without complication, without long-term current use of insulin (HCC); Mild intermittent asthmatic bronchitis without complication; Primary hypertension; GENNY on CPAP Start: 04-20-2023 Telephone encounter Kristian roland MD Work Phone: [address] [place] [address] Comment on above: Patient Question; Me dication Problem Start: 04-07-2023 Telephone encounter Kristian roland MD Work Phone: [facility] [place] Comment on above: Orders Start: 03-25-2023 Telephone encounter Kristian roland MD Work Phone: Internal Medicine [place] Comment on above: Medication Problem ( Refill) Start: 01-09-2023 End: 01-09-2023 Patient encounter procedure Kristian Cadet MD Work Phone: Internal Medicine [place] Comment on above: Controlled type 2 di abetes mellitus without complication, without long-term current use of insulin (HCC) (Primary Dx); Primary hypertension; Other hyperlipidemia Start: 12-30-2022 Telephone encounter Kristian roland MD Work Phone: Internal Medicine [place] Comment on above: Orders Start: 10-28-2022 End: 10-28-2022 Nursing evaluation of patient and report Mi Nurse Work Phone: Family [facility] [place] Comment on above: Need for vaccination (Primary Dx) Start: 10-22-2022 Telephone encounter Kristian roland MD Work Phone: Internal [facility] [place] Comment on above: Orders Start: 10-16-2022 Refill Kristian lynch MD Work Phone: Internal [facility] [place] Comment on above: Refill Request Start: 09-25-2022 End: 09-25-2022 Patient encounter procedure Kristian Cadet MD Work Phone: Internal [facility] [place] Comment on above: Need for vaccination (Primary Dx); Controlled type 2 diabetes mellitus without complication, without long-term current use of insulin (HCC); Gastroesophageal reflux disease without esophagitis; Other hyperlipidemia; Allergic rhinitis, unspecified seasonality, unspecified trigger Start: 09-04-2022 End: 09-04-2022 Patient encounter procedure Precious Singleton PA-C Work Phone: [facility] Comment on above: Flu-like symptoms (P rimary Dx) Start: 08-19-2022 Telephone encounter Kristian roland MD Work Phone: Internal [facility] [place] Comment on above: Prior Authorization for Medication Request Start: 08-13-2022 End: 08-13-2022 Patient encounter procedure Nichole Valle APRN.WORD PROCESSOR TECHNICIAN Work Phone: [facility] Comment on above: Acute non-recurrent pansinusitis (Primary Dx) Start: 08-09-2022 ambulatory Kristian lynch MD Work Phone: [facility] [place] Comment on above: Ozempic medication Start: 08-07-2022 Telephone encounter Kristian roland MD Work Phone: [facility] [place] Comment on above: Medication Problem Start: 07-16-2022 End: 07-16-2022 Patient encounter procedure Vy Jordan APRN.WORD PROCESSOR TECHNICIAN Work Phone: [place] [facility] Comment on above: Acute cough (Primary Dx); At increased risk of exposure to COVID-19 virus Start: 06-30-2022 Telephone encounter Kristian roland MD Work Phone: Internal Medicine [place] Comment on above: Insurance Authorizat ion Start: 06-23-2022 End: 06-23-2022 Patient encounter procedure Kristian Cadet MD Work Phone: Internal Medicine [place] Comment on above: Routine medical exam (Primary Dx); Primary hypertension; Other hyperlipidemia; Controlled type 2 diabetes mellitus without complication, without long-term current use of insulin (HCC); GENNY on CPAP; Mild intermittent asthmatic bronchitis without complication; Need for COVID-19 vaccine; Fatty liver disease, nonalcoholic; Obesity, Class II, BMI 35-39.9 Start: 06-23-2022 End: 06-23-2022 Patient encounter status Kristian Cadet MD Work Phone: [facility] [place] Start: 06-19-2022 End: 06-19-2022 Subsequent hospital visit by physician [facility] Work Phone: Radiology Comment on above: Nonalcoholic steatoh epatitis (ADAN) [K75.81] Start: 06-16-2022 End: 06-16-2022 Patient encounter procedure Yaz Sotelo PA-C Work Phone: Gastroenterology [place] Comment on above: Nonalcoholic steatoh epatitis (ADAN) (Primary Dx) Start: 05-21-2022 End: 05-21-2022 Patient encounter procedure Ronald Denis APRN.CNP Work Phone: [facility] Comment on above: URI, acute (Primary Dx); Sinus pressure Start: 04-29-2022 Refill Kristian lynch MD Work Phone: [facility] [place] Comment on above: Refill Request Start: 01-27-2022 Refill Kristian lynch MD Work Phone: [facility] [place] Comment on above: Prescription Refills Start: 12-28-2021 Telephone encounter Kristian roland MD Work Phone: Internal Medicine [place] Comment on above: Patient Update Start: 12-28-2021 End: 12-28-2021 Patient encounter procedure Vy Jordan APRN.WORD PROCESSOR TECHNICIAN Work Phone: [place] [facility] Comment on above: Sinus congestion (Pr imary Dx) Start: 12-25-2021 End: 12-25-2021 Subsequent hospital visit by physician [facility] Work Phone: Radiology Comment on above: Cough [R05.9] Start: 12-25-2021 End: 12-25-2021 Patient encounter procedure John Pires MD Work Phone: [place] [facility] Comment on above: Cough (Primary Dx); Mild intermittent asthmatic bronchitis with acute exacerbation Start: 10-23-2021 End: 10-23-2021 Subsequent hospital visit by physician [facility] Work Phone: Radiology Comment on above: Acute right-sided lo w back pain with right-sided sciatica [M54.41] Procedures Date Procedure Procedure Detail Performing Clinician Start: 06-28-2025 Urinalysis HA Vicente Comment on above: Result Comment: URIN ALYSIS Performed By: #### [id number] #### [facility],[address] [place] [address] Start: 04-11-2025 Colonoscopy flx dx w/collj spec when pfrmd Kristian Cadet MD Work Phone: Start: 04-11-2025 Colonoscopy Adele Davis MD Work Phone: Start: 03-28-2025 Adult depression screening assessment Kristian Cadet MD Work Phone: Start: 10-11-2024 Us abdominal real ti me w/image limited Ina Winston APRN.WORD PROCESSOR TECHNICIAN Work Phone: Start: 09-28-2024 [employer] COVI D-19 VACCINE AGE 12+ YR (COMIRNATY) Ina Winston APRN.WORD PROCESSOR TECHNICIAN Work Phone: Start: 03-23-2024 Adult depression screening assessment Kristian Cadet MD Work Phone: Start: 10-21-2023 Radiologic exam ches t 2 views Lisa Wang APRN.WORD PROCESSOR TECHNICIAN Work Phone: Start: 06-23-2022 [employer] COVI D-19 BIVALENT BOOSTER VACCINE, AGE 12+ YR Kristian Cadet MD Work Phone: Start: 06-19-2022 Us abdominal real ti me w/image limited Yaz Sotelo PA-C Work Phone: Start: 12-25-2021 Radiologic exam ches t 2 views John Pires MD Work Phone: Start: 12-07-2021 Adult depression screening assessment John Pires MD Work Phone: Start: 10-23-2021 Radex spine lumbosac ral 2/3 views Vy Jordan DOCUMENTATION NURSE.WORD PROCESSOR TECHNICIAN Work Phone: Start: 03-12-2020 Colonoscopy John jeter MD Work Phone: Hernia repair DR REJI CASTILLO MD Comment on above: INFANT Total knee replacement DR JUVENAL HOGAN Comment on above: RIGHT Plan of Treatment Date Care Activity Detail Author Start: 04-11-2030 Screening for malign ant neoplasm of colon [facility] Start: 09-28-2029 Prostate specific an tigen measurement Prostate Cancer Screening Discussion [facility] Start: 2029 PNEUMOCOCCAL (3 - PP SV23 if available, else PCV20) PNEUMOCOCCAL (3 - PPSV23 if available, else PCV20) [facility] Start: 2029 PNEUMOCOCCAL (3 - PP SV23 or PCV20) PNEUMOCOCCAL (3 - PPSV23 or PCV20) [facility] Start: 2029 Pneumococcal vaccination [facility] Start: 08-25-2028 Urine microalbumin profile [facility] Start: 01-02-2028 PROSTATE CANCER SCRE ENING DISCUSSION PROSTATE CANCER SCREENING DISCUSSION [facility] Start: 01-02-2028 Prostate specific an tigen measurement Prostate Cancer Screening Discussion [facility] Start: 05-08-2026 Glaucoma screening Dilated Retinal E xam [facility] Start: 03-28-2026 Annual PCP Team Unit Aid mehul Disease Visit Annual PCP Team Chronic Disease Visit [facility] Start: 03-28-2026 Anxiety Screening Anxiety Screening [facility] Start: 03-28-2026 Depression Screening Depression Scre ening [facility] Start: 03-28-2026 Diabetic foot examination Diabetic F oot Exam [facility] Start: 03-28-2026 Hepatitis B screening Urine Al bumin:Creatinine Ratio [facility] Start: 03-28-2026 Hepatitis B surface antibody level LDL Cholesterol [facility] Start: 12-17-2025 BP Controlled (<130/80) BP Controlle d (<130/80) [facility] Start: 10-03-2025 BP Controlled (<130/80) BP Controlle d (<130/80) [facility] Start: 09-28-2025 Annual PCP Team Unit Aid mehul Disease Visit Annual PCP Team Chronic Disease Visit [facility] Start: 09-28-2025 BP Controlled (<130/80) BP Controlle d (<130/80) [facility] Start: 09-28-2025 Diabetic foot examination Diabetic F oot Exam [facility] Start: 09-28-2025 Hemoglobin A1c measurement HbA1C [facility] Start: 09-26-2025 End: 09-26-2025 Patient encounter procedure 09/26/2025 8:40 AM EST Office Visit [facility] [place] [address] [place] [address] Kristian Cadet MD [address] [place] [address] 6 month follow-up [facility] [place] Comment on above: 6 month follow-up Start: 09-18-2025 End: 12-18-2025 Basic metabolic 2000 panel - Serum or Plasma BASIC METABOLIC PANEL Lab Routine Controlled type 2 diabetes mellitus without complication, without long-term current use of insulin (HCC) Expected: 09/18/2025, Expires: 12/18/2025 [facility] Comment on above: Expected: 09/18/2025 , Expires: 12/18/2025 Start: 09-18-2025 End: 12-18-2025 Hemoglobin A1c in Blood HEMOGLOBIN A1C Lab Routine Controlled type 2 diabetes mellitus without complication, without long-term current use of insulin (HCC) Expected: 09/18/2025, Expires: 12/18/2025 [facility] Comment on above: Expected: 09/18/2025 , Expires: 12/18/2025 Start: 07-23-2025 PROSTATE CANCER SCRE ENING DISCUSSION PROSTATE CANCER SCREENING DISCUSSION [facility] Start: 05-22-2025 Influenza vaccination Influenza Vacc ine (#1) [facility] Start: 04-25-2025 End: 04-25-2025 Patient encounter procedure 04/25/2025 11:15 AM EDT Appointment Ambulatory Surgery [address] [place] [address] Adele Davis MD [address] [place] [phone] Ambulatory Surgery Start: 04-21-2025 End: 04-21-2025 Patient encounter procedure 04/21/2025 9:00 AM EDT Office Visit General Surgery [address] [place] [address] Reba Suarez APRN.WORD PROCESSOR TECHNICIAN [address] [place] [address] 04-11 colonoscopy follow up General Surgery Comment on above: 04-11 colonoscopy fo llow up Start: 04-11-2025 End: 04-11-2025 Patient encounter procedure 04/11/2025 10:30 AM EDT Appointment Ambulatory Surgery [address] [place] [address] Adele Davis MD [address] [place] [phone] Special screening for malignant neoplasms, colon [Z12.11] Ambulatory Surgery Comment on above: Special screening fo r malignant neoplasms, colon [Z12.11] Start: 03-28-2025 End: 06-27-2025 Comprehensive metabolic 2000 panel - Serum or Plasma [facility] Comment on above: Expected: 03/28/2025 , Expires: 06/27/2025 Start: 03-28-2025 End: 06-27-2025 Hemoglobin A1c in Blood [facility] Comment on above: Expected: 03/28/2025 , Expires: 06/27/2025 Start: 03-28-2025 Hemoglobin A1c measurement HbA1C [facility] Start: 03-28-2025 End: 06-27-2025 Lipid 1996 panel - Serum or Plasma [facility] Comment on above: Expected: 03/28/2025 , Expires: 06/27/2025 Start: 03-28-2025 End: 06-27-2025 Microalbumin/Creatinine [Mass Ratio] in Urine [facility] Comment on above: Expected: 03/28/2025 , Expires: 06/27/2025 Start: 03-28-2025 End: 03-28-2025 Patient encounter procedure 03/28/2025 8:00 AM EDT Office Visit Internal Medicine Kathie [address] [place] [address] Kristian Cadet MD [address] [place] [address] wellness exam Internal Medicine Kathie Comment on above: wellness exam Start: 03-23-2025 Annual PCP Team Unit Aid mehul Disease Visit Annual PCP Team Chronic Disease Visit [facility] Start: 03-23-2025 Anxiety Screening Anxiety Screening [facility] Start: 03-23-2025 BP Controlled (<130/80) BP Controlle d (<130/80) [facility] Start: 03-23-2025 Depression Screening Depression Scre ening [facility] Start: 03-12-2025 Colonoscopy COLONOSCOPY [facility] Start: 03-12-2025 COLORECTAL CANCER SCREENING COLORECTAL CANCER SCREENING [facility] Start: 03-12-2025 Screening for malign ant neoplasm of colon [facility] Start: 01-15-2025 Hepatitis B screening Urine Al bumin:Creatinine Ratio [facility] Start: 01-15-2025 Hepatitis B surface antibody level LDL Cholesterol [facility] Start: 09-28-2024 End: 09-28-2024 Patient encounter procedure 09/28/2024 5:40 PM EST Office Visit Internal Medicine Kathie [address] [place] [address] Ina Winston, DOCUMENTATION NURSE.WORD PROCESSOR TECHNICIAN [address] [place] [address] 6 month follow up Internal Medicine Kathie Comment on above: 6 month follow up Start: 09-28-2024 End: 12-28-2024 CBC panel - Blood by Automated count [facility] Comment on above: Expected: 09/28/2024 , Expires: 12/28/2024 Start: 09-28-2024 End: 12-28-2024 Comprehensive metabolic 2000 panel - Serum or Plasma [facility] Comment on above: Expected: 09/28/2024 , Expires: 12/28/2024 Start: 09-28-2024 End: 12-28-2024 Hemoglobin A1c in Blood [facility] Work Phone: Comment on above: Expected: 09/28/2024 , Expires: 12/28/2024 Start: 09-28-2024 End: 12-28-2024 PSA/PROSTATE SPECIFIC ANTIGEN SCREENING [facility] Comment on above: Expected: 09/28/2024 , Expires: 12/28/2024 Start: 07-21-2024 Covid-19 Vaccine ( season) Covid-19 Vaccine () [facility] Start: 07-17-2024 Hemoglobin A1c measurement HbA1C [facility] Start: 07-14-2024 3 comp foot exam completed Diabetic Foot Exam [facility] Start: 07-14-2024 Annual PCP Team Unit Aid mehul Disease Visit Annual PCP Team Chronic Disease Visit [facility] Start: 07-14-2024 Diabetic foot examination Diabetic F oot Exam [facility] Start: 05-22-2024 Influenza vaccination Influenza Vacc ine (#1) [facility] Start: 05-20-2024 Glaucoma screening Dilated Retinal E xam [facility] Start: 05-20-2024 Hepatitis C antibody , confirmatory test Dilated Retinal Exam [facility] Start: 03-26-2024 End: 03-26-2024 ambulatory 03/26/2024 10:30 AM EDT Results Only Kathie [facility] Draw Station [address] [place] [address] Kathie [facility] Draw Station Start: 03-23-2024 End: 03-23-2024 Patient encounter procedure 03/23/2024 5:20 PM EDT Office Visit Internal Medicine Kathie [address] [place] [address] Ina Winston, DOCUMENTATION NURSE.WORD PROCESSOR TECHNICIAN [address] [place] [address] Yearly w/6 month follow-up Internal Medicine [place] Comment on above: Yearly w/6 month fol low-up Start: 03-23-2024 End: 06-22-2024 Chronic hepatitis differentiation between hepatitis B and C virus panel - Serum or Plasma HEP REMOTE PANEL BL Lab Routine Elevated LFTs Expected: 03/23/2024, Expires: 06/22/2024 [facility] Comment on above: Expected: 03/23/2024 , Expires: 06/22/2024 Start: 03-23-2024 End: 06-22-2024 Comprehensive metabolic 2000 panel - Serum or Plasma COMPREHENSIVE METABOLIC PANEL Lab Routine Elevated LFTs Expected: 03/23/2024, Expires: 06/22/[address] [facility] Work Phone: Comment on above: Expected: 03/23/2024 , Expires: 06/22/2024 Start: 01-13-2024 End: 04-13-2024 ALBUMIN/CREAT RATIO RND UR ALBUMIN/CREAT RATIO RND UR Lab Routine Controlled type 2 diabetes mellitus without complication, without long-term current use of insulin (HCC) Expected: 01/13/2024, Expires: 04/13/[address] [facility] Work Phone: Comment on above: Expected: 01/13/2024 , Expires: 04/13/2024 Start: 01-13-2024 End: 04-13-2024 Comprehensive metabolic 2000 panel - Serum or Plasma COMP METABOLIC PANEL Lab Routine Controlled type 2 diabetes mellitus without complication, without long-term current use of insulin (HCC) Expected: 01/13/2024, Expires: 04/13/[address] [facility] Work Phone: Comment on above: Expected: 01/13/2024 , Expires: 04/13/2024 Start: 01-13-2024 End: 04-13-2024 Hemoglobin A1c in Blood HGB A1C Lab Routine Controlled type 2 diabetes mellitus without complication, without long-term current use of insulin (HCC) Expected: 01/13/2024, Expires: 04/13/[address] [facility] Work Phone: Comment on above: Expected: 01/13/2024 , Expires: 04/13/2024 Start: 01-13-2024 End: 04-13-2024 Lipid 1996 panel - Serum or Plasma LIPID PANEL BASIC Lab Routine Controlled type 2 diabetes mellitus without complication, without long-term current use of insulin (HCC) Expected: 01/13/2024, Expires: 04/13/[address] [facility] Work Phone: Comment on above: Expected: 01/13/2024 , Expires: 04/13/2024 Start: 01-10-2024 ANNUAL PCP TEAM MILLINERY DESIGNER MEHUL DISEASE VISIT ANNUAL PCP TEAM CHRONIC DISEASE VISIT [facility] Start: 01-10-2024 BP CONTROLLED (<130/80) BP CONTROLLE D (<130/80) [facility] Start: 01-10-2024 Hemoglobin A1c measurement HbA1C [facility] Start: 01-10-2024 Hemoglobin A1c/Hemoglobin.total in Blood HbA1C [facility] Start: 01-04-2024 Hepatitis B screening URINE AL BUMIN:CREATININE RATIO [facility] Start: 01-02-2024 Hepatitis B surface antibody level LDL CHOLESTEROL [facility] Start: 09-25-2023 ANNUAL PCP TEAM MILLINERY DESIGNER MEHUL DISEASE VISIT ANNUAL PCP TEAM CHRONIC DISEASE VISIT [facility] Start: 09-21-2023 Behavioral Health Screening Behavioral Health Screening [facility] Start: 09-21-2023 Depression Assessment Depression Ass essment [facility] Start: 07-11-2023 End: 09-10-2023 Basic metabolic 2000 panel - Serum or Plasma BASIC METABOLIC PNL Lab Routine Controlled type 2 diabetes mellitus without complication, without long-term current use of insulin (HCC) Expected: 07/11/2023, Expires: 09/10/[address] [facility] Work Phone: Comment on above: Expected: 07/11/2023 , Expires: 09/10/2023 Start: 07-11-2023 End: 09-10-2023 Hemoglobin A1c in Blood HGB A1C Lab Routine Controlled type 2 diabetes mellitus without complication, without long-term current use of insulin (HCC) Expected: 07/11/2023, Expires: 09/10/[address] [facility] Work Phone: Comment on above: Expected: 07/11/2023 , Expires: 09/10/2023 Start: 07-03-2023 Hemoglobin A1c/Hemoglobin.total in Blood HBA1C [facility] Start: 06-23-2023 3 comp foot exam completed DIABETIC FOOT EXAM [facility] Start: 06-23-2023 ANNUAL PCP TEAM MILLINERY DESIGNER MEHUL DISEASE VISIT ANNUAL PCP TEAM CHRONIC DISEASE VISIT [facility] Start: 06-23-2023 BP CONTROLLED (<130/80) BP CONTROLLE D (<130/80) [facility] Start: 06-02-2023 Hepatitis C antibody , confirmatory test DILATED RETINAL EXAM [facility] Start: 05-22-2023 Influenza vaccination INFLUENZA (#1) [facility] Start: 05-21-2023 BP CONTROLLED (<130/80) BP CONTROLLE D (<130/80) [facility] Start: 03-27-2023 HEPATITIS B (3 of 3 - 19+ 3-dose series) HEPATITIS B (3 of 3 - 19+ 3-dose series) [facility] Start: 03-25-2023 Hemoglobin A1c/Hemoglobin.total in Blood HBA1C [facility] Start: 03-25-2023 HEPATITIS B (3 of 3 - 19+ 3-dose series) HEPATITIS B (3 of 3 - 19+ 3-dose series) [facility] Start: 12-30-2022 End: 03-01-2023 ALBUMIN/CREAT RATIO RND UR ALBUMIN/CREAT RATIO RND UR Lab Routine Controlled type 2 diabetes mellitus without complication, without long-term current use of insulin (HCC) Expected: 12/30/2022, Expires: 03/01/[address] [facility] Work Phone: Comment on above: Expected: 12/30/2022 , Expires: 03/01/2023 Start: 12-30-2022 End: 03-01-2023 CBC panel - Blood by Automated count CBC Lab Routine Primary hypertension Expected: 12/30/2022, Expires: 03/01/[address] [facility] Work Phone: Comment on above: Expected: 12/30/2022 , Expires: 03/01/2023 Start: 12-30-2022 End: 03-01-2023 Comprehensive metabolic 2000 panel - Serum or Plasma COMP METABOLIC PANEL Lab Routine Other hyperlipidemia Primary hypertension Expected: 12/30/2022, Expires: 03/01/[address] [facility] Work Phone: Comment on above: Expected: 12/30/2022 , Expires: 03/01/2023 Start: 12-30-2022 End: 03-01-2023 Hemoglobin A1c in Blood HGB A1C Lab Routine Controlled type 2 diabetes mellitus without complication, without long-term current use of insulin (HCC) Expected: 12/30/2022, Expires: 03/01/[address] [facility] Work Phone: Comment on above: Expected: 12/30/2022 , Expires: 03/01/2023 Start: 12-30-2022 End: 03-01-2023 Lipid 1996 panel - Serum or Plasma LIPID PANEL BASIC Lab Routine Other hyperlipidemia Expected: 12/30/2022, Expires: 03/01/[address] [facility] Work Phone: Comment on above: Expected: 12/30/2022 , Expires: 03/01/2023 Start: 12-30-2022 End: 03-01-2023 PSA/PROSTSPECAG SCRN PSA/PROSTSPECAG SCRN Lab Routine Screening for prostate cancer Expected: 12/30/2022, Expires: 03/01/[address] [facility] Work Phone: Comment on above: Expected: 12/30/2022 , Expires: 03/01/2023 Start: 12-25-2022 BP CONTROLLED (<130/80) BP CONTROLLE D (<130/80) [facility] Start: 12-14-2022 Hepatitis B screening URINE AL BUMIN:CREATININE RATIO [facility] Start: 12-14-2022 Hepatitis B surface antibody level LDL CHOLESTEROL [facility] Start: 12-09-2022 3 comp foot exam completed DIABETIC FOOT EXAM [facility] Start: 12-09-2022 ANNUAL PCP TEAM MILLINERY DESIGNER MEHUL DISEASE VISIT ANNUAL PCP TEAM CHRONIC DISEASE VISIT [facility] Start: 12-07-2022 Adult depression screening assessment DEPRESSION SCREENING [facility] Start: 10-23-2022 HEPATITIS B (2 of 3 - 19+ 3-dose series) HEPATITIS B (2 of 3 - 19+ 3-dose series) [facility] Start: 09-23-2022 End: 11-23-2022 Basic metabolic 2000 panel - Serum or Plasma BASIC METABOLIC PNL Lab Routine Controlled type 2 diabetes mellitus without complication, without long-term current use of insulin (HCC) Expected: 09/23/2022, Expires: 11/23/[address] [facility] Work Phone: Comment on above: Expected: 09/23/2022 , Expires: 11/23/2022 Start: 09-23-2022 End: 11-23-2022 Hemoglobin A1c in Blood HGB A1C Lab Routine Controlled type 2 diabetes mellitus without complication, without long-term current use of insulin (HCC) Expected: 09/23/2022, Expires: 11/23/[address] [facility] Work Phone: Comment on above: Expected: 09/23/2022 , Expires: 11/23/2022 Start: 09-04-2022 End: 09-18-2022 Influenza virus A and B RNA and SARS-CoV-2 (COVID-19) N gene panel - Respiratory specimen by YOEL with probe detection COVID WITH FLUA+B, ROUTINE Microbiology Routine Flu-like symptoms Expected: 09/04/2022, Expires: 09/18/[address] [facility] Work Phone: Comment on above: Expected: 09/04/2022 , Expires: 09/18/2022 Start: 07-16-2022 End: 07-30-2022 Influenza virus A and B RNA and SARS-CoV-2 (COVID-19) N gene panel - Respiratory specimen by YOEL with probe detection [facility] Work Phone: Comment on above: Expected: 07/16/2022 , Expires: 07/30/2022 Start: 06-16-2022 Hemoglobin A1c/Hemoglobin.total in Blood HBA1C [facility] Start: 05-23-2022 Hepatitis C antibody , confirmatory test DILATED RETINAL EXAM [facility] Start: 05-22-2022 Influenza vaccination INFLUENZA (#1) [facility] Start: 03-30-2022 COVID-19 VACCINE (5 - Booster for Moderna series) COVID-19 VACCINE (5 - Booster for Moderna series) [facility] Start: 11-18-2021 COVID-19 VACCINE (4 - Booster for Moderna series) COVID-19 VACCINE (4 - Booster for Moderna series) [facility] Start: 09-21-2021 DEPRESSION ASSESSMENT DEPRESSION ASS ESSMENT [facility] Start: 11-28-2019 BP CONTROLLED (<130/80) BP CONTROLLE D (<130/80) [facility] Start: 2009 COLOGUARD (FIT-DNA) COLOGUARD (FIT-D NA) [facility] Start: [address] COLONOGRAPHY [facility] Start: 2009 FECAL OCCULT BLOOD FECAL OCCULT BLOO D [facility] Start: 2009 Screening for malign ant neoplasm of colon [facility] Start: 2009 SIGMOIDOSCOPY SIGMOIDOSCOPY [facility] Start: 1965 HEPATITIS B (1 of 3 - 3-dose series) HEPATITIS B (1 of 3 - 3-dose series) [facility] Hepb vaccine adult 3 dose schedule for im use HEP B VACCINE, 3-DOSE, AGE 20+ YR (ENGERIX-B, RECOMBIVAX HB) Immunization/Injection Routine Need for vaccination Ordered: 04/07/[address] [facility] Work Phone: Comment on above: Ordered: 04/07/2023 SARS-CoV-2 (COVID-19 ) RNA [Presence] in Respiratory specimen by YOEL with probe detection 2019 CORONAVIRUS Microbiology Routine URI, acute Ordered: 05/21/[address] [facility] Work Phone: Comment on above: Ordered: 05/21/2022 End: 03-28-2026 Screening colonoscopy COLONOSCOPY SCREENING Endoscopy Routine Special screening for malignant neoplasms, colon 1 Occurrences starting 03/28/2025 until 03/28/[address] [facility] Work Phone: Comment on above: 1 Occurrences starti ng 03/28/2025 until 03/28/2026 End: 07-16-2023 Us abdominal real time w/image limited US ABD RT UPPER QUADRANT Radiology Routine Nonalcoholic steatohepatitis (ADAN) 1 Occurrences starting 06/16/2022 until 07/16/[address] [facility] Work Phone: Comment on above: 1 Occurrences starti ng 06/16/2022 until 07/16/2023 End: 04-27-2026 XR Knee - left 4 Views XR KNEE GENERAL 4V AP BOTH/PA BOTH/LAT/MERC LEFT Radiology Routine Primary osteoarthritis of left knee 1 Occurrences starting 03/28/2025 until 04/27/2026 [facility] Comment on above: 1 Occurrences starti ng 03/28/2025 until 04/27/2026 XR Knee - left 4 Views XR KNEE G ENERAL 4V AP BOTH/PA BOTH/LAT/MERC LEFT Radiology Routine Primary osteoarthritis of left knee 03/28/2025 9:20 AM EDT [facility] Immunizations Immunization Date Immunization Notes Care Provider [facility] 10-06-2024 influenza, injectabl e, madin maricel canine kidney, preservative free Kristian Cadet MD Work Phone: [facility] 10-06-2024 influenza virus vaccine, unspecified formulation Kristian Cadet MD Work Phone: [facility] 09-28-2024 COVID-19 vaccine, ag e 12+ yr (PFIZER-[employer] [facility]) Ina Winston DOCUMENTATION NURSE.WORD PROCESSOR TECHNICIAN Work Phone: [facility] 09-28-2024 pneumococcal conjuga te (PCV20) vaccine, 20 valent (PREVNAR 20) Ina Winston DOCUMENTATION NURSE.WORD PROCESSOR TECHNICIAN Work Phone: [facility] 09-28-2024 pneumococcal Conjuga te, unspecified formulation Ina Winston DOCUMENTATION NURSE.WORD PROCESSOR TECHNICIAN Work Phone: [facility] 05-26-2024 COVID-19 vaccine (NOVAVAX) Kristian Cadet MD Work Phone: [facility] 05-06-2024 influenza, seasonal, injectable Kristian Cadet MD Work Phone: [facility] 05-06-2024 respiratory syncytia l virus (RSV) vaccine, adjuvanted (AREXVY) Kristian Cadet MD Work Phone: [facility] 10-08-2023 influenza virus vaccine, unspecified formulation Ina Winston APRN.CNP Work Phone: [facility] 05-30-2023 Influenza, injectabl e, Madin Maricel Canine Kidney, preservative free, quadrivalent Kristian Cadet MD Work Phone: [facility] Work Phone: 05-06-2023 hepatitis B vaccine, adult dosage Kristian Cadet MD Work Phone: [facility] Work Phone: 10-28-2022 hepatitis B vaccine, adult dosage Nd Nurse Work Phone: [facility] Work Phone: 10-28-2022 hepatitis B vaccine, unspecified formulation Nd Nurse Work Phone: [facility] 10-22-2022 hepatitis B vaccine, adult dosage Kristian Cadet MD Work Phone: [facility] Work Phone: 09-25-2022 hepatitis B vaccine, adult dosage Kristian Cadet MD Work Phone: [facility] Work Phone: 09-25-2022 hepatitis B vaccine, unspecified formulation Kristian Cadet MD Work Phone: [facility] 09-09-2022 influenza, injectabl e, quadrivalent, preservative free Kristian Cadet MD Work Phone: [facility] Work Phone: 06-23-2022 COVID-19 booster vaccine, age 12+ yr, bivalent ([employer]) Kristian Cadet MD Work Phone: [facility] Work Phone: 06-02-2022 Influenza, injectabl e, Madin Maricel Canine Kidney, preservative free, quadrivalent Kristian Cadet MD Work Phone: [facility] Work Phone: 02-02-2022 COVID-19 original vaccine, full dose, monovalent (MODERNA) Kristian Cadet MD Work Phone: [facility] Work Phone: 07-21-2021 COVID-19 original vaccine, full dose, monovalent (MODERNA) Kristian Cadet MD Work Phone: [facility] Work Phone: 07-21-2021 influenza, injectabl e, quadrivalent, preservative free John Pires MD Work Phone: [facility] Work Phone: 05-28-2021 influenza, injectabl e, quadrivalent, preservative free John Pires MD Work Phone: [facility] Work Phone: 12-26-2020 COVID-19 vaccine, fu ll dose (MODERNA) John Pires MD Work Phone: [facility] Work Phone: 11-29-2020 COVID-19 vaccine, fu ll dose (MODERNA) John Pires MD Work Phone: [facility] Work Phone: 07-02-2020 influenza, injectabl e, quadrivalent, preservative free John Pires MD Work Phone: [facility] Work Phone: 07-02-2020 influenza, seasonal, injectable John Pires MD Work Phone: [facility] Work Phone: 05-15-2020 influenza, injectabl e, quadrivalent, preservative free John Pires MD Work Phone: [facility] Work Phone: 05-02-2019 influenza, seasonal, injectable John Pires MD Work Phone: [facility] Work Phone: 04-05-2019 tuberculin skin test ; purified protein derivative solution, intradermal Kristian Cadet MD Work Phone: [facility] 01-31-2019 zoster vaccine recombinant John Pires MD Work Phone: [facility] Work Phone: 11-27-2018 zoster vaccine recombinant John Pires MD Work Phone: [facility] 08-25-2018 tetanus and diphther ia toxoids, adsorbed, preservative free, for adult use (5 Lf of tetanus toxoid and 2 Lf of diphtheria toxoid) John Pires MD Work Phone: [facility] 06-15-2018 influenza, injectabl e, quadrivalent, preservative free John Pires MD Work Phone: [facility] Work Phone: 06-15-2018 influenza, seasonal, injectable John Pires MD Work Phone: [facility] Work Phone: 06-18-2017 influenza, seasonal, injectable John Pires MD Work Phone: [facility] 08-21-2016 influenza, seasonal, injectable John Pires MD Work Phone: [facility] 05-08-2016 pneumococcal conjuga te vaccine, 13 valent John Pires MD Work Phone: [facility] 06-26-2015 influenza, injectabl e, quadrivalent, contains preservative John Pires MD Work Phone: [facility] 01-18-2015 pneumococcal polysaccharide vaccine, 23 valent John Pires MD Work Phone: [facility] 07-14-2013 influenza virus vaccine, unspecified formulation John Pires MD Work Phone: [facility] 07-01-2012 influenza virus vaccine, unspecified formulation John Pires MD Work Phone: [facility] Work Phone: 09-25-2011 influenza virus vaccine, unspecified formulation John Pires MD Work Phone: [facility] Work Phone: 10-24-2009 influenza virus vaccine, unspecified formulation John Pires MD Work Phone: [facility] Work Phone: 04-26-2008 tetanus toxoid, redu nikolai diphtheria toxoid, and acellular pertussis vaccine, adsorbed John Pires MD Work Phone: [facility] Payers Date Payer Category Payer Self-pay 2023 Unknown [id number] 2023 Unknown [id number] 2021 Private Health Insurance [employer] A ETNA ASA GENERIC [id number] 2021-[facility] [phone] [address] [address] [place] [address] PPO [id number] 2021 Private Health Insurance [id number] 2013 Unknown [id number] 1965 Unknown [id number] 1964 Unknown [id number] 1964 Unknown [id number] Private Health Insurance 802 [id number] Unknown [id number] Unknown [id number] Social History Date Type Detail Facility Start: 04-11-2011 End: 08-01-2025 Tobacco smoking status NHIS Never smoked tobacco [facility] Work Phone: Start: 12-25-2021 End: 04-17-2025 Alcohol intake Current non-drinker of alcohol (finding) [facility] Start: 01-19-2021 End: 09-19-2022 History SDOH Alcohol Frequency 1 [facility] Start: 01-19-2021 History SDOH Alcohol Std Drinks 98 [facility] Start: 01-19-2021 End: 09-19-2022 History SDOH Social Connections Phone 5 [facility] Start: 01-19-2021 End: 09-19-2022 History SDOH Social Connections Get Together 2 [facility] Start: 01-19-2021 End: 09-19-2022 History SDOH Social Connections Living 3 [facility] Start: 01-19-2021 History SDOH Physical Activity DPW 4 [facility] Start: 01-19-2021 Education 12 [facility] Start: 1965 Sex Assigned At Male [facility] Start: 09-23-2021 End: 08-13-2022 Exposure to SARS-CoV-2 (event) Not sure [facility] Work Phone: Start: 04-11-2011 Tobacco use and exposure Smokeless tobacco non-user [facility] Work Phone: Start: 06-23-2022 End: 09-19-2022 History SDOH Alcohol Std Drinks 0 [facility] Start: 09-18-2022 End: 05-06-2023 History of Social function [facility] Start: 09-18-2022 End: 05-06-2023 Social connection and isolation panel [facility] Do you belong to any clubs or organizations such as hindu groups, unions, fraternal or athletic groups, or school groups? Yes [facility] Are you now , , , , never or living with a partner? [facility] How often to you hav e a drink containing alcohol? Never [facility] Start: 08-22-2012 How many standard drinks containing alcohol do you have on a typical day? Patient does not drink [facility] Do you feel stress - tense, restless, nervous, or anxious, or unable to sleep at night because your mind is troubled all the time - these days [OSQ] Not at all [facility] (I/We) worried irwin er (my/our) food would run out before (I/we) got money to buy more. Never true [facility] In the past 12 month s, was there a time when you were not able to pay the mortgage or rent on time? No [facility] Start: 01-27-2022 Gender identity Identifies as male gender (finding) [facility] Start: 09-25-2020 Sexual orientation Heterosexual (finding) [facility] Do you feel stress - tense, restless, nervous, or anxious, or unable to sleep at night because your mind is troubled all the time - these days [OSQ] Only a little [facility] Start: 09-27-2020 Drugs Drugs [facility] Start: 09-27-2020 Lives Lives [facility] Sexual Orientation [facility] Start: 10-30-2005 Sex Male (finding) [facility] Start: 08-01-2025 Not applicable (qualifier value) [facility] Medical Equipment Procedure Code Equipment Code Equipment Original Text Equipment Identifier Dates [id number], [id number] Start: 10-27-2020 Comment on above: Test blood sugar(s) 2 times daily. Dx: Type 2 DM - Controlled E11.9 Insulin: No Functional Status Date Assessment Result Facility 08-01-2025 Functional Status Sensory Deficits None A [facility] 01-18-2015 Are you deaf, or do you have serious difficulty hearing No 01/18/2015 3:04 PM Erika Lynne LPN No [facility] 01-18-2015 Are you blind, or do you have serious difficulty seeing, even when wearing glasses No 01/18/2015 3:04 PM Erika Lynne LPN No [facility] 01-18-2015 Do you have serious difficulty walking or climbing stairs No 01/18/2015 3:04 PM Erika Lynne LPN No [facility] 01-18-2015 Do you have difficul ty dressing or bathing No 01/18/2015 3:04 PM EDT Erika Billy LPN No [facility] 01-18-2015 Because of a physica l, mental, or emotional condition, do you have difficulty doing errands alone such as visiting a physician's office or shopping No 01/18/2015 3:04 PM EDT Erika Billy LPN No [facility] Mental Status Date Assessment Result Facility 01-18-2015 Because of a physica l, mental, or emotional condition, do you have serious difficulty concentrating, remembering, or making decisions No 01/18/2015 3:04 PM EDT Erika Billy LPN No [facility] Clinical Notes 08-25-2018 to 07-24-2025 Telephone Encounter - Darlin Hopson LPN - 05/17/2025 2:01 PM EDTTelephone Encounter - Darlin Hopson LPN - 05/17/2025 2:01 PM Vy Meraz APRN.[facility] - 04/29/2025 11:16 AM EDT Note Date & Type Note Facility 07-24-2025 Note HNO ID: [id number] Author: EVA CHAIDEZ PA-C Service: ? Author Type: Physician Broadcast Systems Engineer Type: Progress Notes Filed: 07/24/2025 10:04 Note Text: URGENT CARE KATHIE Brito is a 60 year old male. Patient presents with: Cough: Sinus issues, congestion, MARQUEZ x 2 weeks Patient is a 60-year-old male who complains of worsening congestion, sinus pressure, sinus pain, ear pain, throat irritation and cough that he has been experiencing for the past 2 weeks. Patient also reports low-grade fever. Patient has no history of asthma or COPD and does not smoke. Patient has been taking [id number] medications with no improvement in his symptoms. Cough Associated symptoms include ear pain and sore throat. Review of Systems HENT: Positive for congestion, ear pain, postnasal drip, sinus pressure, sneezing and sore throat. Respiratory: Positive for cough. Objective BP 140/90 Pulse 80 Temp 36.7 ?C (98.1 ?F) Resp 21 Wt 109.3 kg (240 lb 15.4 oz) SpO2 97% BMI 35.84 kg/m? Physical Exam Vitals and nursing note reviewed. Constitutional: Appearance: Normal appearance. He is normal weight. HENT: Head: Normocephalic and atraumatic. Right Ear: Tympanic membrane, ear canal and external ear normal. Left Ear: Tympanic membrane, ear canal and external ear normal. Nose: Congestion present. Mouth/Throat: Mouth: Mucous membranes are moist. Pharynx: Oropharynx is clear. Eyes: Extraocular Movements: Extraocular movements intact. Conjunctiva/sclera: Conjunctivae normal. Pupils: Pupils are equal, round, and reactive to light. Cardiovascular: Rate and Rhythm: Normal rate and regular rhythm. Pulses: Normal pulses. Heart sounds: Normal heart sounds. Pulmonary: Effort: Pulmonary effort is normal. Breath sounds: Normal breath sounds. Musculoskeletal: Cervical back: Normal range of motion and neck supple. Skin: General: Skin is warm and dry. Capillary Refill: Capillary refill takes less than 2 seconds. Neurological: General: No focal deficit present. Mental Status: He is alert and oriented to person, place, and time. Psychiatric: Mood and Affect: Mood normal. Behavior: Behavior normal. Thought Content: Thought content normal. Judgment: Judgment normal. MDM Physical exam findings as noted above. Patient was provided with prescriptions for Augmentin 875-125 mg and Tessalon 100 mg. Supportive care instructions were discussed the patient verbalizes good understanding of same. CLINICAL IMPRESSION: Acute Sinusitis ASSESSMENT/PLAN: 1. Acute non-recurrent sinusitis, unspecified location - ICD9: 461.9, ICD10: J01.90 - AMOXICILLIN 875 MG-POTASSIUM CLAVULANATE 125 MG TABLET - BENZONATATE 100 MG CAPSULE MDM Risk of Complications, Morbidity, and/or Mortality Presenting problems: low Diagnostic procedures: low Management options: ian Chaidez PA-C [facility] 05-17-2025 Telephone encounter Note Pt does have f/u appt arranged for 09/26/25. [facility] 05-17-2025 Miscellaneous Notes Pt does have f/u appt arranged for 09/26/25. Prescription Refill Information The patient has been identified by name and date of : Yes Caregiver verified no other encounters exist for this prescription request: Yes Caregiver confirmed with patient/requestor that no other refills are due, in the near future, with this provider at this time: Yes The last office visit in the department: 03/28/2025 Does the patient have a future office visit with this provider/department: No Requested Prescriptions Pending Prescriptions Disp Refills fluticasone (FLONASE) 50 mcg/actuation nasal spray 6 each 3 Sig: Use 2 sprays in each nostril two times a day. Rinse mouth after use. Monica Blankenship May 17, 2025 1:17 PM documented in this encounter [facility] 05-17-2025 Telephone encounter Note Prescription Refill Information The patient has been identified by name and date of : Yes Caregiver verified no other encounters exist for this prescription request: Yes Caregiver confirmed with patient/requestor that no other refills are due, in the near future, with this provider at this time: Yes The last office visit in the department: 03/28/2025 Does the patient have a future office visit with this provider/department: No Requested Prescriptions Pending Prescriptions Disp Refills fluticasone (FLONASE) 50 mcg/actuation nasal spray 6 each 3 Sig: Use 2 sprays in each nostril two times a day. Rinse mouth after use. Monica Blankenship May 17, 2025 1:17 PM [facility] 04-29-2025 Note HNO ID: [id number] Author: VY JORDAN APRN.WORD PROCESSOR TECHNICIAN Service: ? Author Type: Nurse Practitioner Type: Progress Notes Filed: 04/29/2025 11:17 Note Text: URGENT CARE KAHTIE Maco Brito is a 59 year old male. Patient presents with: Rash: Rash on right side of face just noticed this morning HPI Facial Rash: - Rash on the face, extending to the neck. - Onset after being looked at by someone. - Denies applying any marker or being scratched. - Has a cat that he frequently picks up. - Denies eating anything unusual like peanuts or red foods. Review of Systems Skin: (+) facial rash Objective BP 118/80 Pulse 78 Temp 36.8 ?C (98.2 ?F) Resp 20 Wt 106.9 kg (235 lb 10.8 oz) SpO2 96% BMI 35.06 kg/m? Physical Exam General: No acute distress. Skin: Erythematous rash on face extending to neck. { 1. Redness of skin (L53.9) - Acute facial erythema of unclear etiology; no known exposure to irritants, allergens, or trauma reported. - Advised patient that the condition is benign and not a cause for concern. and Recording using ambient AI software for draft documentation of the visit was discussed with the patient/authorized artist representative; all questions welcomed and answered. Patient/authorized artist representative agreed to proceed MDM Procedures [facility] 04-29-2025 History of Present illness Narrative URGENT CARE [facility] Reji Brito is a 59 year old male. Patient presents with: Rash: Rash on right side of face just noticed this morning HPI Facial Rash: - Rash on the face, extending to the neck. - Onset after being looked at by someone. - Denies applying any marker or being scratched. - Has a cat that he frequently picks up. - Denies eating anything unusual like peanuts or red foods. Review of Systems Skin: (+) facial rash Objective BP 118/80 Pulse 78 Temp 36.8 C (98.2 F) Resp 20 Wt 106.9 kg (235 lb 10.8 oz) SpO2 96% BMI 35.06 kg/m Physical Exam General: No acute distress. Skin: Erythematous rash on face extending to neck. { 1. Redness of skin (L53.9) - Acute facial erythema of unclear etiology; no known exposure to irritants, allergens, or trauma reported. - Advised patient that the condition is benign and not a cause for concern. and Recording using ambient AI software for draft documentation of the visit was discussed with the patient/authorized artist representative; all questions welcomed and answered. Patient/authorized artist representative agreed to proceed MDM Procedures documented in this encounter [facility] 04-21-2025 History of Present illness Narrative FOLLOW UP VISIT - ENDOSCOPY Reji Brito 1965 [id number] REFERRING PHYSICIAN: Adele Davis [address] [facility] [id number] Reji Brito is a patient I am following for screening colonoscopy. Dr. Davis performed lower endoscopy on 04/11/2025. The patient was found to have Impression: - Non-bleeding internal hemorrhoids. - One 1 to 2 mm polyp in the transverse colon, removed with a cold snare. Resected and retrieved. Pathology demonstrated: MICROSCOPIC DIAGNOSIS A. Transverse colon, polyp, biopsy: Tubular adenoma The patient notes no complaints since the procedure. VITALS: There were no vitals taken for this visit. General: patient is alert, cooperative, pleasant and in no acute distress On examination, the abdomen is benign. Assessment ASSESSMENT/PLAN: 1. Tubular adenoma of colon - ICD9: 211.3, ICD10: D12.6 The operative findings and pathology report were reviewed with the patient, and the patient has had the opportunity to ask questions and have questions answered. If the patient notes any problems or changes in bowel function, the patient should contact me immediately. Otherwise I recommend follow up endoscopy in 5 years. HM updated. Discussed treatment plan and patient voices understanding. Patient's questions answered appropriately. Medications and potential side effects were discussed and patient voices understanding. Return to the office as scheduled or as needed for worsening/no improvement. Reba Suarez APRN.GENET documented in this encounter [facility] 04-21-2025 Note HNO ID: [id number] Author: REBA SUAREZ APRN.CNP Service: ? Author Type: Nurse Practitioner Type: Progress Notes Filed: 04/21/2025 09:17 Note Text: FOLLOW UP VISIT - ENDOSCOPY Reji Brito 1965 [id number] REFERRING PHYSICIAN: Adele Davis [address] [facility] [id number] Reji Brito is a patient I am following for screening colonoscopy. Dr. Davis performed lower endoscopy on 04/11/2025. The patient was found to have Impression: - Non-bleeding internal hemorrhoids. - One 1 to 2 mm polyp in the transverse colon, removed with a cold snare. Resected and retrieved. Pathology demonstrated: MICROSCOPIC DIAGNOSIS A. Transverse colon, polyp, biopsy: Tubular adenoma The patient notes no complaints since the procedure. VITALS: There were no vitals taken for this visit. General: patient is alert, cooperative, pleasant and in no acute distress On examination, the abdomen is benign. Assessment ASSESSMENT/PLAN: 1. Tubular adenoma of colon - ICD9: 211.3, ICD10: D12.6 The operative findings and pathology report were reviewed with the patient, and the patient has had the opportunity to ask questions and have questions answered. If the patient notes any problems or changes in bowel function, the patient should contact me immediately. Otherwise I recommend follow up endoscopy in 5 years. HM updated. Discussed treatment plan and patient voices understanding. Patient's questions answered appropriately. Medications and potential side effects were discussed and patient voices understanding. Return to the office as scheduled or as needed for worsening/no improvement. Reba Suarez APRN.WORD PROCESSOR TECHNICIAN [facility] 04-11-2025 Note Formatting of this n ote might be different from the original. The patient received a copy of Colonoscopy discharge instructions that contain information for how to contact the physician who performed the procedure and when to seek medical care. [facility] 04-11-2025 Miscellaneous Notes The patient received a copy of Colonoscopy discharge instructions that contain information for how to contact the physician who performed the procedure and when to seek medical care. documented in this encounter [facility] 04-11-2025 Attending History and physical note UPDATED PROCEDURAL SEDATION HISTORY AND PHYSICAL EXAMINATION SERVICE DATE: 04/11/2025 SERVICE TIME: 7:29 PHYSICAL EXAM MUST BE COMPLETED ON ADMISSION PROCEDURE: colonoscopy, possible biopsies Procedure Indications: screening for colon cancer The History and Physical (completed in the past 30 days) has been reviewed and the patient has been examined. The contents accurately reflect the patient's condition with the following additions or revisions since the H&P was completed. ASA Class: ASA Class: Patient with severe systemic disease (diabetes with elevated HgbA1c) Examination indicates no changes. AIRWAY: Mouth opening greater than 3 fingerbreadths: Yes Neck Full Range of Motion: Yes LUNGS: Lungs clear to auscultation CARDIAC: Regular rhythm,Regular rate Provisional Diagnosis/Treatment Plan: colonoscopy, possible biopsies Sedation Goal: Moderate This H&P can be found in the Electronic Medical Record . SIGNATURE: Adele Davis MD PATIENT NAME: Reji Brito DATE: April 11, 2025 TIME: 7:29 AM Source Note - Adele Davis MD - 04/11/2025 8:15 AM EDT HISTORY AND PHYSICAL Reji Brito 1965 REFERRING PHYSICIAN: Kristian Cadet MD CHIEF COMPLAINT: No chief complaint on file. HPI: The patient is a 59 year old male here for colonoscopy. Last colonoscopy 2019 at [facility] of colon cancer in family. PAST MEDICAL HISTORY Diagnosis Date Acute right-sided back pain with sciatica 10/31/2021 Adenomatous colon polyp 10/23/2014 Allergic rhinitis 01/18/2015 Asthma (HCC) Controlled type 2 diabetes mellitus without complication, without long-term current use of insulin (HCC) 11/10/2019 Coronary artery disease COVID-19 09/24/2020 Depressive disorder 2008 DIVERTICULITIS OF COLON W/O BLEED 05/01/2006 Gynecomastia, male 05/18/2014 Hypertension Irritable bowel syndrome Lumbar disc disease 2003 Nonalcoholic fatty liver disease GENNY (obstructive sleep apnea) 10/19/2009 CPAP 8 cm H2O DME [facility] Other and unspecified hyperlipidemia Primary osteoarthritis of left knee 09/17/2016 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 Tonsillar hypertrophy 11/21/2015 Total knee replacement status 04/12/2014 Vertigo 08/2013 PAST SURGICAL HISTORY Procedure Laterality Date ARTHRP KNE CONDYLE&PLATU MEDIAL&LAT COMPARTMENTS 01/03/2014 Knee replacement, total, Right COLONOSCOPY FLX DX W/COLLJ SPEC WHEN PFRMD 10/23/2014 Colonoscopy COLONOSCOPY GEN ANES 03/12/2020 hemorrhoids ENDOSCOPIC SEPTOPLASTY Bilateral 06/2018 [facility] SIGMOIDOSCOPY FLX DX W/COLLJ SPEC BR/WA IF PFRMD 03/17/2000 Sigmoidoscopy, flexible Current Outpatient Medications Medication Sig budesonide-formoterol (SYMBICORT) 160-4.5 mcg/actuation inhaler Inhale 2 puffs as instructed two times a day. dulaglutide (TRULICITY) 1.5 mg/0.5 mL pen injector Inject 1.5 mg subcutaneously one time a week. chlorthalidone (HYGROTON) 25 mg tablet Take 1 tablet by mouth once daily. lisinopril (ZESTRIL) 20 mg tablet Take 1 tablet by mouth once daily. metFORMIN ER (GLUCOPHAGE XR) 500 mg 24 hr tablet Take 1 tablet by mouth daily with breakfast. montelukast (SINGULAIR) 10 mg tablet Take 1 tablet by mouth daily at bedtime. pantoprazole DR (PROTONIX) 40 mg tablet Take 1 tablet by mouth once daily. 30 minutes before breakfast, take on empty stomach. simvastatin (ZOCOR) 40 mg tablet Take 1 tablet by mouth daily at bedtime. fluticasone (FLONASE) 50 mcg/actuation nasal spray Use 2 Sprays in each nostril two times a day. Rinse mouth after use. CPAP/BIPAP/OTHER Type .CPAPSettings into a note to see current settings/supplies/DME information. Ipratropium [place] (ATROVENT) 21 mcg (0.03 %) nasal spray Use 2 Sprays in the nose twice daily as needed (rhinorrhea). albuterol HFA (PROVENTIL HFA, VENTOLIN HFA) 90 mcg/actuation inhaler Inhale 2 Puffs as instructed every 4 hours as needed for wheezing/shortness of breath. polyethylene glycol 3350 (MIRALAX) 17 gram/dose powder Take 17 g by mouth twice daily. fexofenadine (JOSUE) 180 mg tablet Take 180 mg by mouth once daily. FREESTYLE LANCETS 28 gauge ubidecarenone (COQ-10 ORAL) Take by mouth. MAGNESIUM ASPARTATE HCL ORAL Take by mouth. glucosamine/msm/chondroitin A (FVSDWAPITDL-BRTNLZ-RMB ORAL) Take by mouth. vitamin D3-folic acid 5,000 unit- 1 mg tab Take by mouth. blood sugar diagnostic (BLOOD GLUCOSE TEST) test strip Test blood sugar(s) 2 times daily. Dx: Type 2 DM - Controlled E11.9 Insulin: No COMPOUNDED PRESCRIPTION Allergy shots per [facility] CPAP AutoPAP 8-20 cmH2O, suitable mask, humidity, filters. Lifetime supplies. Dx: 327.23. Fax compliance rpt to [facility] in 6 weeks. Saw [place] 500 mg ORAL Cap Per package directions for prostate symptoms. aspirin(ECOTRIN LOW STRENGTH 81 MG TAB) THERAPEUTIC MULTIVITAMIN TAB Take one(1) tablet daily. Current Facility-Administered Medications Medication Dose Route Frequency lactated ringers iv infusion 30 mL/hr INTRAVENOUS CONTINUOUS ALLERGIES: Hops and Seasonal Allergies PERSONAL HISTORY: Social History Tobacco Use Smoking status: Never Smokeless tobacco: Never Vaping Use Vaping status: Never Used Substance Use Topics Alcohol use: No Drug use: No FAMILY HISTORY Problem Relation Age of Onset Hypertension Mother Stroke Mother 86 age 86 Stroke Father Coronary Artery Disease Father PVD. Stents. Alive age 79 Hypertension Sister Heart Sister Lipids Sister Breast Cancer Sister Lipids Brother Kidney stones Brother COPD Paternal Grandfather MS age 50s Colon Cancer No Family History REVIEW OF SYMPTOMS: Denies chest pain Denies shortness of breath Physical examination: Vital signs in chart, reviewed and noted by me General - WD/WN in no apparent distress, alert and oriented Head - Normocephalic. EOM intact with sclera clear. Mouth with mucus membranes moist. Neck - supple with no jugular venous distention noted. Trachea is midline. Lungs - normal breath sounds, normal respiratory motion, no adventitial sounds noted. Heart - normal heart sounds. Regular rate. Abdomen - soft and benign. Extremities - no pitting edema noted. Skin - Normal skin integrity. Neurological - non focal Psych - calm and appropriate Impression: screening for colon cancer, Discussion/Plan/Recommendations: I have discussed the above with the patient. I have offered colonoscopy, possible biopsies I have explained the procedure to the patient. I have counseled the patient as to the risks of the procedure, including but not limited to: infection, bleeding, injury to any intrabdominal organs such as liver/spleen, perforation of the GI tract, inability to complete the procedure, complications of anesthesia, etc. - the patient understands. The patient wishes to proceed. I have answered all questions to the patient s satisfaction and the patient has no further questions. . Adele Davis MD [facility] Work Phone: 04-11-2025 History and physical note HISTORY AND PHYSICAL Reji Brito 1965 REFERRING PHYSICIAN: Kristian Cadet MD CHIEF COMPLAINT: No chief complaint on file. HPI: The patient is a 59 year old male here for colonoscopy. Last colonoscopy 2019 at [facility] of colon cancer in family. PAST MEDICAL HISTORY Diagnosis Date Acute right-sided back pain with sciatica 10/31/2021 Adenomatous colon polyp 10/23/2014 Allergic rhinitis 01/18/2015 Asthma ([facility]) Controlled type 2 diabetes mellitus without complication, without long-term current use of insulin ([facility]) 11/10/2019 Coronary artery disease COVID-19 09/24/2020 Depressive disorder 2008 DIVERTICULITIS OF COLON W/O BLEED 05/01/2006 Gynecomastia, male 05/18/2014 Hypertension Irritable bowel syndrome Lumbar disc disease 2003 Nonalcoholic fatty liver disease GENNY (obstructive sleep apnea) 10/19/2009 CPAP 8 cm H2O [facility] Other and unspecified hyperlipidemia Primary osteoarthritis of left knee 09/17/2016 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 Tonsillar hypertrophy 11/21/2015 Total knee replacement status 04/12/2014 Vertigo 08/2013 PAST SURGICAL HISTORY Procedure Laterality Date ARTHRP KNE CONDYLE&PLATU MEDIAL&LAT COMPARTMENTS 01/03/2014 Knee replacement, total, Right COLONOSCOPY FLX DX W/COLLJ SPEC WHEN PFRMD 10/23/2014 Colonoscopy COLONOSCOPY GEN ANES 03/12/2020 hemorrhoids ENDOSCOPIC SEPTOPLASTY Bilateral 06/2018 [facility] SIGMOIDOSCOPY FLX DX W/COLLJ SPEC BR/WA IF PFRMD 03/17/2000 Sigmoidoscopy, flexible Current Outpatient Medications Medication Sig budesonide-formoterol (SYMBICORT) 160-4.5 mcg/actuation inhaler Inhale 2 puffs as instructed two times a day. dulaglutide (TRULICITY) 1.5 mg/0.5 mL pen injector Inject 1.5 mg subcutaneously one time a week. chlorthalidone (HYGROTON) 25 mg tablet Take 1 tablet by mouth once daily. lisinopril (ZESTRIL) 20 mg tablet Take 1 tablet by mouth once daily. metFORMIN ER (GLUCOPHAGE XR) 500 mg 24 hr tablet Take 1 tablet by mouth daily with breakfast. montelukast (SINGULAIR) 10 mg tablet Take 1 tablet by mouth daily at bedtime. pantoprazole DR (PROTONIX) 40 mg tablet Take 1 tablet by mouth once daily. 30 minutes before breakfast, take on empty stomach. simvastatin (ZOCOR) 40 mg tablet Take 1 tablet by mouth daily at bedtime. fluticasone (FLONASE) 50 mcg/actuation nasal spray Use 2 Sprays in each nostril two times a day. Rinse mouth after use. CPAP/BIPAP/OTHER Type .CPAPSettings into a note to see current settings/supplies/DME information. Ipratropium [place] (ATROVENT) 21 mcg (0.03 %) nasal spray Use 2 Sprays in the nose twice daily as needed (rhinorrhea). albuterol HFA (PROVENTIL HFA, VENTOLIN HFA) 90 mcg/actuation inhaler Inhale 2 Puffs as instructed every 4 hours as needed for wheezing/shortness of breath. polyethylene glycol 3350 (MIRALAX) 17 gram/dose powder Take 17 g by mouth twice daily. fexofenadine (JOSUE) 180 mg tablet Take 180 mg by mouth once daily. FREESTYLE LANCETS 28 gauge ubidecarenone (COQ-10 ORAL) Take by mouth. MAGNESIUM ASPARTATE HCL ORAL Take by mouth. glucosamine/msm/chondroitin A ([id number]-JEFAMB-NOP ORAL) Take by mouth. vitamin D3-folic acid 5,000 unit- 1 mg tab Take by mouth. blood sugar diagnostic (BLOOD GLUCOSE TEST) test strip Test blood sugar(s) 2 times daily. Dx: Type 2 DM - Controlled E11.9 Insulin: No COMPOUNDED PRESCRIPTION Allergy shots per [facility] CPAP AutoPAP 8-20 cmH2O, suitable mask, humidity, filters. Lifetime supplies. Dx: 327.23. Fax compliance rpt to [facility] in 6 weeks. Saw Newport 500 mg ORAL Cap Per package directions for prostate symptoms. aspirin(ECOTRIN LOW STRENGTH 81 MG TAB) THERAPEUTIC MULTIVITAMIN TAB Take one(1) tablet daily. Current Facility-Administered Medications Medication Dose Route Frequency lactated ringers iv infusion 30 mL/hr INTRAVENOUS CONTINUOUS ALLERGIES: Hops and Seasonal Allergies PERSONAL HISTORY: Social History Tobacco Use Smoking status: Never Smokeless tobacco: Never Vaping Use Vaping status: Never Used Substance Use Topics Alcohol use: No Drug use: No FAMILY HISTORY Problem Relation Age of Onset Hypertension Mother Stroke Mother 86 age 86 Stroke Father Coronary Artery Disease Father PVD. Stents. Alive age 79 Hypertension Sister Heart Sister Lipids Sister Breast Cancer Sister Lipids Brother Kidney stones Brother COPD Paternal Grandfather MS age 50s Colon Cancer No Family History REVIEW OF SYMPTOMS: Denies chest pain Denies shortness of breath Physical examination: Vital signs in chart, reviewed and noted by me General - WD/WN in no apparent distress, alert and oriented Head - Normocephalic. EOM intact with sclera clear. Mouth with mucus membranes moist. Neck - supple with no jugular venous distention noted. Trachea is midline. Lungs - normal breath sounds, normal respiratory motion, no adventitial sounds noted. Heart - normal heart sounds. Regular rate. Abdomen - soft and benign. Extremities - no pitting edema noted. Skin - Normal skin integrity. Neurological - non focal Psych - calm and appropriate Impression: screening for colon cancer, Discussion/Plan/Recommendations: I have discussed the above with the patient. I have offered colonoscopy, possible biopsies I have explained the procedure to the patient. I have counseled the patient as to the risks of the procedure, including but not limited to: infection, bleeding, injury to any intrabdominal organs such as liver/spleen, perforation of the GI tract, inability to complete the procedure, complications of anesthesia, etc. - the patient understands. The patient wishes to proceed. I have answered all questions to the patient s satisfaction and the patient has no further questions. . Adele Davis MD [facility] 04-11-2025 History and physical note UPDATED PROCEDURAL SEDATION HISTORY AND PHYSICAL EXAMINATION SERVICE DATE: 04/11/2025 SERVICE TIME: 7:29 PHYSICAL EXAM MUST BE COMPLETED ON ADMISSION PROCEDURE: colonoscopy, possible biopsies Procedure Indications: screening for colon cancer The History and Physical (completed in the past 30 days) has been reviewed and the patient has been examined. The contents accurately reflect the patient's condition with the following additions or revisions since the H&P was completed. ASA Class: ASA Class: Patient with severe systemic disease (diabetes with elevated HgbA1c) Examination indicates no changes. AIRWAY: Mouth opening greater than 3 fingerbreadths: Yes Neck Full Range of Motion: Yes LUNGS: Lungs clear to auscultation CARDIAC: Regular rhythm,Regular rate Provisional Diagnosis/Treatment Plan: colonoscopy, possible biopsies Sedation Goal: Moderate This H&P can be found in the Electronic Medical Record . SIGNATURE: Adele Davis MD PATIENT NAME: Reji Brito DATE: April 11, 2025 TIME: 7:29 AM Source Note - Adele Davis MD - 04/11/2025 8:15 AM EDT HISTORY AND PHYSICAL Reji Brito 1965 REFERRING PHYSICIAN: Kristian Cadet MD CHIEF COMPLAINT: No chief complaint on file. HPI: The patient is a 59 year old male here for colonoscopy. Last colonoscopy 2019 at [place] No FMH of colon cancer in family. PAST MEDICAL HISTORY Diagnosis Date Acute right-sided back pain with sciatica 10/31/2021 Adenomatous colon polyp 10/23/2014 Allergic rhinitis 01/18/2015 Asthma (HCC) Controlled type 2 diabetes mellitus without complication, without long-term current use of insulin (HCC) 11/10/2019 Coronary artery disease COVID-19 09/24/2020 Depressive disorder 2008 DIVERTICULITIS OF COLON W/O BLEED 05/01/2006 Gynecomastia, male 05/18/2014 Hypertension Irritable bowel syndrome Lumbar disc disease 2002 Nonalcoholic fatty liver disease GENNY (obstructive sleep apnea) 10/19/2009 CPAP 8 cm H2O DME [facility] Other and unspecified hyperlipidemia Primary osteoarthritis of left knee 09/17/2016 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 Tonsillar hypertrophy 11/21/2015 Total knee replacement status 04/12/2014 Vertigo 08/2013 PAST SURGICAL HISTORY Procedure Laterality Date ARTHRP KNE CONDYLE&PLATU MEDIAL&LAT COMPARTMENTS 01/03/2014 Knee replacement, total, Right COLONOSCOPY FLX DX W/COLLJ SPEC WHEN PFRMD 10/23/2014 Colonoscopy COLONOSCOPY GEN ANES 03/12/2020 hemorrhoids ENDOSCOPIC SEPTOPLASTY Bilateral 06/2018 [facility] SIGMOIDOSCOPY FLX DX W/COLLJ SPEC BR/WA IF PFRMD 03/17/2000 Sigmoidoscopy, flexible Current Outpatient Medications Medication Sig budesonide-formoterol (SYMBICORT) 160-4.5 mcg/actuation inhaler Inhale 2 puffs as instructed two times a day. dulaglutide (TRULICITY) 1.5 mg/0.5 mL pen injector Inject 1.5 mg subcutaneously one time a week. chlorthalidone (HYGROTON) 25 mg tablet Take 1 tablet by mouth once daily. lisinopril (ZESTRIL) 20 mg tablet Take 1 tablet by mouth once daily. metFORMIN ER (GLUCOPHAGE XR) 500 mg 24 hr tablet Take 1 tablet by mouth daily with breakfast. montelukast (SINGULAIR) 10 mg tablet Take 1 tablet by mouth daily at bedtime. pantoprazole DR (PROTONIX) 40 mg tablet Take 1 tablet by mouth once daily. 30 minutes before breakfast, take on empty stomach. simvastatin (ZOCOR) 40 mg tablet Take 1 tablet by mouth daily at bedtime. fluticasone (FLONASE) 50 mcg/actuation nasal spray Use 2 Sprays in each nostril two times a day. Rinse mouth after use. CPAP/BIPAP/OTHER Type .CPAPSettings into a note to see current settings/supplies/DME information. Ipratropium [place] (ATROVENT) 21 mcg (0.03 %) nasal spray Use 2 Sprays in the nose twice daily as needed (rhinorrhea). albuterol HFA (PROVENTIL HFA, VENTOLIN HFA) 90 mcg/actuation inhaler Inhale 2 Puffs as instructed every 4 hours as needed for wheezing/shortness of breath. polyethylene glycol 3350 (MIRALAX) 17 gram/dose powder Take 17 g by mouth twice daily. fexofenadine (JOSUE) 180 mg tablet Take 180 mg by mouth once daily. FREESTYLE LANCETS 28 gauge ubidecarenone (COQ-10 ORAL) Take by mouth. MAGNESIUM ASPARTATE HCL ORAL Take by mouth. glucosamine/msm/chondroitin A (TSGOGVBLMTB-KSZVYF-BFM ORAL) Take by mouth. vitamin D3-folic acid 5,000 unit- 1 mg tab Take by mouth. blood sugar diagnostic (BLOOD GLUCOSE TEST) test strip Test blood sugar(s) 2 times daily. Dx: Type 2 DM - Controlled E11.9 Insulin: No COMPOUNDED PRESCRIPTION Allergy shots per [facility] CPAP AutoPAP 8-20 cmH2O, suitable mask, humidity, filters. Lifetime supplies. Dx: 327.23. Fax compliance rpt to [facility] in 6 weeks. Saw Newport 500 mg ORAL Cap Per package directions for prostate symptoms. aspirin(ECOTRIN LOW STRENGTH 81 MG TAB) THERAPEUTIC MULTIVITAMIN TAB Take one(1) tablet daily. Current Facility-Administered Medications Medication Dose Route Frequency lactated ringers iv infusion 30 mL/hr INTRAVENOUS CONTINUOUS ALLERGIES: Hops and Seasonal Allergies PERSONAL HISTORY: Social History Tobacco Use Smoking status: Never Smokeless tobacco: Never Vaping Use Vaping status: Never Used Substance Use Topics Alcohol use: No Drug use: No FAMILY HISTORY Problem Relation Age of Onset Hypertension Mother Stroke Mother 86 age 86 Stroke Father Coronary Artery Disease Father PVD. Stents. Alive age 79 Hypertension Sister Heart Sister Lipids Sister Breast Cancer Sister Lipids Brother Kidney stones Brother COPD Paternal Grandfather MS age 50s Colon Cancer No Family History REVIEW OF SYMPTOMS: Denies chest pain Denies shortness of breath Physical examination: Vital signs in chart, reviewed and noted by me General - WD/WN in no apparent distress, alert and oriented Head - Normocephalic. EOM intact with sclera clear. Mouth with mucus membranes moist. Neck - supple with no jugular venous distention noted. Trachea is midline. Lungs - normal breath sounds, normal respiratory motion, no adventitial sounds noted. Heart - normal heart sounds. Regular rate. Abdomen - soft and benign. Extremities - no pitting edema noted. Skin - Normal skin integrity. Neurological - non focal Psych - calm and appropriate Impression: screening for colon cancer, Discussion/Plan/Recommendations: I have discussed the above with the patient. I have offered colonoscopy, possible biopsies I have explained the procedure to the patient. I have counseled the patient as to the risks of the procedure, including but not limited to: infection, bleeding, injury to any intrabdominal organs such as liver/spleen, perforation of the GI tract, inability to complete the procedure, complications of anesthesia, etc. - the patient understands. The patient wishes to proceed. I have answered all questions to the patient s satisfaction and the patient has no further questions. . Adele Davis MD HISTORY AND PHYSICAL Reji Brito 1965 REFERRING PHYSICIAN: Kristian Cadet MD CHIEF COMPLAINT: No chief complaint on file. HPI: The patient is a 59 year old male here for colonoscopy. Last colonoscopy 2019 at [place] No FMH of colon cancer in family. PAST MEDICAL HISTORY Diagnosis Date Acute right-sided back pain with sciatica 10/31/2021 Adenomatous colon polyp 10/23/2014 Allergic rhinitis 01/18/2015 Asthma ([facility]) Controlled type 2 diabetes mellitus without complication, without long-term current use of insulin ([facility]) 11/10/2019 Coronary artery disease COVID-19 09/24/2020 Depressive disorder 2008 DIVERTICULITIS OF COLON W/O BLEED 05/01/2006 Gynecomastia, male 05/18/2014 Hypertension Irritable bowel syndrome Lumbar disc disease 2003 Nonalcoholic fatty liver disease GENNY (obstructive sleep apnea) 10/19/2009 CPAP 8 cm H2O [facility] Other and unspecified hyperlipidemia Primary osteoarthritis of left knee 09/17/2016 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 Tonsillar hypertrophy 11/21/2015 Total knee replacement status 04/12/2014 Vertigo 08/2013 PAST SURGICAL HISTORY Procedure Laterality Date ARTHRP KNE CONDYLE&PLATU MEDIAL&LAT COMPARTMENTS 01/03/2014 Knee replacement, total, Right COLONOSCOPY FLX DX W/COLLJ SPEC WHEN PFRMD 10/23/2014 Colonoscopy COLONOSCOPY GEN ANES 03/12/2020 hemorrhoids ENDOSCOPIC SEPTOPLASTY Bilateral 06/2018 [facility] SIGMOIDOSCOPY FLX DX W/COLLJ SPEC BR/WA IF PFRMD 03/17/2000 Sigmoidoscopy, flexible Current Outpatient Medications Medication Sig budesonide-formoterol (SYMBICORT) 160-4.5 mcg/actuation inhaler Inhale 2 puffs as instructed two times a day. dulaglutide (TRULICITY) 1.5 mg/0.5 mL pen injector Inject 1.5 mg subcutaneously one time a week. chlorthalidone (HYGROTON) 25 mg tablet Take 1 tablet by mouth once daily. lisinopril (ZESTRIL) 20 mg tablet Take 1 tablet by mouth once daily. metFORMIN ER (GLUCOPHAGE XR) 500 mg 24 hr tablet Take 1 tablet by mouth daily with breakfast. montelukast (SINGULAIR) 10 mg tablet Take 1 tablet by mouth daily at bedtime. pantoprazole DR (PROTONIX) 40 mg tablet Take 1 tablet by mouth once daily. 30 minutes before breakfast, take on empty stomach. simvastatin (ZOCOR) 40 mg tablet Take 1 tablet by mouth daily at bedtime. fluticasone (FLONASE) 50 mcg/actuation nasal spray Use 2 Sprays in each nostril two times a day. Rinse mouth after use. CPAP/BIPAP/OTHER Type .CPAPSettings into a note to see current settings/supplies/DME information. Ipratropium [place] (ATROVENT) 21 mcg (0.03 %) nasal spray Use 2 Sprays in the nose twice daily as needed (rhinorrhea). albuterol HFA (PROVENTIL HFA, VENTOLIN HFA) 90 mcg/actuation inhaler Inhale 2 Puffs as instructed every 4 hours as needed for wheezing/shortness of breath. polyethylene glycol 3350 (MIRALAX) 17 gram/dose powder Take 17 g by mouth twice daily. fexofenadine (JOSUE) 180 mg tablet Take 180 mg by mouth once daily. FREESTYLE LANCETS 28 gauge ubidecarenone (COQ-10 ORAL) Take by mouth. MAGNESIUM ASPARTATE HCL ORAL Take by mouth. glucosamine/msm/chondroitin A (BLTNBVFRQCN-HISSSF-MRY ORAL) Take by mouth. vitamin D3-folic acid 5,000 unit- 1 mg tab Take by mouth. blood sugar diagnostic (BLOOD GLUCOSE TEST) test strip Test blood sugar(s) 2 times daily. Dx: Type 2 DM - Controlled E11.9 Insulin: No COMPOUNDED PRESCRIPTION Allergy shots per [place] CPAP AutoPAP 8-20 cmH2O, suitable mask, humidity, filters. Lifetime supplies. Dx: 327.23. Fax compliance rpt to [facility] in 6 weeks. Saw Newport 500 mg ORAL Cap Per package directions for prostate symptoms. aspirin(ECOTRIN LOW STRENGTH 81 MG TAB) THERAPEUTIC MULTIVITAMIN TAB Take one(1) tablet daily. Current Facility-Administered Medications Medication Dose Route Frequency lactated ringers iv infusion 30 mL/hr INTRAVENOUS CONTINUOUS ALLERGIES: Hops and Seasonal Allergies PERSONAL HISTORY: Social History Tobacco Use Smoking status: Never Smokeless tobacco: Never Vaping Use Vaping status: Never Used Substance Use Topics Alcohol use: No Drug use: No FAMILY HISTORY Problem Relation Age of Onset Hypertension Mother Stroke Mother 86 age 86 Stroke Father Coronary Artery Disease Father PVD. Stents. Alive age 79 Hypertension Sister Heart Sister Lipids Sister Breast Cancer Sister Lipids Brother Kidney stones Brother COPD Paternal Grandfather MS age 50s Colon Cancer No Family History REVIEW OF SYMPTOMS: Denies chest pain Denies shortness of breath Physical examination: Vital signs in chart, reviewed and noted by me General - WD/WN in no apparent distress, alert and oriented Head - Normocephalic. EOM intact with sclera clear. Mouth with mucus membranes moist. Neck - supple with no jugular venous distention noted. Trachea is midline. Lungs - normal breath sounds, normal respiratory motion, no adventitial sounds noted. Heart - normal heart sounds. Regular rate. Abdomen - soft and benign. Extremities - no pitting edema noted. Skin - Normal skin integrity. Neurological - non focal Psych - calm and appropriate Impression: screening for colon cancer, Discussion/Plan/Recommendations: I have discussed the above with the patient. I have offered colonoscopy, possible biopsies I have explained the procedure to the patient. I have counseled the patient as to the risks of the procedure, including but not limited to: infection, bleeding, injury to any intrabdominal organs such as liver/spleen, perforation of the GI tract, inability to complete the procedure, complications of anesthesia, etc. - the patient understands. The patient wishes to proceed. I have answered all questions to the patient s satisfaction and the patient has no further questions. . Adele Davis MD documented in this encounter [facility] 04-03-2025 Telephone encounter Note CD READY FOR CATCH BASIN CLEANER AT [facility] Pt knows pt has to sign or a note from pt [facility] 04-03-2025 Miscellaneous Notes CD READY FOR CATCH BASIN CLEANER AT [facility] Pt knows pt has to sign or a note from pt Spouse calls to request a CD copy of the x-ray of left knee completed on 03/28/2025. Please call spouse (Arti) at [phone] when available for sheepskin pickler. Arti also requests referral to orthopaedics be faxed. Faxed as requested to [phone]. Zita Mullen RN documented in this encounter [facility] 04-03-2025 Telephone encounter Note Spouse calls to request a CD copy of the x-ray of left knee completed on 03/28/2025. Please call spouse (Arti) at [phone] when available for sheepskin pickler. Arti also requests referral to orthopaedics be faxed. Faxed as requested to [phone]. Zita Mullen RN [facility] 03-28-2025 Note HNO ID: [id number] Author: ZAIN HAQUE RT(R) Service: ? Author Type: Technologist Type: Progress Notes Filed: 03/28/2025 10:11 Note Text: Radiology Service Progress Note PATIENT NAME: Reji Brito DATE OF SERVICE: March 28, 2025 TIME: 10:11 AM PATIENT IDENTITY VERIFICATION COMPLETED USING TWO (2) IDENTIFIERS: Name and Date of confirmed by patient verbally. FALL SCREENING: Has the patient had 2 falls in the last year or 1 fall with injury or currently using an Ambulatory Assistive Device (Walker, Cane, Wheelchair, Crutches, etc.)? No PATIENT GENDER DATA: Assigned male at PATIENT RELEVANT IMPLANT DATA REVIEWED: Not Applicable PATIENT PRESENTS WITH AN IMPLANTABLE OR ATTACHED CUSTOMS IMPORT SPECIALIST: No RADIOLOGY DEPARTMENT: General X-ray: Exam(s) Completed: Lower Extremity X-Ray(s): Knee, AP / Lat / Tunne / Merchant Left, Bilateral, and Wt. Bearing PERIPHERAL IV DATA: Not applicable SIGNED BY: RT Seth(R) March 28, 2025 10:11 AM [facility] 03-28-2025 Instructions Kristian Cadet MD - 03/28/2025 8:52 AM EDT Health Information For Patients and the Community How to Prepare for Your Colonoscopy Using Golytely, Nulytely, Trilyte or Colyte Preparations IMPORTANT - Please Read These Instructions at Least 2 Weeks Before Your Colonoscopy Nieves Instructions: ?Your bowel must be empty so that your doctor can clearly view your colon. Follow all of the instructions in this handout EXACTLY as they are written. If you do NOT follow the directions for when to start drinking the bowel preparation (see next page), your colonoscopy WILL be cancelled. ?Do NOT eat any solid food the ENTIRE day before your colonoscopy. ?Buy your bowel preparation at least 5 days before your colonoscopy. ?Do NOT mix the solution until the day before your colonoscopy. Designated Grain Unloader Machine on the Day of Your Exam A responsible family member or friend MUST come with you to your colonoscopy and REMAIN in the endoscopy area until you are discharged! You are NOT ALLOWED to drive, take a taxi or bus, or leave the Endoscopy Center ALONE. If you do not have a responsible driver/sales workers (family member or friend) with you to take you home, your exam cannot be done with sedation and will be cancelled. Medications Some of the medicines you take may need to be stopped or adjusted before your colonoscopy. You MUST call the doctor who ordered any of the following medicines at least 2 weeks before your colonoscopy. ?Blood thinners -- such as Coumadin (warfarin), Plavix (clopidogrel), Ticlid (ticlopidine hydrochloride), Agrylin (anagrelide), Xarelto (Rivaroxaban), Pradaxa (Dabigatran), Eliquis (Apixaban), and Effient (Prasugrel). ?Insulin or diabetes pills. Please call the doctor that monitors your glucose levels. Your insulin dosage may need to be adjusted due to the diet restrictions required with this bowel preparation. (Please bring your diabetes medicines with you on the day of your procedure.) If you take aspirin, take it and ALL other medications prescribed by your doctor. On the day of your colonoscopy, take your medications with a sip of water. Revised 10/2016 1 Five (5) Days Before Your Colonoscopy ?Do NOT take medicines that stop diarrhea -- such as Imodium , Kaopectate , or Pepto Bismol . ?Do NOT take fiber supplements -- such as Metamucil , Citrucel , or Perdiem . ?Do NOT take products that contain iron -- such as multi-vitamins -- (the label lists what is in the products). ?Do NOT take vitamin E. Buy the prescription bowel preparation solution at your local pharmacy or drugstore pharmacy. Three (3) Days Before Your Colonoscopy Do NOT eat high-fiber foods -- such as popcorn, beans, seeds (flax, sunflower, quinoa), multigrain bread, nuts, salad/vegetables, or fresh and dried fruit. One (1) Day Before Your Colonoscopy Only drink clear liquids the ENTIRE DAY before your colonoscopy. Do NOT eat any solid foods. Drink at least 8 ounces of clear liquids every hour after waking up. The clear liquids you can drink include: ?water, apple, or white grape juice; broth; coffee or tea (without milk or creamer); clear carbonated beverages such as penelope juan or lemon-metlakatla soda; Gatorade or other sports drinks (not red); Sanjeev-Aid or other flavored drinks (not red). You may eat plain jello or other gelatins (not red) or popsicles (not red). Do NOT drink alcohol on the day before or the day of the procedure. 2 Revised 10/2016 When to Mix and Drink Your Bowel Prep Follow the instructions on the label. After mixing, place the solution in the refrigerator for a couple of hours before drinking. You may add the flavor packet that came with the bowel preparation. DO NOT add ice, sugar or any flavorings to the solution. Evening Before Your Colonoscopy ?Start drinking the bowel preparation at 6 PM the evening before your colonoscopy. Drink an 8-oz glass of bowel preparation every 10 minutes. You must finish drinking the solution by 9 PM the night before your scheduled procedure. ?You may continue to drink clear liquids only until midnight. Do NOT eat or drink ANYTHING after midnight the night before your procedure or your procedure may be cancelled. This is for your safety and will reduce the risk of having any food or liquid in your stomach move into your lungs (aspiration) during a procedure. If you take aspirin, take it and ALL other prescribed medicines with a sip of water on the day of your colonoscopy. Contact Information: If you are unable to keep your appointment or have any questions about the instructions, please call the facility where the procedure is being performed. Call between the hours of 8:00 AM and 5:00 PM. If you are calling after 5:00 PM, please call Nurse home service consultant at [phone]. [facility] [address] [place] [id number] Index # [id number] Revised 10/2016 3 Hold TRULICITY one week before colonoscopy. Colonoscopy Procedure Overview Please Read Prior to the Procedure What is a Colonoscopy A colonoscopy is an outpatient procedure in which the inside of the large intestine (colon and rectum) is examined. A colonoscopy is commonly used to evaluate gastrointestinal symptoms, such as rectal and intestinal bleeding, abdominal pain, or changes in bowel habits. Colonoscopies are also performed in individuals without symptoms to check for colorectal polyps or cancer. A screening colonoscopy is recommended for anyone 50 years of age and older, and for anyone with parents, siblings or children with a history of colorectal cancer or polyps. What Happens Before a Colonoscopy To have a successful colonoscopy, your bowel must be empty so that your physician can clearly view the colon. To do this, it is very important to read and follow all of the instructions given to you at least 2 weeks BEFORE your exam. If your bowel is not empty, your colonoscopy will not be successful and may have to be repeated. If you feel nauseated or vomit while taking the bowel preparation, wait 30 minutes before drinking more fluid and start with small sips of solution. Some activity (such as walking) or a few soda crackers may help decrease the nausea you are feeling. If the nausea persists, please contact nurse workers' compensation claims supervisor at [phone]. You may experience skin irritation around the anus due to the passage of liquid stools. To prevent and treat skin irritation, you should: ?Apply Vaseline or Desitin ointment to the skin around the anus before drinking the bowel preparation medications. These products can be purchased at any drugstore. ?Wipe the skin after each bowel movement with disposable wet wipes instead of toilet paper. These are found in the toilet paper area of the store. ?Sit in a bathtub filled with warm water for 10 to 15 minutes after you finish passing a stool; after soaking, blot the skin dry with a soft cloth, apply Vaseline or Desitin ointment to the anal area, and place a cotton ball just outside your anus to absorb leaking fluid. What Happens During a Colonoscopy During a colonoscopy, an experienced physician uses a colonoscope (a long, flexible instrument about 1/2 inch in diameter) to view the lining of the colon. The colonoscope is inserted into the rectum and advanced through the large intestine. If necessary during a colonoscopy, small amounts of tissue can be removed for analysis (a biopsy) and polyps can be identified and entirely removed. In many cases, a colonoscopy allows accurate diagnosis and treatment of colorectal problems without the need for a major operation. Revised 10/2016 5 ?You are asked to wear a hospital gown and an IV will be started. ?You are given a pain reliever and a sedative intravenously (in your vein). You will feel relaxed and somewhat drowsy. ?You will lie on your left side, with your knees drawn up towards your chest. ?A small amount of air is used to expand the colon so the physician can see the colon cheng. ?You may feel mild cramping during the procedure. Cramping can be reduced by taking slow, deep breaths. ?The colonoscope is slowly withdrawn while the lining of your bowel is carefully examined. ?The procedure lasts from 30 minutes to 1 hour. What Happens After a Colonoscopy ?You will stay in a recovery room for observation until you are ready for discharge. ?You may feel some cramping or a sensation of having gas, but this quickly passes. ?If sedation has been given, a responsible family member or friend must drive you home. ?Avoid alcohol, driving, and operating machinery for 24 hours following the procedure. ?Unless otherwise instructed, you may immediately return to your normal diet. We recommend you wait until the day after your procedure to resume normal activities. ?If polyps were removed or a biopsy was taken, the physician performing your colonoscopy will tell you when it is safe to resume taking your blood thinners. ?If a biopsy was taken or a polyp was removed, you may notice a little amount of rectal bleeding for 1 to 2 days after the procedure. If you have a large amount of rectal bleeding, high or persistent fevers, or severe abdominal pain within the next 2 weeks, please go to your local emergency room and call the physician who performed your exam. 6 Revised 10/2016 Copyright [id number] [facility]. All rights reserved. Revised 10/2016 documented in this encounter [facility] 03-28-2025 Note HNO ID: [id number] Author: KRISTIAN CADET MD Service: ? Author Type: Physician Type: Progress Notes Filed: 03/28/2025 09:03 Note Text: This note was created using [employer]. Subjective Patient presents with: Fabian Brito is a 59 year old male. ASTHMA CONTROL TEST Date: 03/28/2025 In the last 4 weeks, how much of the time did your asthma keep you from getting as much done at work or home that you wanted to do? None of the time (5) In the last 4 weeks, how often have you had shortness of breath? Once or twice per week (4) In the last 4 weeks, how often did your asthma symptoms (wheezing, coughing, shortness of breath, chest tightness or pain) wake you up at night or earlier than usual? Not at all (5) In the last 4 weeks, how often have you used your rescue inhaler or nebulizer medication (such as Albuterol, Proventil, Ventolin, Maxair, Xoponex, or Primatene Mist)? Not at all (5) In the last 4 weeks, how would you rate your asthma control? Well controlled (4) Total: more than 20 He was using his CPAP nightly with good benefit. He cannot sleep without his CPAP. He gets his CPAP supplies from [employer]. He sees Dr. John Salcedo for ENT and allergies; [facility]. He needs to reschedule with GI in [place]. He had acute left knee posterior pain and swelling in October. He saw an online provider who recommended home exercises and this was better but still achy on arising in the morning, improving with activity. He had no injury. He had total right knee done in the past by Dr. Hardeep Carvajal. Review of Systems Constitutional: Negative for appetite change, fever and unexpected weight change. HENT: Positive for postnasal drip and sinus pressure. Respiratory: Negative for cough, shortness of breath and wheezing. Cardiovascular: Negative for chest pain, palpitations and leg swelling. Gastrointestinal: Positive for constipation. Negative for abdominal pain, diarrhea, nausea and vomiting. Genitourinary: Negative for difficulty urinating and dysuria. Musculoskeletal: Positive for arthralgias (left knee, right hip associated with left knee). Negative for back pain and myalgias. Neurological: Negative for dizziness, light-headedness and numbness. Psychiatric/Behavioral: Negative for dysphoric mood and sleep disturbance. The patient is not nervous/anxious. PAST MEDICAL HISTORY Diagnosis Date Acute right-sided back pain with sciatica 10/31/2021 Adenomatous colon polyp 10/23/2014 Allergic rhinitis 01/18/2015 Asthma ([facility]) Controlled type 2 diabetes mellitus without complication, without long-term current use of insulin ([facility]) 11/10/2019 Coronary artery disease COVID-19 09/24/2020 Depressive disorder 2008 DIVERTICULITIS OF COLON W/O BLEED 05/01/2006 Gynecomastia, male 05/18/2014 Hypertension Irritable bowel syndrome Lumbar disc disease 2003 Nonalcoholic fatty liver disease GENNY (obstructive sleep apnea) 10/19/2009 CPAP 8 cm H2O [facility] Other and unspecified hyperlipidemia Primary osteoarthritis of left knee 09/17/2016 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 Tonsillar hypertrophy 11/21/2015 Total knee replacement status 04/12/2014 Vertigo 08/2013 PAST SURGICAL HISTORY Procedure Laterality Date ARTHRP KNE CONDYLEANDPLATU MEDIALANDLAT COMPARTMENTS 01/03/2014 Knee replacement, total, Right COLONOSCOPY FLX DX W/COLLJ SPEC WHEN PFRMD 10/23/2014 Colonoscopy COLONOSCOPY GEN ANES 03/12/2020 hemorrhoids ENDOSCOPIC SEPTOPLASTY Bilateral 06/2018 [place] [facility] SIGMOIDOSCOPY FLX DX W/COLLJ SPEC BR/WA IF PFRMD 03/17/2000 Sigmoidoscopy, flexible FAMILY HISTORY Problem Relation Age of Onset Hypertension Mother Stroke Mother 86 age 86 Stroke Father Coronary Artery Disease Father PVD. Stents. Alive age 79 Hypertension Sister Heart Sister Lipids Sister Breast Cancer Sister Lipids Brother Kidney stones Brother COPD Paternal Grandfather MS age 50s Colon Cancer No Family History Social History Tobacco Use Smoking status: Never Smokeless tobacco: Never Vaping Use Vaping status: Never Used Substance Use Topics Alcohol use: No Drug use: No ALLERGIES Allergen Reactions Hops Itching Seasonal Allergies Unknown Trees, grasses, weeds, ragweed and cockroaches verified by skin testing Current Outpatient Medications Medication Sig chlorthalidone (HYGROTON) 25 mg tablet Take 1 tablet by mouth once daily. dulaglutide (TRULICITY) 0.75 mg/0.5 mL pen injector Inject 0.75 mg subcutaneously one time a week. Inject dose once per week. Discard Pen After lisinopril (ZESTRIL) 20 mg tablet Take 1 tablet by mouth once daily. metFORMIN ER (GLUCOPHAGE XR) 500 mg 24 hr tablet Take 1 tablet by mouth daily with breakfast. montelukast (SINGULAIR) 10 mg tablet Take 1 tablet by mouth daily at bedtime. pantoprazole DR (PROTONIX) 40 mg tablet Take 1 tablet by mo (more content not included)... [facility] 03-28-2025 History of Present illness Narrative This note was created using [employer]. Subjective Patient presents with: Physical Reji Brito is a 59 year old male. ASTHMA CONTROL TEST Date: 03/28/2025 In the last 4 weeks, how much of the time did your asthma keep you from getting as much done at work or home that you wanted to do? None of the time (5) In the last 4 weeks, how often have you had shortness of breath? Once or twice per week (4) In the last 4 weeks, how often did your asthma symptoms (wheezing, coughing, shortness of breath, chest tightness or pain) wake you up at night or earlier than usual? Not at all (5) In the last 4 weeks, how often have you used your rescue inhaler or nebulizer medication (such as Albuterol, Proventil, Ventolin, Maxair, Xoponex, or Primatene Mist)? Not at all (5) In the last 4 weeks, how would you rate your asthma control? Well controlled (4) Total: more than 20 He was using his CPAP nightly with good benefit. He cannot sleep without his CPAP. He gets his CPAP supplies from [employer]. He sees Dr. John Salcedo for ENT and allergies; [facility]. He needs to reschedule with GI in [place]. He had acute left knee posterior pain and swelling in October. He saw an online provider who recommended home exercises and this was better but still achy on arising in the morning, improving with activity. He had no injury. He had total right knee done in the past by Dr. Hardeep Carvajal. Review of Systems Constitutional: Negative for appetite change, fever and unexpected weight change. HENT: Positive for postnasal drip and sinus pressure. Respiratory: Negative for cough, shortness of breath and wheezing. Cardiovascular: Negative for chest pain, palpitations and leg swelling. Gastrointestinal: Positive for constipation. Negative for abdominal pain, diarrhea, nausea and vomiting. Genitourinary: Negative for difficulty urinating and dysuria. Musculoskeletal: Positive for arthralgias (left knee, right hip associated with left knee). Negative for back pain and myalgias. Neurological: Negative for dizziness, light-headedness and numbness. Psychiatric/Behavioral: Negative for dysphoric mood and sleep disturbance. The patient is not nervous/anxious. PAST MEDICAL HISTORY Diagnosis Date Acute right-sided back pain with sciatica 10/31/2021 Adenomatous colon polyp 10/23/2014 Allergic rhinitis 01/18/2015 Asthma ([facility]) Controlled type 2 diabetes mellitus without complication, without long-term current use of insulin ([facility]) 11/10/2019 Coronary artery disease COVID-19 09/24/2020 Depressive disorder 2008 DIVERTICULITIS OF COLON W/O BLEED 05/01/2006 Gynecomastia, male 05/18/2014 Hypertension Irritable bowel syndrome Lumbar disc disease 2002 Nonalcoholic fatty liver disease GENNY (obstructive sleep apnea) 10/19/2009 CPAP 8 cm H2O [facility] Other and unspecified hyperlipidemia Primary osteoarthritis of left knee 09/17/2016 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 Tonsillar hypertrophy 11/21/2015 Total knee replacement status 04/12/2014 Vertigo 08/2013 PAST SURGICAL HISTORY Procedure Laterality Date ARTHRP KNE CONDYLE&PLATU MEDIAL&LAT COMPARTMENTS 01/03/2014 Knee replacement, total, Right COLONOSCOPY FLX DX W/COLLJ SPEC WHEN PFRMD 10/23/2014 Colonoscopy COLONOSCOPY GEN ANES 03/12/2020 hemorrhoids ENDOSCOPIC SEPTOPLASTY Bilateral 06/2018 [place] [facility] SIGMOIDOSCOPY FLX DX W/COLLJ SPEC BR/WA IF PFRMD 03/17/2000 Sigmoidoscopy, flexible FAMILY HISTORY Problem Relation Age of Onset Hypertension Mother Stroke Mother 86 age 86 Stroke Father Coronary Artery Disease Father PVD. Stents. Alive age 79 Hypertension Sister Heart Sister Lipids Sister Breast Cancer Sister Lipids Brother Kidney stones Brother COPD Paternal Grandfather MS age 50s Colon Cancer No Family History Social History Tobacco Use Smoking status: Never Smokeless tobacco: Never Vaping Use Vaping status: Never Used Substance Use Topics Alcohol use: No Drug use: No ALLERGIES Allergen Reactions Hops Itching Seasonal Allergies Unknown Trees, grasses, weeds, ragweed and cockroaches verified by skin testing Current Outpatient Medications Medication Sig chlorthalidone (HYGROTON) 25 mg tablet Take 1 tablet by mouth once daily. dulaglutide (TRULICITY) 0.75 mg/0.5 mL pen injector Inject 0.75 mg subcutaneously one time a week. Inject dose once per week. Discard Pen After lisinopril (ZESTRIL) 20 mg tablet Take 1 tablet by mouth once daily. metFORMIN ER (GLUCOPHAGE XR) 500 mg 24 hr tablet Take 1 tablet by mouth daily with breakfast. montelukast (SINGULAIR) 10 mg tablet Take 1 tablet by mouth daily at bedtime. pantoprazole DR (PROTONIX) 40 mg tablet Take 1 tablet by mouth once daily. 30 minutes before breakfast, take on empty stomach. simvastatin (ZOCOR) 40 mg tablet Take 1 tablet by mouth daily at bedtime. fluticasone (FLONASE) 50 mcg/actuation nasal spray Use 2 Sprays in each nostril two times a day. Rinse mouth after use. CPAP/BIPAP/OTHER Type .CPAPSettings into a note to see current settings/supplies/DME information. budesonide-formoterol (SYMBICORT) 160-4.5 mcg/actuation inhaler Inhale 2 Puffs as instructed two times a day. Ipratropium [place] (ATROVENT) 21 mcg (0.03 %) nasal spray Use 2 Sprays in the nose twice daily as needed (rhinorrhea). albuterol HFA (PROVENTIL HFA, VENTOLIN HFA) 90 mcg/actuation inhaler Inhale 2 Puffs as instructed every 4 hours as needed for wheezing/shortness of breath. polyethylene glycol 3350 (MIRALAX) 17 gram/dose powder Take 17 g by mouth twice daily. fexofenadine (JOSUE) 180 mg tablet Take 180 mg by mouth once daily. FREESTYLE LANCETS 28 gauge ubidecarenone (COQ-10 ORAL) Take by mouth. MAGNESIUM ASPARTATE HCL ORAL Take by mouth. glucosamine/msm/chondroitin A ([id number]-[id number]-MCN ORAL) Take by mouth. vitamin D3-folic acid 5,000 unit- 1 mg tab Take by mouth. blood sugar diagnostic (BLOOD GLUCOSE TEST) test strip Test blood sugar(s) 2 times daily. Dx: Type 2 DM - Controlled E11.9 Insulin: No COMPOUNDED PRESCRIPTION Allergy shots per [facility] CPAP AutoPAP 8-20 cmH2O, suitable mask, humidity, filters. [employer] supplies. Dx: 327.23. Fax compliance rpt to [facility] in 6 weeks. Saw [place] 500 mg ORAL Cap Per package directions for prostate symptoms. aspirin(ECOTRIN LOW STRENGTH 81 MG TAB) THERAPEUTIC MULTIVITAMIN TAB Take one(1) tablet daily. dulaglutide (TRULICITY) 0.75 mg/0.5 mL pen injector Inject 0.75 mg subcutaneously one time a week. Inject dose once per week. Discard Pen After No current facility-administered medications for this visit. Objective BP 120/82 (BP Site: Left Arm, BP Position: Sitting, BP Cuff Size: Large Adult) Pulse 84 Temp 36.3 C (97.4 F) (Temporal) Resp 16 Ht 174.6 cm (5' 8.75) Wt 106.8 kg (235 lb 7.2 oz) BMI 35.02 kg/m Physical Exam Constitutional: Appearance: He is obese. He is not ill-appearing. HENT: Head: Normocephalic. Nose: No congestion or rhinorrhea. Mouth/Throat: Mouth: Mucous membranes are moist. Pharynx: Oropharynx is clear. Eyes: Extraocular Movements: Extraocular movements intact. Conjunctiva/sclera: Conjunctivae normal. Cardiovascular: Rate and Rhythm: Normal rate and regular rhythm. Heart sounds: No murmur heard. No gallop. Pulmonary: Breath sounds: Normal breath sounds. No wheezing or rales. Abdominal: Palpations: Abdomen is soft. There is no mass. Tenderness: There is no abdominal tenderness. Musculoskeletal: General: No swelling, tenderness or signs of injury. Normal range of motion. Right lower leg: No edema. Left lower leg: No edema. Lymphadenopathy: Cervical: No cervical adenopathy. Neurological: General: No focal deficit present. Mental Status: He is alert. Gait: Gait normal. Feet:Shoes and socks removed, No deformities, ulcers, calluses, normal distal pulses, and sensitive to 10 gm monofilament Assessment and Plan 1. Wellness examination - ICD9: V70.0, ICD10: Z00.00 (primary diagnosis) - Counseled on healthy diet and regular exercise - Discussed need for and benefit of weight loss. BMI 35.02 kg/(m^2) - Colorectal cancer screening - ordered colonoscopy 2. Screening for depression - ICD9: V79.0, ICD10: Z13.31 - DEPRESSION SCREENING 3. Encounter for screening examination for other mental health and behavioral disorders - ICD9: V79.8, ICD10: Z13.39 - ANXIETY SCREENING 4. Special screening for malignant neoplasms, colon - ICD9: V76.51, ICD10: Z12.11 - COLONOSCOPY SCREENING - PEG 3350 240 GRAM-ELECTROLYTES 22.72 GRAM-6.72 G-5.84 G POWDR FOR SOLN 5. Primary hypertension - ICD9: 401.9, ICD10: I10 - Controlled - Continue current medications 6. Other hyperlipidemia - ICD9: 272.4, ICD10: E78.49 - Control TBD. Continue medication. - COMPREHENSIVE METABOLIC PANEL - LIPID PANEL, FASTING 7. GENNY on CPAP - ICD9: 327.23, ICD10: G47.33 - Is patient is reporting good quality sleep with regular CPAP/APAP use? Yes. Continue current treatment settings. Refill supplies when needed. DME supplier: [employer]. 8. Controlled type 2 diabetes mellitus without complication, without long-term current use of insulin (HCC) - ICD9: 250.00, ICD10: E11.9 - Controlled - Continue current medications - Increase dulaglutide (Trulicity) - DULAGLUTIDE 1.5 MG/0.5 ML SUBCUTANEOUS PEN INJECTOR - HEMOGLOBIN A1C - ALBUMIN/CREATININE RATIO, URINE - BASIC METABOLIC PANEL - HEMOGLOBIN A1C 9. Primary osteoarthritis of left knee - ICD9: 715.16, ICD10: M17.12 - If mild, we will start MELOXICAM. If significant, he will consider referral to [facility]. - XR KNEE GENERAL 4V AP BOTH/PA BOTH/LAT/MERC LEFT 10. Fatty liver disease, nonalcoholic - ICD9: 571.8, ICD10: K76.0 - Weight loss. 11. Obesity, Class II, BMI 35-39.9 - ICD9: 278.00, ICD10: E66.812 Weight decreasing - Behavioral intervention and - Pharmacological intervention Kristian Cadet MD TR OPEN ACCESS QUESTIONNAIRE 1. Are you currently having any new or unusual stomach/gastrointestinal issues at this time such as constipation, diarrhea, abdominal pain, rectal bleeding etc?No 2. Do you have any difficulty swallowing? No 3. Do you have any implanted devices such as a defibrillator, pacemaker, cardiac stents or deep brain stimulator? No 4. Do you take any Blood thinners such as Coumadin, Plavix, Xarelto, Eliquis, Brilinta or any other blood thinner? YES:Low dose aspirin 5. Do you have any new or past cardiac (heart) or pulmonary (lung) issues? No 6. Do you currently use any oxygen? No 7. Have you been hospitalized in the past 6 weeks? No 8. Have you had difficulty with anesthesia previously re: Difficult intubation? No Other difficulty or allergic reaction to anesthesia other than post op N/V? No 9. Are you on dialysis? No 10. Do you have any bleeding disorders such as hemophilia or Factor 5? No 11. Are you an Insulin Dependent Diabetic? Yes: insulin dependent IF ANY OF THE TOP ELEVEN QUESTIONS ARE ANSWERED YES PLEASE SCHEDULE THE PATIENT FOR A CONSULT. advised 12. Is the patient's BMI 40 or greater? No:There is no height or weight on file to calculate BMI.. 13. Do you take any narcotics or anti-Anxiety medications? No 14. Do you use any illegal or recreational drugs including marijuana? No 15. Any alcohol use: No. 16. Have you been diagnosed with chronic liver disease such as hepatitis or cirrhosis? Yes / Fatty liver disease, nonalcoholic 17. Do you have a seizure disorder? No 18. Do you have ulcerative colitis or Crohn's disease? No 19. Are you or could you be ? No 20. Any other important health information we should be made aware of prior to your colonoscopy? No To be completed by LIP: Did patient have MAC anesthesia with a previous endoscopy procedure? No Patient appropriate for Open Access Colonoscopy: Yes: appropriate for Open Access Procedure Checklist: Prior to closing the encounter: Complete questionnaire: Yes Confirm Prep order has been Ordered/Pended: Yes. Patient's procedure could be delayed if not given the script for the prep. Please ensure the prep is escripted to pharmacy or printed. Instructions for the prep will print upon filing or pending this smartset. Please send all open access questionnaires to [facility] Pool #[id number] documented in this encounter [facility] 03-28-2025 Note HNO ID: [id number] Author: GAYATRI GARCIA LPN Service: ? Author Type: LICENSED NURSE Type: Progress Notes Filed: 03/28/2025 09:03 Note Text: [facility] OPEN ACCESS QUESTIONNAIRE 1. Are you currently having any new or unusual stomach/gastrointestinal issues at this time such as constipation, diarrhea, abdominal pain, rectal bleeding etc?No 2. Do you have any difficulty swallowing? No 3. Do you have any implanted devices such as a defibrillator, pacemaker, cardiac stents or deep brain stimulator? No 4. Do you take any Blood thinners such as Coumadin, Plavix, Xarelto, Eliquis, Brilinta or any other blood thinner? YES:Low dose aspirin 5. Do you have any new or past cardiac (heart) or pulmonary (lung) issues? No 6. Do you currently use any oxygen? No 7. Have you been hospitalized in the past 6 weeks? No 8. Have you had difficulty with anesthesia previously re: Difficult intubation? No Other difficulty or allergic reaction to anesthesia other than post op N/V? No 9. Are you on dialysis? No 10. Do you have any bleeding disorders such as hemophilia or Factor 5? No 11. Are you an Insulin Dependent Diabetic? Yes: insulin dependent IF ANY OF THE TOP ELEVEN QUESTIONS ARE ANSWERED YES PLEASE SCHEDULE THE PATIENT FOR A CONSULT. advised 12. Is the patient's BMI 40 or greater? No:There is no height or weight on file to calculate BMI.. 13. Do you take any narcotics or anti-Anxiety medications? No 14. Do you use any illegal or recreational drugs including marijuana? No 15. Any alcohol use: No. 16. Have you been diagnosed with chronic liver disease such as hepatitis or cirrhosis? Yes / Fatty liver disease, nonalcoholic 17. Do you have a seizure disorder? No 18. Do you have ulcerative colitis or Crohn's disease? No 19. Are you or could you be ? No 20. Any other important health information we should be made aware of prior to your colonoscopy? No To be completed by LIP: Did patient have MAC anesthesia with a previous endoscopy procedure? No Patient appropriate for Open Access Colonoscopy: Yes: appropriate for Open Access Procedure Checklist: Prior to closing the encounter: Complete questionnaire: Yes Confirm Prep order has been Ordered/Pended: Yes. Patient's procedure could be delayed if not given the script for the prep. Please ensure the prep is escripted to pharmacy or printed. Instructions for the prep will print upon filing or pending this smartset. Please send all open access questionnaires to [facility] Pool #[id number] [facility] 03-02-2025 Telephone encounter Note Patient has been identified by name and date of : Yes Patient phones for refill(s): Requested Prescriptions Pending Prescriptions Disp Refills chlorthalidone (HYGROTON) 25 mg tablet 90 tablet 3 Sig: Take 1 tablet by mouth once daily. Date of last office visit in primary care: 09/28/2024 Date of next office visit in primary care: 03/28/2025 Please advise. Thank you. Gayatri Garcia LPN. [facility] 03-02-2025 Miscellaneous Notes Patient has been identified by name and date of : Yes Patient phones for refill(s): Requested Prescriptions Pending Prescriptions Disp Refills chlorthalidone (HYGROTON) 25 mg tablet 90 tablet 3 Sig: Take 1 tablet by mouth once daily. Date of last office visit in primary care: 09/28/2024 Date of next office visit in primary care: 03/28/2025 Please advise. Thank you. Gayatri Garcia LPN. documented in this encounter [facility] 03-01-2025 Note HNO ID: [id number] Author: MERVIN ABREU APRN.WORD PROCESSOR TECHNICIAN Service: ? Author Type: Nurse Practitioner Type: Progress Notes Filed: 03/01/2025 09:49 Note Text: [facility] Subjective Reji Brito is a 59 year old male. Patient presents with: Pain, Sinus: Sinus pain and pressure, MARQUEZ and cough x 1 day HPI Patient is a 59 year old male with sinus congestion, head cough and fatigue that has been chronic for some time. He sees ENT Dr. Turner but they are unable to get him in for over a week. He got kenalog in november with some relief but symptoms have significantly progressed since then. Review of Systems Constitutional: Positive for fatigue. Negative for fever. HENT: Positive for congestion, sinus pressure, sinus pain, sneezing and sore throat. Eyes: Negative for discharge and itching. Respiratory: Negative for choking, chest tightness, shortness of breath, wheezing and stridor. Cardiovascular: Negative for chest pain. Objective BP 142/82 Pulse 105 Temp 37 ?C (98.6 ?F) (Tympanic) Resp 16 Wt 109.1 kg (240 lb 8.4 oz) SpO2 97% BMI 36.04 kg/m? PAST MEDICAL HISTORY Diagnosis Date Acute right-sided back pain with sciatica 10/31/2021 Adenomatous colon polyp 10/23/2014 Allergic rhinitis 01/18/2015 Asthma (HCC) Controlled type 2 diabetes mellitus without complication, without long-term current use of insulin (HCC) 11/10/2019 Coronary artery disease COVID-19 09/24/2020 Depressive disorder 2008 DIVERTICULITIS OF COLON W/O BLEED 05/01/2006 Gynecomastia, male 05/18/2014 Hypertension Irritable bowel syndrome Lumbar disc disease 2003 Nonalcoholic fatty liver disease GENNY (obstructive sleep apnea) 10/19/2009 CPAP 8 cm H2O [facility] Other and unspecified hyperlipidemia Primary osteoarthritis of left knee 09/17/2016 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 Tonsillar hypertrophy 11/21/2015 Total knee replacement status 04/12/2014 Vertigo 08/2013 PAST SURGICAL HISTORY Procedure Laterality Date ARTHRP KNE CONDYLEANDPLATU MEDIALANDLAT COMPARTMENTS 01/03/2014 Knee replacement, total, Right COLONOSCOPY FLX DX W/COLLJ SPEC WHEN PFRMD 10/23/2014 Colonoscopy COLONOSCOPY GEN ANES 03/12/2020 hemorrhoids ENDOSCOPIC SEPTOPLASTY Bilateral 06/2018 [facility] SIGMOIDOSCOPY FLX DX W/COLLJ SPEC BR/WA IF PFRMD 03/17/2000 Sigmoidoscopy, flexible ALLERGIES Hops and Seasonal Allergies MEDICATIONS dulaglutide (TRULICITY) 0.75 mg/0.5 mL pen injector Inject 0.75 mg subcutaneously one time a week. Inject dose once per week. Discard Pen After dulaglutide (TRULICITY) 0.75 mg/0.5 mL pen injector Inject 0.75 mg subcutaneously one time a week. Inject dose once per week. Discard Pen After lisinopril (ZESTRIL) 20 mg tablet Take 1 tablet by mouth once daily. metFORMIN ER (GLUCOPHAGE XR) 500 mg 24 hr tablet Take 1 tablet by mouth daily with breakfast. montelukast (SINGULAIR) 10 mg tablet Take 1 tablet by mouth daily at bedtime. pantoprazole DR (PROTONIX) 40 mg tablet Take 1 tablet by mouth once daily. 30 minutes before breakfast, take on empty stomach. simvastatin (ZOCOR) 40 mg tablet Take 1 tablet by mouth daily at bedtime. fluticasone (FLONASE) 50 mcg/actuation nasal spray Use 2 Sprays in each nostril two times a day. Rinse mouth after use. CPAP/BIPAP/OTHER Type .CPAPSettings into a note to see current settings/supplies/DME information. chlorthalidone (HYGROTON) 25 mg tablet Take 1 tablet by mouth once daily. budesonide-formoterol (SYMBICORT) 160-4.5 mcg/actuation inhaler Inhale 2 Puffs as instructed two times a day. Ipratropium [place] (ATROVENT) 21 mcg (0.03 %) nasal spray Use 2 Sprays in the nose twice daily as needed (rhinorrhea). albuterol HFA (PROVENTIL HFA, VENTOLIN HFA) 90 mcg/actuation inhaler Inhale 2 Puffs as instructed every 4 hours as needed for wheezing/shortness of breath. polyethylene glycol 3350 (MIRALAX) 17 gram/dose powder Take 17 g by mouth twice daily. fexofenadine (JOSUE) 180 mg tablet Take 180 mg by mouth once daily. FREESTYLE LANCETS 28 gauge ubidecarenone (COQ-10 ORAL) Take by mouth. MAGNESIUM ASPARTATE HCL ORAL Take by mouth. glucosamine/msm/chondroitin A ([id number] ORAL) Take by mouth. vitamin D3-folic acid 5,000 unit- 1 mg tab Take by mouth. blood sugar diagnostic (BLOOD GLUCOSE TEST) test strip Test blood sugar(s) 2 times daily. Dx: Type 2 DM - Controlled E11.9 Insulin: No COMPOUNDED PRESCRIPTION Allergy shots per [facility] CPAP AutoPAP 8-20 cmH2O, suitable mask, humidity, filters. Lifetime supplies. Dx: 327.23. Fax compliance rpt to [facility] in 6 weeks. Saw [place] 500 mg ORAL Cap Per package directions for prostate symptoms. aspirin(ECOTRIN LOW STRENGTH 81 MG TAB) THERAPEUTIC MULTIVITAMIN TAB Take one(1) tablet daily. amoxicillin-clavulanate potassium (AUGMENTIN) 875-125 mg per tablet Take 1 tablet by mouth every 12 hours for 7 days. FAMILY HISTORY Problem Relation Ag (more content not included)... [facility] 03-01-2025 History of Present illness Narrative [facility] Subjective Reji Brito is a 59 year old male. Patient presents with: Pain, Sinus: Sinus pain and pressure, MARQUEZ and cough x 1 day HPI Patient is a 59 year old male with sinus congestion, head cough and fatigue that has been chronic for some time. He sees ENT Dr. Turner but they are unable to get him in for over a week. He got kenalog in november with some relief but symptoms have significantly progressed since then. Review of Systems Constitutional: Positive for fatigue. Negative for fever. HENT: Positive for congestion, sinus pressure, sinus pain, sneezing and sore throat. Eyes: Negative for discharge and itching. Respiratory: Negative for choking, chest tightness, shortness of breath, wheezing and stridor. Cardiovascular: Negative for chest pain. Objective BP 142/82 Pulse 105 Temp 37 C (98.6 F) (Tympanic) Resp 16 Wt 109.1 kg (240 lb 8.4 oz) SpO2 97% BMI 36.04 kg/m PAST MEDICAL HISTORY Diagnosis Date Acute right-sided back pain with sciatica 10/31/2021 Adenomatous colon polyp 10/23/2014 Allergic rhinitis 01/18/2015 Asthma ([facility]) Controlled type 2 diabetes mellitus without complication, without long-term current use of insulin ([facility]) 11/10/2019 Coronary artery disease COVID-19 09/24/2020 Depressive disorder 2008 DIVERTICULITIS OF COLON W/O BLEED 05/01/2006 Gynecomastia, male 05/18/2014 Hypertension Irritable bowel syndrome Lumbar disc disease 2003 Nonalcoholic fatty liver disease GENNY (obstructive sleep apnea) 10/19/2009 CPAP 8 cm H2O [facility] Other and unspecified hyperlipidemia Primary osteoarthritis of left knee 09/17/2016 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 Tonsillar hypertrophy 11/21/2015 Total knee replacement status 04/12/2014 Vertigo 08/2013 PAST SURGICAL HISTORY Procedure Laterality Date ARTHRP KNE CONDYLE&PLATU MEDIAL&LAT COMPARTMENTS 01/03/2014 Knee replacement, total, Right COLONOSCOPY FLX DX W/COLLJ SPEC WHEN PFRMD 10/23/2014 Colonoscopy COLONOSCOPY GEN ANES 03/12/2020 hemorrhoids ENDOSCOPIC SEPTOPLASTY Bilateral 06/2018 [facility] SIGMOIDOSCOPY FLX DX W/COLLJ SPEC BR/WA IF PFRMD 03/17/2000 Sigmoidoscopy, flexible ALLERGIES Hops and Seasonal Allergies MEDICATIONS dulaglutide (TRULICITY) 0.75 mg/0.5 mL pen injector Inject 0.75 mg subcutaneously one time a week. Inject dose once per week. Discard Pen After dulaglutide (TRULICITY) 0.75 mg/0.5 mL pen injector Inject 0.75 mg subcutaneously one time a week. Inject dose once per week. Discard Pen After lisinopril (ZESTRIL) 20 mg tablet Take 1 tablet by mouth once daily. metFORMIN ER (GLUCOPHAGE XR) 500 mg 24 hr tablet Take 1 tablet by mouth daily with breakfast. montelukast (SINGULAIR) 10 mg tablet Take 1 tablet by mouth daily at bedtime. pantoprazole DR (PROTONIX) 40 mg tablet Take 1 tablet by mouth once daily. 30 minutes before breakfast, take on empty stomach. simvastatin (ZOCOR) 40 mg tablet Take 1 tablet by mouth daily at bedtime. fluticasone (FLONASE) 50 mcg/actuation nasal spray Use 2 Sprays in each nostril two times a day. Rinse mouth after use. CPAP/BIPAP/OTHER Type .CPAPSettings into a note to see current settings/supplies/DME information. chlorthalidone (HYGROTON) 25 mg tablet Take 1 tablet by mouth once daily. budesonide-formoterol (SYMBICORT) 160-4.5 mcg/actuation inhaler Inhale 2 Puffs as instructed two times a day. Ipratropium [place] (ATROVENT) 21 mcg (0.03 %) nasal spray Use 2 Sprays in the nose twice daily as needed (rhinorrhea). albuterol HFA (PROVENTIL HFA, VENTOLIN HFA) 90 mcg/actuation inhaler Inhale 2 Puffs as instructed every 4 hours as needed for wheezing/shortness of breath. polyethylene glycol 3350 (MIRALAX) 17 gram/dose powder Take 17 g by mouth twice daily. fexofenadine (JOSUE) 180 mg tablet Take 180 mg by mouth once daily. FREESTYLE LANCETS 28 gauge ubidecarenone (COQ-10 ORAL) Take by mouth. MAGNESIUM ASPARTATE HCL ORAL Take by mouth. glucosamine/msm/chondroitin A ([id number]-ICC ORAL) Take by mouth. vitamin D3-folic acid 5,000 unit- 1 mg tab Take by mouth. blood sugar diagnostic (BLOOD GLUCOSE TEST) test strip Test blood sugar(s) 2 times daily. Dx: Type 2 DM - Controlled E11.9 Insulin: No COMPOUNDED PRESCRIPTION Allergy shots per [facility] CPAP AutoPAP 8-20 cmH2O, suitable mask, humidity, filters. Lifetime supplies. Dx: 327.23. Fax compliance rpt to [facility] in 6 weeks. Saw Newport 500 mg ORAL Cap Per package directions for prostate symptoms. aspirin(ECOTRIN LOW STRENGTH 81 MG TAB) THERAPEUTIC MULTIVITAMIN TAB Take one(1) tablet daily. amoxicillin-clavulanate potassium (AUGMENTIN) 875-125 mg per tablet Take 1 tablet by mouth every 12 hours for 7 days. FAMILY HISTORY Problem Relation Age of Onset Hypertension Mother Stroke Father Coronary Artery Disease Father PVD. Stents. Alive age 79 Hypertension Sister Heart Sister Lipids Sister Breast Cancer Sister Lipids Brother None Brother COPD Paternal Grandfather MS age 50s Colon Cancer No Family History Social History Tobacco Use Smoking status: Never Smokeless tobacco: Never Vaping Use Vaping status: Never Used Substance Use Topics Alcohol use: No Drug use: No Physical Exam Vitals and nursing note reviewed. HENT: Head: Normocephalic and atraumatic. Right Ear: Tympanic membrane normal. Left Ear: Tympanic membrane normal. Nose: Congestion and rhinorrhea present. Right Sinus: Maxillary sinus tenderness and frontal sinus tenderness present. Left Sinus: Maxillary sinus tenderness and frontal sinus tenderness present. Mouth/Throat: Mouth: Mucous membranes are moist. Pharynx: Posterior oropharyngeal erythema present. Cardiovascular: Rate and Rhythm: Normal rate and regular rhythm. Pulses: Normal pulses. Heart sounds: Normal heart sounds. Pulmonary: Effort: Pulmonary effort is normal. Breath sounds: Normal breath sounds. Neurological: Mental Status: He is alert. {ASSESSMENT/PLAN: 1. Chronic sinusitis, unspecified location - ICD9: 473.9, ICD10: J32.9 - The patient should also be given OTC decongestants prn and warm salt water gargles, throat lozenges and/or OTC throat spray as needed for the first 5-7 days of treatment. - Supportive care with plenty of fluids, rest, and analgesia prn. - Follow up in 3-5 days if symptoms persist or worsen. Mervin Abreu APRN.WORD PROCESSOR TECHNICIAN History and Record Review Clinical information obtained from an independent historian. History obtained from or confirmed by: parent. External record(s) reviewed: prior outpatient record. Findings from review of outpatient records: Previous medical history Differential Diagnoses - Sinusitis is more likely for the following reason(s): suggested by H&P - OTitis media is less likely for the following reason(s): H&P not suggestive - AIR[employer] L[employer] OUT WORKER is less likely for the following reason(s): H&P not suggestive - Deep neck tissue infection is less likely for the following reason(s): H&P not suggestive Disposition The patient was discharged. OTC Medications were advised: Continue Flonase and antihistamine documented in this encounter [facility] 02-16-2025 Telephone encounter Note Patient's mail order is running behind. He is requesting a temporary script to be sent to the [facility] in [place] [facility] 02-16-2025 Miscellaneous Notes Patient's mail order is running behind. He is requesting a temporary script to be sent to the [facility] in [place] Prescription Refill Information The patient has been identified by name and date of : Yes Caregiver verified no other encounters exist for this prescription request: Yes Caregiver confirmed with patient/requestor that no other refills are due, in the near future, with this provider at this time: Yes The last office visit in the department: 09-28-24 Does the patient have a future office visit with this provider/department: Yes Requested Prescriptions Pending Prescriptions Disp Refills dulaglutide (TRULICITY) 0.75 mg/0.5 mL pen injector 1 each 0 Sig: Inject 0.75 mg subcutaneously one time a week. Inject dose once per week. Discard Pen After Litzy Mckinney February 16, 2025 12:33 PM documented in this encounter [facility] 02-16-2025 Telephone encounter Note Prescription Refill Information The patient has been identified by name and date of : Yes Caregiver verified no other encounters exist for this prescription request: Yes Caregiver confirmed with patient/requestor that no other refills are due, in the near future, with this provider at this time: Yes The last office visit in the department: 09-28-24 Does the patient have a future office visit with this provider/department: Yes Requested Prescriptions Pending Prescriptions Disp Refills dulaglutide (TRULICITY) 0.75 mg/0.5 mL pen injector 1 each 0 Sig: Inject 0.75 mg subcutaneously one time a week. Inject dose once per week. Discard Pen After Litzy Mckinney February 16, 2025 12:33 PM [facility] 01-05-2025 Telephone encounter Note The patient has been identified by name and date of : Yes Caregiver verified no other encounters exist for this prescription request: Yes Caregiver confirmed with patient/requestor that no other refills are due, in the near future, with this provider at this time: Yes The last office visit in the department: 09/28/2024 Does the patient have a future office visit with this provider/department: Yes 03/28/2025 Requested Prescriptions Pending Prescriptions Disp Refills lisinopril (ZESTRIL) 20 mg tablet 90 tablet 3 Sig: Take 1 tablet by mouth once daily. metFORMIN ER (GLUCOPHAGE XR) 500 mg 24 hr tablet 90 tablet 3 Sig: Take 1 tablet by mouth daily with breakfast. montelukast (SINGULAIR) 10 mg tablet 90 tablet 3 Sig: Take 1 tablet by mouth daily at bedtime. pantoprazole DR (PROTONIX) 40 mg tablet 90 tablet 3 Sig: Take 1 tablet by mouth once daily. 30 minutes before breakfast, take on empty stomach. simvastatin (ZOCOR) 40 mg tablet 90 tablet 3 Sig: Take 1 tablet by mouth daily at bedtime. Yaz Baxter RN January 05, 2025 4:25 PM [facility] 01-05-2025 Miscellaneous Notes The patient has been identified by name and date of : Yes Caregiver verified no other encounters exist for this prescription request: Yes Caregiver confirmed with patient/requestor that no other refills are due, in the near future, with this provider at this time: Yes The last office visit in the department: 09/28/2024 Does the patient have a future office visit with this provider/department: Yes 03/28/2025 Requested Prescriptions Pending Prescriptions Disp Refills lisinopril (ZESTRIL) 20 mg tablet 90 tablet 3 Sig: Take 1 tablet by mouth once daily. metFORMIN ER (GLUCOPHAGE XR) 500 mg 24 hr tablet 90 tablet 3 Sig: Take 1 tablet by mouth daily with breakfast. montelukast (SINGULAIR) 10 mg tablet 90 tablet 3 Sig: Take 1 tablet by mouth daily at bedtime. pantoprazole DR (PROTONIX) 40 mg tablet 90 tablet 3 Sig: Take 1 tablet by mouth once daily. 30 minutes before breakfast, take on empty stomach. simvastatin (ZOCOR) 40 mg tablet 90 tablet 3 Sig: Take 1 tablet by mouth daily at bedtime. Yaz Baxter RN January 05, 2025 4:25 PM documented in this encounter [facility] 12-23-2024 Telephone encounter Note Fax approval from [facility] for trulicity from 12/20/24 to 12/20/25. Pt notified. [facility] 12-23-2024 Miscellaneous Notes Fax approval from [facility] for trulicity from 12/20/24 to 12/20/25. Pt notified. Form completed and fax to [facility] Magui Rocha MA Pt calls to report [facility] cancelled his Trulicity because a prior auth is needed. PRIOR AUTHORIZATION Medication for Prior Authorization: Trulicity 0.75mg/0.5 ml Other formulary meds available : unknown Insurance Company: [employer] phone number: Patient insurance ID number: [id number] Group ID number: [id number] Brittny Tran LPN documented in this encounter [facility] 12-19-2024 Telephone encounter Note Form completed and fax to [facility] Magui Rocha MA [facility] 12-19-2024 Telephone encounter Note Pt calls to report [facility] cancelled his Trulicity because a prior auth is needed. PRIOR AUTHORIZATION Medication for Prior Authorization: Trulicity 0.75mg/0.5 ml Other formulary meds available : unknown Insurance Company: [employer] phone number: Patient insurance ID number: [id number] Group ID number: [id number] Brittny Tran LPN [facility] 12-17-2024 Note HNO ID: [id number] Author: EVA CHAIDEZ PA-C Service: ? Author Type: Physician Broadcast Systems Engineer Type: Progress Notes Filed: 12/17/2024 09:42 Note Text: This note was created using [employer]. Subjective Reji Brito is a 59 year old male. Patient is a 59-year-old male who complains of worsening congestion, sinus pressure, sinus pain, ear pain and throat irritation that he has been experiencing for the past 1-1/2 weeks. Patient states he has not developed a significant cough and is noted no fever, chills or bodyaches. Patient recently returned from a camping trip to [place]. Patient did not travel via commercial airline. Patient reports that he does have a history of sinus infection and that his current symptoms are consistent with same. Patient has been taking [id number] medications with no improvement in his symptoms. Sinus Problem Associated symptoms include congestion and headaches. Review of Systems HENT: Positive for congestion, ear pain, sinus pressure and sinus pain. Neurological: Positive for headaches. All other systems reviewed and are negative. Objective BP 128/74 Pulse 82 Temp 36 ?C (96.8 ?F) Resp 16 Wt 110.5 kg (243 lb 9.7 oz) SpO2 96% BMI 36.50 kg/m? Physical Exam Vitals and nursing note reviewed. Constitutional: Appearance: Normal appearance. He is normal weight. HENT: Head: Normocephalic and atraumatic. Right Ear: Tympanic membrane, ear canal and external ear normal. Left Ear: Tympanic membrane, ear canal and external ear normal. Nose: Congestion present. Mouth/Throat: Mouth: Mucous membranes are moist. Pharynx: Oropharynx is clear. Eyes: Extraocular Movements: Extraocular movements intact. Conjunctiva/sclera: Conjunctivae normal. Pupils: Pupils are equal, round, and reactive to light. Cardiovascular: Rate and Rhythm: Normal rate and regular rhythm. Pulses: Normal pulses. Heart sounds: Normal heart sounds. Pulmonary: Effort: Pulmonary effort is normal. Breath sounds: Normal breath sounds. Musculoskeletal: Cervical back: Normal range of motion and neck supple. Skin: General: Skin is warm and dry. Capillary Refill: Capillary refill takes less than 2 seconds. Neurological: General: No focal deficit present. Mental Status: He is alert and oriented to person, place, and time. Psychiatric: Mood and Affect: Mood normal. Behavior: Behavior normal. Thought Content: Thought content normal. Judgment: Judgment normal. Assessment and Plan Physical exam findings as noted above. Patient was provided with a prescription for Augmentin 875-125 mg and supportive care instructions were discussed. Patient verbalizes clear understanding of same. CLINICAL IMPRESSION: Acute SInusitis ASSESSMENT/PLAN: 1. Acute recurrent sinusitis, unspecified location - ICD9: 461.9, ICD10: J01.91 (primary diagnosis) 2. Acute non-recurrent streptococcal tonsillitis - ICD9: 034.0, ICD10: J03.00 - AMOXICILLIN 875 MG-POTASSIUM CLAVULANATE 125 MG TABLET MDM Risk of Complications, Morbidity, and/or Mortality Presenting problems: low Diagnostic procedures: low Management options: ian Chaidez PA-C [facility] 12-17-2024 History of Present illness Narrative This note was created using [employer]. Subjective Reji Brito is a 59 year old male. Patient is a 59-year-old male who complains of worsening congestion, sinus pressure, sinus pain, ear pain and throat irritation that he has been experiencing for the past 1-1/2 weeks. Patient states he has not developed a significant cough and is noted no fever, chills or bodyaches. Patient recently returned from a camping trip to [place]. Patient did not travel via commercial airline. Patient reports that he does have a history of sinus infection and that his current symptoms are consistent with same. Patient has been taking [id number]-[id number] medications with no improvement in his symptoms. Sinus Problem Associated symptoms include congestion and headaches. Review of Systems HENT: Positive for congestion, ear pain, sinus pressure and sinus pain. Neurological: Positive for headaches. All other systems reviewed and are negative. Objective BP 128/74 Pulse 82 Temp 36 C (96.8 F) Resp 16 Wt 110.5 kg (243 lb 9.7 oz) SpO2 96% BMI 36.50 kg/m Physical Exam Vitals and nursing note reviewed. Constitutional: Appearance: Normal appearance. He is normal weight. HENT: Head: Normocephalic and atraumatic. Right Ear: Tympanic membrane, ear canal and external ear normal. Left Ear: Tympanic membrane, ear canal and external ear normal. Nose: Congestion present. Mouth/Throat: Mouth: Mucous membranes are moist. Pharynx: Oropharynx is clear. Eyes: Extraocular Movements: Extraocular movements intact. Conjunctiva/sclera: Conjunctivae normal. Pupils: Pupils are equal, round, and reactive to light. Cardiovascular: Rate and Rhythm: Normal rate and regular rhythm. Pulses: Normal pulses. Heart sounds: Normal heart sounds. Pulmonary: Effort: Pulmonary effort is normal. Breath sounds: Normal breath sounds. Musculoskeletal: Cervical back: Normal range of motion and neck supple. Skin: General: Skin is warm and dry. Capillary Refill: Capillary refill takes less than 2 seconds. Neurological: General: No focal deficit present. Mental Status: He is alert and oriented to person, place, and time. Psychiatric: Mood and Affect: Mood normal. Behavior: Behavior normal. Thought Content: Thought content normal. Judgment: Judgment normal. Assessment and Plan Physical exam findings as noted above. Patient was provided with a prescription for Augmentin 875-125 mg and supportive care instructions were discussed. Patient verbalizes clear understanding of same. CLINICAL IMPRESSION: Acute SInusitis ASSESSMENT/PLAN: 1. Acute recurrent sinusitis, unspecified location - ICD9: 461.9, ICD10: J01.91 (primary diagnosis) 2. Acute non-recurrent streptococcal tonsillitis - ICD9: 034.0, ICD10: J03.00 - AMOXICILLIN 875 MG-POTASSIUM CLAVULANATE 125 MG TABLET MDM Risk of Complications, Morbidity, and/or Mortality Presenting problems: low Diagnostic procedures: low Management options: ian Chaidez PA-C documented in this encounter [facility] 11-14-2024 Instructions Lisa Wang APRN.[facility] - 11/14/2024 8:50 AM EST Images from the original note were not included. Adult Sinusitis Patient Education What is Sinusitis? Sinusitis [[id number]-tis] is inflammation of the sinuses or swelling of the lining of the sinus cavity or nose. During an infection the sinuses become blocked with fluid causing swelling of the lining of the sinuses. Symptoms: (viral and bacterial infections) Stuffy nose Runny nose Postnasal drip Fever Toothache Headache Tiredness Cough Sore throat Face and head pressure and or pain Common causes: 98% of sinus infections are viral caused by viruses. Risk Factors of Sinusitis Include: Allergies, air pollution, indoor humidity and outdoor temperature changes, andstructural changes in the nose may contribute to sinus pain, pressure and congestion. When to get help? Temperature greater than 100.4 F Symptoms lasting more than 10 days or worsening symptoms greater than 7-10 days. If you do not improve or worsen after a course of antibiotics, you should be re-examined. Diagnosis and Treatment: Your healthcare provider will ask a number of questions about your symptoms and how long they have occurred. If symptoms of sinusitis persist greater than 10 days, it is possible you have a bacterial sinus infection and an antibiotic is prescribed. If it is viral, antibiotics will not help. You may be instructed to take [id number] medications for symptoms. including fever reducers acetaminophen or ibuprofen, nasal saline spray, cough and cold preparations and decongestants as prescribed by the physician, nurse practitioner or physician human resources assistant manager. Self-Care and Prevention: Rest Fluids for hydration Good hand washing Humidifier Avoid smoking and exposure to second hand smoke Avoid sick contacts documented in this encounter [facility] 11-14-2024 Note HNO ID: [id number] Author: LISA WANG APRN.GENET Service: ? Author Type: Nurse Practitioner Type: Progress Notes Filed: 11/14/2024 09:19 Note Text: This note was created using [employer]. Subjective Reji Brito is a 59 year old male. 59 year old male with PMH HTN, hyperlipidemia and acid reflux presents for illness. Acute onset one week ago +sinus pressure +sinus congestion +ear pain +post nasal drainage Mild cough Denies dyspnea Denies CP Denies N/V/D Denies abdominal pain Has used Coridicin relief Endorses no relief with symptoms. History of He has ENT through [facility] Denies tobacco usage The history is provided by the patient. No speech language assistant was used. Sinus Problem This is a new problem. The current episode started 1 to 4 weeks ago. The problem occurs constantly. The problem has been gradually worsening. Associated symptoms include congestion and a sore throat. Pertinent negatives include no abdominal pain, anorexia, arthralgias, change in bowel habit, chest pain, chills, coughing, fever, headaches, joint swelling, nausea, neck pain, rash, urinary symptoms, vertigo, visual change, vomiting or weakness. Nothing aggravates the symptoms. Treatments tried: Coricidin. The treatment provided no relief. PAST MEDICAL HISTORY Diagnosis Date Acute right-sided back pain with sciatica 10/31/2021 Adenomatous colon polyp 10/23/2014 Allergic rhinitis 01/18/2015 Asthma Controlled type 2 diabetes mellitus without complication, without long-term current use of insulin (HCC) 11/10/2019 Coronary artery disease COVID-19 09/24/2020 Depressive disorder 2008 DIVERTICULITIS OF COLON W/O BLEED 05/01/2006 Gynecomastia, male 05/18/2014 Hypertension Irritable bowel syndrome Lumbar disc disease 2003 Nonalcoholic fatty liver disease GENNY (obstructive sleep apnea) 10/19/2009 CPAP 8 cm H2O DME [facility] Other and unspecified hyperlipidemia Primary osteoarthritis of left knee 09/17/2016 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 Tonsillar hypertrophy 11/21/2015 Total knee replacement status 04/12/2014 Vertigo 08/2013 PAST SURGICAL HISTORY Procedure Laterality Date ARTHRP KNE CONDYLEANDPLATU MEDIALANDLAT COMPARTMENTS 01/03/2014 Knee replacement, total, Right COLONOSCOPY FLX DX W/COLLJ SPEC WHEN PFRMD 10/23/2014 Colonoscopy COLONOSCOPY GEN ANES 03/12/2020 hemorrhoids ENDOSCOPIC SEPTOPLASTY Bilateral 06/2018 [facility] SIGMOIDOSCOPY FLX DX W/COLLJ SPEC BR/WA IF PFRMD 03/17/2000 Sigmoidoscopy, flexible ALLERGIES Hops and Seasonal Allergies MEDICATIONS dulaglutide (TRULICITY) 0.75 mg/0.5 mL pen injector Inject 0.75 mg subcutaneously one time a week. Inject dose once per week. Discard Pen After fluticasone (FLONASE) 50 mcg/actuation nasal spray Use 2 Sprays in each nostril two times a day. Rinse mouth after use. CPAP/BIPAP/OTHER Type .CPAPSettings into a note to see current settings/supplies/DME information. chlorthalidone (HYGROTON) 25 mg tablet Take 1 tablet by mouth once daily. pantoprazole DR (PROTONIX) 40 mg tablet Take 1 tablet by mouth once daily. 30 minutes before breakfast, take on empty stomach. lisinopril (ZESTRIL) 20 mg tablet Take 1 tablet by mouth once daily. montelukast (SINGULAIR) 10 mg tablet Take 1 tablet by mouth daily at bedtime. metFORMIN ER (GLUCOPHAGE XR) 500 mg 24 hr tablet Take 1 tablet by mouth daily with breakfast. simvastatin (ZOCOR) 40 mg tablet Take 1 tablet by mouth daily at bedtime. budesonide-formoterol (SYMBICORT) 160-4.5 mcg/actuation inhaler Inhale 2 Puffs as instructed two times a day. Ipratropium [place] (ATROVENT) 21 mcg (0.03 %) nasal spray Use 2 Sprays in the nose twice daily as needed (rhinorrhea). albuterol HFA (PROVENTIL HFA, VENTOLIN HFA) 90 mcg/actuation inhaler Inhale 2 Puffs as instructed every 4 hours as needed for wheezing/shortness of breath. polyethylene glycol 3350 (MIRALAX) 17 gram/dose powder Take 17 g by mouth twice daily. fexofenadine (JOSUE) 180 mg tablet Take 180 mg by mouth once daily. FREESTYLE LANCETS 28 gauge ubidecarenone (COQ-10 ORAL) Take by mouth. MAGNESIUM ASPARTATE HCL ORAL Take by mouth. glucosamine/msm/chondroitin A ([id number]-YQYHZT-AFR ORAL) Take by mouth. vitamin D3-folic acid 5,000 unit- 1 mg tab Take by mouth. blood sugar diagnostic (BLOOD GLUCOSE TEST) test strip Test blood sugar(s) 2 times daily. Dx: Type 2 DM - Controlled E11.9 Insulin: No COMPOUNDED PRESCRIPTION Allergy shots per [facility] CPAP AutoPAP 8-20 cmH2O, suitable mask, humidity, filters. Lifetime supplies. Dx: 327.23. Fax compliance rpt to [facility] in 6 weeks. Saw [place] 500 mg ORAL Cap Per package directions for prostate symptoms. aspirin(ECOTRIN LOW STRENGTH 81 MG TAB) THERAPEUTIC MULTIVITAMIN TAB Take one(1) tablet daily. amoxicillin-clavulanate potassium (AUGMENTIN) 875-125 mg per tablet Take 1 tablet by mouth two times a day for 7 days. (more content not included)... [facility] 11-14-2024 History of Present illness Narrative This note was created using [employer]. Subjective Reji Brito is a 59 year old male. 59 year old male with PMH HTN, hyperlipidemia and acid reflux presents for illness. Acute onset one week ago +sinus pressure +sinus congestion +ear pain +post nasal drainage Mild cough Denies dyspnea Denies CP Denies N/V/D Denies abdominal pain Has used Coridicin relief Endorses no relief with symptoms. History of He has ENT through [facility] Denies tobacco usage The history is provided by the patient. No speech language assistant was used. Sinus Problem This is a new problem. The current episode started 1 to 4 weeks ago. The problem occurs constantly. The problem has been gradually worsening. Associated symptoms include congestion and a sore throat. Pertinent negatives include no abdominal pain, anorexia, arthralgias, change in bowel habit, chest pain, chills, coughing, fever, headaches, joint swelling, nausea, neck pain, rash, urinary symptoms, vertigo, visual change, vomiting or weakness. Nothing aggravates the symptoms. Treatments tried: Coricidin. The treatment provided no relief. PAST MEDICAL HISTORY Diagnosis Date Acute right-sided back pain with sciatica 10/31/2021 Adenomatous colon polyp 10/23/2014 Allergic rhinitis 01/18/2015 Asthma Controlled type 2 diabetes mellitus without complication, without long-term current use of insulin ([facility]) 11/10/2019 Coronary artery disease COVID-19 09/24/2020 Depressive disorder 2008 DIVERTICULITIS OF COLON W/O BLEED 05/01/2006 Gynecomastia, male 05/18/2014 Hypertension Irritable bowel syndrome Lumbar disc disease 2003 Nonalcoholic fatty liver disease GENNY (obstructive sleep apnea) 10/19/2009 CPAP 8 cm H2O DME [facility] Other and unspecified hyperlipidemia Primary osteoarthritis of left knee 09/17/2016 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 Tonsillar hypertrophy 11/21/2015 Total knee replacement status 04/12/2014 Vertigo 08/2013 PAST SURGICAL HISTORY Procedure Laterality Date ARTHRP KNE CONDYLE&PLATU MEDIAL&LAT COMPARTMENTS 01/03/2014 Knee replacement, total, Right COLONOSCOPY FLX DX W/COLLJ SPEC WHEN PFRMD 10/23/2014 Colonoscopy COLONOSCOPY GEN ANES 03/12/2020 hemorrhoids ENDOSCOPIC SEPTOPLASTY Bilateral 06/2018 [facility] SIGMOIDOSCOPY FLX DX W/COLLJ SPEC BR/WA IF PFRMD 03/17/2000 Sigmoidoscopy, flexible ALLERGIES Hops and Seasonal Allergies MEDICATIONS dulaglutide (TRULICITY) 0.75 mg/0.5 mL pen injector Inject 0.75 mg subcutaneously one time a week. Inject dose once per week. Discard Pen After fluticasone (FLONASE) 50 mcg/actuation nasal spray Use 2 Sprays in each nostril two times a day. Rinse mouth after use. CPAP/BIPAP/OTHER Type .CPAPSettings into a note to see current settings/supplies/DME information. chlorthalidone (HYGROTON) 25 mg tablet Take 1 tablet by mouth once daily. pantoprazole DR (PROTONIX) 40 mg tablet Take 1 tablet by mouth once daily. 30 minutes before breakfast, take on empty stomach. lisinopril (ZESTRIL) 20 mg tablet Take 1 tablet by mouth once daily. montelukast (SINGULAIR) 10 mg tablet Take 1 tablet by mouth daily at bedtime. metFORMIN ER (GLUCOPHAGE XR) 500 mg 24 hr tablet Take 1 tablet by mouth daily with breakfast. simvastatin (ZOCOR) 40 mg tablet Take 1 tablet by mouth daily at bedtime. budesonide-formoterol (SYMBICORT) 160-4.5 mcg/actuation inhaler Inhale 2 Puffs as instructed two times a day. Ipratropium [place] (ATROVENT) 21 mcg (0.03 %) nasal spray Use 2 Sprays in the nose twice daily as needed (rhinorrhea). albuterol HFA (PROVENTIL HFA, VENTOLIN HFA) 90 mcg/actuation inhaler Inhale 2 Puffs as instructed every 4 hours as needed for wheezing/shortness of breath. polyethylene glycol 3350 (MIRALAX) 17 gram/dose powder Take 17 g by mouth twice daily. fexofenadine (JOSUE) 180 mg tablet Take 180 mg by mouth once daily. FREESTYLE LANCETS 28 gauge ubidecarenone (COQ-10 ORAL) Take by mouth. MAGNESIUM ASPARTATE HCL ORAL Take by mouth. glucosamine/msm/chondroitin A ([id number]-[id number]-DPT ORAL) Take by mouth. vitamin D3-folic acid 5,000 unit- 1 mg tab Take by mouth. blood sugar diagnostic (BLOOD GLUCOSE TEST) test strip Test blood sugar(s) 2 times daily. Dx: Type 2 DM - Controlled E11.9 Insulin: No COMPOUNDED PRESCRIPTION Allergy shots per [facility] CPAP AutoPAP 8-20 cmH2O, suitable mask, humidity, filters. Lifetime supplies. Dx: 327.23. Fax compliance rpt to [facility] in 6 weeks. Saw [place] 500 mg ORAL Cap Per package directions for prostate symptoms. aspirin(ECOTRIN LOW STRENGTH 81 MG TAB) THERAPEUTIC MULTIVITAMIN TAB Take one(1) tablet daily. amoxicillin-clavulanate potassium (AUGMENTIN) 875-125 mg per tablet Take 1 tablet by mouth two times a day for 7 days. FAMILY HISTORY Problem Relation Age of Onset Hypertension Mother Stroke Father Coronary Artery Disease Father PVD. Stents. Alive age 79 Hypertension Sister Heart Sister Lipids Sister Breast Cancer Sister Lipids Brother None Brother COPD Paternal Grandfather MS age 50s Colon Cancer No Family History Social History Tobacco Use Smoking status: Never Smokeless tobacco: Never Vaping Use Vaping status: Never Used Substance Use Topics Alcohol use: No Drug use: No Review of Systems Constitutional: Negative for activity change, appetite change, chills and fever. HENT: Positive for congestion, rhinorrhea, sinus pressure, sinus pain and sore throat. Eyes: Negative for pain, discharge, redness and itching. Respiratory: Negative for apnea, cough, choking and chest tightness. Cardiovascular: Negative for chest pain, palpitations and leg swelling. Gastrointestinal: Negative for abdominal pain, anorexia, change in bowel habit, constipation, diarrhea, nausea and vomiting. Musculoskeletal: Negative for arthralgias, back pain, gait problem, joint swelling and neck pain. Skin: Negative for color change, pallor, rash and wound. Allergic/Immunologic: Negative for environmental allergies, food allergies and immunocompromised state. Neurological: Negative for dizziness, vertigo, facial asymmetry, weakness and headaches. Hematological: Negative for adenopathy. Does not bruise/bleed easily. Psychiatric/Behavioral: Negative for agitation and behavioral problems. Objective BP 124/82 Pulse 71 Temp 36.5 C (97.7 F) (Tympanic) Resp 16 Wt 112.1 kg (247 lb 2.2 oz) SpO2 95% BMI 37.03 kg/m Physical Exam Vitals and nursing note reviewed. Constitutional: General: He is not in acute distress. Appearance: Normal appearance. He is not ill-appearing, toxic-appearing or diaphoretic. HENT: Head: Normocephalic and atraumatic. Comments: +frontal sinus pressure +maxillary sinus pressure Right Ear: External ear normal. Left Ear: External ear normal. Ears: Comments: Bilateral TM's erythematous and bulging Nose: Nose normal. No congestion or rhinorrhea. Mouth/Throat: Mouth: Mucous membranes are moist. Pharynx: Oropharynx is clear. Posterior oropharyngeal erythema present. No oropharyngeal exudate. Eyes: General: Right eye: No discharge. Left eye: No discharge. Extraocular Movements: Extraocular movements intact. Conjunctiva/sclera: Conjunctivae normal. Pupils: Pupils are equal, round, and reactive to light. Cardiovascular: Rate and Rhythm: Normal rate and regular rhythm. Pulses: Normal pulses. Heart sounds: Normal heart sounds. No murmur heard. No friction rub. No gallop. Pulmonary: Effort: Pulmonary effort is normal. No respiratory distress. Breath sounds: Normal breath sounds. No stridor. No wheezing, rhonchi or rales. Chest: Chest wall: No tenderness. Abdominal: General: Abdomen is flat. There is no distension. Palpations: Abdomen is soft. There is no mass. Tenderness: There is no abdominal tenderness. There is no guarding or rebound. Hernia: No hernia is present. Musculoskeletal: General: No swelling, tenderness, deformity or signs of injury. Normal range of motion. Cervical back: Normal range of motion and neck supple. No rigidity or tenderness. Right lower leg: No edema. Left lower leg: No edema. Lymphadenopathy: Cervical: Cervical adenopathy present. Skin: General: Skin is warm and dry. Capillary Refill: Capillary refill takes less than 2 seconds. Coloration: Skin is not jaundiced or pale. Findings: No bruising, lesion or rash. Neurological: General: No focal deficit present. Mental Status: He is alert and oriented to person, place, and time. Cranial Nerves: No cranial nerve deficit. Sensory: No sensory deficit. Motor: No weakness. Coordination: Coordination normal. Gait: Gait normal. Deep Tendon Reflexes: Reflexes normal. Psychiatric: Mood and Affect: Mood normal. Behavior: Behavior normal. Thought Content: Thought content normal. Assessment and Plan ASSESSMENT/PLAN: 1. Rhinosinusitis - ICD9: 473.9, ICD10: J32.9 (primary diagnosis) X one week - Will begin treatment with as per antibiotic as written, see orders - The patient should also be given OTC cough and cold meds as needed, warm salt water gargles, throat lozenges and/or OTC throat spray as needed, and nasal saline gtts and suction prn for the first 5-7 days of treatment. - Supportive care with plenty of fluids, rest, and analgesia prn. - Follow up in 3-5 days if symptoms persist or worsen. 2. Acute otitis media, bilateral - ICD9: 382.9, ICD10: H66.93 - Will begin treatment with as per antibiotic as written, see orders - The patient should also be given OTC cough and cold meds as needed, warm salt water gargles, throat lozenges and/or OTC throat spray as needed, and nasal saline gtts and suction prn for the first 5-7 days of treatment. - Supportive care with plenty of fluids, rest, and analgesia prn. - Follow up in 3-5 days if symptoms persist or worsen. Lisa Wang APRN.CNP documented in this encounter [facility] 10-11-2024 History of Present illness Narrative Radiology Service Progress Note PATIENT NAME: Reji Brito DATE OF SERVICE: October 11, 2024 TIME: 1:30 PM PATIENT IDENTITY VERIFICATION COMPLETED USING TWO (2) IDENTIFIERS: Name and Date of confirmed by patient verbally. FALL SCREENING: Has the patient had 2 falls in the last year or 1 fall with injury or currently using an Ambulatory Assistive Device (Walker, Cane, Wheelchair, Crutches, etc.)? No PATIENT GENDER DATA: Assigned male at PATIENT RELEVANT IMPLANT DATA REVIEWED: Not Applicable PATIENT PRESENTS WITH AN IMPLANTABLE OR ATTACHED CUSTOMS IMPORT SPECIALIST: No RADIOLOGY DEPARTMENT: Ultrasound PERIPHERAL IV DATA: Not applicable SIGNED BY: Lisa Gilliland RDMS [facility] October 11, 2024 1:30 PM documented in this encounter [facility] 10-11-2024 Note HNO ID: [id number] Author: LISA GILLILAND RDMS Service: ? Author Type: Chain Maker Hand Type: Progress Notes Filed: 10/11/2024 13:30 Note Text: Radiology Service Progress Note PATIENT NAME: Reji Brito DATE OF SERVICE: October 11, 2024 TIME: 1:30 PM PATIENT IDENTITY VERIFICATION COMPLETED USING TWO (2) IDENTIFIERS: Name and Date of confirmed by patient verbally. FALL SCREENING: Has the patient had 2 falls in the last year or 1 fall with injury or currently using an Ambulatory Assistive Device (Walker, Cane, Wheelchair, Crutches, etc.)? No PATIENT GENDER DATA: Assigned male at PATIENT RELEVANT IMPLANT DATA REVIEWED: Not Applicable PATIENT PRESENTS WITH AN IMPLANTABLE OR ATTACHED CUSTOMS IMPORT SPECIALIST: No RADIOLOGY DEPARTMENT: Ultrasound PERIPHERAL IV DATA: Not applicable SIGNED BY: Lisa Gilliland RDMS Jen October 11, 2024 1:30 PM [facility] 10-04-2024 Telephone encounter Note Please call patient to schedule US Magui Rocha MA [facility] 10-04-2024 Miscellaneous Notes Please call patient to schedule US Magui Rocha MA Phoned patient went over results, notes from Ina Winston CUSTOMER RELATIONS CONSULTANT with understanding. Patient is willing to do the ultrasound, need order please. Pending order needs diagnosis. ----- Message from Ina Winston APRN.WORD PROCESSOR TECHNICIAN sent at 10/04/2024 8:52 AM EST ----- Please let the patient know liver enzymes are trending up again, recommend repeating ultrasound of the liver. HgbA1c was 6.9 which is a little higher than previous but diabetes is still well controlled. PSA and CBC were normal Ina Winston APRN.CNP documented in this encounter [facility] 10-04-2024 Telephone encounter Note Phoned patient went over results, notes from Ina Winston CUSTOMER RELATIONS CONSULTANT with understanding. Patient is willing to do the ultrasound, need order please. Pending order needs diagnosis. [facility] 10-04-2024 Telephone encounter Note ----- Message from Ina Winston APRN.WORD PROCESSOR TECHNICIAN sent at 10/04/2024 8:52 AM EST ----- Please let the patient know liver enzymes are trending up again, recommend repeating ultrasound of the liver. HgbA1c was 6.9 which is a little higher than previous but diabetes is still well controlled. PSA and CBC were normal Ina Winston APRN.WORD PROCESSOR TECHNICIAN [facility] 10-03-2024 Note HNO ID: [id number] Author: RONALD DENIS APRN.WORD PROCESSOR TECHNICIAN Service: ? Author Type: Nurse Practitioner Type: Progress Notes Filed: 10/03/2024 15:34 Note Text: Subjective HPI HPI Reji Brito is a 59 year old male who presents today for CC of n/v/d, sinus pressure, cough. This started 4 days ago. Has tried otc medication for relief. Symptoms are worsened by nothing. Risk factors sick exposures at work. Nonsmoker. Hx of sinus infections. .Patient presents with: Nausea AND Vomiting: Diarrhea, stomach cramps, cough, sore throat x 4 days PAST MEDICAL HISTORY Diagnosis Date Acute right-sided back pain with sciatica 10/31/2021 Adenomatous colon polyp 10/23/2014 Allergic rhinitis 01/18/2015 Asthma Controlled type 2 diabetes mellitus without complication, without long-term current use of insulin (HCC) 11/10/2019 Coronary artery disease COVID-19 09/24/2020 Depressive disorder 2008 DIVERTICULITIS OF COLON W/O BLEED 05/01/2006 Gynecomastia, male 05/18/2014 Hypertension Irritable bowel syndrome Lumbar disc disease 2003 Nonalcoholic fatty liver disease GENNY (obstructive sleep apnea) 10/19/2009 CPAP 8 cm H2O [facility] Other and unspecified hyperlipidemia Primary osteoarthritis of left knee 09/17/2016 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 Tonsillar hypertrophy 11/21/2015 Total knee replacement status 04/12/2014 Vertigo 08/2013 PAST SURGICAL HISTORY Procedure Laterality Date ARTHRP KNE CONDYLEANDPLATU MEDIALANDLAT COMPARTMENTS 01/03/2014 Knee replacement, total, Right COLONOSCOPY FLX DX W/COLLJ SPEC WHEN PFRMD 10/23/2014 Colonoscopy COLONOSCOPY GEN ANES 03/12/2020 hemorrhoids ENDOSCOPIC SEPTOPLASTY Bilateral 06/2018 [facility] SIGMOIDOSCOPY FLX DX W/COLLJ SPEC BR/WA IF PFRMD 03/17/2000 Sigmoidoscopy, flexible ALLERGIES Hops and Seasonal Allergies MEDICATIONS dulaglutide (TRULICITY) 0.75 mg/0.5 mL pen injector Inject 0.75 mg subcutaneously one time a week. Inject dose once per week. Discard Pen After fluticasone (FLONASE) 50 mcg/actuation nasal spray Use 2 Sprays in each nostril two times a day. Rinse mouth after use. CPAP/BIPAP/OTHER Type .CPAPSettings into a note to see current settings/supplies/DME information. chlorthalidone (HYGROTON) 25 mg tablet Take 1 tablet by mouth once daily. pantoprazole DR (PROTONIX) 40 mg tablet Take 1 tablet by mouth once daily. 30 minutes before breakfast, take on empty stomach. lisinopril (ZESTRIL) 20 mg tablet Take 1 tablet by mouth once daily. montelukast (SINGULAIR) 10 mg tablet Take 1 tablet by mouth daily at bedtime. metFORMIN ER (GLUCOPHAGE XR) 500 mg 24 hr tablet Take 1 tablet by mouth daily with breakfast. simvastatin (ZOCOR) 40 mg tablet Take 1 tablet by mouth daily at bedtime. budesonide-formoterol (SYMBICORT) 160-4.5 mcg/actuation inhaler Inhale 2 Puffs as instructed two times a day. Ipratropium [place] (ATROVENT) 21 mcg (0.03 %) nasal spray Use 2 Sprays in the nose twice daily as needed (rhinorrhea). albuterol HFA (PROVENTIL HFA, VENTOLIN HFA) 90 mcg/actuation inhaler Inhale 2 Puffs as instructed every 4 hours as needed for wheezing/shortness of breath. polyethylene glycol 3350 (MIRALAX) 17 gram/dose powder Take 17 g by mouth twice daily. fexofenadine (JOSUE) 180 mg tablet Take 180 mg by mouth once daily. FREESTYLE LANCETS 28 gauge ubidecarenone (COQ-10 ORAL) Take by mouth. MAGNESIUM ASPARTATE HCL ORAL Take by mouth. glucosamine/msm/chondroitin A (GKWLORMJLUS-HUPZLG-SAY ORAL) Take by mouth. vitamin D3-folic acid 5,000 unit- 1 mg tab Take by mouth. blood sugar diagnostic (BLOOD GLUCOSE TEST) test strip Test blood sugar(s) 2 times daily. Dx: Type 2 DM - Controlled E11.9 Insulin: No COMPOUNDED PRESCRIPTION Allergy shots per [facility] CPAP AutoPAP 8-20 cmH2O, suitable mask, humidity, filters. Lifetime supplies. Dx: 327.23. Fax compliance rpt to [facility] in 6 weeks. Saw Newport 500 mg ORAL Cap Per package directions for prostate symptoms. aspirin(ECOTRIN LOW STRENGTH 81 MG TAB) THERAPEUTIC MULTIVITAMIN TAB Take one(1) tablet daily. FAMILY HISTORY Problem Relation Age of Onset Hypertension Mother Stroke Father Coronary Artery Disease Father PVD. Stents. Alive age 79 Hypertension Sister Heart Sister Lipids Sister Breast Cancer Sister Lipids Brother None Brother COPD Paternal Grandfather MS age 50s Colon Cancer No Family History Social History Tobacco Use Smoking status: Never Smokeless tobacco: Never Vaping Use Vaping status: Never Used Substance Use Topics Alcohol use: No Drug use: No Review of Systems Constitutional: Negative for fever. HENT: Positive for congestion. Negative for ear pain, nosebleeds and sore throat. Respiratory: Positive for cough. Negative for shortness of breath and wheezing. Gastrointestinal: Positive for diarrhea (improving), nausea and vomiting (improving). Negative for abdominal pain. Musculoskeleta (more content not included)... [facility] 10-03-2024 History of Present illness Narrative Subjective HPI HPI Reji Brito is a 59 year old male who presents today for CC of n/v/d, sinus pressure, cough. This started 4 days ago. Has tried otc medication for relief. Symptoms are worsened by nothing. Risk factors sick exposures at work. Nonsmoker. Hx of sinus infections. .Patient presents with: Nausea & Vomiting: Diarrhea, stomach cramps, cough, sore throat x 4 days PAST MEDICAL HISTORY Diagnosis Date Acute right-sided back pain with sciatica 10/31/2021 Adenomatous colon polyp 10/23/2014 Allergic rhinitis 01/18/2015 Asthma Controlled type 2 diabetes mellitus without complication, without long-term current use of insulin (HCC) 11/10/2019 Coronary artery disease COVID-19 09/24/2020 Depressive disorder 2008 DIVERTICULITIS OF COLON W/O BLEED 05/01/2006 Gynecomastia, male 05/18/2014 Hypertension Irritable bowel syndrome Lumbar disc disease 2003 Nonalcoholic fatty liver disease GENNY (obstructive sleep apnea) 10/19/2009 CPAP 8 cm H2O [facility] Other and unspecified hyperlipidemia Primary osteoarthritis of left knee 09/17/2016 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 Tonsillar hypertrophy 11/21/2015 Total knee replacement status 04/12/2014 Vertigo 08/2013 PAST SURGICAL HISTORY Procedure Laterality Date ARTHRP KNE CONDYLE&PLATU MEDIAL&LAT COMPARTMENTS 01/03/2014 Knee replacement, total, Right COLONOSCOPY FLX DX W/COLLJ SPEC WHEN PFRMD 10/23/2014 Colonoscopy COLONOSCOPY GEN ANES 03/12/2020 hemorrhoids ENDOSCOPIC SEPTOPLASTY Bilateral 06/2018 [facility] SIGMOIDOSCOPY FLX DX W/COLLJ SPEC BR/WA IF PFRMD 03/17/2000 Sigmoidoscopy, flexible ALLERGIES Hops and Seasonal Allergies MEDICATIONS dulaglutide (TRULICITY) 0.75 mg/0.5 mL pen injector Inject 0.75 mg subcutaneously one time a week. Inject dose once per week. Discard Pen After fluticasone (FLONASE) 50 mcg/actuation nasal spray Use 2 Sprays in each nostril two times a day. Rinse mouth after use. CPAP/BIPAP/OTHER Type .CPAPSettings into a note to see current settings/supplies/DME information. chlorthalidone (HYGROTON) 25 mg tablet Take 1 tablet by mouth once daily. pantoprazole DR (PROTONIX) 40 mg tablet Take 1 tablet by mouth once daily. 30 minutes before breakfast, take on empty stomach. lisinopril (ZESTRIL) 20 mg tablet Take 1 tablet by mouth once daily. montelukast (SINGULAIR) 10 mg tablet Take 1 tablet by mouth daily at bedtime. metFORMIN ER (GLUCOPHAGE XR) 500 mg 24 hr tablet Take 1 tablet by mouth daily with breakfast. simvastatin (ZOCOR) 40 mg tablet Take 1 tablet by mouth daily at bedtime. budesonide-formoterol (SYMBICORT) 160-4.5 mcg/actuation inhaler Inhale 2 Puffs as instructed two times a day. Ipratropium [place] (ATROVENT) 21 mcg (0.03 %) nasal spray Use 2 Sprays in the nose twice daily as needed (rhinorrhea). albuterol HFA (PROVENTIL HFA, VENTOLIN HFA) 90 mcg/actuation inhaler Inhale 2 Puffs as instructed every 4 hours as needed for wheezing/shortness of breath. polyethylene glycol 3350 (MIRALAX) 17 gram/dose powder Take 17 g by mouth twice daily. fexofenadine (JOSUE) 180 mg tablet Take 180 mg by mouth once daily. FREESTYLE LANCETS 28 gauge ubidecarenone (COQ-10 ORAL) Take by mouth. MAGNESIUM ASPARTATE HCL ORAL Take by mouth. glucosamine/msm/chondroitin A (NRFJDORCOMI-ZKMRXY-TRT ORAL) Take by mouth. vitamin D3-folic acid 5,000 unit- 1 mg tab Take by mouth. blood sugar diagnostic (BLOOD GLUCOSE TEST) test strip Test blood sugar(s) 2 times daily. Dx: Type 2 DM - Controlled E11.9 Insulin: No COMPOUNDED PRESCRIPTION Allergy shots per [facility] CPAP AutoPAP 8-20 cmH2O, suitable mask, humidity, filters. Lifetime supplies. Dx: 327.23. Fax compliance rpt to [facility] in 6 weeks. Saw Newport 500 mg ORAL Cap Per package directions for prostate symptoms. aspirin(ECOTRIN LOW STRENGTH 81 MG TAB) THERAPEUTIC MULTIVITAMIN TAB Take one(1) tablet daily. FAMILY HISTORY Problem Relation Age of Onset Hypertension Mother Stroke Father Coronary Artery Disease Father PVD. Stents. Alive age 79 Hypertension Sister Heart Sister Lipids Sister Breast Cancer Sister Lipids Brother None Brother COPD Paternal Grandfather MS age 50s Colon Cancer No Family History Social History Tobacco Use Smoking status: Never Smokeless tobacco: Never Vaping Use Vaping status: Never Used Substance Use Topics Alcohol use: No Drug use: No Review of Systems Constitutional: Negative for fever. HENT: Positive for congestion. Negative for ear pain, nosebleeds and sore throat. Respiratory: Positive for cough. Negative for shortness of breath and wheezing. Gastrointestinal: Positive for diarrhea (improving), nausea and vomiting (improving). Negative for abdominal pain. Musculoskeletal: Negative for neck pain. Objective Blood pressure 110/76, pulse 110, temperature 37.1 C (98.8 F), resp. rate 22, weight 108.2 kg (238 lb 8.6 oz), SpO2 97%. Physical Exam Constitutional: General: He is not in acute distress. Appearance: Normal appearance. He is not toxic-appearing or diaphoretic. HENT: Head: Normocephalic and atraumatic. Right Ear: Hearing, tympanic membrane, ear canal and external ear normal. Left Ear: Hearing, tympanic membrane, ear canal and external ear normal. Nose: Nose normal. Mouth/Throat: Pharynx: Uvula midline. No pharyngeal swelling, oropharyngeal exudate, posterior oropharyngeal erythema or uvula swelling. Eyes: General: Lids are normal. No scleral icterus. Right eye: No discharge. Left eye: No discharge. Conjunctiva/sclera: Conjunctivae normal. Pupils: Pupils are equal, round, and reactive to light. Neck: Trachea: Trachea normal. Cardiovascular: Rate and Rhythm: Normal rate and regular rhythm. Heart sounds: Normal heart sounds. Pulmonary: Effort: Pulmonary effort is normal. Breath sounds: Normal breath sounds. Abdominal: General: Bowel sounds are normal. Palpations: Abdomen is soft. Tenderness: There is no abdominal tenderness. Musculoskeletal: Cervical back: Normal range of motion and neck supple. Lymphadenopathy: Cervical: No cervical adenopathy. Right cervical: No superficial cervical adenopathy. Left cervical: No superficial cervical adenopathy. Skin: General: Skin is warm and dry. Findings: No rash. Neurological: Mental Status: He is alert and oriented to person, place, and time. ASSESSMENT/PLAN: 1. Sinus pressure - ICD9: 478.19, ICD10: J34.89 (primary diagnosis) Likely viral today Otc medication advised If s/s persist 5-7 days fill atb rx and take - AMOXICILLIN 875 MG-POTASSIUM CLAVULANATE 125 MG TABLET 2. Viral syndrome - ICD9: 079.99, ICD10: B34.9 - Discussed viral etiology and rationale for treatment. - Symptomatic treatment with prn analgesia - Supportive care with fluids and rest - Follow up in 3-5 days if symptoms persist or sooner if worsening of symptoms Ronald Denis APRN.WORD PROCESSOR TECHNICIAN documented in this encounter [facility] 09-28-2024 History of Present illness Narrative CC: Patient presents with: Follow Up: 6 months HPI Reji Brito is a 59 year old male who presents today for above. He reports chronic sinus/nasal congestion associated with runny nose and cough. He was treated for sinus infection with Augmentin in March and Doxycycline in July. Symptoms improve but never completely resolve. Denies recent fever, chills, SOB, wheezing, malaise, poor appetite, epistaxis or hemoptysis. He has asthma that is treated with Symbicort and Singulair, rarely needs albuterol inhaler. Getting weekly allergy shots and next follow-up with ENT is in April. Taking all medications as prescribed, denies side effects. He does not check his blood sugars consistently, last time was about 6 months ago. Denies pain, numbness or tingling in his extremities. Last ophthalmology appointment was a few months ago. He does not check BP at home. Wearing CPAP nightly. Denies snoring, un-refreshed sleep, insomnia, excessive daytime drowsiness. Review of Systems Constitutional: Negative for chills, diaphoresis, fatigue, fever and unexpected weight change. HENT: Negative for ear pain, facial swelling, sore throat and trouble swallowing. Cardiovascular: Negative for chest pain, palpitations and leg swelling. Allergic/Immunologic: Positive for environmental allergies. Neurological: Negative for dizziness, syncope, weakness, light-headedness and headaches. PAST MEDICAL HISTORY Diagnosis Date Acute right-sided back pain with sciatica 10/31/2021 Adenomatous colon polyp 10/23/2014 Allergic rhinitis 01/18/2015 Asthma Controlled type 2 diabetes mellitus without complication, without long-term current use of insulin ([facility]) 11/10/2019 Coronary artery disease COVID-19 09/24/2020 Depressive disorder 2008 DIVERTICULITIS OF COLON W/O BLEED 05/01/2006 Gynecomastia, male 05/18/2014 Hypertension Irritable bowel syndrome Lumbar disc disease 2003 Nonalcoholic fatty liver disease GENNY (obstructive sleep apnea) 10/19/2009 CPAP 8 cm H2O [facility] Other and unspecified hyperlipidemia Primary osteoarthritis of left knee 09/17/2016 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 Tonsillar hypertrophy 11/21/2015 Total knee replacement status 04/12/2014 Vertigo 08/2013 PAST SURGICAL HISTORY Procedure Laterality Date ARTHRP KNE CONDYLE&PLATU MEDIAL&LAT COMPARTMENTS 01/03/2014 Knee replacement, total, Right COLONOSCOPY FLX DX W/COLLJ SPEC WHEN PFRMD 10/23/2014 Colonoscopy COLONOSCOPY GEN ANES 03/12/2020 hemorrhoids ENDOSCOPIC SEPTOPLASTY Bilateral 06/2018 [facility] SIGMOIDOSCOPY FLX DX W/COLLJ SPEC BR/WA IF PFRMD 03/17/2000 Sigmoidoscopy, flexible ALLERGIES Hops and Seasonal Allergies MEDICATIONS fluticasone (FLONASE) 50 mcg/actuation nasal spray Use 2 Sprays in each nostril two times a day. Rinse mouth after use. dulaglutide (TRULICITY) 0.75 mg/0.5 mL pen injector Inject 0.75 mg subcutaneously one time a week. Inject dose once per week. Discard Pen After CPAP/BIPAP/OTHER Type .CPAPSettings into a note to see current settings/supplies/DME information. chlorthalidone (HYGROTON) 25 mg tablet Take 1 tablet by mouth once daily. pantoprazole DR (PROTONIX) 40 mg tablet Take 1 tablet by mouth once daily. 30 minutes before breakfast, take on empty stomach. lisinopril (ZESTRIL) 20 mg tablet Take 1 tablet by mouth once daily. montelukast (SINGULAIR) 10 mg tablet Take 1 tablet by mouth daily at bedtime. metFORMIN ER (GLUCOPHAGE XR) 500 mg 24 hr tablet Take 1 tablet by mouth daily with breakfast. simvastatin (ZOCOR) 40 mg tablet Take 1 tablet by mouth daily at bedtime. budesonide-formoterol (SYMBICORT) 160-4.5 mcg/actuation inhaler Inhale 2 Puffs as instructed two times a day. albuterol HFA (PROVENTIL HFA, VENTOLIN HFA) 90 mcg/actuation inhaler Inhale 2 Puffs as instructed every 4 hours as needed for wheezing/shortness of breath. polyethylene glycol 3350 (MIRALAX) 17 gram/dose powder Take 17 g by mouth twice daily. fexofenadine (JOSUE) 180 mg tablet Take 180 mg by mouth once daily. FREESTYLE LANCETS 28 gauge ubidecarenone (COQ-10 ORAL) Take by mouth. MAGNESIUM ASPARTATE HCL ORAL Take by mouth. vitamin D3-folic acid 5,000 unit- 1 mg tab Take by mouth. blood sugar diagnostic (BLOOD GLUCOSE TEST) test strip Test blood sugar(s) 2 times daily. Dx: Type 2 DM - Controlled E11.9 Insulin: No CPAP AutoPAP 8-20 cmH2O, suitable mask, humidity, filters. Lifetime supplies. Dx: 327.23. Fax compliance rpt to [facility] in 6 weeks. Saw Newport 500 mg ORAL Cap Per package directions for prostate symptoms. aspirin(ECOTRIN LOW STRENGTH 81 MG TAB) THERAPEUTIC MULTIVITAMIN TAB Take one(1) tablet daily. Ipratropium [place] (ATROVENT) 21 mcg (0.03 %) nasal spray Use 2 Sprays in the nose twice daily as needed (rhinorrhea). guaifenesin (MUCINEX ORAL) Take by mouth. (Patient not taking: Reported on 07/30/2024) glucosamine/msm/chondroitin A (VOAIMWBUUSB-HQAQQU-CHG ORAL) Take by mouth. COMPOUNDED PRESCRIPTION Allergy shots per [facility] FAMILY HISTORY Problem Relation Age of Onset Hypertension Mother Stroke Father Coronary Artery Disease Father PVD. Stents. Alive age 79 Hypertension Sister Heart Sister Lipids Sister Breast Cancer Sister Lipids Brother None Brother COPD Paternal Grandfather MS age 50s Colon Cancer No Family History Social History Tobacco Use Smoking status: Never Smokeless tobacco: Never Vaping Use Vaping status: Never Used Substance Use Topics Alcohol use: No Drug use: No BP 132/78 Pulse 85 Temp 36.4 C (97.6 F) (Temporal) Resp 12 Wt 111.4 kg (245 lb 9.5 oz) SpO2 94% BMI 36.79 kg/m Physical Exam Vitals reviewed. Constitutional: General: He is not in acute distress. Appearance: Normal appearance. He is not ill-appearing or toxic-appearing. HENT: Head: Normocephalic and atraumatic. Right Ear: Tympanic membrane normal. Left Ear: Tympanic membrane normal. Nose: Right Sinus: No maxillary sinus tenderness or frontal sinus tenderness. Left Sinus: No maxillary sinus tenderness or frontal sinus tenderness. Eyes: Conjunctiva/sclera: Conjunctivae normal. Neck: Thyroid: No thyroid mass, thyromegaly or thyroid tenderness. Cardiovascular: Rate and Rhythm: Normal rate and regular rhythm. Pulses: Dorsalis pedis pulses are 2+ on the right side and 2+ on the left side. Heart sounds: Normal heart sounds. No murmur heard. Pulmonary: Effort: Pulmonary effort is normal. Breath sounds: Normal breath sounds. No wheezing, rhonchi or rales. Feet: Right foot: Protective Sensation: 6 sites tested. 6 sites sensed. Skin integrity: Skin integrity normal. Toenail Condition: Right toenails are normal. Left foot: Protective Sensation: 6 sites tested. 6 sites sensed. Skin integrity: Skin integrity normal. Toenail Condition: Left toenails are normal. Comments: Vibratory perception decreased bilaterally Lymphadenopathy: Cervical: No cervical adenopathy. Upper Body: Right upper body: No supraclavicular adenopathy. Left upper body: No supraclavicular adenopathy. Skin: General: Skin is warm and dry. Neurological: Mental Status: He is alert. Psychiatric: Mood and Affect: Mood normal. Health maintenance reviewed with patient: Pneumococcal Vaccine: 50+(3 of 3 - PCV20 or PCV21) due on 05/08/2021 Dilated Retinal Exam due on 05/20/2024 HbA1C due on 07/17/2024 Covid-19 Vaccine( season) due on 07/21/2024 Urine Albumin:Creatinine Ratio due on 01/15/2025 LDL Cholesterol due on 01/15/2025 Colorectal Cancer Screening due on 03/12/2025 Depression Screening due on 03/23/2025 Anxiety Screening due on 03/23/2025 Diabetic Foot Exam due on 09/28/2025 Annual PCP Team Chronic Disease Visit due on 09/28/2025 BP Controlled (<130/80) due on 09/28/2025 Prostate Cancer Screening Discussion due on 01/02/2028 DTaP,Tdap,Td Vaccine(3 - Td or Tdap) due on 08/25/2028 Spirometry Completed Influenza Vaccine Completed RSV Vaccine Completed Hepatitis C Screening Completed Shingrix Vaccine Completed HIV Screening Discontinued DATA REVIEWED: Most recent labs ASSESSMENT/PLAN: 1. Controlled type 2 diabetes mellitus without complication, without long-term current use of insulin (HCC) - ICD9: 250.00, ICD10: E11.9 (primary diagnosis) - Control undetermined, due for labs - Continue current medications - DULAGLUTIDE 0.75 MG/0.5 ML SUBCUTANEOUS PEN INJECTOR - HEMOGLOBIN A1C - COMPLETE BLOOD COUNT 2. Allergic rhinitis, unspecified seasonality, unspecified trigger - ICD9: 477.9, ICD10: J30.9 Chronic sinus symptoms worsening despite allergy shots and Flonase. Recommend scheduling sooner follow-up with insurance defense paralegal/ENT 3. Mild intermittent asthmatic bronchitis without complication - ICD9: 493.90, ICD10: J45.20 stable 4. Elevated LFTs - ICD9: 790.6, ICD10: R79.89 Recheck - COMPREHENSIVE METABOLIC PANEL 5. Primary hypertension - ICD9: 401.9, ICD10: I10 - Controlled - Continue current medications - Recommend home blood pressure monitoring, to bring results to next visit - Encouraged sodium restriction, DASH or Mediterranean diet 6. GENNY on CPAP - ICD9: 327.23, ICD10: G47.33 Compliant with and benefiting from CPAP 7. Encounter for immunization - ICD9: V03.89, ICD10: Z23 - PNEUMOCOCCAL VACCINE, 20 VALENT (PREVNAR 20) - [email or web address] COVID-19 VACCINE AGE 12+ YR (COMIRNATY) 8. Screening for prostate cancer - ICD9: V76.44, ICD10: Z12.5 - PSA/PROSTATE SPECIFIC ANTIGEN SCREENING Prescription instructions reviewed with patient as applicable. Potential red flag symptoms discussed with the patient. Reviewed appropriate action plan to take if red flag symptoms occur. Patient agreeable to treatment plan. Ina Winston APRN.WORD PROCESSOR TECHNICIAN documented in this encounter [facility] 09-28-2024 Note HNO ID: [id number] Author: INA WINSTON APRN.WORD PROCESSOR TECHNICIAN Service: ? Author Type: Nurse Practitioner Type: Progress Notes Filed: 09/28/2024 09:40 Note Text: CC: Patient presents with: Follow Up: 6 months HPI Reji Brito is a 59 year old male who presents today for above. He reports chronic sinus/nasal congestion associated with runny nose and cough. He was treated for sinus infection with Augmentin in March and Doxycycline in July. Symptoms improve but never completely resolve. Denies recent fever, chills, SOB, wheezing, malaise, poor appetite, epistaxis or hemoptysis. He has asthma that is treated with Symbicort and Singulair, rarely needs albuterol inhaler. Getting weekly allergy shots and next follow-up with ENT is in April. Taking all medications as prescribed, denies side effects. He does not check his blood sugars consistently, last time was about 6 months ago. Denies pain, numbness or tingling in his extremities. Last ophthalmology appointment was a few months ago. He does not check BP at home. Wearing CPAP nightly. Denies snoring, un-refreshed sleep, insomnia, excessive daytime drowsiness. Review of Systems Constitutional: Negative for chills, diaphoresis, fatigue, fever and unexpected weight change. HENT: Negative for ear pain, facial swelling, sore throat and trouble swallowing. Cardiovascular: Negative for chest pain, palpitations and leg swelling. Allergic/Immunologic: Positive for environmental allergies. Neurological: Negative for dizziness, syncope, weakness, light-headedness and headaches. PAST MEDICAL HISTORY Diagnosis Date Acute right-sided back pain with sciatica 10/31/2021 Adenomatous colon polyp 10/23/2014 Allergic rhinitis 01/18/2015 Asthma Controlled type 2 diabetes mellitus without complication, without long-term current use of insulin ([facility]) 11/10/2019 Coronary artery disease COVID-19 09/24/2020 Depressive disorder 2008 DIVERTICULITIS OF COLON W/O BLEED 05/01/2006 Gynecomastia, male 05/18/2014 Hypertension Irritable bowel syndrome Lumbar disc disease 2003 Nonalcoholic fatty liver disease GENNY (obstructive sleep apnea) 10/19/2009 CPAP 8 cm H2O D[facility] Other and unspecified hyperlipidemia Primary osteoarthritis of left knee 09/17/2016 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 Tonsillar hypertrophy 11/21/2015 Total knee replacement status 04/12/2014 Vertigo 08/2013 PAST SURGICAL HISTORY Procedure Laterality Date ARTHRP KNE CONDYLEANDPLATU MEDIALANDLAT COMPARTMENTS 01/03/2014 Knee replacement, total, Right COLONOSCOPY FLX DX W/COLLJ SPEC WHEN PFRMD 10/23/2014 Colonoscopy COLONOSCOPY GEN ANES 03/12/2020 hemorrhoids ENDOSCOPIC SEPTOPLASTY Bilateral 06/2018 [facility] SIGMOIDOSCOPY FLX DX W/COLLJ SPEC BR/WA IF PFRMD 03/17/2000 Sigmoidoscopy, flexible ALLERGIES Hops and Seasonal Allergies MEDICATIONS fluticasone (FLONASE) 50 mcg/actuation nasal spray Use 2 Sprays in each nostril two times a day. Rinse mouth after use. dulaglutide (TRULICITY) 0.75 mg/0.5 mL pen injector Inject 0.75 mg subcutaneously one time a week. Inject dose once per week. Discard Pen After CPAP/BIPAP/OTHER Type .CPAPSettings into a note to see current settings/supplies/DME information. chlorthalidone (HYGROTON) 25 mg tablet Take 1 tablet by mouth once daily. pantoprazole DR (PROTONIX) 40 mg tablet Take 1 tablet by mouth once daily. 30 minutes before breakfast, take on empty stomach. lisinopril (ZESTRIL) 20 mg tablet Take 1 tablet by mouth once daily. montelukast (SINGULAIR) 10 mg tablet Take 1 tablet by mouth daily at bedtime. metFORMIN ER (GLUCOPHAGE XR) 500 mg 24 hr tablet Take 1 tablet by mouth daily with breakfast. simvastatin (ZOCOR) 40 mg tablet Take 1 tablet by mouth daily at bedtime. budesonide-formoterol (SYMBICORT) 160-4.5 mcg/actuation inhaler Inhale 2 Puffs as instructed two times a day. albuterol HFA (PROVENTIL HFA, VENTOLIN HFA) 90 mcg/actuation inhaler Inhale 2 Puffs as instructed every 4 hours as needed for wheezing/shortness of breath. polyethylene glycol 3350 (MIRALAX) 17 gram/dose powder Take 17 g by mouth twice daily. fexofenadine (JOSUE) 180 mg tablet Take 180 mg by mouth once daily. FREESTYLE LANCETS 28 gauge ubidecarenone (COQ-10 ORAL) Take by mouth. MAGNESIUM ASPARTATE HCL ORAL Take by mouth. vitamin D3-folic acid 5,000 unit- 1 mg tab Take by mouth. blood sugar diagnostic (BLOOD GLUCOSE TEST) test strip Test blood sugar(s) 2 times daily. Dx: Type 2 DM - Controlled E11.9 Insulin: No CPAP AutoPAP 8-20 cmH2O, suitable mask, humidity, filters. Lifetime supplies. Dx: 327.23. Fax compliance rpt to [facility] in 6 weeks. Saw [place] 500 mg ORAL Cap Per package directions for prostate symptoms. aspirin(ECOTRIN LOW STRENGTH 81 MG TAB) THERAPEUTIC MULTIVITAMIN TAB Take one(1) tablet daily. Ipratropium [place] (ATROVENT) 21 mcg (0.03 %) nasal spray Use 2 Sprays in the nose twice (more content not included)... [facility] 07-30-2024 Note HNO ID: [id number] Author: VY JORDAN APRN.WORD PROCESSOR TECHNICIAN Service: ? Author Type: Nurse Practitioner Type: Progress Notes Filed: 07/30/2024 11:13 Note Text: CC: Patient presents with: Sinus congestion: Sinus pain and pressure, cough x3 weeks HPI: Reji Brito is a 59 year old male who presents to the office with complaint of head congestion and sinus symptoms for 3 weeks. Symptoms are worsening Associated symptoms includes nasal congestion, facial pain/pressure, and cough. Denies nausea, vomiting , and diarrhea. Treatments tried include nothing so far. with no relief of symptoms. Sick contacts: unknown. History of asthma, frequent episodes of bronchitis, chronic bronchitis, bronchiectasis or COPD: No Smoker: No Seasonal/environmental allergies: No The ROS is otherwise negative. The patient's pmh, medications, allergies, and past visits are reviewed. PHYSICAL EXAM: BP 158/78 Pulse 78 Temp 36.3 ?C (97.3 ?F) Resp 18 Wt 112.4 kg (247 lb 12.8 oz) SpO2 98% BMI 37.13 kg/m? General appearance: alert, cooperative, pleasant, in no acute distress Head: Normocephalic Eyes: EOM's intact, conjunctiva pink and moist, no icterus, sclera white, non-injected Ears: Right ear: External ear/canal- Normal, TM - erythematous. Left ear: External ear/canal- Normal, TM - erythematous Oropharynx:moist without lesions, No erythema, exudates or tonsillar hypertrophy. Uvula midline post nasal drainage. Maxillary sinus pressure Heart: Negative. RRR without obvious murmur, gallop, or rubs. No ectopy. Lungs: clear to auscultation, without rales or wheeze, good air exchange PAST MEDICAL HISTORY Diagnosis Date Acute right-sided back pain with sciatica 10/31/2021 Adenomatous colon polyp 10/23/2014 Allergic rhinitis 01/18/2015 Asthma Controlled type 2 diabetes mellitus without complication, without long-term current use of insulin ([facility]) 11/10/2019 Coronary artery disease COVID-19 09/24/2020 Depressive disorder 2008 DIVERTICULITIS OF COLON W/O BLEED 05/01/2006 Gynecomastia, male 05/18/2014 Hypertension Irritable bowel syndrome Lumbar disc disease 2003 Nonalcoholic fatty liver disease GENNY (obstructive sleep apnea) 10/19/2009 CPAP 8 cm H2O [facility] Other and unspecified hyperlipidemia Primary osteoarthritis of left knee 09/17/2016 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 Tonsillar hypertrophy 11/21/2015 Total knee replacement status 04/12/2014 Vertigo 08/2013 PAST SURGICAL HISTORY Procedure Laterality Date ARTHRP KNE CONDYLEANDPLATU MEDIALANDLAT COMPARTMENTS 01/03/2014 Knee replacement, total, Right COLONOSCOPY FLX DX W/COLLJ SPEC WHEN PFRMD 10/23/2014 Colonoscopy COLONOSCOPY GEN ANES 03/12/2020 hemorrhoids ENDOSCOPIC SEPTOPLASTY Bilateral 06/2018 [facility] SIGMOIDOSCOPY FLX DX W/COLLJ SPEC BR/WA IF PFRMD 03/17/2000 Sigmoidoscopy, flexible ALLERGIES Hops and Seasonal Allergies MEDICATIONS fluticasone (FLONASE) 50 mcg/actuation nasal spray Use 2 Sprays in each nostril two times a day. Rinse mouth after use. dulaglutide (TRULICITY) 0.75 mg/0.5 mL pen injector Inject 0.75 mg subcutaneously one time a week. Inject dose once per week. Discard Pen After CPAP/BIPAP/OTHER Type .CPAPSettings into a note to see current settings/supplies/DME information. chlorthalidone (HYGROTON) 25 mg tablet Take 1 tablet by mouth once daily. pantoprazole DR (PROTONIX) 40 mg tablet Take 1 tablet by mouth once daily. 30 minutes before breakfast, take on empty stomach. lisinopril (ZESTRIL) 20 mg tablet Take 1 tablet by mouth once daily. montelukast (SINGULAIR) 10 mg tablet Take 1 tablet by mouth daily at bedtime. metFORMIN ER (GLUCOPHAGE XR) 500 mg 24 hr tablet Take 1 tablet by mouth daily with breakfast. simvastatin (ZOCOR) 40 mg tablet Take 1 tablet by mouth daily at bedtime. budesonide-formoterol (SYMBICORT) 160-4.5 mcg/actuation inhaler Inhale 2 Puffs as instructed two times a day. Ipratropium [place] (ATROVENT) 21 mcg (0.03 %) nasal spray Use 2 Sprays in the nose twice daily as needed (rhinorrhea). albuterol HFA (PROVENTIL HFA, VENTOLIN HFA) 90 mcg/actuation inhaler Inhale 2 Puffs as instructed every 4 hours as needed for wheezing/shortness of breath. polyethylene glycol 3350 (MIRALAX) 17 gram/dose powder Take 17 g by mouth twice daily. fexofenadine (JOSUE) 180 mg tablet Take 180 mg by mouth once daily. FREESTYLE LANCETS 28 gauge ubidecarenone (COQ-10 ORAL) Take by mouth. MAGNESIUM ASPARTATE HCL ORAL Take by mouth. glucosamine/msm/chondroitin A (RKRPNRLAHEM-GCHHPI-LYU ORAL) Take by mouth. vitamin D3-folic acid 5,000 unit- 1 mg tab Take by mouth. blood sugar diagnostic (BLOOD GLUCOSE TEST) test strip Test blood sugar(s) 2 times daily. Dx: Type 2 DM - Controlled E11.9 Insulin: No COMPOUNDED PRESCRIPTION Allergy shots per [facility] CPAP AutoPAP 8-20 cmH2O, suitable mask, humidity, filters. Lifetime supplies. Dx: 327.23. (more content not included)... [facility] 07-30-2024 History of Present illness Narrative CC: Patient presents with: Sinus congestion: Sinus pain and pressure, cough x3 weeks HPI: Reji Brito is a 59 year old male who presents to the office with complaint of head congestion and sinus symptoms for 3 weeks. Symptoms are worsening Associated symptoms includes nasal congestion, facial pain/pressure, and cough. Denies nausea, vomiting , and diarrhea. Treatments tried include nothing so far. with no relief of symptoms. Sick contacts: unknown. History of asthma, frequent episodes of bronchitis, chronic bronchitis, bronchiectasis or COPD: No Smoker: No Seasonal/environmental allergies: No The ROS is otherwise negative. The patient's pmh, medications, allergies, and past visits are reviewed. PHYSICAL EXAM: BP 158/78 Pulse 78 Temp 36.3 C (97.3 F) Resp 18 Wt 112.4 kg (247 lb 12.8 oz) SpO2 98% BMI 37.13 kg/m General appearance: alert, cooperative, pleasant, in no acute distress Head: Normocephalic Eyes: EOM's intact, conjunctiva pink and moist, no icterus, sclera white, non-injected Ears: Right ear: External ear/canal- Normal, TM - erythematous. Left ear: External ear/canal- Normal, TM - erythematous Oropharynx:moist without lesions, No erythema, exudates or tonsillar hypertrophy. Uvula midline post nasal drainage. Maxillary sinus pressure Heart: Negative. RRR without obvious murmur, gallop, or rubs. No ectopy. Lungs: clear to auscultation, without rales or wheeze, good air exchange PAST MEDICAL HISTORY Diagnosis Date Acute right-sided back pain with sciatica 10/31/2021 Adenomatous colon polyp 10/23/2014 Allergic rhinitis 01/18/2015 Asthma Controlled type 2 diabetes mellitus without complication, without long-term current use of insulin ([facility]) 11/10/2019 Coronary artery disease COVID-19 09/24/2020 Depressive disorder 2008 DIVERTICULITIS OF COLON W/O BLEED 05/01/2006 Gynecomastia, male 05/18/2014 Hypertension Irritable bowel syndrome Lumbar disc disease 2002 Nonalcoholic fatty liver disease GENNY (obstructive sleep apnea) 10/19/2009 CPAP 8 cm H2O DME [facility] Other and unspecified hyperlipidemia Primary osteoarthritis of left knee 09/17/2016 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 Tonsillar hypertrophy 11/21/2015 Total knee replacement status 04/12/2014 Vertigo 08/2013 PAST SURGICAL HISTORY Procedure Laterality Date ARTHRP KNE CONDYLE&PLATU MEDIAL&LAT COMPARTMENTS 01/03/2014 Knee replacement, total, Right COLONOSCOPY FLX DX W/COLLJ SPEC WHEN PFRMD 10/23/2014 Colonoscopy COLONOSCOPY GEN ANES 03/12/2020 hemorrhoids ENDOSCOPIC SEPTOPLASTY Bilateral 06/2018 [facility] SIGMOIDOSCOPY FLX DX W/COLLJ SPEC BR/WA IF PFRMD 03/17/2000 Sigmoidoscopy, flexible ALLERGIES Hops and Seasonal Allergies MEDICATIONS fluticasone (FLONASE) 50 mcg/actuation nasal spray Use 2 Sprays in each nostril two times a day. Rinse mouth after use. dulaglutide (TRULICITY) 0.75 mg/0.5 mL pen injector Inject 0.75 mg subcutaneously one time a week. Inject dose once per week. Discard Pen After CPAP/BIPAP/OTHER Type .CPAPSettings into a note to see current settings/supplies/DME information. chlorthalidone (HYGROTON) 25 mg tablet Take 1 tablet by mouth once daily. pantoprazole DR (PROTONIX) 40 mg tablet Take 1 tablet by mouth once daily. 30 minutes before breakfast, take on empty stomach. lisinopril (ZESTRIL) 20 mg tablet Take 1 tablet by mouth once daily. montelukast (SINGULAIR) 10 mg tablet Take 1 tablet by mouth daily at bedtime. metFORMIN ER (GLUCOPHAGE XR) 500 mg 24 hr tablet Take 1 tablet by mouth daily with breakfast. simvastatin (ZOCOR) 40 mg tablet Take 1 tablet by mouth daily at bedtime. budesonide-formoterol (SYMBICORT) 160-4.5 mcg/actuation inhaler Inhale 2 Puffs as instructed two times a day. Ipratropium [place] (ATROVENT) 21 mcg (0.03 %) nasal spray Use 2 Sprays in the nose twice daily as needed (rhinorrhea). albuterol HFA (PROVENTIL HFA, VENTOLIN HFA) 90 mcg/actuation inhaler Inhale 2 Puffs as instructed every 4 hours as needed for wheezing/shortness of breath. polyethylene glycol 3350 (MIRALAX) 17 gram/dose powder Take 17 g by mouth twice daily. fexofenadine (JOSUE) 180 mg tablet Take 180 mg by mouth once daily. FREESTYLE LANCETS 28 gauge ubidecarenone (COQ-10 ORAL) Take by mouth. MAGNESIUM ASPARTATE HCL ORAL Take by mouth. glucosamine/msm/chondroitin A (FEKEXPOLQVI-BSXINN-IAT ORAL) Take by mouth. vitamin D3-folic acid 5,000 unit- 1 mg tab Take by mouth. blood sugar diagnostic (BLOOD GLUCOSE TEST) test strip Test blood sugar(s) 2 times daily. Dx: Type 2 DM - Controlled E11.9 Insulin: No COMPOUNDED PRESCRIPTION Allergy shots per [facility] CPAP AutoPAP 8-20 cmH2O, suitable mask, humidity, filters. Lifetime supplies. Dx: 327.23. Fax compliance rpt to [facility] in 6 weeks. Saw [place] 500 mg ORAL Cap Per package directions for prostate symptoms. aspirin(ECOTRIN LOW STRENGTH 81 MG TAB) THERAPEUTIC MULTIVITAMIN TAB Take one(1) tablet daily. guaifenesin (MUCINEX ORAL) Take by mouth. (Patient not taking: Reported on 07/30/2024) FAMILY HISTORY Problem Relation Age of Onset Hypertension Mother Stroke Father Coronary Artery Disease Father PVD. Stents. Alive age 79 Hypertension Sister Heart Sister Lipids Sister Breast Cancer Sister Lipids Brother None Brother COPD Paternal Grandfather MS age 50s Colon Cancer No Family History Social History Tobacco Use Smoking status: Never Smokeless tobacco: Never Vaping Use Vaping status: Never Used Substance Use Topics Alcohol use: No Drug use: No ASSESSMENT/PLAN: 1. Rhinosinusitis - ICD9: 473.9, ICD10: J32.9 - DOXYCYCLINE HYCLATE 100 MG TABLET Prescription instructions reviewed with patient as applicable. Potential red flag symptoms discussed with the patient. Reviewed appropriate action plan to take if red flag symptoms occur. Patient agreeable to treatment plan. Vy Jordan APRN.GENET documented in this encounter [facility] 05-27-2024 Telephone encounter Note Prescription Refill Information The patient has been identified by name and date of : Yes Caregiver verified no other encounters exist for this prescription request: Yes Caregiver confirmed with patient/requestor that no other refills are due, in the near future, with this provider at this time: Yes The last office visit in the department: 03/23/2024 Does the patient have a future office visit with this provider/department: Yes Requested Prescriptions Pending Prescriptions Disp Refills fluticasone (FLONASE) 50 mcg/actuation nasal spray 6 Each 3 Sig: Use 2 Sprays in each nostril two times a day. Rinse mouth after use. dulaglutide (TRULICITY) 0.75 mg/0.5 mL pen injector 6 Each 1 Sig: Inject 0.75 mg subcutaneously one time a week. Inject dose once per week. Discard Pen After Iraida Leon May 27, 2024 11:46 AM [facility] 05-27-2024 Miscellaneous Notes Prescription Refill Information The patient has been identified by name and date of : Yes Caregiver verified no other encounters exist for this prescription request: Yes Caregiver confirmed with patient/requestor that no other refills are due, in the near future, with this provider at this time: Yes The last office visit in the department: 03/23/2024 Does the patient have a future office visit with this provider/department: Yes Requested Prescriptions Pending Prescriptions Disp Refills fluticasone (FLONASE) 50 mcg/actuation nasal spray 6 Each 3 Sig: Use 2 Sprays in each nostril two times a day. Rinse mouth after use. dulaglutide (TRULICITY) 0.75 mg/0.5 mL pen injector 6 Each 1 Sig: Inject 0.75 mg subcutaneously one time a week. Inject dose once per week. Discard Pen After Iraida Leon May 27, 2024 11:46 AM documented in this encounter [facility] 05-10-2024 Telephone encounter Note All faxed to the number provided. [facility] 05-10-2024 Miscellaneous Notes All faxed to the number provided. DME order printed. See 03/23/24 note addressing GENNY. Schedule appointment if still needed for CMN requirements. Patient is needing a new CPAP machine as his current one has . (Was given a code that comes up on machine that it is time to replace CPAP machine.) Will need new order for CPAP and supplies. Office visit note needs to state that patient is using CPAP and is benefiting from use. Please see below request for other information that needs faxed to [facility]. Confirmed fax # [phone]. Clarify needs please. Usually a form is faxed here for request and we did one in 2023. Adam is calling Kristian Cadet MD today to request CPAP Supplies (New Cpap and supplies) Sent orders, chart notes, last sleep study, demo sheet including insurance information [facility] [address] [facility] [phone] Thursday [phone] Patient has been identified by name and birthdate. Duration of symptoms: N/A Person calling: self Call patient at: at home [phone] (home) [phone] (cell) Was an appointment scheduled: No Closing statement: Litzy Kumar Pss documented in this encounter [facility] 05-10-2024 Telephone encounter Note DME order printed. See 03/23/24 note addressing GENNY. Schedule appointment if still needed for CMN requirements. [facility] 05-09-2024 Telephone encounter Note Patient is needing a new CPAP machine as his current one has . (Was given a code that comes up on machine that it is time to replace CPAP machine.) Will need new order for CPAP and supplies. Office visit note needs to state that patient is using CPAP and is benefiting from use. Please see below request for other information that needs faxed to [facility]. Confirmed fax # [phone]. [facility] 05-05-2024 Telephone encounter Note Clarify needs please. Usually a form is faxed here for request and we did one in 2023. [facility] 05-04-2024 Telephone encounter Note Adam is calling Kristian Cadet MD today to request CPAP Supplies (New Cpap and supplies) Sent orders, chart notes, last sleep study, demo sheet including insurance information [employer] [address], [place] [phone] Thursday [phone] Patient has been identified by name and birthdate. Duration of symptoms: N/A Person calling: self Call patient at: at home [phone] (home) [phone] (cell) Was an appointment scheduled: No Closing statement: Litzy Kumar Pss [facility] Work Phone: 03-23-2024 History of Present illness Narrative CC: Patient presents with: Physical HPI Reji Brito is a 58 year old male who presents today for above Exercise: denies regular aerobic exercise. Diet: Watches diet for salt (salty snacks, added salt, processed frozen/canned foods), sugary/sweet snacks, unhealthy fats: most of the time Review of Systems Constitutional: Negative for chills, diaphoresis, fatigue, fever and unexpected weight change. HENT: Negative for trouble swallowing. Respiratory: Negative for cough, shortness of breath and wheezing. Cardiovascular: Negative for chest pain, palpitations and leg swelling. Gastrointestinal: Negative for abdominal pain, blood in stool, constipation and diarrhea. Genitourinary: Negative for dysuria. Skin: Negative for color change. Neurological: Negative for dizziness, syncope, weakness and light-headedness. Hematological: Negative for adenopathy. Does not bruise/bleed easily. PAST MEDICAL HISTORY Diagnosis Date Acute right-sided back pain with sciatica 10/31/2021 Adenomatous colon polyp 10/23/2014 Allergic rhinitis 01/18/2015 Asthma Controlled type 2 diabetes mellitus without complication, without long-term current use of insulin ([facility]) 11/10/2019 Coronary artery disease COVID-19 09/24/2020 Depressive disorder 2008 DIVERTICULITIS OF COLON W/O BLEED 05/01/2006 Gynecomastia, male 05/18/2014 Hypertension Irritable bowel syndrome Lumbar disc disease 2003 Nonalcoholic fatty liver disease GENNY (obstructive sleep apnea) 10/19/2009 CPAP 8 cm H2O [facility] Other and unspecified hyperlipidemia Primary osteoarthritis of left knee 09/17/2016 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 30 minutes before breakfast, take on empty stomach. lisinopril (ZESTRIL) 20 mg tablet Take 1 tablet by mouth once daily. montelukast (SINGULAIR) 10 mg tablet Take 1 tablet by mouth daily at bedtime. metFORMIN ER (GLUCOPHAGE XR) 500 mg 24 hr tablet Take 1 tablet by mouth daily with breakfast. simvastatin (ZOCOR) 40 mg tablet Take 1 tablet by mouth daily at bedtime. dulaglutide (TRULICITY) 0.75 mg/0.5 mL pen injector Inject 0.75 mg subcutaneously one time a week. Inject dose once per week. Discard Pen After budesonide-formoterol (SYMBICORT) 160-4.5 mcg/actuation inhaler Inhale 2 Puffs as instructed two times a day. chlorthalidone (HYGROTON) 25 mg tablet Take 1 tablet by mouth once daily. Ipratropium [place] (ATROVENT) 21 mcg (0.03 %) nasal spray Use 2 Sprays in the nose twice daily as needed (rhinorrhea). albuterol HFA (PROVENTIL HFA, VENTOLIN HFA) 90 mcg/actuation inhaler Inhale 2 Puffs as instructed every 4 hours as needed for wheezing/shortness of breath. fluticasone (FLONASE) 50 mcg/actuation nasal spray Use 2 Sprays in each nostril twice daily. Rinse mouth after use. polyethylene glycol 3350 (MIRALAX) 17 gram/dose powder Take 17 g by mouth twice daily. fexofenadine (JOSUE) 180 mg tablet Take 180 mg by mouth once daily. guaifenesin (MUCINEX ORAL) Take by mouth. FREESTYLE LANCETS 28 gauge ubidecarenone (COQ-10 ORAL) Take by mouth. MAGNESIUM ASPARTATE HCL ORAL Take by mouth. glucosamine/msm/chondroitin A (YYUQRQMTXTO-GOENQP-MRE ORAL) Take by mouth. vitamin D3-folic acid 5,000 unit- 1 mg tab Take by mouth. blood sugar diagnostic (BLOOD GLUCOSE TEST) test strip Test blood sugar(s) 2 times daily. Dx: Type 2 DM - Controlled E11.9 Insulin: No COMPOUNDED PRESCRIPTION Allergy shots per [place] [place] [facility] CPAP AutoPAP 8-20 cmH2O, suitable mask, humidity, filters. Lifetime supplies. Dx: 327.23. Fax compliance rpt to [facility] in 6 weeks. Saw [place] 500 mg ORAL Cap Per package directions for prostate symptoms. aspirin(ECOTRIN LOW STRENGTH 81 MG TAB) THERAPEUTIC MULTIVITAMIN TAB Take one(1) tablet daily. predniSONE (DELTASONE) 10 mg tablet Take 4 tabs daily for 3 days, then 2 tabs daily for 3 days, then 1 tab daily for 3 days with food. (Patient not taking: Reported on 03/23/2024) FAMILY HISTORY Problem Relation Age of Onset Hypertension Mother Stroke Father Coronary Artery Disease Father PVD. Stents. Alive age 79 Hypertension Sister Heart Sister Lipids Sister Breast Cancer Sister Lipids Brother None Brother COPD Paternal Grandfather MS age 50s Colon Cancer No Family History Social History Tobacco Use Smoking status: Never Smokeless tobacco: Never Vaping Use Vaping Use: Never used Substance Use Topics Alcohol use: No Drug use: No BP 110/70 Pulse 101 Resp 20 Ht 174 cm (5' 8.5) Wt 110.9 kg (244 lb 8 oz) SpO2 93% BMI 36.63 kg/m Physical Exam Vitals reviewed. Constitutional: Appearance: Normal appearance. Eyes: Conjunctiva/sclera: Conjunctivae normal. Neck: Thyroid: No thyroid mass, thyromegaly or thyroid tenderness. Cardiovascular: Rate and Rhythm: Normal rate and regular rhythm. Heart sounds: Normal heart sounds. No murmur heard. Pulmonary: Effort: Pulmonary effort is normal. Breath sounds: Normal breath sounds. No wheezing, rhonchi or rales. Abdominal: General: Bowel sounds are normal. There is no distension. Palpations: Abdomen is soft. There is no hepatomegaly, splenomegaly or mass. Tenderness: There is no abdominal tenderness. Comments: Difficult exam due to body habitus Lymphadenopathy: Cervical: No cervical adenopathy. Upper Body: Right upper body: No supraclavicular adenopathy. Left upper body: No supraclavicular adenopathy. Skin: General: Skin is warm and dry. Coloration: Skin is not jaundiced. Neurological: Mental Status: He is alert. Psychiatric: Mood and Affect: Mood normal. Health maintenance reviewed with patient: BP Controlled (<130/80) due on 11/28/2019 Behavioral Health Screening Never done Dilated Retinal Exam due on 05/20/2024 Influenza Vaccine(1) due on 05/22/2024 Diabetic Foot Exam due on 07/14/2024 Annual PCP Team Chronic Disease Visit due on 07/14/2024 HbA1C due on 07/17/2024 Urine Albumin:Creatinine Ratio due on 01/15/2025 LDL Cholesterol due on 01/15/2025 Colorectal Cancer Screening due on 03/12/2025 Prostate Cancer Screening Discussion due on 01/02/2028 DTaP,Tdap,Td Vaccine(3 - Td or Tdap) due on 08/25/2028 Pneumococcal Vaccine(3 of 3 - PPSV23 or PCV20) due on 2029 Spirometry Completed Hepatitis C Screening Completed Shingrix Vaccine Completed Covid-19 Vaccine Completed HIV Screening Discontinued DATA REVIEWED: Most recent labs Latest Ref Rng 01/01/2023 01/16/2024 Protein, Total 6.3 - 8.0 g/dL 7.9 7.5 Albumin 3.9 - 4.9 g/dL 4.7 4.5 Calcium 8.5 - 10.2 mg/dL 10.1 10.1 Bilirubin, Total 0.2 - 1.3 mg/dL 0.6 0.6 Alkaline Phosphatase 38 - 113 U/L 49 53 AST 14 - 40 U/L 32 60 (H) ALT 10 - 54 U/L 34 75 (H) Glucose 74 - 99 mg/dL 95 118 (H) BUN 9 - 24 mg/dL 21 20 Creatinine 0.73 - 1.22 mg/dL 1.10 1.09 Sodium 136 - 144 mmol/L 137 138 Potassium 3.7 - 5.1 mmol/L 4.2 4.0 Chloride 97 - 105 mmol/L 100 100 CO2 22 - 30 mmol/L 26 26 Anion Gap 9 - 18 mmol/L 11 12 eGFR >=60 mL/min/1.73m 78 78 Latest Ref Rng 01/16/2024 Cholesterol, Total <200 mg/dL 167 Triglyceride <150 mg/dL 182 (H) HDL Cholesterol >39 mg/dL 44 Non HDL Cholesterol <130 mg/dL 123 Fasting Time hrs 14 VLDL Cholesterol <30 mg/dL 36 (H) TC:HDL Ratio <5.10 3.80 LDL Cholesterol <100 mg/dL 87 LDL:HDL Ratio <2.54 1.98 Creatinine, Ur Random (UCRR) 20.0 - 300.0 mg/dL 193.9 Albumin, Urine Random mg/L 18.8 Albumin/Creat Ratio <30 mg/g 10 Hemoglobin A1C 4.3 - 5.6 % 6.5 (H) Estimated Average Glucose mg/dL 140 ASSESSMENT/PLAN: 1. Wellness examination - ICD9: V70.0, ICD10: Z00.00 (primary diagnosis) - Counseled on healthy diet and regular exercise - Discussed need for and benefit of weight loss. BMI 36.63 kg/(m^2) - Follow up for annual exam in one year 2. Elevated LFTs - ICD9: 790.6, ICD10: R79.89 Likely due to fatty liver disease or possibly statin Recheck in one month, if remains elevated recommend repeating ultrasound - COMPREHENSIVE METABOLIC PANEL - [facility] REMOTE PANEL BL 3. Primary hypertension - ICD9: 401.9, ICD10: I10 - Controlled - Continue current medications - Recommend home blood pressure monitoring, to bring results to next visit - Encouraged sodium restriction, DASH or Mediterranean diet - CHLORTHALIDONE 25 MG TABLET 4. Fatty liver disease, nonalcoholic - ICD9: 571.8, ICD10: K76.0 See #2 5. Controlled type 2 diabetes mellitus without complication, without long-term current use of insulin (HCC) - ICD9: 250.00, ICD10: E11.9 - Controlled - Continue current medications 6. GENNY on CPAP - ICD9: 327.23, ICD10: G47.33 Compliant with CPAP 7. Other hyperlipidemia - ICD9: 272.4, ICD10: E78.49 controlled Behavioral Health Screening PHQ-2 Score: 0 (Lower risk for depression) TARIQ-7 Score: 1 (Minimal Anxiety) Recommendation: no further intervention at this time Prescription instructions reviewed with patient as applicable. Potential red flag symptoms discussed with the patient. Reviewed appropriate action plan to take if red flag symptoms occur. Patient agreeable to treatment plan. Ina Winston APRN.GENET documented in this encounter [facility] 03-15-2024 Telephone encounter Note Patient has been identified by name and date of : Patient phones for refill(s): Requested Prescriptions Pending Prescriptions Disp Refills pantoprazole DR (PROTONIX) 40 mg tablet 90 tablet 3 Sig: Take 1 tablet by mouth once daily. 30 minutes before breakfast, take on empty stomach. lisinopril (ZESTRIL) 20 mg tablet 90 tablet 3 Sig: Take 1 tablet by mouth once daily. montelukast (SINGULAIR) 10 mg tablet 90 tablet 3 Sig: Take 1 tablet by mouth daily at bedtime. metFORMIN ER (GLUCOPHAGE XR) 500 mg 24 hr tablet 90 tablet 3 Sig: Take 1 tablet by mouth daily with breakfast. simvastatin (ZOCOR) 40 mg tablet 90 tablet 3 Sig: Take 1 tablet by mouth daily at bedtime. Date of last office visit in primary care: 07/14/2023 Date of next office visit in primary care: 03/23/2024 Please advise. Thank you. Jodi Antony. [facility] 03-15-2024 Miscellaneous Notes Patient has been identified by name and date of : Patient phones for refill(s): Requested Prescriptions Pending Prescriptions Disp Refills pantoprazole DR (PROTONIX) 40 mg tablet 90 tablet 3 Sig: Take 1 tablet by mouth once daily. 30 minutes before breakfast, take on empty stomach. lisinopril (ZESTRIL) 20 mg tablet 90 tablet 3 Sig: Take 1 tablet by mouth once daily. montelukast (SINGULAIR) 10 mg tablet 90 tablet 3 Sig: Take 1 tablet by mouth daily at bedtime. metFORMIN ER (GLUCOPHAGE XR) 500 mg 24 hr tablet 90 tablet 3 Sig: Take 1 tablet by mouth daily with breakfast. simvastatin (ZOCOR) 40 mg tablet 90 tablet 3 Sig: Take 1 tablet by mouth daily at bedtime. Date of last office visit in primary care: 07/14/2023 Date of next office visit in primary care: 03/23/2024 Please advise. Thank you. Jodi Antony. documented in this encounter [facility] 03-02-2024 Telephone encounter Note Patient has been identified by name and date of : Patient phones for refill(s): Requested Prescriptions Pending Prescriptions Disp Refills dulaglutide (TRULICITY) 0.75 mg/0.5 mL pen injector 6 Each 1 Sig: Inject 0.75 mg subcutaneously one time a week. Inject dose once per week. Discard Pen After Date of last office visit in primary care: 07/14/2023 Date of next office visit in primary care: 03/23/2024 Please advise. Thank you. Jodi Antony. [facility] 03-02-2024 Miscellaneous Notes Patient has been identified by name and date of : Patient phones for refill(s): Requested Prescriptions Pending Prescriptions Disp Refills dulaglutide (TRULICITY) 0.75 mg/0.5 mL pen injector 6 Each 1 Sig: Inject 0.75 mg subcutaneously one time a week. Inject dose once per week. Discard Pen After Date of last office visit in primary care: 07/14/2023 Date of next office visit in primary care: 03/23/2024 Please advise. Thank you. Jodi Antony. documented in this encounter [facility] 02-20-2024 Telephone encounter Note Patient has been identified by name and date of : Yes, Provider DARIUS Date 02/20/2024 Time 9:30AM Spouse phones for refill(s): Requested Prescriptions Pending Prescriptions Disp Refills dulaglutide (TRULICITY) 0.75 mg/0.5 mL pen injector 6 Each 1 Sig: Inject 0.75 mg subcutaneously one time a week. Inject dose once per week. Discard Pen After Date of last office visit in primary care: 10/21/2023 Date of next office visit in primary care: Visit date not found Please advise. Thank you. Nayla Mckinney. [facility] 02-20-2024 Miscellaneous Notes Patient has been identified by name and date of : Yes, Provider DARIUS Date 02/20/2024 Time 9:30AM Spouse phones for refill(s): Requested Prescriptions Pending Prescriptions Disp Refills dulaglutide (TRULICITY) 0.75 mg/0.5 mL pen injector 6 Each 1 Sig: Inject 0.75 mg subcutaneously one time a week. Inject dose once per week. Discard Pen After Date of last office visit in primary care: 10/21/2023 Date of next office visit in primary care: Visit date not found Please advise. Thank you. Nayla Mckinney. documented in this encounter [facility] 11-07-2023 Miscellaneous Notes this was signed and faxed back. rec'd and to pcp to review and sign. Patient's , Arti, nely Espinozaltman in [place] will be faxing an order request for patient to get a new CPAP mask and hose. Arti can be reached at [phone]. documented in this encounter [facility] 10-28-2023 Miscellaneous Notes notified. Gayatri Garcia LPN The following approved medication requests have been transmitted electronically. Requested Prescriptions Signed Prescriptions Disp Refills budesonide-formoterol (SYMBICORT) 160-4.5 mcg/actuation inhaler 2 Each 6 Sig: Inhale 2 Puffs as instructed two times a day. Authorizing Provider: INA WINSTON APRN.GENET Adam is calling Kristian Cadet MD today with concern regarding Medication Problem This is NOT covered by insurance. Symbicort or Brio is covered if that can be sent to pharmacy. States that it can not be for more than 60 days at a time. [facility]. Disp Refills Start End fluticasone-salmeterol (ADVAIR DISKUS) 100-50 mcg/dose inhaler 3 Each 3 10/25/2023 -- Sig: Inhale 1 Puff as instructed two times a day. Rinse mouth out after use with water. Sent to pharmacy as: fluticasone-salmeterol (ADVAIR DISKUS) 100-50 mcg/dose inhaler Class: Normal Patient has been identified by name and birthdate. Duration of symptoms: N/A Person calling: spouse: Arti Was an appointment scheduled: No Closing statement: Results or non-symptom based questions: Thank you for calling [facility], your call will be returned within the next business day. Carine Mckinney documented in this encounter [facility] 10-26-2023 Miscellaneous Notes Images from the original note were not included. Electronic PA completed and approved for [employer]. Prior authorization approved Payer: [facility] [phone] Approved. Approval Details Authorized from October 26, 2023 to October 26, 2024 Electronic appeal: Not supported View History Medication Being Authorized dulaglutide (TRULICITY) 0.75 mg/0.5 mL pen injector Inject 0.75 mg subcutaneously one time a week. Inject dose once per week. Discard Pen After Dispense: 6 Each Refills: 1 Start: 10/25/2023 Class: Normal Diagnoses: Controlled type 2 diabetes mellitus without complication, without long-term current use of insulin (HCC) documented in this encounter [facility] 10-24-2023 Miscellaneous Notes Patient has been identified by name and date of : Spouse phones for refill(s): Pt needs 3 month supply. Call pt only if problem. The Advair needs to be generic-note added to pharmacy to fill with generic Requested Prescriptions Pending Prescriptions Disp Refills dulaglutide (TRULICITY) 0.75 mg/0.5 mL pen injector 6 Each 1 Sig: Inject 0.75 mg subcutaneously one time a week. Inject dose once per week. Discard Pen After fluticasone-salmeterol (ADVAIR DISKUS) 100-50 mcg/dose inhaler 3 Each 3 Sig: Inhale 1 Puff as instructed two times a day. Rinse mouth out after use with water. Date of last office visit in primary care: 07/14/2023 Date of next office visit in primary care: 01/14/2024 Please advise. Thank you. Maxine Watkins RN. documented in this encounter [facility] 10-21-2023 History of Present illness Narrative Radiology Service Progress Note PATIENT NAME: Reji Brito DATE OF SERVICE: October 21, 2023 TIME: 7:01 PM PATIENT IDENTITY VERIFICATION COMPLETED USING TWO (2) IDENTIFIERS: Name and Date of confirmed by patient verbally. FALL SCREENING: Has the patient had 2 falls in the last year or 1 fall with injury or currently using an Ambulatory Assistive Device (Walker, Cane, Wheelchair, Crutches, etc.)? No PATIENT GENDER DATA: Male PATIENT RELEVANT IMPLANT DATA REVIEWED: Yes PATIENT PRESENTS WITH AN IMPLANTABLE OR ATTACHED CUSTOMS IMPORT SPECIALIST: No RADIOLOGY DEPARTMENT: General X-ray: Exam(s) Completed: Chest X-Ray PERIPHERAL IV DATA: Not applicable SIGNED BY: RT Kyara(R) October 21, 2023 7:01 PM documented in this encounter [facility] 07-21-2023 Instructions Nichole Valle APRN.CNP - 07/21/2023 12:42 PM EDT -Increase fluid intake. --Rest as much as possible. - Nasal saline spray, alireza pot, flonase Take the entire course of antibiotics as prescribed. DO NOT stop taking it early, even if you are feeling better. -Monitor for signs of worsening infection: increased temperature, pain in face, ear pain or headaches or increase in nasal congestion/mucous that is not improving. -Educated patient on side effects of medication. documented in this encounter [facility] 07-21-2023 History of Present illness Narrative Subjective The history is provided by the patient. No speech language assistant was used. HPI Reji Brito is a 58 year old male who presents today for CC of sinus congestion and pressure for over a week and not getting better. He has used otc cough and cold medications without relief, flonase. H/o sinusitis in the past BP 134/84 Pulse 89 Temp 36.4 C (97.5 F) (Tympanic) Resp 16 Wt 109.7 kg (241 lb 12.8 oz) SpO2 95% BMI 36.77 kg/m Social History Tobacco Use Smoking status: Never Smokeless tobacco: Never Vaping Use Vaping Use: Never used Substance Use Topics Alcohol use: No Drug use: No PAST MEDICAL HISTORY Diagnosis Date Acute right-sided back pain with sciatica 10/31/2021 Adenomatous colon polyp 10/23/2014 Allergic rhinitis 01/18/2015 Asthma Controlled type 2 diabetes mellitus without complication, without long-term current use of insulin ([facility]) 11/10/2019 Coronary artery disease COVID-19 09/24/2020 Depressive disorder 2008 DIVERTICULITIS OF COLON W/O BLEED 05/01/2006 Gynecomastia, male 05/18/2014 Hypertension Irritable bowel syndrome Lumbar disc disease 2003 Nonalcoholic fatty liver disease GENNY (obstructive sleep apnea) 10/19/2009 CPAP 8 cm H2O [facility] Other and unspecified hyperlipidemia Primary osteoarthritis of left knee 09/17/2016 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 HENT: Positive for congestion and sinus pain. Negative for ear pain and sore throat. Respiratory: Positive for cough. Negative for sputum production, shortness of breath and wheezing. Cardiovascular: Negative for chest pain. Musculoskeletal: Negative for myalgias. Neurological: Positive for headaches. Objective Physical Exam Vitals and nursing note reviewed. Constitutional: Appearance: He is not toxic-appearing. HENT: Head: Normocephalic and atraumatic. Right Ear: Tympanic membrane, ear canal and external ear normal. Left Ear: Tympanic membrane, ear canal and external ear normal. Nose: Mucosal edema, congestion and rhinorrhea present. Right Sinus: Maxillary sinus tenderness and frontal sinus tenderness present. Left Sinus: Maxillary sinus tenderness and frontal sinus tenderness present. Mouth/Throat: Pharynx: Uvula midline. No oropharyngeal exudate or posterior oropharyngeal erythema. Tonsils: No tonsillar abscesses. Cardiovascular: Rate and Rhythm: Normal rate and regular rhythm. Heart sounds: Normal heart sounds. Pulmonary: Effort: Pulmonary effort is normal. Breath sounds: Normal breath sounds. No decreased breath sounds, wheezing, rhonchi or rales. Lymphadenopathy: Head: Right side of head: No submental, submandibular, tonsillar or preauricular adenopathy. Left side of head: No submental, submandibular, tonsillar or preauricular adenopathy. Cervical: No cervical adenopathy. Right cervical: No superficial cervical adenopathy. Left cervical: No superficial cervical adenopathy. Neurological: Mental Status: He is alert. ASSESSMENT/PLAN: 1. Acute non-recurrent pansinusitis - ICD9: 461.8, ICD10: J01.40 - Will begin treatment with Augmentin 875 mg PO BID for 7 days - Supportive care with plenty of fluids, rest, and analgesia prn. - Follow up in one week if symptoms persist or worsen. Diagnosis and treatment plan were discussed and questions were answered to the patient's satisfaction. Pt acknowledged understanding of concepts and follow up plan. Specific signs and symptoms that would indicate the need for higher level of care were discussed in detail warranting prompt ER evaluation. Nichole Valle APRN.CNP documented in this encounter [facility] 07-14-2023 History of Present illness Narrative This note was created using [employer]. Subjective Reji Brito is a 58 year old male. ASTHMA CONTROL TEST Date: 07/14/2023 In the last 4 weeks, how much of the time did your asthma keep you from getting as much done at work or home that you wanted to do? None of the time (5) In the last 4 weeks, how often have you had shortness of breath? Once or twice per week (4) In the last 4 weeks, how often did your asthma symptoms (wheezing, coughing, shortness of breath, chest tightness or pain) wake you up at night or earlier than usual? 2 or 3 nights per week (2) In the last 4 weeks, how often have you used your rescue inhaler or nebulizer medication (such as Albuterol, Proventil, Ventolin, Maxair, Xoponex, or Primatene Mist)? Once a week or less (4) In the last 4 weeks, how would you rate your asthma control? Somewhat controlled (3) Total: 16-19 He noted sinus headache since last night. He took some Coricidin HBP, and saline irrigation with improvement. He was on medications for seasonal allergies. Diabetes was controlled. He was interested in trying Trulicity for benefits beyond glucose control. This was declined by his previous insurance. Obstructive sleep apnea was controlled, and he was using his CPAP regularly with benefit. Review of Systems Constitutional: Negative for fatigue and fever. HENT: Positive for congestion and sinus pressure. Negative for ear pain and sore throat. Eyes: Negative for visual disturbance. Respiratory: Negative for cough, shortness of breath and wheezing. Cardiovascular: Positive for leg swelling. Negative for chest pain and palpitations. Gastrointestinal: Negative. Genitourinary: Negative. Neurological: Negative for dizziness. ACTIVE PROBLEM LIST Hypertension Hyperlipidemia Genny On Cpap Bph With Obstruction/Lower Urinary Tract Symptoms Gerd (Gastroesophageal Reflux Disease) Adenomatous Colon Polyp Asthmatic Bronchitis Allergic Rhinitis Primary Osteoarthritis of Left Knee Controlled Type 2 Diabetes Mellitus Without Complication, Without Long-Term Current Use of Insulin (Hcc) Fatty Liver Disease, Nonalcoholic Spasm of Lumbar Paraspinous Muscle Obesity, Class II, Bmi 35-39.9 Current Outpatient Medications Medication Sig montelukast (SINGULAIR) 10 mg tablet Take 1 tablet by mouth daily at bedtime. fluticasone-salmeterol (ADVAIR DISKUS) 100-50 mcg/dose inhaler Inhale 1 Puff as instructed twice daily. Rinse mouth out after use with water. metFORMIN ER (GLUCOPHAGE XR) 500 mg 24 hr tablet Take 1 tablet by mouth daily with breakfast. pantoprazole DR (PROTONIX) 40 mg tablet Take 1 tablet by mouth once daily. 30 minutes before breakfast, take on empty stomach. simvastatin (ZOCOR) 40 mg tablet Take 1 tablet by mouth daily at bedtime. Ipratropium [place] (ATROVENT) 21 mcg (0.03 %) nasal spray Use 2 Sprays in the nose twice daily as needed (rhinorrhea). albuterol HFA (PROVENTIL HFA, VENTOLIN HFA) 90 mcg/actuation inhaler Inhale 2 Puffs as instructed every 4 hours as needed for wheezing/shortness of breath. lisinopril (ZESTRIL) 20 mg tablet Take 1 tablet by mouth once daily. hydroCHLOROthiazide 25 mg tablet Take 1 tablet by mouth once daily. fluticasone (FLONASE) 50 mcg/actuation nasal spray Use 2 Sprays in each nostril twice daily. Rinse mouth after use. polyethylene glycol 3350 (MIRALAX) 17 gram/dose powder Take 17 g by mouth twice daily. Cetirizine (ZYRTEC) 10 mg cap fexofenadine (JOSUE) 180 mg tablet Take 180 mg by mouth once daily. guaifenesin (MUCINEX ORAL) Take by mouth. FREESTYLE LANCETS 28 gauge ubidecarenone (COQ-10 ORAL) Take by mouth. MAGNESIUM ASPARTATE HCL ORAL Take by mouth. glucosamine/msm/chondroitin A (VUMFLWCEPFI-LNWCPE-XVU ORAL) Take by mouth. vitamin D3-folic acid 5,000 unit- 1 mg tab Take by mouth. blood sugar diagnostic (BLOOD GLUCOSE TEST) test strip Test blood sugar(s) 2 times daily. Dx: Type 2 DM - Controlled E11.9 Insulin: No COMPOUNDED PRESCRIPTION Allergy shots per [facility] CPAP AutoPAP 8-20 cmH2O, suitable mask, humidity, filters. Lifetime supplies. Dx: 327.23. Fax compliance rpt to [facility] in 6 weeks. Saw [place] 500 mg ORAL Cap Per package directions for prostate symptoms. aspirin(ECOTRIN LOW STRENGTH 81 MG TAB) THERAPEUTIC MULTIVITAMIN TAB Take one(1) tablet daily. No current facility-administered medications for this visit. Objective BP 132/88 (BP Site: Left Arm, BP Position: Sitting, BP Cuff Size: Large Adult) Pulse 74 Resp 20 Wt 110.7 kg (244 lb) BMI 37.10 kg/m Physical Exam Constitutional: Appearance: He is obese. He is not ill-appearing. HENT: Right Ear: Tympanic membrane normal. Left Ear: Tympanic membrane normal. Nose: Congestion present. No rhinorrhea. Right Sinus: No maxillary sinus tenderness or frontal sinus tenderness. Left Sinus: No maxillary sinus tenderness or frontal sinus tenderness. Mouth/Throat: Mouth: Mucous membranes are moist. Pharynx: Oropharynx is clear. Eyes: Extraocular Movements: Extraocular movements intact. Conjunctiva/sclera: Conjunctivae normal. Cardiovascular: Rate and Rhythm: Normal rate and regular rhythm. Heart sounds: No murmur heard. No gallop. Pulmonary: Effort: No respiratory distress. Breath sounds: No wheezing or rales. Musculoskeletal: Right lower leg: No edema. Left lower leg: No edema. Lymphadenopathy: Cervical: No cervical adenopathy. Neurological: Mental Status: He is alert. Feet:Shoes and socks removed, No deformities, ulcers, calluses, normal distal pulses, and sensitive to 10 gm monofilament Component Latest Ref Rng & Units 07/11/2023 Glucose 74 - 99 mg/dL 118 (H) BUN 9 - 24 mg/dL 20 Creatinine 0.73 - 1.22 mg/dL 1.11 Sodium 136 - 144 mmol/L 140 Potassium 3.7 - 5.1 mmol/L 4.7 Chloride 97 - 105 mmol/L 101 CO2 22 - 30 mmol/L 26 Anion Gap 9 - 18 mmol/L 13 Calcium 8.5 - 10.2 mg/dL 9.8 eGFR >=60 mL/min/1.73m 76 Hemoglobin A1C 4.3 - 5.6 % 6.5 (H) Estimated Average Glucose mg/dL 140 Assessment and Plan 1. Sinus headache - ICD9: 784.0, ICD10: R51.9 (primary diagnosis) Continue self management. 2. Controlled type 2 diabetes mellitus without complication, without long-term current use of insulin (HCC) - ICD9: 250.00, ICD10: E11.9 - Controlled - DULAGLUTIDE 0.75 MG/0.5 ML SUBCUTANEOUS PEN INJECTOR. Discussed medication dosage, usage, goals of therapy, and side effects. Update us on status. - Continue metformin. - COMP METABOLIC PANEL - LIPID PANEL BASIC - HGB A1C - ALBUMIN/CREAT RATIO RND UR 3. Mild intermittent asthmatic bronchitis without complication - ICD9: 493.90, ICD10: J45.20 - Mild intermittent asthma stable - Continue current medications 4. Primary hypertension - ICD9: 401.9, ICD10: I10 Suboptimal. - Continue current medications - Stop hydrochlorothiazide - Recommend regular aerobic exercise - Discussed need for and benefit of weight loss. BMI 37.10 kg/(m^2) - CHLORTHALIDONE 25 MG TABLET. Discussed medication dosage, usage, goals of therapy, and side effects. This replaces hydrochlorothiazide. 5. GENNY on CPAP - ICD9: 327.23, ICD10: G47.33 Controlled with regular CPAP use. Kristian Cadet MD documented in this encounter [facility] 04-23-2023 Miscellaneous Notes Called pharmacy back and info relayed. They will get rx sent to pt. Dose was increased last year with improved results. Continue current dose. TC to [facility] to verify what is needed for patient refill. Pharmacist states that the directions are over the recommended 4 sprays. As written, 2 sprays in each nostril BID is 8 sprays a day. Pharmacist states directions would need to say 1 spray in each nostril BID for a total of 4 spray. Please review and advise. Thank you. SONAL Bhat Patient received a call from [facility] and they advised the patient to call PCP office as they need further information regarding the refill on Flonase. Patient is requesting we call them to see what is needed documented in this encounter [facility] 04-07-2023 Miscellaneous Notes Patient scheduled for nurse visit 04/20/23 to receive Hepatitis B vaccine. Please place order at this time. Sia Kaur LPN documented in this encounter [facility] 03-25-2023 Miscellaneous Notes Ashlyn, Patient called in stating that patient needs all medications refilled His insurance has changed and updated. They would like these sent to [facility] Montelukast, simvastatin, hydrochlorothiazide, metformin, lisinopril, protonix, albuterol, flonase (wants more medication prescribed - said not enough to take it twice a day) Zac: [id number] Please advise, thank you! Lisa documented in this encounter [facility] 01-09-2023 History of Present illness Narrative This note was created using [employer]. Subjective Reji Brito is a 57 year old male. He was doing well. He was still interested in GLP1A therapy, but previous PA attempts were not successful. Review of Systems Constitutional: Negative. Respiratory: Negative. Cardiovascular: Negative. Gastrointestinal: Negative. Neurological: Negative. ACTIVE PROBLEM LIST Hypertension Hyperlipidemia Genny On Cpap Bph With Obstruction/Lower Urinary Tract Symptoms Gerd (Gastroesophageal Reflux Disease) Adenomatous Colon Polyp Asthmatic Bronchitis Allergic Rhinitis Primary Osteoarthritis of Left Knee Controlled Type 2 Diabetes Mellitus Without Complication, Without Long-Term Current Use of Insulin (Hcc) Fatty Liver Disease, Nonalcoholic Spasm of Lumbar Paraspinous Muscle Obesity, Class II, Bmi 35-39.9 Current Outpatient Medications Medication Sig montelukast (SINGULAIR) 10 mg tablet Take 1 tablet by mouth daily at bedtime. fluticasone-salmeterol (ADVAIR DISKUS) 100-50 mcg/dose inhaler Inhale 1 Puff as instructed twice daily. Rinse mouth out after use with water. metFORMIN ER (GLUCOPHAGE XR) 500 mg 24 hr tablet Take 1 tablet by mouth daily with breakfast. pantoprazole DR (PROTONIX) 40 mg tablet Take 1 tablet by mouth once daily. 30 minutes before breakfast, take on empty stomach. simvastatin (ZOCOR) 40 mg tablet Take 1 tablet by mouth daily at bedtime. Ipratropium [place] (ATROVENT) 21 mcg (0.03 %) nasal spray Use 2 Sprays in the nose twice daily as needed (rhinorrhea). albuterol HFA (PROVENTIL HFA, VENTOLIN HFA) 90 mcg/actuation inhaler Inhale 2 Puffs as instructed every 4 hours as needed for wheezing/shortness of breath. dulaglutide (TRULICITY) 0.75 mg/0.5 mL pen injector Inject 0.75 mg subcutaneously one time a week. Inject dose once per week. Discard Pen After lisinopril (ZESTRIL, PRINIVIL) 20 mg tablet Take 1 tablet by mouth once daily. hydroCHLOROthiazide (HYDRODIURIL, ESIDRIX) 25 mg tablet Take 1 tablet by mouth once daily. polyethylene glycol 3350 (MIRALAX) 17 gram/dose powder Take 17 g by mouth twice daily. fluticasone (FLONASE) 50 mcg/actuation nasal spray Use 2 Sprays in each nostril twice daily. Rinse mouth after use. Cetirizine (ZYRTEC) 10 mg cap fexofenadine (JOSUE) 180 mg tablet Take 180 mg by mouth once daily. guaifenesin (MUCINEX ORAL) Take by mouth. FREESTYLE LANCETS 28 gauge ubidecarenone (COQ-10 ORAL) Take by mouth. MAGNESIUM ASPARTATE HCL ORAL Take by mouth. glucosamine/msm/chondroitin A (ZQJPKDARSAS-DSRIFL-ANB ORAL) Take by mouth. vitamin D3-folic acid 5,000 unit- 1 mg tab Take by mouth. blood sugar diagnostic (BLOOD GLUCOSE TEST) test strip Test blood sugar(s) 2 times daily. Dx: Type 2 DM - Controlled E11.9 Insulin: No COMPOUNDED PRESCRIPTION Allergy shots per [place] [place] [facility] CPAP AutoPAP 8-20 cmH2O, suitable mask, humidity, filters. Lifetime supplies. Dx: 327.23. Fax compliance rpt to [facility] in 6 weeks. Saw [place] 500 mg ORAL Cap Per package directions for prostate symptoms. aspirin(ECOTRIN LOW STRENGTH 81 MG TAB) THERAPEUTIC MULTIVITAMIN TAB Take one(1) tablet daily. No current facility-administered medications for this visit. Objective BP (P) 118/72 (BP Site: Left Arm, BP Position: Sitting, BP Cuff Size: Large Adult) Pulse (P) 78 Wt (P) 108.4 kg (239 lb) BMI (P) 36.34 kg/m Physical Exam Constitutional: Appearance: He is not ill-appearing. Cardiovascular: Rate and Rhythm: Normal rate and regular rhythm. Heart sounds: No murmur heard. No gallop. Pulmonary: Effort: Pulmonary effort is normal. Breath sounds: Normal breath sounds. Musculoskeletal: Right lower leg: No edema. Left lower leg: No edema. Neurological: Mental Status: He is alert. Component Latest Ref Rng & Units 01/01/2023 Protein, Total 6.3 - 8.0 g/dL 7.9 Albumin 3.9 - 4.9 g/dL 4.7 Calcium 8.5 - 10.2 mg/dL 10.1 Bilirubin, Total 0.2 - 1.3 mg/dL 0.6 Alkaline Phosphatase 38 - 113 U/L 49 AST 14 - 40 U/L 32 ALT 10 - 54 U/L 34 Glucose 74 - 99 mg/dL 95 BUN 9 - 24 mg/dL 21 Creatinine 0.73 - 1.22 mg/dL 1.10 Sodium 136 - 144 mmol/L 137 Potassium 3.7 - 5.1 mmol/L 4.2 Chloride 97 - 105 mmol/L 100 CO2 22 - 30 mmol/L 26 Anion Gap 9 - 18 mmol/L 11 eGFR >=60 mL/min/1.73m 78 WBC 3.70 - 11.00 k/uL 6.18 RBC 4.20 - 6.00 m/uL 4.72 Hemoglobin 13.0 - 17.0 g/dL 14.3 Hematocrit 39.0 - 51.0 % 43.2 MCV 80.0 - 100.0 fL 91.5 MCH 26.0 - 34.0 pg 30.3 MCHC 30.5 - 36.0 g/dL 33.1 RDW-CV 11.5 - 15.0 % 12.9 Platelet Count 150 - 400 k/uL 364 MPV 9.0 - 12.7 fL 9.2 Absolute nRBC <0.01 k/uL <0.01 Cholesterol, Total <200 mg/dL 180 Triglyceride <150 mg/dL 176 (H) HDL Cholesterol >39 mg/dL 46 Non HDL Cholesterol <130 mg/dL 134 (H) Fasting Time hrs 14 VLDL Cholesterol <30 mg/dL 35 (H) TC:HDL Ratio <5.10 3.91 LDL Cholesterol <100 mg/dL 99 LDL:HDL Ratio <2.54 2.15 Creatinine, Ur Random (UCRR) 20.0 - 300.0 mg/dL Albumin, Urine Random mg/L Albumin/Creat Ratio <30 mg/g Hemoglobin A1C 4.3 - 5.6 % 6.2 (H) Estimated Average Glucose mg/dL 131 PSA Screening <2.60 ng/mL 1.78 Assessment and Plan 1. Controlled type 2 diabetes mellitus without complication, without long-term current use of insulin (HCC) - ICD9: 250.00, ICD10: E11.9 (primary diagnosis) - Controlled - Continue current medications - BASIC METABOLIC PNL - HGB A1C - We will consider GLP1a again later this year. His coverage may change. 2. Primary hypertension - ICD9: 401.9, ICD10: I10 - good control - Continue current medication(s) - Discussed need and benefit for weight loss. 3. Other hyperlipidemia - ICD9: 272.4, ICD10: E78.49 Controlled. Kristian Cadet MD documented in this encounter [facility] 12-30-2022 Miscellaneous Notes Patient notified, verbalized understanding. Fasting labs ordered Ina Carrera APRN.CNP Appointment is 01/09/23. Pt is coming in for an appt and would like to know if Dr. Cadet will want him to have labs prior to the appt. Please let him know if orders are placed. documented in this encounter [facility] 10-28-2022 History of Present illness Narrative Patient presents for Hepatitis B vaccine. Denies any problems at this time. Tolerated injection well. Sia Kaur LPN documented in this encounter [facility] 10-22-2022 Miscellaneous Notes Patient scheduled for nurse visit 10/28/22 to receive Hepatitis B vaccine. Please place order at this time. Sia Kaur LPN documented in this encounter [facility] 09-25-2022 History of Present illness Narrative This note was created using [employer]. Subjective Reji Brito is a 57 year old male. He felt well in general. Allergies and asthma was symptomatic somewhat the past few days. He had not done his labs. He did not get Trulicity and preferred to wait for the PA on Ozempic. His diabetes mellitus was staying controlled based on his glucose meter readings. Review of Systems Constitutional: Negative. HENT: Positive for congestion. Respiratory: Negative. Cardiovascular: Negative. Neurological: Negative. ACTIVE PROBLEM LIST Hypertension Hyperlipidemia Genny On Cpap Bph With Obstruction/Lower Urinary Tract Symptoms Gerd (Gastroesophageal Reflux Disease) Adenomatous Colon Polyp Asthmatic Bronchitis Allergic Rhinitis Primary Osteoarthritis of Left Knee Controlled Type 2 Diabetes Mellitus Without Complication, Without Long-Term Current Use of Insulin (Hcc) Fatty Liver Disease, Nonalcoholic Obesity, Class I, Bmi 30-34.9 Spasm of Lumbar Paraspinous Muscle Obesity, Class II, Bmi 35-39.9 Current Outpatient Medications Medication Sig albuterol HFA (PROVENTIL HFA, VENTOLIN HFA) 90 mcg/actuation inhaler Inhale 2 Puffs as instructed every 4 hours as needed for wheezing/shortness of breath. lisinopril (ZESTRIL, PRINIVIL) 20 mg tablet Take 1 tablet by mouth once daily. hydroCHLOROthiazide (HYDRODIURIL, ESIDRIX) 25 mg tablet Take 1 tablet by mouth once daily. polyethylene glycol 3350 (MIRALAX) 17 gram/dose powder Take 17 g by mouth twice daily. fluticasone (FLONASE) 50 mcg/actuation nasal spray Use 2 Sprays in each nostril twice daily. Rinse mouth after use. montelukast (SINGULAIR) 10 mg tablet Take 1 tablet by mouth daily at bedtime. fluticasone-salmeterol (ADVAIR DISKUS) 100-50 mcg/dose inhaler Inhale 1 Puff as instructed twice daily. Rinse mouth out after use with water. metFORMIN ER (GLUCOPHAGE XR) 500 mg 24 hr tablet Take 1 tablet by mouth daily with breakfast. pantoprazole DR (PROTONIX) 40 mg tablet Take 1 tablet by mouth once daily. 30 minutes before breakfast, take on empty stomach. simvastatin (ZOCOR) 40 mg tablet Take 1 tablet by mouth daily at bedtime. Cetirizine (ZYRTEC) 10 mg cap fexofenadine (JOSUE) 180 mg tablet Take 180 mg by mouth once daily. guaifenesin (MUCINEX ORAL) Take by mouth. FREESTYLE LANCETS 28 gauge ubidecarenone (COQ-10 ORAL) Take by mouth. MAGNESIUM ASPARTATE HCL ORAL Take by mouth. glucosamine/msm/chondroitin A (BLQKWPNTXLD-KGWWWV-JYN ORAL) Take by mouth. vitamin D3-folic acid 5,000 unit- 1 mg tab Take by mouth. Ipratropium [place] (ATROVENT) 0.03 % nasal spray Use 2 Sprays in the nose every 12 hours. blood sugar diagnostic (BLOOD GLUCOSE TEST) test strip Test blood sugar(s) 2 times daily. Dx: Type 2 DM - Controlled E11.9 Insulin: No COMPOUNDED PRESCRIPTION Allergy shots per [facility] CPAP AutoPAP 8-20 cmH2O, suitable mask, humidity, filters. Lifetime supplies. Dx: 327.23. Fax compliance rpt to [facility] in 6 weeks. Saw Newport 500 mg ORAL Cap Per package directions for prostate symptoms. aspirin(ECOTRIN LOW STRENGTH 81 MG TAB) THERAPEUTIC MULTIVITAMIN TAB Take one(1) tablet daily. dulaglutide (TRULICITY) 0.75 mg/0.5 mL pen injector Inject 0.75 mg subcutaneously one time a week. Inject dose once per week. Discard Pen After (Patient not taking: Reported on 09/25/2022) dulaglutide (TRULICITY) 0.75 mg/0.5 mL pen injector Inject 0.75 mg subcutaneously one time a week. Inject dose once per week. Discard Pen After (Patient not taking: Reported on 09/25/2022) No current facility-administered medications for this visit. Objective BP 129/84 (BP Site: Left Arm, BP Position: Sitting, BP Cuff Size: Large Adult) Pulse 75 Temp 36.4 C (97.6 F) (Temporal) Resp 16 Wt 109.3 kg (241 lb) BMI 36.64 kg/m Physical Exam Constitutional: General: He is not in acute distress. HENT: Nose: Right Sinus: No maxillary sinus tenderness or frontal sinus tenderness. Left Sinus: No maxillary sinus tenderness or frontal sinus tenderness. Cardiovascular: Rate and Rhythm: Normal rate and regular rhythm. Heart sounds: No murmur heard. No gallop. Pulmonary: Breath sounds: Normal breath sounds. Musculoskeletal: Right lower leg: No edema. Left lower leg: No edema. Neurological: Mental Status: He is alert. Assessment and Plan 1. Need for vaccination - ICD9: V05.9, ICD10: Z23 (primary diagnosis) - HEPATITIS B VACCINE, ADULT AGE 20+, IM Patient indicated understanding and willingness to follow recommendations. 2. Controlled type 2 diabetes mellitus without complication, without long-term current use of insulin (HCC) - ICD9: 250.00, ICD10: E11.9 Controlled. - Check labs today. - METFORMIN ER 500 MG TABLET,EXTENDED RELEASE 24 HR 3. Gastroesophageal reflux disease without esophagitis - ICD9: 530.81, ICD10: K21.9 Refilled. - PANTOPRAZOLE 40 MG TABLET,DELAYED RELEASE 4. Other hyperlipidemia - ICD9: 272.4, ICD10: E78.49 Controlled. - SIMVASTATIN 40 MG TABLET 5. Allergic rhinitis, unspecified seasonality, unspecified trigger - ICD9: 477.9, ICD10: J30.9 Used PRN. - IPRATROPIUM BROMIDE 21 MCG (0.03 %) NASAL SPRAY Kristian Cadet MD documented in this encounter [facility] 09-04-2022 Miscellaneous Notes Addended by: PRECIOUS SINGLETON on: 09/04/2022 02:54 PM Modules accepted: Orders documented in this encounter [facility] 09-04-2022 Instructions Precious Singleton PA-C - 09/04/2022 12:55 PM EST [facility] PATIENT INFO INFLUENZA INTRODUCTION Influenza (commonly called the flu) is a highly contagious illness that can occur in children or adults of any age. It occurs more often in the winter months because people spend more time in close contact with one another. The flu is spread easily from adxikq-ml-qlyzdl by coughing, sneezing, or touching surfaces. Every year, complications of the flu require more than 200,000 people in the [facility] to be hospitalized. Serious illness is more likely in the very young, older adults, women, and people who have certain health problems such as asthma or other forms of lung disease. There have been several widespread flu outbreaks (called pandemics), which led to the deaths of many people worldwide. These outbreaks occurred when new strains of influenza viruses formed (often from pigs or birds) and humans became infected because they had no immunity to these viruses. FLU SYMPTOMS Symptoms of seasonal flu can vary from person to person, but usually include: Fever (temperature higher than 100 F or 37.8 C) Headache and muscle aches Fatigue Cough and sore throat may also be present People with the flu usually have a fever for two to five days. This is different than fever caused by other upper respiratory viruses, which usually resolve after 24 to 48 hours. Some people have cold-like symptoms (runny nose, sore throat) during the flu while others have fever and muscle aches. Flu symptoms usually improve over two to five days, although the illness may last for a week or more. Weakness and fatigue may persist for several weeks Flu complications -- Complications of influenza occur in some people; pneumonia is the most common complication. Pneumonia is a serious infection of the lungs, and is more likely to occur in people over the age of 65, people who live in mcc care facilities (nursing homes), and those with other illnesses such as diabetes or conditions affecting the heart or lungs. FLU DIAGNOSIS Influenza is usually diagnosed based on symptoms (fever, cough and muscle aches). Lab testing for influenza is performed in certain cases, such as during a new influenza outbreak in a community. FLU TREATMENT When to seek help -- Most people with the flu recover within one to two weeks without treatment. However, serious complications of the flu can occur. Call your doctor or nurse immediately if: You feel short of breath or have trouble breathing You have pain or pressure in your chest or stomach You have signs of being dehydrated, such as dizziness when standing or not passing urine You feel confused You cannot stop vomiting or you cannot drink enough fluids There are several groups of people who are at increased risk for flu complications. These include women, young children (<5 years of age, and especially <2 years of age), people ?65 years of age, and people with certain diseases such as chronic lung disease (such as asthma), heart disease, diabetes, immunosuppressing conditions (such as HIV infection or transplantation), and some other diseases. If you or your child has flu symptoms and is at increased risk of flu complications, you should call your healthcare provider. Treat symptoms -- Treating the symptoms of influenza can help you to feel better, but will not make the flu go away faster. Rest until the flu is fully resolved, especially if the illness has been severe Fluids -- Drink enough fluids so that you do not become dehydrated. One way to district associate judge if you are drinking enough is to look at the color of your urine. Normally, urine should be light yellow to nearly colorless. If you are drinking enough, you should pass urine every three to five hours. Acetaminophen (such as Tylenol and other brands) can relieve fever, headache, and muscle aches. Aspirin, and medicines that include aspirin (eg, bismuth subsalicylate; PeptoBismol), are not recommended for children under 18 because aspirin can lead to a serious disease called Rossana syndrome. Cough medicines are not usually helpful; cough usually resolves without treatment. We do not recommend cough or cold medicine for children under age six years. Antiviral treatment -- Antiviral medicines can be used to treat or prevent influenza. When used as a treatment, the medicine does not eliminate flu symptoms, although it can reduce the severity and duration of symptoms by about one day. Not every person with influenza needs an antiviral medicine; the decision is based upon your risk of developing complications of influenza. Antiviral treatment is most effective for seasonal influenza when it is taken within the first 48 hours of flu symptoms. Side effects -- Zanamivir and oseltamivir can cause mild side effects, including nausea and vomiting; zanamivir, which is inhaled, can cause difficulty breathing in some cases. Most people are able to continue the medicine despite the side effects. Antibiotics -- Antibiotics are NOT useful for treating viral illnesses such as influenza. Antibiotics should only used if there is a bacterial complication of the flu such as bacterial pneumonia, ear infection, or sinusitis. Antibiotics can cause side effects and lead to development of antibiotic resistance. documented in this encounter [facility] 09-04-2022 History of Present illness Narrative Subjective HPI HPI Reji Brito is a 57 year old male who presents today for CC of body aches, chest congestion, cough, sinus headache since yesterday afternoon. Notes that his sputum is productive with yellow-brown tinge. Had flu shot this year, as well as up to date on covid boosters. Mildly SOB/wheezy, but using advair routinely. Currently out of albuterol at the present. BP 142/76 Pulse 110 Temp 36.4 C (97.5 F) Resp 21 Wt 111 kg (244 lb 12.8 oz) SpO2 95% BMI 37.22 kg/m ALLERGIES Allergen Reactions Hops Itching Seasonal Allergies Unknown Trees, grasses, weeds, ragweed and cockroaches verified by skin testing ACTIVE PROBLEM LIST Hypertension Hyperlipidemia Genny On Cpap Bph With Obstruction/Lower Urinary Tract Symptoms Gerd (Gastroesophageal Reflux Disease) Adenomatous Colon Polyp Asthmatic Bronchitis Allergic Rhinitis Primary Osteoarthritis of Left Knee Controlled Type 2 Diabetes Mellitus Without Complication, Without Long-Term Current Use of Insulin (Hcc) Fatty Liver Disease, Nonalcoholic Obesity, Class I, Bmi 30-34.9 Spasm of Lumbar Paraspinous Muscle Obesity, Class II, Bmi 35-39.9 Family History Problem Relation Age of Onset Hypertension Mother Stroke Father Coronary Artery Disease Father PVD. Stents. Alive age 79 Hypertension Sister Heart Sister Lipids Sister Breast Cancer Sister Lipids Brother None Brother COPD Paternal Grandfather MS age 50s Colon Cancer No Family History Social History Tobacco Use Smoking status: Never Smokeless tobacco: Never Vaping Use Vaping Use: Never used Substance Use Topics Alcohol use: No Drug use: No Review of Systems Constitutional: Negative for chills, fever and malaise/fatigue. HENT: Negative for congestion, ear pain, sinus pain and sore throat. Respiratory: Positive for cough, sputum production and wheezing. Negative for shortness of breath. Cardiovascular: Negative for chest pain. Musculoskeletal: Positive for myalgias. Neurological: Negative for headaches. Objective BP 142/76 Pulse 110 Temp 36.4 C (97.5 F) Resp 21 Wt 111 kg (244 lb 12.8 oz) SpO2 95% BMI 37.22 kg/m Physical Exam Vitals and nursing note reviewed. Constitutional: General: He is not in acute distress. Appearance: He is well-developed. He is not ill-appearing (Appears mildly fatigued). HENT: Head: Normocephalic and atraumatic. Right Ear: Tympanic membrane, ear canal and external ear normal. No middle ear effusion. Tympanic membrane is not injected, perforated, erythematous, retracted or bulging. Left Ear: Tympanic membrane, ear canal and external ear normal. No middle ear effusion. Tympanic membrane is not injected, perforated, erythematous, retracted or bulging. Nose: No mucosal edema or rhinorrhea. Right Sinus: No maxillary sinus tenderness or frontal sinus tenderness. Left Sinus: No maxillary sinus tenderness or frontal sinus tenderness. Mouth/Throat: Pharynx: Uvula midline. No oropharyngeal exudate or posterior oropharyngeal erythema. Tonsils: No tonsillar abscesses. Cardiovascular: Rate and Rhythm: Normal rate and regular rhythm. Heart sounds: Normal heart sounds. Pulmonary: Effort: Pulmonary effort is normal. Breath sounds: Normal breath sounds. No wheezing, rhonchi or rales. Comments: Mildly diminished breath sounds noted bilaterally Musculoskeletal: Cervical back: Normal range of motion. Lymphadenopathy: Head: Right side of head: No submental, submandibular, tonsillar, preauricular, posterior auricular or occipital adenopathy. Left side of head: No submental, submandibular, tonsillar, preauricular, posterior auricular or occipital adenopathy. Cervical: No cervical adenopathy. Right cervical: No superficial or posterior cervical adenopathy. Left cervical: No superficial or posterior cervical adenopathy. Skin: General: Skin is warm and dry. Neurological: Mental Status: He is alert and oriented to person, place, and time. Psychiatric: Mood and Affect: Affect normal. Behavior: Behavior is cooperative. ASSESSMENT/PLAN: 1. Flu-like symptoms - ICD9: 780.99, ICD10: R68.89 Suspect flu based on clinical presentation. COVID and flu testing ordered; Results will be released to [facility] in 24-48 hours.Discussed quarantine, social distancing, hand washing/proper hygiene. Rest, fluids, Symptomatic tx with IBU and Tylenol discussed. Explained that if positive, this is a viral process, and will go away despite treatment, however discussed the option to start Tamiflu (and rx sent to pharmacy) - explained that this could potentially shave off time and temporize symptoms associated with the overall course of the flu. Discussed medication indications, proper use, and potential adverse effects. All questions and concerns addressed to patient satisfaction. For the timebeing, sent in refill for albuterol rx to use PRN. Safety rx for prednisone printed in the case chest congestion/wheezing progresses. Discussed medication indications, proper use, and potential adverse effects. All questions and concerns addressed to patient satisfaction. - ALBUTEROL SULFATE HFA 90 MCG/ACTUATION AEROSOL INHALER - OSELTAMIVIR 75 MG CAPSULE - PREDNISONE 20 MG TABLET Pt advised to see PCP if symptoms persist or progress. Reviewed red flags with patient and when to seek care sooner. The patient indicates understanding of these issues and agrees with the plan. Preciosu Singleton PA-C documented in this encounter [facility] 08-19-2022 Miscellaneous Notes SEE MY CHART MESSAGE. THE NURSE HAS CALLED THEM TWICE. THE PT HAS CALLED THEM ONCE. STILL HAVING ISSUES. CALLED THIS NUMBER IT IS A DIFFERENT NUMBER AND THEY COULDN'T HELP ME. THEY DID NOTE THE ID#FOR PT IS [id number]. TO DROP THE LAST 2 ZEROS. TRIED TO COMPLETE VIA COVERMYMED WITH SAME RESPONSE. WILL TRY TO CALL AGAIN TOMORROW Sj, a pharmacy aide with [facility]. calling to state patient's recent order for Trulicity received on 08/09/22 will need a Prior Authorization completed. Prior Authorization Documentation- Prior authorization requested for the following medication: Medication: Trulicity 0.75mg/0.5mL pen injector (Disp: 12 qty) Provider: Dr. Cadet Pharmacy Name: [facility] Telephone number: [phone]. Thank you. documented in this encounter [facility] 08-18-2022 Miscellaneous Notes Called [facility] again at [phone]. They report pts active ID number is [id number]. They are still having issues with pts account and ID number.they are working on this and they will all me back. Please transfer call to me. The PA completed is for trulicity. Checked again this afternoon. No coverage was found. Please verify that you are using the member s prescription benefit card and all information is entered exactly as written on the card. Attempted PA again via covermymed and response is the same. No coverage was found. Please verify that you are using the member s prescription benefit card and all information is entered exactly as written on the card. They have reviewed and it notes pt has inactive account but they can see that pt is active. They will fix as soon as they can. Once this is fixed a the PA can be completed via covermymed. She notes hopefully this will happen to be completed for 08/13/22. Unable to completed via covermymeds. Calling [facility] at [phone] Unable to complete this electronically. documented in this encounter [facility] 08-13-2022 Instructions Nichole Valle APRN.GENET - 08/13/2022 5:40 PM EST -Increase fluid intake. --Rest as much as possible. - Nasal saline spray, alireza pot, flonase Take the entire course of antibiotics as prescribed. DO NOT stop taking it early, even if you are feeling better. -Monitor for signs of worsening infection: increased temperature, pain in face, ear pain or headaches or increase in nasal congestion/mucous that is not improving. -Educated patient on side effects of medication. Continue flonase Zyrtec 10 mg By mouth daily at bedtime documented in this encounter [facility] 08-13-2022 History of Present illness Narrative Subjective The history is provided by the patient. No speech language assistant was used. MARCO Brito is a 57 year old male who presents today for CC of nasal congestion, sinus pressure, and post nasal drainage since he was seen the end of June. He has been using coricidin HBP and flonase without relief. He denies any fever, chills or body aches. H/o sinusitis BP 134/86 Pulse (!) 125 Temp 36.9 C (98.5 F) Resp 20 Wt 108.6 kg (239 lb 6.4 oz) SpO2 97% BMI 36.40 kg/m Social History Tobacco Use Smoking status: Never Smokeless tobacco: Never Vaping Use Vaping Use: Never used Substance Use Topics Alcohol use: No Drug use: No PAST MEDICAL HISTORY Diagnosis Date Acute right-sided back pain with sciatica 10/31/2021 Adenomatous colon polyp 10/23/2014 Allergic rhinitis 01/18/2015 Asthma Controlled type 2 diabetes mellitus without complication, without long-term current use of insulin ([facility]) 11/10/2019 Coronary artery disease COVID-19 09/24/2020 Depressive disorder 2008 DIVERTICULITIS OF COLON W/O BLEED 05/01/2006 Gynecomastia, male 05/18/2014 Hypertension Irritable bowel syndrome Lumbar disc disease 2003 Nonalcoholic fatty liver disease GENNY (obstructive sleep apnea) 10/19/2009 CPAP 8 cm H2O [facility] Other and unspecified hyperlipidemia Primary osteoarthritis of left knee 09/17/2016 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 HENT: Positive for congestion and sinus pain. Negative for ear pain and sore throat. Respiratory: Negative for cough, sputum production, shortness of breath and wheezing. Cardiovascular: Negative for chest pain. Musculoskeletal: Negative for myalgias. Neurological: Positive for headaches. Objective Physical Exam Vitals and nursing note reviewed. Constitutional: Appearance: He is not toxic-appearing. HENT: Head: Normocephalic and atraumatic. Right Ear: Ear canal and external ear normal. A middle ear effusion is present. Tympanic membrane is bulging. Left Ear: Ear canal and external ear normal. A middle ear effusion is present. Tympanic membrane is bulging. Nose: No mucosal edema, congestion or rhinorrhea. Right Sinus: Maxillary sinus tenderness and frontal sinus tenderness present. Left Sinus: Maxillary sinus tenderness and frontal sinus tenderness present. Mouth/Throat: Pharynx: Uvula midline. No oropharyngeal exudate or posterior oropharyngeal erythema. Tonsils: No tonsillar abscesses. Cardiovascular: Rate and Rhythm: Normal rate and regular rhythm. Heart sounds: Normal heart sounds. Pulmonary: Effort: Pulmonary effort is normal. Breath sounds: Normal breath sounds. No decreased breath sounds, wheezing, rhonchi or rales. Lymphadenopathy: Head: Right side of head: No submental, submandibular, tonsillar or preauricular adenopathy. Left side of head: No submental, submandibular, tonsillar or preauricular adenopathy. Cervical: No cervical adenopathy. Right cervical: No superficial cervical adenopathy. Left cervical: No superficial cervical adenopathy. Neurological: Mental Status: He is alert. ASSESSMENT/PLAN: 1. Acute non-recurrent pansinusitis - ICD9: 461.8, ICD10: J01.40 - Will begin treatment with Augmentin 875 mg PO BID for 5 days - Supportive care with plenty of fluids, rest, and analgesia prn. - Follow up in one week if symptoms persist or worsen. Diagnosis and treatment plan were discussed and questions were answered to the patient's satisfaction. Pt acknowledged understanding of concepts and follow up plan. Specific signs and symptoms that would indicate the need for higher level of care were discussed in detail warranting prompt ER evaluation. Nichole Valle APRN.GENET documented in this encounter [facility] 08-11-2022 Miscellaneous Notes Pts called and is notified of message. She voices understanding. Shagufta Alcantara RN Patient's request for medication is as follows Requested Prescriptions Signed Prescriptions Disp Refills dulaglutide (TRULICITY) 0.75 mg/0.5 mL pen injector 2 Each 0 Sig: Inject 0.75 mg subcutaneously one time a week. Inject dose once per week. Discard Pen After Authorizing Provider: KRISTIAN CADET dulaglutide (TRULICITY) 0.75 mg/0.5 mL pen injector 12 Each 1 Sig: Inject 0.75 mg subcutaneously one time a week. Inject dose once per week. Discard Pen After Authorizing Provider: KRISTIAN ACDET Check videos online on how to use. Kristian Cadet MD called and Insurance will not cover Ozempic. Pt is out of medication and needs to be switched to something else. Please advise . Pt will need 2 prescriptions. Short term prescription to local pharmacy [facility] prescription to mail service pharmacy Ivory Dickey LPN documented in this encounter [facility] 07-16-2022 History of Present illness Narrative CC: Patient presents with: Nasal Congestion: Cough, right ear pain, nausea x 1 day HPI: Reji Brito is a 57 year old male who presents to the office with complaint of head congestion, cough, nonproductive, and ear symptoms for the past day. Symptoms are worsening Associated symptoms includes nausea. Denies fever, vomiting , and diarrhea. Treatments tried include nothing so far. with no relief of symptoms. Sick contacts: unknown. History of asthma, frequent episodes of bronchitis, chronic bronchitis, bronchiectasis or COPD: No Smoker: No Seasonal/environmental allergies: No The ROS is otherwise negative. The patient's pmh, medications, allergies, and past visits are reviewed. PHYSICAL EXAM: BP 130/88 Pulse 77 Temp 36.6 C (97.9 F) Resp 22 Wt 109.3 kg (241 lb) SpO2 98% BMI 36.64 kg/m General appearance: alert, cooperative, pleasant, in no acute distress Head: Normocephalic Eyes: EOM's intact, conjunctiva pink and moist, no icterus, sclera white, non-injected Ears: Right ear: External ear/canal- Normal, TM - clear with good landmarks. Left ear: External ear/canal- Normal, TM - clear with good landmarks Oropharynx:moist without lesions, No erythema, exudates or tonsillar hypertrophy. Heart: Negative. RRR without obvious murmur, gallop, or rubs. No ectopy. Lungs: clear to auscultation, without rales or wheeze, good air exchange PAST MEDICAL HISTORY Diagnosis Date Acute right-sided back pain with sciatica 10/31/2021 Adenomatous colon polyp 10/23/2014 Allergic rhinitis 01/18/2015 Asthma Controlled type 2 diabetes mellitus without complication, without long-term current use of insulin (HCC) 11/10/2019 Coronary artery disease COVID-19 09/24/2020 Depressive disorder 2008 DIVERTICULITIS OF COLON W/O BLEED 05/01/2006 Gynecomastia, male 05/18/2014 Hypertension Irritable bowel syndrome Lumbar disc disease 2003 Nonalcoholic fatty liver disease GENNY (obstructive sleep apnea) 10/19/2009 CPAP 8 cm H2O [facility] Other and unspecified hyperlipidemia Primary osteoarthritis of left knee 09/17/2016 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 Tonsillar hypertrophy 11/21/2015 Total knee replacement status 04/12/2014 Vertigo 08/2013 PAST SURGICAL HISTORY Procedure Laterality Date ARTHRP KNE CONDYLE&PLATU MEDIAL&LAT COMPARTMENTS 01/03/2014 Knee replacement, total, Right COLONOSCOPY FLX DX W/COLLJ SPEC WHEN PFRMD 10/23/2014 Colonoscopy COLONOSCOPY GEN ANES 03/12/2020 hemorrhoids ENDOSCOPIC SEPTOPLASTY Bilateral 06/2018 [facility] SIGMOIDOSCOPY FLX DX W/COLLJ SPEC BR/WA IF PFRMD 03/17/2000 Sigmoidoscopy, flexible ALLERGIES Hops and Seasonal Allergies MEDICATIONS lisinopril (ZESTRIL, PRINIVIL) 20 mg tablet Take 1 tablet by mouth once daily. hydroCHLOROthiazide (HYDRODIURIL, ESIDRIX) 25 mg tablet Take 1 tablet by mouth once daily. polyethylene glycol 3350 (MIRALAX) 17 gram/dose powder Take 17 g by mouth twice daily. semaglutide (OZEMPIC) 0.25 mg or 0.5 mg(2 mg/1.5 mL) pen Inject 0.25 mg subcutaneously one time a week. cyclobenzaprine (FLEXERIL) 10 mg tablet Take 1 tablet by mouth twice daily as needed. fluticasone (FLONASE) 50 mcg/actuation nasal spray Use 2 Sprays in each nostril twice daily. Rinse mouth after use. montelukast (SINGULAIR) 10 mg tablet Take 1 tablet by mouth daily at bedtime. fluticasone-salmeterol (ADVAIR DISKUS) 100-50 mcg/dose inhaler Inhale 1 Puff as instructed twice daily. Rinse mouth out after use with water. metFORMIN ER (GLUCOPHAGE XR) 500 mg 24 hr tablet Take 1 tablet by mouth daily with breakfast. pantoprazole DR (PROTONIX) 40 mg tablet Take 1 tablet by mouth once daily. 30 minutes before breakfast, take on empty stomach. simvastatin (ZOCOR) 40 mg tablet Take 1 tablet by mouth daily at bedtime. Cetirizine (ZYRTEC) 10 mg cap fexofenadine (JOSUE) 180 mg tablet Take 180 mg by mouth once daily. guaifenesin (MUCINEX ORAL) Take by mouth. FREESTYLE LANCETS 28 gauge ubidecarenone (COQ-10 ORAL) Take by mouth. MAGNESIUM ASPARTATE HCL ORAL Take by mouth. glucosamine/msm/chondroitin A (IJVAOMEIBWD-JWTFID-ORH ORAL) Take by mouth. vitamin D3-folic acid 5,000 unit- 1 mg tab Take by mouth. Ipratropium [place] (ATROVENT) 0.03 % nasal spray Use 2 Sprays in the nose every 12 hours. blood sugar diagnostic (BLOOD GLUCOSE TEST) test strip Test blood sugar(s) 2 times daily. Dx: Type 2 DM - Controlled E11.9 Insulin: No COMPOUNDED PRESCRIPTION Allergy shots per [facility] CPAP AutoPAP 8-20 cmH2O, suitable mask, humidity, filters. Lifetime supplies. Dx: 327.23. Fax compliance rpt to [facility] in 6 weeks. Saw Newport 500 mg ORAL Cap Per package directions for prostate symptoms. aspirin(ECOTRIN LOW STRENGTH 81 MG TAB) THERAPEUTIC MULTIVITAMIN TAB Take one(1) tablet daily. FAMILY HISTORY Problem Relation Age of Onset Hypertension Mother Stroke Father Coronary Artery Disease Father PVD. Stents. Alive age 79 Hypertension Sister Heart Sister Lipids Sister Breast Cancer Sister Lipids Brother None Brother COPD Paternal Grandfather MS age 50s Colon Cancer No Family History Social History Tobacco Use Smoking status: Never Smokeless tobacco: Never Vaping Use Vaping Use: Never used Substance Use Topics Alcohol use: No Drug use: No ASSESSMENT/PLAN: 1. Acute cough - ICD9: 786.2, ICD10: R05.1 (primary diagnosis) - COVID WITH FLUA+B, ROUTINE 2. At increased risk of exposure to COVID-19 virus - ICD9: V15.89, ICD10: Z91.89 - COVID WITH FLUA+B, ROUTINE Patient was instructed to use [id number] medications for supportive therapy Prescription instructions reviewed with patient as applicable. Potential red flag symptoms discussed with the patient. Reviewed appropriate action plan to take if red flag symptoms occur. Patient agreeable to treatment plan. Vy Jordan APRN.GENET documented in this encounter [facility] 07-07-2022 Miscellaneous Notes No response via covermymed. Called the pharmacy and they report they ran this rx with a free one mouth supply card. Nothing else is needed for this month. REJI BRITO (Nieves: [id number]) Rx #: [id number] Ozempic (0.25 or 0.5 MG/DOSE) 2MG/1.5ML pen-injectors Form [facility] [facility] (MRx) [employer] Electronic Prior Authorization Form 2017 Created 8 days ago Sent to Plan 19 hours ago Determination Wait for Questions [employer] 2016 4 Part typically responds with questions in less than 15 minutes, but may take up to 24 hours. documented in this encounter [facility] 06-23-2022 Instructions Kristian Cadet MD - 06/23/2022 5:56 PM EDT CALL FOR OZEMPIC NEXT STEP UP DOSE IF MEDICATION WORKING OKAY. DISCONTINUE ACTOS TABLET. OZEMPIC INJECTION REPLACING THIS. documented in this encounter [facility] 06-23-2022 History of Present illness Narrative This note was created using [employer]. Subjective Reji Brito is a 57 year old male. ASTHMA CONTROL TEST Date: 06/23/2022 In the last 4 weeks, how much of the time did your asthma keep you from getting as much done at work or home that you wanted to do? Some of the time (3) In the last 4 weeks, how often have you had shortness of breath? Once or twice per week (4) In the last 4 weeks, how often did your asthma symptoms (wheezing, coughing, shortness of breath, chest tightness or pain) wake you up at night or earlier than usual? Once or twice (4) In the last 4 weeks, how often have you used your rescue inhaler or nebulizer medication (such as Albuterol, Proventil, Ventolin, Maxair, Xoponex, or Primatene Mist)? Not at all (5) In the last 4 weeks, how would you rate your asthma control? Somewhat controlled (3) Total: 16-19 Diabetes, hypertension, and lipids were controlled. GENNY was controlled, and he was using his CPAP daily with benefit. NAFLD was monitored. His back pain was controlled now. He was aware of weight gain. He was on a muscle relaxer from pain management. He sees Dr. Baig for GI in [place]. He sees Dr. Reagan for optometry. He sees [facility] for allergies. Review of Systems Constitutional: Negative. Eyes: Negative. Respiratory: Negative. Cardiovascular: Negative. Gastrointestinal: Negative. Genitourinary: Negative. Musculoskeletal: Negative. Neurological: Negative. Psychiatric/Behavioral: Negative. PAST MEDICAL HISTORY Diagnosis Date Adenomatous colon polyp 10/23/2014 Allergic rhinitis 01/18/2015 Asthma Controlled type 2 diabetes mellitus without complication, without long-term current use of insulin ([facility]) 11/10/2019 Coronary artery disease COVID-19 09/24/2020 Depressive disorder 2008 DIVERTICULITIS OF COLON W/O BLEED 05/01/2006 Gynecomastia, male 05/18/2014 Hypertension Irritable bowel syndrome Lumbar disc disease 2003 Nonalcoholic fatty liver disease GENNY (obstructive sleep apnea) 10/19/2009 CPAP 8 cm H2O [facility] Other and unspecified hyperlipidemia Primary osteoarthritis of left knee 09/17/2016 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 Tonsillar hypertrophy 11/21/2015 Total knee replacement status 04/12/2014 Vertigo 08/2013 PAST SURGICAL HISTORY Procedure Laterality Date ARTHRP KNE CONDYLE&PLATU MEDIAL&LAT COMPARTMENTS 01/03/2014 Knee replacement, total, Right COLONOSCOPY FLX DX W/COLLJ SPEC WHEN PFRMD 10/23/2014 Colonoscopy COLONOSCOPY GEN ANES 03/12/2020 hemorrhoids ENDOSCOPIC SEPTOPLASTY Bilateral 06/2018 [facility] SIGMOIDOSCOPY FLX DX W/COLLJ SPEC BR/WA IF PFRMD 03/17/2000 Sigmoidoscopy, flexible FAMILY HISTORY Problem Relation Age of Onset Hypertension Mother Stroke Father Coronary Artery Disease Father PVD. Stents. Alive age 79 Lipids Brother COPD Paternal Grandfather MS age 50s Hypertension Sister Heart Sister Lipids Sister Breast Cancer Sister None Brother Colon Cancer No Family History Social History Tobacco Use Smoking status: Never Smokeless tobacco: Never Vaping Use Vaping Use: Never used Substance Use Topics Alcohol use: No Drug use: No ALLERGIES Allergen Reactions Hops Itching Seasonal Allergies Unknown Trees, grasses, weeds, ragweed and cockroaches verified by skin testing Current Outpatient Medications Medication Sig cyclobenzaprine (FLEXERIL) 10 mg tablet Take 1 tablet by mouth twice daily as needed. fluticasone (FLONASE) 50 mcg/actuation nasal spray Use 2 Sprays in each nostril twice daily. Rinse mouth after use. pioglitazone (ACTOS) 15 mg tablet Take 1 tablet by mouth once daily. montelukast (SINGULAIR) 10 mg tablet Take 1 tablet by mouth daily at bedtime. fluticasone-salmeterol (ADVAIR DISKUS) 100-50 mcg/dose inhaler Inhale 1 Puff as instructed twice daily. Rinse mouth out after use with water. metFORMIN ER (GLUCOPHAGE XR) 500 mg 24 hr tablet Take 1 tablet by mouth daily with breakfast. pantoprazole DR (PROTONIX) 40 mg tablet Take 1 tablet by mouth once daily. 30 minutes before breakfast, take on empty stomach. simvastatin (ZOCOR) 40 mg tablet Take 1 tablet by mouth daily at bedtime. lisinopril (ZESTRIL, PRINIVIL) 20 mg tablet Take 1 tablet by mouth once daily. hydroCHLOROthiazide (HYDRODIURIL, ESIDRIX) 25 mg tablet Take 1 tablet by mouth once daily. Cetirizine (ZYRTEC) 10 mg cap polyethylene glycol 3350 (MIRALAX) 17 gram/dose powder Take 17 g by mouth twice daily. fexofenadine (JOSUE) 180 mg tablet Take 180 mg by mouth once daily. guaifenesin (MUCINEX ORAL) Take by mouth. FREESTYLE LANCETS 28 gauge ubidecarenone (COQ-10 ORAL) Take by mouth. MAGNESIUM ASPARTATE HCL ORAL Take by mouth. glucosamine/msm/chondroitin A (YLLIBRMKFGY-ZFHUGK-GCT ORAL) Take by mouth. vitamin D3-folic acid 5,000 unit- 1 mg tab Take by mouth. Ipratropium [place] (ATROVENT) 0.03 % nasal spray Use 2 Sprays in the nose every 12 hours. blood sugar diagnostic (BLOOD GLUCOSE TEST) test strip Test blood sugar(s) 2 times daily. Dx: Type 2 DM - Controlled E11.9 Insulin: No COMPOUNDED PRESCRIPTION Allergy shots per [facility] CPAP AutoPAP 8-20 cmH2O, suitable mask, humidity, filters. Lifetime supplies. Dx: 327.23. Fax compliance rpt to [facility] in 6 weeks. Saw Newport 500 mg ORAL Cap Per package directions for prostate symptoms. aspirin(ECOTRIN LOW STRENGTH 81 MG TAB) THERAPEUTIC MULTIVITAMIN TAB Take one(1) tablet daily. No current facility-administered medications for this visit. Objective BP 118/70 (BP Site: Left Arm, BP Position: Sitting, BP Cuff Size: Large Adult) Pulse 80 Temp 36.1 C (96.9 F) (Temporal) Resp 20 Ht 172.7 cm (5' 8) Wt 110.2 kg (243 lb) BMI 36.95 kg/m Physical Exam Constitutional: Appearance: He is not ill-appearing. HENT: Head: Normocephalic. Eyes: General: No scleral icterus. Conjunctiva/sclera: Conjunctivae normal. Cardiovascular: Rate and Rhythm: Normal rate and regular rhythm. Heart sounds: No murmur heard. No gallop. Pulmonary: Effort: Pulmonary effort is normal. Breath sounds: Normal breath sounds. Abdominal: Palpations: Abdomen is soft. Tenderness: There is no abdominal tenderness. Musculoskeletal: General: No tenderness. Normal range of motion. Lymphadenopathy: Cervical: No cervical adenopathy. Neurological: General: No focal deficit present. Mental Status: He is alert. Gait: Gait normal. Psychiatric: Mood and Affect: Mood normal. Feet:Shoes and socks removed, No deformities, ulcers, calluses, normal distal pulses, and sensitive to 10 gm monofilament Assessment and Plan 1. Routine medical exam - ICD9: V70.0, ICD10: Z00.00 (primary diagnosis) - Counseled on healthy diet and regular exercise - Discussed need for and benefit of weight loss. BMI 36.95 kg/(m^2) - Depression screening tool completed and reviewed with patient. Based on score and interview, patient is not at risk for depression and recommended no further intervention at this time. - Patient was counseled [id number] by myself (the billing provider) for the following immunizations and vaccine components, including side effects: COVID-19. Patient consents for immunization and understands risks and benefits. A VIS sheet on each immunization was given to the patient. - DEPRESSION SCREENING/ASSESSMENT 2. Primary hypertension - ICD9: 401.9, ICD10: I10 - good control - Continue medications. - Goal of BP <130/80 - LISINOPRIL 20 MG TABLET - HYDROCHLOROTHIAZIDE 25 MG TABLET 3. Other hyperlipidemia - ICD9: 272.4, ICD10: E78.49 Controlled. 4. Controlled type 2 diabetes mellitus without complication, without long-term current use of insulin (HCC) - ICD9: 250.00, ICD10: E11.9 Controlled. - Discontinue ACTOS due to weight gain. - SEMAGLUTIDE 0.25 MG OR 0.5 MG (2 MG/1.5 ML) SUBCUTANEOUS PEN INJECTOR. New medication. Discussed medication dosage, usage, goals of therapy, and side effects. - BASIC METABOLIC PNL - HGB A1C 5. GENNY on CPAP - ICD9: 327.23, V46.8, ICD10: G47.33, Z99.89 Well controlled. 6. Mild intermittent asthmatic bronchitis without complication - ICD9: 493.90, ICD10: J45.20 Mild intermittent Asthma stable - Continue current meds 7. Need for COVID-19 vaccine - ICD9: V04.89, ICD10: Z23 - [email or web address] COVID-19 BIVALENT BOOSTER VACCINE, AGE 12+ YR 8. Fatty liver disease, nonalcoholic - ICD9: 571.8, ICD10: K76.0 Refilled. - POLYETHYLENE GLYCOL 3350 17 GRAM/DOSE ORAL POWDER 9. Obesity, Class II, BMI 35-39.9 - ICD9: 278.00, ICD10: E66.9 Weight increasing - Discontinue ACTOS and start OZEMPIC. Kristian Cadet MD documented in this encounter [facility] 06-19-2022 History of Present illness Narrative Radiology Service Progress Note PATIENT NAME: Reji Brito DATE OF SERVICE: June 19, 2022 TIME: 8:12 AM PATIENT IDENTITY VERIFICATION COMPLETED USING TWO (2) IDENTIFIERS: Name and Date of confirmed by patient verbally. FALL SCREENING: Has the patient had 2 falls in the last year or 1 fall with injury or currently using an Ambulatory Assistive Device (Walker, Cane, Wheelchair, Crutches, etc.)? No PATIENT GENDER DATA: Male PATIENT RELEVANT IMPLANT DATA REVIEWED: Not Applicable RADIOLOGY DEPARTMENT: Ultrasound PERIPHERAL IV DATA: Not applicable SIGNED BY: Nikki Casillas RDMS June 19, 2022 8:12 AM documented in this encounter [facility] 06-16-2022 Instructions Yaz Sotelo PA-C - 06/16/2022 9:10 AM EDT -- Continue working on diet and weight loss to aid in fatty liver. Continue with good diabetic control. documented in this encounter [facility] 06-16-2022 History of Present illness Narrative CHIEF COMPLAINT: Patient presents with: Recheck: No concerns HPI Reji Brito is a 57 year old male here today for Recheck (No concerns) PMHx of HTN, HLD, GENNY, GERD, colon polyps, BPH, T2DM, osteoarthritis, obesity Patient tells me that he is doing well today. Denies abdominal pain, nausea, vomiting, GERD symptoms. Appetite is good. Weight is stable. Bowel movements are regular. No bloody or black stools. Notes increased bloating on occasion, denies LE edema. No jaundice. Having good control with his diabetes. Recent A1c was 6.3. Abdominal ultrasound 12/12/2020: IMPRESSION: Findings are suggestive of hepatic steatosis and focal fatty sparing. Gallbladder stone. Component Latest Ref Rng & Units 12/14/2021 Protein, Total 6.3 - 8.0 g/dL 7.8 Albumin 3.9 - 4.9 g/dL 4.6 Calcium 8.5 - 10.2 mg/dL 10.0 Bilirubin, Total 0.2 - 1.3 mg/dL 0.5 Alkaline Phosphatase 38 - 113 U/L 42 AST 14 - 40 U/L 23 ALT 10 - 54 U/L 28 Glucose 74 - 99 mg/dL 102 (H) BUN 9 - 24 mg/dL 20 Creatinine 0.73 - 1.22 mg/dL 1.19 Sodium 136 - 144 mmol/L 138 Potassium 3.7 - 5.1 mmol/L 4.3 Chloride 97 - 105 mmol/L 98 CO2 22 - 30 mmol/L 28 Anion Gap 9 - 18 mmol/L 12 eGFR >=60 mL/min/1.73m 71 Cholesterol, Total <200 mg/dL 186 Triglyceride <150 mg/dL 124 HDL Cholesterol >39 mg/dL 45 Non HDL Cholesterol <130 mg/dL 141 (H) Fasting Time hrs 12 VLDL Cholesterol <30 mg/dL 25 TC:HDL Ratio <5.10 4.13 LDL Cholesterol <100 mg/dL 116 (H) LDL:HDL Ratio <2.54 2.58 (H) Hemoglobin A1C 4.3 - 5.6 % 6.3 (H) Estimated Average Glucose mg/dL 134 Component Latest Ref Rng & Units 12/02/2021 WBC 3.70 - 11.00 k/uL 6.67 RBC 4.20 - 6.00 m/uL 4.77 Hemoglobin 13.0 - 17.0 g/dL 14.6 Hematocrit 39.0 - 51.0 % 43.2 MCV 80.0 - 100.0 fL 90.6 MCH 26.0 - 34.0 pg 30.6 MCHC 30.5 - 36.0 g/dL 33.8 RDW-CV 11.5 - 15.0 % 12.8 Platelet Count 150 - 400 k/uL 290 MPV 9.0 - 12.7 fL 8.7 (L) Absolute nRBC <0.01 k/uL <0.01 Current Outpatient Medications Medication Sig cyclobenzaprine (FLEXERIL) 10 mg tablet Take 1 tablet by mouth twice daily as needed. fluticasone (FLONASE) 50 mcg/actuation nasal spray Use 2 Sprays in each nostril twice daily. Rinse mouth after use. pioglitazone (ACTOS) 15 mg tablet Take 1 tablet by mouth once daily. montelukast (SINGULAIR) 10 mg tablet Take 1 tablet by mouth daily at bedtime. fluticasone-salmeterol (ADVAIR DISKUS) 100-50 mcg/dose inhaler Inhale 1 Puff as instructed twice daily. Rinse mouth out after use with water. metFORMIN ER (GLUCOPHAGE XR) 500 mg 24 hr tablet Take 1 tablet by mouth daily with breakfast. pantoprazole DR (PROTONIX) 40 mg tablet Take 1 tablet by mouth once daily. 30 minutes before breakfast, take on empty stomach. simvastatin (ZOCOR) 40 mg tablet Take 1 tablet by mouth daily at bedtime. lisinopril (ZESTRIL, PRINIVIL) 20 mg tablet Take 1 tablet by mouth once daily. hydroCHLOROthiazide (HYDRODIURIL, ESIDRIX) 25 mg tablet Take 1 tablet by mouth once daily. Cetirizine (ZYRTEC) 10 mg cap polyethylene glycol 3350 (MIRALAX) 17 gram/dose powder Take 17 g by mouth twice daily. fexofenadine (JOSUE) 180 mg tablet Take 180 mg by mouth once daily. guaifenesin (MUCINEX ORAL) Take by mouth. FREESTYLE LANCETS 28 gauge ubidecarenone (COQ-10 ORAL) Take by mouth. MAGNESIUM ASPARTATE HCL ORAL Take by mouth. glucosamine/msm/chondroitin A (ZCRPUZEMWME-CJDLIE-VDU ORAL) Take by mouth. vitamin D3-folic acid 5,000 unit- 1 mg tab Take by mouth. Ipratropium [place] (ATROVENT) 0.03 % nasal spray Use 2 Sprays in the nose every 12 hours. blood sugar diagnostic (BLOOD GLUCOSE TEST) test strip Test blood sugar(s) 2 times daily. Dx: Type 2 DM - Controlled E11.9 Insulin: No COMPOUNDED PRESCRIPTION Allergy shots per [facility] CPAP AutoPAP 8-20 cmH2O, suitable mask, humidity, filters. Lifetime supplies. Dx: 327.23. Fax compliance rpt to [facility] in 6 weeks. Saw [place] 500 mg ORAL Cap Per package directions for prostate symptoms. aspirin(ECOTRIN LOW STRENGTH 81 MG TAB) THERAPEUTIC MULTIVITAMIN TAB Take one(1) tablet daily. No current facility-administered medications for this visit. ALLERGIES Allergen Reactions Hops Itching Seasonal Allergies Unknown Trees, grasses, weeds, ragweed and cockroaches verified by skin testing Social History Tobacco Use Smoking status: Never Smokeless tobacco: Never Vaping Use Vaping Use: Never used Substance Use Topics Alcohol use: No Drug use: No PAST MEDICAL HISTORY Diagnosis Date Adenomatous colon polyp 10/23/2014 Allergic rhinitis 01/18/2015 Asthma Controlled type 2 diabetes mellitus without complication, without long-term current use of insulin ([facility]) 11/10/2019 Coronary artery disease COVID-19 09/24/2020 Depressive disorder 2007 DIVERTICULITIS OF COLON W/O BLEED 05/01/2006 Gynecomastia, male 05/18/2014 Hypertension Irritable bowel syndrome Lumbar disc disease 2002 Nonalcoholic fatty liver disease GENNY (obstructive sleep apnea) 10/19/2009 CPAP 8 cm H2O [facility] Other and unspecified hyperlipidemia Primary osteoarthritis of left knee 09/17/2016 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 Tonsillar hypertrophy 11/21/2015 Total knee replacement status 04/12/2014 Vertigo 08/2013 PAST SURGICAL HISTORY Procedure Laterality Date ARTHRP KNE CONDYLE&PLATU MEDIAL&LAT COMPARTMENTS 01/03/2014 Knee replacement, total, Right COLONOSCOPY FLX DX W/COLLJ SPEC WHEN PFRMD 10/23/2014 Colonoscopy COLONOSCOPY GEN ANES 03/12/2020 hemorrhoids ENDOSCOPIC SEPTOPLASTY Bilateral 06/2018 [place] [facility] SIGMOIDOSCOPY FLX DX W/COLLJ SPEC BR/WA IF PFRMD 03/17/2000 Sigmoidoscopy, flexible FAMILY HISTORY Problem Relation Age of Onset Hypertension Mother Stroke Father Coronary Artery Disease Father PVD. Stents. Alive age 79 Lipids Brother COPD Paternal Grandfather MS age 50s Hypertension Sister Heart Sister Lipids Sister Breast Cancer Sister None Brother Colon Cancer No Family History REVIEW OF SYSTEMS Review of Systems Respiratory: Positive for chest tightness. All other systems reviewed and are negative. PHYSICAL EXAM Ht 5' 11 (1.80m) Wt 244 lb (110.7kg) BMI 34.05 kg/(m^2). Physical Exam Constitutional: Appearance: Normal appearance. He is obese. HENT: Head: Normocephalic and atraumatic. Nose: Nose normal. Eyes: General: No scleral icterus. Extraocular Movements: Extraocular movements intact. Conjunctiva/sclera: Conjunctivae normal. Pupils: Pupils are equal, round, and reactive to light. Cardiovascular: Rate and Rhythm: Normal rate and regular rhythm. Pulses: Normal pulses. Heart sounds: Normal heart sounds. Pulmonary: Effort: Pulmonary effort is normal. Breath sounds: Normal breath sounds. Abdominal: General: Abdomen is flat. Bowel sounds are normal. Palpations: Abdomen is soft. Tenderness: There is no abdominal tenderness. Musculoskeletal: General: Normal range of motion. Cervical back: Normal range of motion and neck supple. Skin: General: Skin is warm and dry. Coloration: Skin is not jaundiced. Neurological: General: No focal deficit present. Mental Status: He is alert and oriented to person, place, and time. Psychiatric: Mood and Affect: Mood normal. Behavior: Behavior normal. Thought Content: Thought content normal. Judgment: Judgment normal. Assessment/Plan (K75.81) Nonalcoholic steatohepatitis (ADAN) (primary encounter diagnosis) 1. Nonalcoholic steatohepatitis (ADAN) -- Overall doing well today. -- Continue with good diabetic control, exercise, diet and weight loss. -- Abd US for surveillance of fatty liver - US ABD RT UPPER QUADRANT; Future Follow up in office 1 year/PRN. Recommended to please call office/go to ER if fever, chills, chest pain, SOB, diarrhea, nausea, emesis, worsening abdominal pain, dehydration occurs I spent 20 minutes in the visit, with more than 50% of the total [id number] time of the visit in counseling / coordination of care. I have confirmed and edited as necessary, the PFSH and ROS obtained by others. Yaz Sotelo PA-C June 16, 2022 9:09 AM documented in this encounter [facility] 05-21-2022 Miscellaneous Notes Addended by: RONALD DENIS on: 05/21/2022 09:14 AM Modules accepted: Orders documented in this encounter [facility] 05-21-2022 History of Present illness Narrative Subjective HPI HPI Reji Brito is a 57 year old male who presents today for CC of cough, congtestion/sinus pressure, h/a. This started 6 days ago. Has tried otc medication for relief. Symptoms are worsened by nothing. Risk factors sick exposures at work. Denies cp/sob, n/v/d, ear pain. Hx of sinus infections. .Patient presents with: Chest Congestion: cough, sinus pressure and headache x 6 days PAST MEDICAL HISTORY Diagnosis Date Adenomatous colon polyp 10/23/2014 Allergic rhinitis 01/18/2015 Asthma Controlled type 2 diabetes mellitus without complication, without long-term current use of insulin ([facility]) 11/10/2019 Coronary artery disease COVID-19 09/24/2020 Depressive disorder 2008 DIVERTICULITIS OF COLON W/O BLEED 05/01/2006 Gynecomastia, male 05/18/2014 Hypertension Irritable bowel syndrome Lumbar disc disease 2002 Nonalcoholic fatty liver disease GENNY (obstructive sleep apnea) 10/19/2009 CPAP 8 cm H2O [facility] Other and unspecified hyperlipidemia Primary osteoarthritis of left knee 09/17/2016 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 Tonsillar hypertrophy 11/21/2015 Total knee replacement status 04/12/2014 Vertigo 08/2013 PAST SURGICAL HISTORY Procedure Laterality Date ARTHRP KNE CONDYLE&PLATU MEDIAL&LAT COMPARTMENTS 01/03/2014 Knee replacement, total, Right COLONOSCOPY FLX DX W/COLLJ SPEC WHEN PFRMD 10/23/2014 Colonoscopy COLONOSCOPY GEN ANES 03/12/2020 hemorrhoids ENDOSCOPIC SEPTOPLASTY Bilateral 06/2018 [facility] SIGMOIDOSCOPY FLX DX W/COLLJ SPEC BR/WA IF PFRMD 03/17/2000 Sigmoidoscopy, flexible ALLERGIES Hops and Seasonal Allergies MEDICATIONS cyclobenzaprine (FLEXERIL) 10 mg tablet Take 1 tablet by mouth twice daily as needed. fluticasone (FLONASE) 50 mcg/actuation nasal spray Use 2 Sprays in each nostril twice daily. Rinse mouth after use. pioglitazone (ACTOS) 15 mg tablet Take 1 tablet by mouth once daily. pioglitazone (ACTOS) 15 mg tablet Take 1 tablet by mouth once daily. montelukast (SINGULAIR) 10 mg tablet Take 1 tablet by mouth daily at bedtime. fluticasone-salmeterol (ADVAIR DISKUS) 100-50 mcg/dose inhaler Inhale 1 Puff as instructed twice daily. Rinse mouth out after use with water. metFORMIN ER (GLUCOPHAGE XR) 500 mg 24 hr tablet Take 1 tablet by mouth daily with breakfast. pantoprazole DR (PROTONIX) 40 mg tablet Take 1 tablet by mouth once daily. 30 minutes before breakfast, take on empty stomach. simvastatin (ZOCOR) 40 mg tablet Take 1 tablet by mouth daily at bedtime. lisinopril (ZESTRIL, PRINIVIL) 20 mg tablet Take 1 tablet by mouth once daily. hydroCHLOROthiazide (HYDRODIURIL, ESIDRIX) 25 mg tablet Take 1 tablet by mouth once daily. Cetirizine (ZYRTEC) 10 mg cap polyethylene glycol 3350 (MIRALAX) 17 gram/dose powder Take 17 g by mouth twice daily. fexofenadine (JOSUE) 180 mg tablet Take 180 mg by mouth once daily. guaifenesin (MUCINEX ORAL) Take by mouth. FREESTYLE LANCETS 28 gauge ubidecarenone (COQ-10 ORAL) Take by mouth. MAGNESIUM ASPARTATE HCL ORAL Take by mouth. glucosamine/msm/chondroitin A ([id number]-TZRDIR-ZPC ORAL) Take by mouth. vitamin D3-folic acid 5,000 unit- 1 mg tab Take by mouth. Ipratropium [place] (ATROVENT) 0.03 % nasal spray Use 2 Sprays in the nose every 12 hours. blood sugar diagnostic (BLOOD GLUCOSE TEST) test strip Test blood sugar(s) 2 times daily. Dx: Type 2 DM - Controlled E11.9 Insulin: No COMPOUNDED PRESCRIPTION Allergy shots per [facility] CPAP AutoPAP 8-20 cmH2O, suitable mask, humidity, filters. Lifetime supplies. Dx: 327.23. Fax compliance rpt to [facility] in 6 weeks. Saw [place] 500 mg ORAL Cap Per package directions for prostate symptoms. aspirin(ECOTRIN LOW STRENGTH 81 MG TAB) THERAPEUTIC MULTIVITAMIN TAB Take one(1) tablet daily. FAMILY HISTORY Problem Relation Age of Onset Hypertension Mother Stroke Father Coronary Artery Disease Father PVD. Stents. Alive age 79 Lipids Brother COPD Paternal Grandfather MS age 50s Hypertension Sister Heart Sister Lipids Sister Breast Cancer Sister None Brother Colon Cancer No Family History Social History Tobacco Use Smoking status: Never Smokeless tobacco: Never Vaping Use Vaping Use: Never used Substance Use Topics Alcohol use: No Drug use: No ROS Objective Blood pressure 128/74, pulse 90, temperature 36.1 C (97 F), resp. rate 16, weight 111.1 kg (245 lb), SpO2 97 %. Component Latest Ref Rng & Units 12/14/2021 Protein, Total 6.3 - 8.0 g/dL 7.8 Albumin 3.9 - 4.9 g/dL 4.6 Calcium 8.5 - 10.2 mg/dL 10.0 Bilirubin, Total 0.2 - 1.3 mg/dL 0.5 Alkaline Phosphatase 38 - 113 U/L 42 AST 14 - 40 U/L 23 ALT 10 - 54 U/L 28 Glucose 74 - 99 mg/dL 102 (H) BUN 9 - 24 mg/dL 20 Creatinine 0.73 - 1.22 mg/dL 1.19 Sodium 136 - 144 mmol/L 138 Potassium 3.7 - 5.1 mmol/L 4.3 Chloride 97 - 105 mmol/L 98 CO2 22 - 30 mmol/L 28 Anion Gap 9 - 18 mmol/L 12 eGFR >=60 mL/min/1.73m 71 Physical Exam Constitutional: General: He is not in acute distress. Appearance: He is not toxic-appearing or diaphoretic. HENT: Head: Normocephalic and atraumatic. Nose: Right Sinus: Frontal sinus tenderness present. Left Sinus: Frontal sinus tenderness present. Cardiovascular: Rate and Rhythm: Normal rate and regular rhythm. Heart sounds: Normal heart sounds, S1 normal and S2 normal. Pulmonary: Effort: Pulmonary effort is normal. Breath sounds: Normal breath sounds. Lymphadenopathy: Cervical: No cervical adenopathy. Right cervical: No superficial cervical adenopathy. Left cervical: No superficial cervical adenopathy. Neurological: Mental Status: He is alert and oriented to person, place, and time. Gait: Gait is intact. ASSESSMENT/PLAN: 1. URI, acute - ICD9: 465.9, ICD10: J06.9 (primary diagnosis) - Discussed viral etiology and rationale for treatment. - Symptomatic treatment with prn analgesia - Supportive care with fluids and rest - Follow up in 3-5 days if symptoms persist or sooner if worsening of symptoms - PREDNISONE 20 MG TABLET 2. Sinus pressure - ICD9: 478.19, ICD10: J34.89 Start prednisone today, if s/s persist/worsen 4-5 days fill/take atb rx - Supportive care with plenty of fluids, rest, and analgesia prn. - Follow up in 3-5 days if symptoms persist or worsen. - AMOXICILLIN 875 MG-POTASSIUM CLAVULANATE 125 MG TABLET - PREDNISONE 20 MG TABLET Agrees to plan Ronald Denis APRN.CNP documented in this encounter [facility] 04-29-2022 Miscellaneous Notes Arti is calling on behalf of Adam. is asking for refill for Flonase. The prescription needs to be changed. She said the last time Adam discussed the med with the provider they agreed he should do 2 sprays TWICE daily. He has been doing this, but runs out of medication faster. Arti is asking the script be changed to reflect this usage. Patient's pharmacy is [facility] and he needs it called in. He has been using OTC to fill in for the script recently. documented in this encounter [facility] 01-27-2022 Miscellaneous Notes Last appt with pcp 12/09/21. Labs completed 12/14/21 Next appt with pcp 06/23/22. 90 day supply is requested. Patient has been identified by name and date of : Yes Pending Prescriptions Disp Refills PIOGLITAZONE 15 MG TABLET 90 tablet 3 Sig: Take 1 tablet by mouth once daily. MELODY: No RX INSTRUCTIONS: Patient requesting a call when RX is approved and sent to the pharmacy. Please call patient at: [phone]. Carine Dickey Pss documented in this encounter [facility] 01-02-2022 Miscellaneous Notes Ok. Spoke with Arti, patients on telephone. She sates that patient is feeling better after taking the Augmentin given to him at on Thursday. He went for a walk last night and returned to work this morning with no fever, however he is still coughing frequently and has phlegm. TAYLA Bhat Update on Thursday. Patient calling was seen in urgent care taking prednisone rx, he is still not feeling well. Aware PCP is not in office today. Advised to return to urgent care for evaluation again. documented in this encounter [facility] 12-28-2021 History of Present illness Narrative CC: Patient presents with: Sinus Problem: x 3 weeks HPI: Reji Birto is a 56 year old male who presents to the office with complaint of head congestion and sinus symptoms for 3 weeks. Symptoms are worsening Associated symptoms includes nasal congestion and facial pain/pressure. Denies fever, nausea, vomiting and diarrhea. Treatments tried include nothing so far. with no relief of symptoms. Sick contacts: unknown. History of asthma, frequent episodes of bronchitis, chronic bronchitis, bronchiectasis or COPD: No Smoker: No Seasonal/environmental allergies: No The ROS is otherwise negative. The patient's pmh, medications, allergies, and past visits are reviewed. PHYSICAL EXAM: BP 120/80 Pulse (!) 125 Temp (!) 38.1 C (100.5 F) Resp 21 Wt 110 kg (242 lb 9.6 oz) SpO2 96% BMI 33.84 kg/m General appearance: alert, cooperative, pleasant, in no acute distress Head: Normocephalic Eyes: EOM's intact, conjunctiva pink and moist, no icterus, sclera white, non-injected Ears: Right ear: External ear/canal- Normal, TM - clear with good landmarks. Left ear: External ear/canal- Normal, TM - clear with good landmarks Oropharynx:moist without lesions, No erythema, exudates or tonsillar hypertrophy. Heart: Negative. RRR without obvious murmur, gallop, or rubs. No ectopy. Lungs: clear to auscultation, without rales or wheeze, good air exchange PAST MEDICAL HISTORY Diagnosis Date Adenomatous colon polyp 10/23/2014 Allergic rhinitis 01/18/2015 Asthma Controlled type 2 diabetes mellitus without complication, without long-term current use of insulin ([facility]) 11/10/2019 Coronary artery disease COVID-19 09/24/2020 Depressive disorder 2008 DIVERTICULITIS OF COLON W/O BLEED 05/01/2006 Gynecomastia, male 05/18/2014 Hypertension Irritable bowel syndrome Lumbar disc disease 2003 Nonalcoholic fatty liver disease GENNY (obstructive sleep apnea) 10/19/2009 CPAP 8 cm H2O [facility] Other and unspecified hyperlipidemia Primary osteoarthritis of left knee 09/17/2016 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 Tonsillar hypertrophy 11/21/2015 Total knee replacement status 04/12/2014 Vertigo 08/2013 PAST SURGICAL HISTORY Procedure Laterality Date ARTHRP KNE CONDYLE&PLATU MEDIAL&LAT COMPARTMENTS 01/03/2014 Knee replacement, total, Right COLONOSCOPY FLX DX W/COLLJ SPEC WHEN PFRMD 10/23/2014 Colonoscopy COLONOSCOPY GEN ANES 03/12/2020 hemorrhoids ENDOSCOPIC SEPTOPLASTY Bilateral 06/2018 [place] [facility] SIGMOIDOSCOPY FLX DX W/COLLJ SPEC BR/WA IF PFRMD 03/17/2000 Sigmoidoscopy, flexible ALLERGIES Hops and Seasonal Allergies MEDICATIONS predniSONE (DELTASONE) 10 mg tablet Take 5 tablets by mouth once daily for 1 day, THEN 4 tablets once daily for 1 day, THEN 3 tablets once daily for 1 day, THEN 2 tablets once daily for 1 day, THEN 1 tablet once daily for 1 day. montelukast (SINGULAIR) 10 mg tablet Take 1 tablet by mouth daily at bedtime. pioglitazone (ACTOS) 15 mg tablet Take 1 tablet by mouth once daily. cyclobenzaprine (FLEXERIL) 10 mg tablet Take 1 tablet by mouth twice daily as needed. fluticasone-salmeterol (ADVAIR DISKUS) 100-50 mcg/dose inhaler Inhale 1 Puff as instructed twice daily. Rinse mouth out after use with water. metFORMIN ER (GLUCOPHAGE XR) 500 mg 24 hr tablet Take 1 tablet by mouth daily with breakfast. pantoprazole DR (PROTONIX) 40 mg tablet Take 1 tablet by mouth once daily. 30 minutes before breakfast, take on empty stomach. simvastatin (ZOCOR) 40 mg tablet Take 1 tablet by mouth daily at bedtime. fluticasone (FLONASE) 50 mcg/actuation nasal spray Use 2 Sprays in each nostril once daily. Rinse mouth after use. lisinopril (ZESTRIL, PRINIVIL) 20 mg tablet Take 1 tablet by mouth once daily. hydroCHLOROthiazide (HYDRODIURIL, ESIDRIX) 25 mg tablet Take 1 tablet by mouth once daily. Cetirizine (ZYRTEC) 10 mg cap polyethylene glycol 3350 (MIRALAX) 17 gram/dose powder Take 17 g by mouth twice daily. fexofenadine (JOSUE) 180 mg tablet Take 180 mg by mouth once daily. guaifenesin (MUCINEX ORAL) Take by mouth. FREESTYLE LANCETS 28 gauge ubidecarenone (COQ-10 ORAL) Take by mouth. MAGNESIUM ASPARTATE HCL ORAL Take by mouth. glucosamine/msm/chondroitin A (NILYAYLAXTL-RCIXEW-NXE ORAL) Take by mouth. vitamin D3-folic acid 5,000 unit- 1 mg tab Take by mouth. Ipratropium [place] (ATROVENT) 0.03 % nasal spray Use 2 Sprays in the nose every 12 hours. blood sugar diagnostic (BLOOD GLUCOSE TEST) test strip Test blood sugar(s) 2 times daily. Dx: Type 2 DM - Controlled E11.9 Insulin: No COMPOUNDED PRESCRIPTION Allergy shots per [place] [facility] CPAP AutoPAP 8-20 cmH2O, suitable mask, humidity, filters. Lifetime supplies. Dx: 327.23. Fax compliance rpt to [facility] in 6 weeks. Saw [place] 500 mg ORAL Cap Per package directions for prostate symptoms. aspirin(ECOTRIN LOW STRENGTH 81 MG TAB) THERAPEUTIC MULTIVITAMIN TAB Take one(1) tablet daily. FAMILY HISTORY Problem Relation Age of Onset Hypertension Mother Stroke Father Coronary Artery Disease Father PVD. Stents. Alive age 79 Lipids Brother COPD Paternal Grandfather MS age 50s Hypertension Sister Heart Sister Lipids Sister Breast Cancer Sister None Brother Colon Cancer No Family History Social History Tobacco Use Smoking status: Never Smoker Smokeless tobacco: Never Used Vaping Use Vaping Use: Never used Substance Use Topics Alcohol use: No Drug use: No ASSESSMENT/PLAN: 1. Sinus congestion - ICD9: 478.19, ICD10: R09.81 Prescription instructions reviewed with patient as applicable. Augmentin bid for 5 days. Potential red flag symptoms discussed with the patient. Reviewed appropriate action plan to take if red flag symptoms occur. Patient agreeable to treatment plan. Vy Jordan APRN.GENET documented in this encounter [facility] 12-25-2021 History of Present illness Narrative Patient presents with: Chest Congestion: cough, sore throat and mid back pain x several weeks HPI: Coughing for about 4 weeks. Had gastroenteritis when it started. Positive symptoms: Cough, chest congestion, itchy throat, back pain, Wheezing, intermittent Nasal Congestion, Post nasal drainage, Negative symptoms: Shortness of breath, Fever, Chills, Nausea, Vomiting, Sinus pressure, OTC: coricidin, advair, flonase, singulair, josue Had third dose of COVID-19 vaccine in June. His insurance defense paralegal recommended he talk to his PCP about stopping lisinopril. He tried holding lisinopril 3 days but resumed it when he noticed no difference. PAST MEDICAL HISTORY Diagnosis Date Adenomatous colon polyp 10/23/2014 Allergic rhinitis 01/18/2015 Asthma Controlled type 2 diabetes mellitus without complication, without long-term current use of insulin ([facility]) 11/10/2019 Coronary artery disease COVID-19 09/24/2020 Depressive disorder 2008 DIVERTICULITIS OF COLON W/O BLEED 05/01/2006 Gynecomastia, male 05/18/2014 Hypertension Irritable bowel syndrome Lumbar disc disease 2003 Nonalcoholic fatty liver disease GENNY (obstructive sleep apnea) 10/19/2009 CPAP 8 cm H2O [facility] Other and unspecified hyperlipidemia Primary osteoarthritis of left knee 09/17/2016 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 pioglitazone (ACTOS) 15 mg tablet Take 1 tablet by mouth once daily. cyclobenzaprine (FLEXERIL) 10 mg tablet Take 1 tablet by mouth twice daily as needed. fluticasone-salmeterol (ADVAIR DISKUS) 100-50 mcg/dose inhaler Inhale 1 Puff as instructed twice daily. Rinse mouth out after use with water. metFORMIN ER (GLUCOPHAGE XR) 500 mg 24 hr tablet Take 1 tablet by mouth daily with breakfast. pantoprazole DR (PROTONIX) 40 mg tablet Take 1 tablet by mouth once daily. 30 minutes before breakfast, take on empty stomach. simvastatin (ZOCOR) 40 mg tablet Take 1 tablet by mouth daily at bedtime. fluticasone (FLONASE) 50 mcg/actuation nasal spray Use 2 Sprays in each nostril once daily. Rinse mouth after use. lisinopril (ZESTRIL, PRINIVIL) 20 mg tablet Take 1 tablet by mouth once daily. hydroCHLOROthiazide (HYDRODIURIL, ESIDRIX) 25 mg tablet Take 1 tablet by mouth once daily. Cetirizine (ZYRTEC) 10 mg cap polyethylene glycol 3350 (MIRALAX) 17 gram/dose powder Take 17 g by mouth twice daily. fexofenadine (JOSUE) 180 mg tablet Take 180 mg by mouth once daily. guaifenesin (MUCINEX ORAL) Take by mouth. FREESTYLE LANCETS 28 gauge ubidecarenone (COQ-10 ORAL) Take by mouth. MAGNESIUM ASPARTATE HCL ORAL Take by mouth. glucosamine/msm/chondroitin A (FRAYIRWRFMK-LYXREN-FSL ORAL) Take by mouth. vitamin D3-folic acid 5,000 unit- 1 mg tab Take by mouth. Ipratropium [place] (ATROVENT) 0.03 % nasal spray Use 2 Sprays in the nose every 12 hours. blood sugar diagnostic (BLOOD GLUCOSE TEST) test strip Test blood sugar(s) 2 times daily. Dx: Type 2 DM - Controlled E11.9 Insulin: No COMPOUNDED PRESCRIPTION Allergy shots per [facility] CPAP AutoPAP 8-20 cmH2O, suitable mask, humidity, filters. Lifetime supplies. Dx: 327.23. Fax compliance rpt to [facility] in 6 weeks. Saw [place] 500 mg ORAL Cap Per package directions for prostate symptoms. aspirin(ECOTRIN LOW STRENGTH 81 MG TAB) THERAPEUTIC MULTIVITAMIN TAB Take one(1) tablet daily. No current facility-administered medications for this visit. ALLERGIES: ALLERGIES Allergen Reactions Hops Itching Seasonal Allergies Unknown Trees, grasses, weeds, ragweed and cockroaches verified by skin testing VITALS: BP 124/78 Pulse 112 Temp 36.9 C (98.5 F) Resp 16 Wt 107.5 kg (237 lb) SpO2 96% BMI 33.05 kg/m PHYSICAL EXAM: GEN: mildly ill appearing HEENT: PERRL, EOMI, conjunctiva clear Ears: canals clear. TMs without erythema, bulge, or effusion Sinuses: non-tender frontal sinus, non-tender maxillary sinuses Throat: moist mucous membranes, mild erythema, no exudate Neck: supple, no thyromegaly, no lymphadenopathy HEART: regular rate and rhythm, no murmurs LUNGS: clear to auscultation, fine crackles left base, no increased WOB BACK: Right lower thoracic-lumbar junction tenderness Component Latest Ref Rng & Units 12/14/2021 Hemoglobin A1C 4.3 - 5.6 % 6.3 (H) ASSESSMENT/PLAN: 1. Cough - ICD9: 786.2, ICD10: R05.9 (primary diagnosis) 2. Mild intermittent asthmatic bronchitis with acute exacerbation - ICD9: 493.92, ICD10: J45.21 - XR CHEST 2V FRONTAL/LAT - negative Cough associated with mucus drainage and phlegm production is probably not DUONG-I associated cough. Continue lisinopril and follow up with PCP to discuss options. Treat asthma exacerbation. - PREDNISONE 10 MG TABLET - taper. Reports he tolerated the last taper well. John Pires MD documented in this encounter [facility] 10-31-2021 History of Past i llness Narrative Problem Noted Date Resolved Date Acute right-sided back pain with sciatica 202106/23/2022 Obesity, Class II, BMI 35-39.9 08/25/2018 0 06/10/2021 Impaired fasting glucose 11/25/2015 020 Tonsillar hypertrophy 11/21/2015 02/22/2018 Gynecomastia, male 05/18/2014 02/22/2018 Total knee replacement status 04/12/2014 Calcaneal spur 05/05/2011 12/30/2011 Diverticulitis of colon (wit hout mention of hemorrhage)(562.11) 05/01/2006 01/18/2015 Irritable bowel syndrome 018 documented as of this encounter (statuses as of 06/24/2022) [facility] History of Past illness Narrative* Problem Noted Date Resolved Date Acute right-sided back pain with sciatica 202106/23/2022 Obesity, Class II, BMI 35-39.9 08/25/2018 0 06/10/2021 Impaired fasting glucose 11/25/2015 020 Tonsillar hypertrophy 11/21/2015 02/22/2018 Gynecomastia, male 05/18/2014 02/22/2018 Total knee replacement status 04/12/2014 Calcaneal spur 05/05/2011 12/30/2011 Diverticulitis of colon (wit hout mention of hemorrhage)(562.11) 05/01/2006 01/18/2015 Irritable bowel syndrome 018 documented as of this encounter (statuses as of 07/07/2022) [facility] [facility] History of Past illness Narrative* Problem Noted Date Resolved Date Acute right-sided back pain with sciatica 202106/23/2022 Obesity, Class II, BMI 35-39.9 08/25/2018 0 06/10/2021 Impaired fasting glucose 11/25/2015 020 Tonsillar hypertrophy 11/21/2015 02/22/2018 Gynecomastia, male 05/18/2014 02/22/2018 Total knee replacement status 04/12/2014 Calcaneal spur 05/05/2011 12/30/2011 Diverticulitis of colon (wit hout mention of hemorrhage)(562.11) 05/01/2006 01/18/2015 Irritable bowel syndrome 018 documented as of this encounter (statuses as of 07/16/2022) [facility]02[facility]10[facility]22 History of Past illness Narrative* Problem Noted Date Resolved Date Acute right-sided back pain with sciatica 202106/23/2022 Obesity, Class II, BMI 35-39.9 08/25/2018 0 06/10/2021 Impaired fasting glucose 11/25/2015 020 Tonsillar hypertrophy 11/21/2015 02/22/2018 Gynecomastia, male 05/18/2014 02/22/2018 Total knee replacement status 04/12/2014 Calcaneal spur 05/05/2011 12/30/2011 Diverticulitis of colon (wit hout mention of hemorrhage)(562.11) 05/01/2006 01/18/2015 Irritable bowel syndrome 018 documented as of this encounter (statuses as of 08/11/2022) [facility]02[facility]10[facility]22 History of Past illness Narrative* Problem Noted Date Resolved Date Acute right-sided back pain with sciatica 202106/23/2022 Obesity, Class II, BMI 35-39.9 08/25/2018 0 06/10/2021 Impaired fasting glucose 11/25/2015 020 Tonsillar hypertrophy 11/21/2015 02/22/2018 Gynecomastia, male 05/18/2014 02/22/2018 Total knee replacement status 04/12/2014 Calcaneal spur 05/05/2011 12/30/2011 Diverticulitis of colon (wit hout mention of hemorrhage)(562.11) 05/01/2006 01/18/2015 Irritable bowel syndrome 018 documented as of this encounter (statuses as of 08/13/2022) [facility]02[facility]10[facility]22 History of Past illness Narrative* Problem Noted Date Resolved Date Acute right-sided back pain with sciatica 202106/23/2022 Obesity, Class II, BMI 35-39.9 08/25/2018 0 06/10/2021 Impaired fasting glucose 11/25/2015 020 Tonsillar hypertrophy 11/21/2015 02/22/2018 Gynecomastia, male 05/18/2014 02/22/2018 Total knee replacement status 04/12/2014 Calcaneal spur 05/05/2011 12/30/2011 Diverticulitis of colon (wit hout mention of hemorrhage)(562.11) 05/01/2006 01/18/2015 Irritable bowel syndrome 018 documented as of this encounter (statuses as of 08/20/2022) [facility]02[facility] History of Past illness Narrative* Problem Noted Date Resolved Date Acute right-sided back pain with sciatica 202106/23/2022 Obesity, Class II, BMI 35-39.9 08/25/2018 0 06/10/2021 Impaired fasting glucose 11/25/2015 020 Tonsillar hypertrophy 11/21/2015 02/22/2018 Gynecomastia, male 05/18/2014 02/22/2018 Total knee replacement status 04/12/2014 Calcaneal spur 05/05/2011 12/30/2011 Diverticulitis of colon (wit hout mention of hemorrhage)(562.11) 05/01/2006 01/18/2015 Irritable bowel syndrome 018 documented as of this encounter (statuses as of 08/25/2022) [facility]02[facility] History of Past illness Narrative* Problem Noted Date Resolved Date Acute right-sided back pain with sciatica 202106/23/2022 Obesity, Class II, BMI 35-39.9 08/25/2018 0 06/10/2021 Impaired fasting glucose 11/25/2015 020 Tonsillar hypertrophy 11/21/2015 02/22/2018 Gynecomastia, male 05/18/2014 02/22/2018 Total knee replacement status 04/12/2014 Calcaneal spur 05/05/2011 12/30/2011 Diverticulitis of colon (wit hout mention of hemorrhage)(562.11) 05/01/2006 01/18/2015 Irritable bowel syndrome 018 documented as of this encounter (statuses as of 09/04/2022) [facility]02[facility]10[facility]22 History of Past illness Narrative* Problem Noted Date Resolved Date Acute right-sided back pain with sciatica 202106/23/2022 Obesity, Class II, BMI 35-39.9 08/25/2018 0 06/10/2021 Impaired fasting glucose 11/25/2015 020 Tonsillar hypertrophy 11/21/2015 02/22/2018 Gynecomastia, male 05/18/2014 02/22/2018 Total knee replacement status 04/12/2014 Calcaneal spur 05/05/2011 12/30/2011 Diverticulitis of colon (wit hout mention of hemorrhage)(562.11) 05/01/2006 01/18/2015 Irritable bowel syndrome 018 documented as of this encounter (statuses as of 09/26/2022) [facility]02[facility]10[facility]2022 History of Past illness Narrative* Problem Noted Date Resolved Date Acute right-sided back pain with sciatica 202106/23/2022 Obesity, Class II, BMI 35-39.9 08/25/2018 0 06/10/2021 Impaired fasting glucose 11/25/2015 020 Tonsillar hypertrophy 11/21/2015 02/22/2018 Gynecomastia, male 05/18/2014 02/22/2018 Total knee replacement status 04/12/2014 Calcaneal spur 05/05/2011 12/30/2011 Diverticulitis of colon (wit hout mention of hemorrhage)(562.11) 05/01/2006 01/18/2015 Irritable bowel syndrome 018 documented as of this encounter (statuses as of 10/17/2022) [facility]02[facility]10[facility]22 History of Past illness Narrative* Problem Noted Date Resolved Date Acute right-sided back pain with sciatica 202106/23/2022 Obesity, Class II, BMI 35-39.9 08/25/2018 0 06/10/2021 Impaired fasting glucose 11/25/2015 020 Tonsillar hypertrophy 11/21/2015 02/22/2018 Gynecomastia, male 05/18/2014 02/22/2018 Total knee replacement status 04/12/2014 Calcaneal spur 05/05/2011 12/30/2011 Diverticulitis of colon (wit hout mention of hemorrhage)(562.11) 05/01/2006 01/18/2015 Irritable bowel syndrome 018 documented as of this encounter (statuses as of 10/29/2022) [facility]02[facility]10[facility]22 History of Past illness Narrative* Problem Noted Date Resolved Date Acute right-sided back pain with sciatica 202106/23/2022 Obesity, Class II, BMI 35-39.9 08/25/2018 0 06/10/2021 Impaired fasting glucose 11/25/2015 020 Tonsillar hypertrophy 11/21/2015 02/22/2018 Gynecomastia, male 05/18/2014 02/22/2018 Total knee replacement status 04/12/2014 Calcaneal spur 05/05/2011 12/30/2011 Diverticulitis of colon (wit hout mention of hemorrhage)(562.11) 05/01/2006 01/18/2015 Irritable bowel syndrome 018 documented as of this encounter (statuses as of 11/13/2022) [facility]02[facility]10[facility] History of Past illness Narrative* Problem Noted Date Resolved Date Acute right-sided back pain with sciatica 202106/23/2022 Obesity, Class II, BMI 35-39.9 08/25/2018 0 06/10/2021 Impaired fasting glucose 11/25/2015 020 Tonsillar hypertrophy 11/21/2015 02/22/2018 Gynecomastia, male 05/18/2014 02/22/2018 Total knee replacement status 04/12/2014 Calcaneal spur 05/05/2011 12/30/2011 Diverticulitis of colon (wit hout mention of hemorrhage)(562.11) 05/01/2006 01/18/2015 Irritable bowel syndrome 018 documented as of this encounter (statuses as of 12/31/2022) [facility]02[facility] History of Past illness Narrative* Problem Noted Date Resolved Date Acute right-sided back pain with sciatica 202106/23/2022 Obesity, Class I, BMI 30-34.9 06/10/2021 Obesity, Class II, BMI 35-39.9 08/25/2018 0 06/10/2021 Impaired fasting glucose 11/25/2015 020 Tonsillar hypertrophy 11/21/2015 02/22/2018 Gynecomastia, male 05/18/2014 02/22/2018 Total knee replacement status 04/12/2014 Calcaneal spur 05/05/2011 12/30/2011 Diverticulitis of colon (wit hout mention of hemorrhage)(562.11) 05/01/2006 01/18/2015 Irritable bowel syndrome 018 documented as of this encounter (statuses as of 01/09/2023) [address]10-2022 History of Past illness Narrative* Problem Noted Date Resolved Date Acute right-sided back pain with sciatica 202106/23/2022 Obesity, Class I, BMI 30-34.9 06/10/2021 Obesity, Class II, BMI 35-39.9 08/25/2018 0 06/10/2021 Impaired fasting glucose 11/25/2015 02/20/2 020 Tonsillar hypertrophy 11/21/2015 02/22/2018 Gynecomastia, male 05/18/2014 02/22/2018 Total knee replacement status 04/12/2014 Calcaneal spur 05/05/2011 12/30/2011 Diverticulitis of colon (wit hout mention of hemorrhage)(562.11) 05/01/2006 01/18/2015 Irritable bowel syndrome 018 documented as of this encounter (statuses as of 03/25/2023) [facility]02-10-2022 History of Past illness Narrative* Problem Noted Date Diagnosed Date Resolved Date Acute right-sided back pain with sciatica 10/31/2021 06/23/2022 Obesity, Class I, BMI 30-34.9 06/10/2021 01/09/2023 Obesity, Class II, BMI 35-39.9 08/25/2018 06/10/2021 Impaired fasting glucose 11/25/2015 Tonsillar hypertrophy 11/21/20152017 Gynecomastia, male 05/18/2014 8 Total knee replacement status 04/12/2014 01/18/2015 Calcaneal spur 05/05/2011 12/30/2011 Diverticulitis of colon (wit hout mention of hemorrhage)(562.11) 05/01/2006 01/18/2015 Irritable bowel syndrome 12/2017 documented as of this encounter (statuses as of 04/16/2023) [facility]02-10-2022 History of Past illness Narrative* Problem Noted Date Diagnosed Date Resolved Date Acute right-sided back pain with sciatica 10/31/2021 06/23/2022 Obesity, Class I, BMI 30-34.9 06/10/2021 01/09/2023 Obesity, Class II, BMI 35-39.9 08/25/2018 06/10/2021 Impaired fasting glucose 11/25/2015 Tonsillar hypertrophy 11/21/20152017 Gynecomastia, male 05/18/2014 8 Total knee replacement status 04/12/2014 01/18/2015 Calcaneal spur 05/05/2011 12/30/2011 Diverticulitis of colon (wit hout mention of hemorrhage)(562.11) 05/01/2006 01/18/2015 Irritable bowel syndrome 12/2017 documented as of this encounter (statuses as of 04/23/2023) [facility]02-10-2022 History of Past illness Narrative* Problem Noted Date Diagnosed Date Resolved Date Acute right-sided back pain with sciatica 10/31/2021 06/23/2022 Obesity, Class I, BMI 30-34.9 06/10/2021 01/09/2023 Obesity, Class II, BMI 35-39.9 08/25/2018 06/10/2021 Impaired fasting glucose 11/25/2015 Tonsillar hypertrophy 11/21/20152017 Gynecomastia, male 05/18/2014 8 Total knee replacement status 04/12/2014 01/18/2015 Calcaneal spur 05/05/2011 12/30/2011 Diverticulitis of colon (wit hout mention of hemorrhage)(562.11) 05/01/2006 01/18/2015 Irritable bowel syndrome 12/2017 documented as of this encounter (statuses as of 07/14/2023) [address]-2022 History of Past illness Narrative* Problem Noted Date Diagnosed Date Resolved Date Acute right-sided back pain with sciatica 10/31/2021 06/23/2022 Obesity, Class I, BMI 30-34.9 06/10/2021 01/09/2023 Obesity, Class II, BMI 35-39.9 08/25/2018 06/10/2021 Impaired fasting glucose 11/25/2015 Tonsillar hypertrophy 11/21/20152017 Gynecomastia, male 05/18/2014 8 Total knee replacement status 04/12/2014 01/18/2015 Calcaneal spur 05/05/2011 12/30/2011 Diverticulitis of colon (wit hout mention of hemorrhage)(562.11) 05/01/2006 01/18/2015 Irritable bowel syndrome 12/2017 documented as of this encounter (statuses as of 07/21/2023) [facility]02-10-2022 History of Past illness Narrative* Problem Noted Date Diagnosed Date Resolved Date Acute right-sided back pain with sciatica 10/31/2021 06/23/2022 Obesity, Class I, BMI 30-34.9 06/10/2021 01/09/2023 Obesity, Class II, BMI 35-39.9 08/25/2018 06/10/2021 Impaired fasting glucose 11/25/2015 Tonsillar hypertrophy 11/21/20152017 Gynecomastia, male 05/18/2014 8 Total knee replacement status 04/12/2014 01/18/2015 Calcaneal spur 05/05/2011 12/30/2011 Diverticulitis of colon (wit hout mention of hemorrhage)(562.11) 05/01/2006 01/18/2015 Irritable bowel syndrome 12/2017 documented as of this encounter (statuses as of 10/25/2023) [facility]02-10-2022 History of Past illness Narrative* Problem Noted Date Diagnosed Date Resolved Date Acute right-sided back pain with sciatica 10/31/2021 06/23/2022 Obesity, Class I, BMI 30-34.9 06/10/2021 01/09/2023 Obesity, Class II, BMI 35-39.9 08/25/2018 06/10/2021 Impaired fasting glucose 11/25/2015 Tonsillar hypertrophy 11/21/20152017 Gynecomastia, male 05/18/2014 8 Total knee replacement status 04/12/2014 01/18/2015 Calcaneal spur 05/05/2011 12/30/2011 Diverticulitis of colon (wit hout mention of hemorrhage)(562.11) 05/01/2006 01/18/2015 Irritable bowel syndrome 12/2017 documented as of this encounter (statuses as of 10/26/2023) [facility]02-10-2022 History of Past illness Narrative* Problem Noted Date Diagnosed Date Resolved Date Acute right-sided back pain with sciatica 10/31/2021 06/23/2022 Obesity, Class I, BMI 30-34.9 06/10/2021 01/09/2023 Obesity, Class II, BMI 35-39.9 08/25/2018 06/10/2021 Impaired fasting glucose 11/25/2015 Tonsillar hypertrophy 11/21/20152017 Gynecomastia, male 05/18/2014 8 Total knee replacement status 04/12/2014 01/18/2015 Calcaneal spur 05/05/2011 12/30/2011 Diverticulitis of colon (wit hout mention of hemorrhage)(562.11) 05/01/2006 01/18/2015 Irritable bowel syndrome 12/2017 documented as of this encounter (statuses as of 10/29/2023) [facility]02-10-2022 History of Past illness Narrative* Problem Noted Date Diagnosed Date Resolved Date Acute right-sided back pain with sciatica 10/31/2021 06/23/2022 Obesity, Class I, BMI 30-34.9 06/10/2021 01/09/2023 Obesity, Class II, BMI 35-39.9 08/25/2018 06/10/2021 Impaired fasting glucose 11/25/2015 Tonsillar hypertrophy 11/21/20152017 Gynecomastia, male 05/18/2014 8 Total knee replacement status 04/12/2014 01/18/2015 Calcaneal spur 05/05/2011 12/30/2011 Diverticulitis of colon (wit hout mention of hemorrhage)(562.11) 05/01/2006 01/18/2015 Irritable bowel syndrome 12/2017 documented as of this encounter (statuses as of 11/07/2023) [facility]02-02-2022 History of Present illness Narrative* Shirley Kent, RT(R) - 10/23/2021 8:50 AM EST Radiology Service Progress Note PATIENT NAME: Reji Brito DATE OF SERVICE: October 23, 2021 TIME: 8:41 AM PATIENT IDENTITY VERIFICATION COMPLETED USING TWO (2) IDENTIFIERS: Name and Date of confirmedby patient verbally. FALL SCREENING: Has the patient had 2 falls in the last year or 1 fall with injury or currently using an Ambulatory Assistive Device (Walker, Cane, Wheelchair, Crutches, etc.)? No PATIENT GENDER DATA: Male PATIENT RELEVANT IMPLANT DATA REVIEWED: Not Applicable RADIOLOGY DEPARTMENT: General X-ray: Exam(s) Completed: Spine X-Ray(s): Lumbar AP / LAT / L5-S1 andSacrum/Coccyx PERIPHERAL IV DATA: Not applicable SIGNED BY: RT Deanna(R) October 23, 2021 8:41 AM [facility] NoteHNO ID: [id number] Author: Jay Jay Dunlap (Rt) Service: Radiology Author Type: Manager Reimbursement Type: Progress Notes Filed: 01/14/2021 10:23 AM Note Text: Radiology Service Progress Note PATIENT NAME: Reji Brito DATE OF SERVICE: January 14, 2021 TIME: 10:23 AM PATIENT IDENTITY VERIFICATION COMPLETED USING TWO (2) IDENTIFIERS: Name and Date of confirmed by patient verbally and Name and Date of confirmed by identification band. FALL SCREENING: Has the patient had 2 falls in the last year or 1 fall with injury or currently using an Ambulatory Assistive Device (Walker, Cane, Wheelchair, Crutches, etc.)? No PATIENT GENDER DATA: Male PATIENT RELEVANT IMPLANT DATA REVIEWED: Not Applicable RADIOLOGY DEPARTMENT: General X-ray: Exam(s) Completed: Abdomen X-Ray: Abdomen PERIPHERAL IV DATA: Not applicable SIGNED BY: RT Fabi January 14, 2021 10:23 [facility]12-05-2018 History of Past illness Narrative* Problem Noted Date Resolved Date Obesity, Class II, BMI 35-39.9 08/25/2018 0 06/10/2021 Impaired fasting glucose 11/25/2015 020 Tonsillar hypertrophy 11/21/2015 02/22/2018 Gynecomastia, male 05/18/2014 02/22/2018 Total knee replacement status 04/12/2014 Calcaneal spur 05/05/2011 12/30/2011 Diverticulitis of colon (wit hout mention of hemorrhage)(562.11) 05/01/2006 01/18/2015 Irritable bowel syndrome 018 documented as of this encounter (statuses as of 12/25/2021) [facility]12-[facility]-2018 History of Past illness Narrative* Problem Noted Date Resolved Date Obesity, Class II, BMI 35-39.9 08/25/2018 0 06/10/2021 Impaired fasting glucose 11/25/2015 020 Tonsillar hypertrophy 11/21/2015 02/22/2018 Gynecomastia, male 05/18/2014 02/22/2018 Total knee replacement status 04/12/2014 Calcaneal spur 05/05/2011 12/30/2011 Diverticulitis of colon (wit hout mention of hemorrhage)(562.11) 05/01/2006 01/18/2015 Irritable bowel syndrome 018 documented as of this encounter (statuses as of 12/28/2021) [facility]12-05-2018 History of Past illness Narrative* Problem Noted Date Resolved Date Obesity, Class II, BMI 35-39.9 08/25/2018 0 06/10/2021 Impaired fasting glucose 11/25/2015 020 Tonsillar hypertrophy 11/21/2015 02/22/2018 Gynecomastia, male 05/18/2014 02/22/2018 Total knee replacement status 04/12/2014 Calcaneal spur 05/05/2011 12/30/2011 Diverticulitis of colon (wit hout mention of hemorrhage)(562.11) 05/01/2006 01/18/2015 Irritable bowel syndrome 018 documented as of this encounter (statuses as of 01/02/2022) [facility]12[facility] History of Past illness Narrative* Problem Noted Date Resolved Date Obesity, Class II, BMI 35-39.9 08/25/2018 0 06/10/2021 Impaired fasting glucose 11/25/2015 020 Tonsillar hypertrophy 11/21/2015 02/22/2018 Gynecomastia, male 05/18/2014 02/22/2018 Total knee replacement status 04/12/2014 Calcaneal spur 05/05/2011 12/30/2011 Diverticulitis of colon (wit hout mention of hemorrhage)(562.11) 05/01/2006 01/18/2015 Irritable bowel syndrome 018 documented as of this encounter (statuses as of 01/27/2022) [facility]12-05-2018 History of Past illness Narrative* Problem Noted Date Resolved Date Obesity, Class II, BMI 35-39.9 08/25/2018 0 06/10/2021 Impaired fasting glucose 11/25/2015 020 Tonsillar hypertrophy 11/21/2015 02/22/2018 Gynecomastia, male 05/18/2014 02/22/2018 Total knee replacement status 04/12/2014 Calcaneal spur 05/05/2011 12/30/2011 Diverticulitis of colon (wit hout mention of hemorrhage)(562.11) 05/01/2006 01/18/2015 Irritable bowel syndrome 018 documented as of this encounter (statuses as of 2022) [facility]12-[facility] History of Past illness Narrative* Problem Noted Date Resolved Date Obesity, Class II, BMI 35-39.9 08/25/2018 0 06/10/2021 Impaired fasting glucose 11/25/2015 020 Tonsillar hypertrophy 11/21/2015 02/22/2018 Gynecomastia, male 05/18/2014 02/22/2018 Total knee replacement status 04/12/2014 Calcaneal spur 05/05/2011 12/30/2011 Diverticulitis of colon (wit hout mention of hemorrhage)(562.11) 05/01/2006 01/18/2015 Irritable bowel syndrome 018 documented as of this encounter (statuses as of 05/21/2022) [facility]12[facility] History of Past illness Narrative* Problem Noted Date Resolved Date Obesity, Class II, BMI 35-39.9 08/25/2018 0 06/10/2021 Impaired fasting glucose 11/25/2015 020 Tonsillar hypertrophy 11/21/2015 02/22/2018 Gynecomastia, male 05/18/2014 02/22/2018 Total knee replacement status 04/12/2014 Calcaneal spur 05/05/2011 12/30/2011 Diverticulitis of colon (wit hout mention of hemorrhage)(562.11) 05/01/2006 01/18/2015 Irritable bowel syndrome 018 documented as of this encounter (statuses as of 06/16/2022) [facility]12-[facility]-2018 History of Past illness Narrative* Problem Noted Date Resolved Date Obesity, Class II, BMI 35-39.9 08/25/2018 0 06/10/2021 Impaired fasting glucose 11/25/2015 020 Tonsillar hypertrophy 11/21/2015 02/22/2018 Gynecomastia, male 05/18/2014 02/22/2018 Total knee replacement status 04/12/2014 Calcaneal spur 05/05/2011 12/30/2011 Diverticulitis of colon (wit hout mention of hemorrhage)(562.11) 05/01/2006 01/18/2015 Irritable bowel syndrome 018 documented as of this encounter (statuses as of 06/20/2022) [facility] Future Appointments [facility] Evaluation note* Diagnosis Cough- Primary Mild intermittent asthmatic bronchitis with acute exacerbation documented in this encounter [facility]* Diagnosis Sinus congestion- Primary Other diseases of nasal cavity and sinuses documented in this encounter [facility] note* Diagnosis Allergic rhinitis, unspecified seasonality, unspecified trigger [facility] this [facility] Diagnosis URI, acute- Primary Acute upper respiratory infections of unspecified site Sinus pressure Other diseases of nasal cavity and sinuses documented [facility] this encounter [facility]* Diagnosis Nonalcoholic steatohepatitis (ADAN)- Primary Other chronic nonalcoholic liver disease [facility]* Diagnosis Nonalcoholic steatohepatitis (ADAN) Other chronic nonalcoholic liver disease [facility]* Diagnosis Routine medical exam- Primary Routine general medical examination at a health care facility Primary hypertension Unspecified essential hypertension Other hyperlipidemia Controlled type 2 diabetes mellitus without complication, without long-term current use of insulin (HCC) GENNY on CPAP Obstructive sleep apnea (adult) (pediatric) Mild intermittent asthmatic bronchitis without complication Need for COVID-19 vaccine Fatty liver disease, nonalcoholic Other chronic nonalcoholic liver disease Obesity, Class II, BMI 35-39.9 Obesity, unspecified documented in this encounter [facility]* Diagnosis Acute cough- Primary At increased risk of exposure to COVID-19 virus [facility]* Diagnosis Controlled type 2 diabetes mellitus without complication, without long-term current use of insulin (HCC)- Primary [facility]* Diagnosis Acute non-recurrent pansinusitis- Primary [facility]* Diagnosis Flu-like symptoms- Primary Other general symptoms [facility]* Diagnosis Need for vaccination- Primary Need for prophylactic vaccination and inoculation against unspecified single disease Controlled type 2 diabetes mellitus without complication, without long-term current use of insulin (HCC) Gastroesophageal reflux disease without esophagitis Esophageal reflux Other hyperlipidemia Allergic rhinitis, unspecified seasonality, unspecified trigger [facility] Diagnosis Need for vaccination- Primary Need for prophylactic vaccination and inoculation against unspecified single disease [facility]* Diagnosis Controlled type 2 diabetes mellitus without complication, without long-term current use of insulin (HCC)- Primary Other hyperlipidemia Primary hypertension Unspecified essential hypertension Screening for prostate cancer Special screening for malignant neoplasm of prostate [facility] Diagnosis Controlled type 2 diabetes mellitus without complication, without long-term current use of insulin (HCC)- Primary Primary hypertension Unspecified essential hypertension Other hyperlipidemia [facility]* Diagnosis Need for vaccination- Primary Need for prophylactic vaccination and inoculation against unspecified single disease [facility] [facility] Diagnosis Sinus headache- Primary Headache Controlled type 2 diabetes mellitus without complication, without long-term current use of insulin (HCC) Mild intermittent asthmatic bronchitis without complication Primary hypertension Unspecified essential hypertension GENNY on CPAP Obstructive sleep apnea (adult) (pediatric) [facility] Diagnosis Acute non-recurrent pansinusitis- Primary [facility] Diagnosis Controlled type 2 diabetes mellitus without complication, without long-term current use of insulin (HCC) documented [facility] Diagnosis Controlled type 2 diabetes mellitus without complication, without long-term current use of insulin (HCC) [facility] Diagnosis Gastroesophageal reflux disease without esophagitis Esophageal reflux Primary hypertension Unspecified essential hypertension Controlled type 2 diabetes mellitus without complication, without long-term current use of insulin (HCC) Other hyperlipidemia [facility] Diagnosis Wellness examination- Primary Elevated LFTs Other abnormal blood chemistry Primary hypertension Unspecified essential hypertension Fatty liver disease, nonalcoholic Other chronic nonalcoholic liver disease Controlled type 2 diabetes mellitus without complication, without long-term current use of insulin (HCC) GENNY on CPAP Obstructive sleep apnea (adult) (pediatric) Other hyperlipidemia [facility] GENNY [facility]- Primary Obstructive sleep apnea (adult) (pediatric) [facility] Diagnosis Allergic rhinitis, unspecified seasonality, unspecified trigger Controlled type 2 diabetes mellitus without complication, without long-term current use of insulin (HCC) [facility] Cough [facility] Diagnosis Acute right-sided low back pain with right-sided sciatica [facility] Diagnosis Rhinosinusitis- Primary Unspecified sinusitis (chronic) [facility] Diagnosis Controlled type 2 diabetes mellitus without complication, without long-term current use of insulin (HCC)- Primary Allergic rhinitis, unspecified seasonality, unspecified trigger Mild intermittent asthmatic bronchitis without complication Elevated LFTs Other abnormal blood chemistry Primary hypertension Unspecified essential hypertension GENNY on CPAP Obstructive sleep apnea (adult) (pediatric) Encounter for immunization Need for other specified prophylactic vaccination against single bacterial disease Screening for prostate cancer Special screening for malignant neoplasm of prostate [facility] Diagnosis Sinus pressure- Primary Other diseases of nasal cavity and sinuses Viral syndrome Unspecified viral infection, in conditions classified elsewhere and of unspecified site [facility] Diagnosis Fatty liver disease, nonalcoholic Other chronic nonalcoholic liver disease Elevated LFTs Other abnormal blood chemistry [facility] Diagnosis Fatty liver disease, nonalcoholic- Primary Other chronic nonalcoholic liver disease Elevated LFTs Other abnormal blood chemistry Fatty liver disease, nonalcoholic Other chronic nonalcoholic liver disease Elevated LFTs Other abnormal blood chemistry [facility] Diagnosis Rhinosinusitis- Primary Unspecified sinusitis (chronic) Acute otitis media, bilateral Unspecified otitis media [facility] Diagnosis Acute recurrent sinusitis, unspecified location- Primary Acute non-recurrent streptococcal tonsillitis [facility] Diagnosis Primary hypertension Unspecified essential hypertension Controlled type 2 diabetes mellitus without complication, without long-term current use of insulin (HCC) Gastroesophageal reflux disease without esophagitis Esophageal reflux Other hyperlipidemia documented in this encounter [facility] note* Diagnosis Controlled type 2 diabetes mellitus without complication, without long-term current use of insulin (HCC) documented in this encounter [facility] note* Diagnosis Chronic sinusitis, unspecified location- Primary documented in this encounter [facility] note* Diagnosis Primary hypertension Unspecified essential hypertension documented in this encounter [facility] note* Diagnosis Wellness examination- Primary Screening for depression Encounter for screening examination for other mental health and behavioral disorders Special screening for malignant neoplasms, colon Primary hypertension Unspecified essential hypertension Other hyperlipidemia GENNY on CPAP Obstructive sleep apnea (adult) (pediatric) Controlled type 2 diabetes mellitus without complication, without long-term current use of insulin (HCC) Primary osteoarthritis of left knee Primary localized osteoarthrosis, lower leg Fatty liver disease, nonalcoholic Other chronic nonalcoholic liver disease Obesity, Class II, BMI 35-39.9 Obesity, unspecified documented in this encounter [facility] note* Diagnosis Primary osteoarthritis of left knee Primary localized osteoarthrosis, lower leg documented in this encounter [facility] note* Diagnosis Primary osteoarthritis of left knee- Primary Primary localized osteoarthrosis, lower leg documented in this encounter [facility] note* Diagnosis Special screening for malignant neoplasms, colon documented in this encounter [facility] noteNo assessment information availableWSum[facility] Work Phone: Evaluation note* Diagnosis Tubular adenoma of colon- Primary Benign neoplasm of colon documented in this encounter [facility] note* Diagnosis Redness of skin- Primary Unspecified erythematous condition documented in this encounter [facility] note* Diagnosis Allergic rhinitis, unspecified seasonality, unspecified trigger documented in this encounter [facility] course Narrative No data available for this section [facility] Discharge instructions No data available for this section [facility] Progress note No data available for this section [facility] Reason for referral (narrative)* Diagnostic Procedure Only (Routine) - Authorized Specialty Diagnoses / Procedures Referred By Contac t Referred To Contact US IMAGING Diagnoses Nonalcoholic steatohepatitis (ADAN) Procedures US ABD RT UPPER QUADRANT US ABDOMINAL REAL TIME W/IMAGE LIMITED Yaz Sotelo PA-C [address] [place] [address] Us Imaging Referral ID Status Reason Start Date Expiration Date Visits Requested Visits Authorized [id number] Authorized Auto-Generat ed Referral 06/16/2022 07/16/2023 1 1 [facility] for referral (narrative)* Diagnostic Procedure Only (Routine) - Closed Specialty Diagnoses / Procedures Referred By Contac t Referred To Contact US IMAGING Diagnoses Nonalcoholic steatohepatitis (ADAN) Procedures US ABD RT UPPER QUADRANT US ABDOMINAL REAL TIME W/IMAGE LIMITED Yaz Sotelo PA-C [address] [place] [address] Us Imaging Referral ID Status Reason Start Date Expiration Date V isits Requested Visits Authorized [id number] Closed Auto-Generate d Referral 06/16/2022 07/16/2023 1 1 [facility] for referral (narrative)* Diagnostic Procedure Only (Urgent) - Closed Specialty Diagnoses / Procedures Referred By Contac t Referred To Contact XR IMAGING Diagnoses Acute right-sided low back pain with right-sided sciatica Procedures XR SACRUM/COCCYX 3V AP/LAT RADEX SACRUM & COCCYX MINIMUM 2 VIEWS Vy Jordan APRN.WORD PROCESSOR TECHNICIAN [address] [place] [address] [place] [address] Referral ID Status Reason Start Date Expiration Date V isits Requested Visits Authorized [id number] Closed Auto-Generate d Referral 10/23/2021 11/22/2022 1 1 * Diagnostic Procedure Only (Urgent) - Closed Specialty Diagnoses / Procedures Referred By Contac t Referred To Contact XR IMAGING Diagnoses Acute right-sided low back pain with right-sided sciatica Procedures XR LUMBAR GENERAL 3V AP/LAT/L5-S1 RADEX SPINE LUMBOSACRAL 2/3 VIEWS Vy Jordan APRN.WORD PROCESSOR TECHNICIAN [address] [place] [address] [place] [address] Referral ID Status Reason Start Date Expiration Date V isits Requested Visits Authorized [id number] Closed Auto-Generate d Referral 10/23/2021 11/22/2022 1 1 [facility] Diagnostic Procedure Only (Routine) - Closed Specialty Diagnoses / Procedures Referred By Contac t Referred To Contact US IMAGING Diagnoses Fatty liver disease, nonalcoholic Elevated LFTs Procedures US ABD RIGHT UPPER QUADRANT US ABDOMINAL REAL TIME W/IMAGE LIMITED Ina Winston APRN.WORD PROCESSOR TECHNICIAN [address] [place] [id number] [place] [address] Referral ID Status Reason Start Date Expiration Date V isits Requested Visits Authorized [id number] Closed Auto-Generate d Referral 10/04/2024 11/03/2025 1 1 [facility] (narrative)No reason for referral information availableWSumma [facility] Work Phone: Reason for visit Narrative* Diagnostic Procedure Only (Routine) - Closed Specialty Diagnoses / Procedures Referred By Contac t Referred To Contact Radiology / [facility] Diagnoses Cough, unspecified xr chest rm 6 Procedures RADIOLOGIC EXAM CHEST 2 VIEWS XR CHEST John Pires MD [address] [place] [address] [facility] [address] [place] [address] Referral ID Status Reason Start Date Expiration Date Visits Re quested Visits Authorized [id number] Closed 12/25/2021 09/20/2022 1 1 [facility] for visit Narrative* Diagnostic Procedure Only (Urgent) - Closed Specialty Diagnoses / Procedures Referred By Contac t Referred To Contact XR IMAGING Diagnoses Acute right-sided low back pain with right-sided sciatica Procedures XR SACRUM/COCCYX 3V AP/LAT RADEX SACRUM & COCCYX MINIMUM 2 VIEWS Vy Jordan APRN.CNP [address] [place] [address] [place] [address] Referral ID Status Reason Start Date Expiration Date V isits Requested Visits Authorized [id number] Closed Auto-Generate d Referral 10/23/2021 11/22/2022 1 1 [facility] for visit Narrative* Diagnostic Procedure Only (Routine) - Closed Specialty Diagnoses / Procedures Referred By Lorenaac t Referred To Contact XR IMAGING Diagnoses Primary osteoarthritis of left knee Procedures XR KNEE GENERAL 4V AP BOTH/PA BOTH/LAT/MERC LEFT RADIOLOGIC EXAM KNEE COMPLETE 4/MORE VIEWS Kristian Cadet MD [address] [place] [address] Phone: tel: fax: [place] [address] Referral ID Status Reason Start Date Expiration Date V isits Requested Visits Authorized [id number] Closed Auto-Generate d Referral 03/28/2025 04/27/2026 1 1 [facility] for visit Narrative* Outpatient Procedure (Routine) - Closed Specialty Diagnoses / Procedures [facility] Diagnoses Special screening for malignant neoplasms, colon Procedures COLONOSCOPY SCREENING COLONOSCOPY FLX DX W/COLLJ SPEC WHEN PFRMD Kristian Cadet MD [address] [place] [address] Phone: tel: fax: [facility] [address] [place] [address] Referral ID Status Reason Start Date Expiration Date V isits Requested Visits Authorized [id number] Closed Auto-Generate d Referral 03/28/2025 03/28/2026 1 1 [facility] Summary Purpose Family History No Family History Records FoundNo Family History Records FoundNo Family History Records FoundNo Family History Records FoundNo Family History Records FoundNo Family History Records Found No data available for this section No data available for this section Advance Directives Documents on File Type Date Recorded Patient Director Of Employee Development Expl anation Advance Directive(s) 11/30/2019 5:27 PM Health Concerns Infection Onset Date Last Indicated Resolved Time COVID-19 Rule-Out 07/16/2022 07/16/2022 Infection Onset Date Last Indicated Resolved Time COVID-19 Rule-Out 09/04/2022 09/04/2022 Reason for Referral Specialty Diagnoses / Procedures Referred By Contac t Referred To Contact Diagnoses Controlled type 2 diabetes mellitus without complication, without long-term current use of insulin ([facility]) Kristian Cadet MD [address] [place] [address] Referral ID Status Reason Start Date Expiration Date Visits Re quested Visits Authorized [id number] Closed 1 1 Referral ID Status Reason Start Date Expiration Date Visits Re quested Visits Authorized [id number] Closed 1 1 Referral ID Status Reason Start Date Expiration Date V isits Requested Visits Authorized [id number] Pending Review 1 1 Chief Complaint and Reason for Visit Chief Complaint Admit Date SCREENING April 11, 2025 4:15 pm Additional Source Comments (unrecognized sect ion and content) No Status Records FoundNo Status Records FoundNo Status Records FoundNo Status Records FoundNo Status Records FoundNo Status Records Found INFORMATION SOURCE (unrecogn ized section and content) DATE CREATED AUTHOR 08/22/2020 [facility] DATE CREATED AUTHOR AUTHOR'S ORGANIZ ATION 01/20/2021 [facility] DATE CREATED AUTHOR AUTHOR'S ORGANIZ ATION 06/29/2025 [facility] DATE CREATED AUTHOR AUTHOR'S ORGANIZ ATION 07/03/2025 [facility] DATE CREATED AUTHOR AUTHOR'S ORGANIZ ATION 07/24/2025 [facility] DATE CREATED AUTHOR AUTHOR'S ORGANIZ ATION 08/02/[address] [facility] Source Comments (unrecognize d section and content) In the event this informatio n is protected by the Federal Confidentiality of Alcohol and Drug Abuse Patient Records regulations: The Federal rules restrict any use of the information to criminally investigate or prosecute any alcohol or drug abuse patient.[facility] CenterIn the event this information is protected by the Federal Confidentiality of Alcohol and Drug Abuse Patient Records regulations: The Federal rules restrict any use of the information to criminally investigate or prosecute any alcohol or drug abuse patient.[facility] CenterIn the event this information is protected by the Federal Confidentiality of Alcohol and Drug Abuse Patient Records regulations: The Federal rules restrict any use of the information to criminally investigate or prosecute any alcohol or drug abuse patient.[facility] CenterIn the event this information is protected by the Federal Confidentiality of Alcohol and Drug Abuse Patient Records regulations: The Federal rules restrict any use of the information to criminally investigate or prosecute any alcohol or drug abuse patient.[facility] CenterIn the event this information is protected by the Federal Confidentiality of Alcohol and Drug Abuse Patient Records regulations: The Federal rules restrict any use of the information to criminally investigate or prosecute any alcohol or drug abuse patient.[facility] CenterIn the event this information is protected by the Federal Confidentiality of Alcohol and Drug Abuse Patient Records regulations: The Federal rules restrict any use of the information to criminally investigate or prosecute any alcohol or drug abuse patient.[facility] CenterIn the event this information is protected by the Federal Confidentiality of Alcohol and Drug Abuse Patient Records regulations: The Federal rules restrict any use of the information to criminally investigate or prosecute any alcohol or drug abuse patient.[facility] CenterIn the event this information is protected by the Federal Confidentiality of Alcohol and Drug Abuse Patient Records regulations: The Federal rules restrict any use of the information to criminally investigate or prosecute any alcohol or drug abuse patient.[facility] CenterIn the event this information is protected by the Federal Confidentiality of Alcohol and Drug Abuse Patient Records regulations: The Federal rules restrict any use of the information to criminally investigate or prosecute any alcohol or drug abuse patient.[facility] CenterIn the event this information is protected by the Federal Confidentiality of Alcohol and Drug Abuse Patient Records regulations: The Federal rules restrict any use of the information to criminally investigate or prosecute any alcohol or drug abuse patient.[facility] CenterIn the event this information is protected by the Federal Confidentiality of Alcohol and Drug Abuse Patient Records regulations: The Federal rules restrict any use of the information to criminally investigate or prosecute any alcohol or drug abuse patient.[facility] CenterIn the event this information is protected by the Federal Confidentiality of Alcohol and Drug Abuse Patient Records regulations: The Federal rules restrict any use of the information to criminally investigate or prosecute any alcohol or drug abuse patient.[facility] CenterIn the event this information is protected by the Federal Confidentiality of Alcohol and Drug Abuse Patient Records regulations: The Federal rules restrict any use of the information to criminally investigate or prosecute any alcohol or drug abuse patient.[facility] CenterIn the event this information is protected by the Federal Confidentiality of Alcohol and Drug Abuse Patient Records regulations: The Federal rules restrict any use of the information to criminally investigate or prosecute any alcohol or drug abuse patient.[facility] CenterIn the event this information is protected by the Federal Confidentiality of Alcohol and Drug Abuse Patient Records regulations: The Federal rules restrict any use of the information to criminally investigate or prosecute any alcohol or drug abuse patient.[facility] CenterIn the event this information is protected by the Federal Confidentiality of Alcohol and Drug Abuse Patient Records regulations: The Federal rules restrict any use of the information to criminally investigate or prosecute any alcohol or drug abuse patient.[facility] CenterIn the event this information is protected by the Federal Confidentiality of Alcohol and Drug Abuse Patient Records regulations: The Federal rules restrict any use of the information to criminally investigate or prosecute any alcohol or drug abuse patient.[facility] CenterIn the event this information is protected by the Federal Confidentiality of Alcohol and Drug Abuse Patient Records regulations: The Federal rules restrict any use of the information to criminally investigate or prosecute any alcohol or drug abuse patient.[facility] CenterIn the event this information is protected by the Federal Confidentiality of Alcohol and Drug Abuse Patient Records regulations: The Federal rules restrict any use of the information to criminally investigate or prosecute any alcohol or drug abuse patient.[facility] CenterIn the event this information is protected by the Federal Confidentiality of Alcohol and Drug Abuse Patient Records regulations: The Federal rules restrict any use of the information to criminally investigate or prosecute any alcohol or drug abuse patient.[facility] CenterIn the event this information is protected by the Federal Confidentiality of Alcohol and Drug Abuse Patient Records regulations: The Federal rules restrict any use of the information to criminally investigate or prosecute any alcohol or drug abuse patient.[facility] CenterIn the event this information is protected by the Federal Confidentiality of Alcohol and Drug Abuse Patient Records regulations: The Federal rules restrict any use of the information to criminally investigate or prosecute any alcohol or drug abuse patient.[facility] CenterIn the event this information is protected by the Federal Confidentiality of Alcohol and Drug Abuse Patient Records regulations: The Federal rules restrict any use of the information to criminally investigate or prosecute any alcohol or drug abuse patient.[facility] CenterIn the event this information is protected by the Federal Confidentiality of Alcohol and Drug Abuse Patient Records regulations: The Federal rules restrict any use of the information to criminally investigate or prosecute any alcohol or drug abuse patient.[facility] CenterIn the event this information is protected by the Federal Confidentiality of Alcohol and Drug Abuse Patient Records regulations: The Federal rules restrict any use of the information to criminally investigate or prosecute any alcohol or drug abuse patient.[facility] CenterIn the event this information is protected by the Federal Confidentiality of Alcohol and Drug Abuse Patient Records regulations: The Federal rules restrict any use of the information to criminally investigate or prosecute any alcohol or drug abuse patient.[facility] CenterIn the event this information is protected by the Federal Confidentiality of Alcohol and Drug Abuse Patient Records regulations: The Federal rules restrict any use of the information to criminally investigate or prosecute any alcohol or drug abuse patient.[facility] CenterIn the event this information is protected by the Federal Confidentiality of Alcohol and Drug Abuse Patient Records regulations: The Federal rules restrict any use of the information to criminally investigate or prosecute any alcohol or drug abuse patient.[facility] CenterIn the event this information is protected by the Federal Confidentiality of Alcohol and Drug Abuse Patient Records regulations: The Federal rules restrict any use of the information to criminally investigate or prosecute any alcohol or drug abuse patient.[facility] CenterIn the event this information is protected by the Federal Confidentiality of Alcohol and Drug Abuse Patient Records regulations: The Federal rules restrict any use of the information to criminally investigate or prosecute any alcohol or drug abuse patient.[facility] CenterIn the event this information is protected by the Federal Confidentiality of Alcohol and Drug Abuse Patient Records regulations: The Federal rules restrict any use of the information to criminally investigate or prosecute any alcohol or drug abuse patient.[facility] CenterIn the event this information is protected by the Federal Confidentiality of Alcohol and Drug Abuse Patient Records regulations: The Federal rules restrict any use of the information to criminally investigate or prosecute any alcohol or drug abuse patient.[facility] CenterIn the event this information is protected by the Federal Confidentiality of Alcohol and Drug Abuse Patient Records regulations: The Federal rules restrict any use of the information to criminally investigate or prosecute any alcohol or drug abuse patient.[facility] CenterIn the event this information is protected by the Federal Confidentiality of Alcohol and Drug Abuse Patient Records regulations: The Federal rules restrict any use of the information to criminally investigate or prosecute any alcohol or drug abuse patient.[facility] CenterIn the event this information is protected by the Federal Confidentiality of Alcohol and Drug Abuse Patient Records regulations: The Federal rules restrict any use of the information to criminally investigate or prosecute any alcohol or drug abuse patient.[facility] CenterIn the event this information is protected by the Federal Confidentiality of Alcohol and Drug Abuse Patient Records regulations: The Federal rules restrict any use of the information to criminally investigate or prosecute any alcohol or drug abuse patient.[facility] CenterIn the event this information is protected by the Federal Confidentiality of Alcohol and Drug Abuse Patient Records regulations: The Federal rules restrict any use of the information to criminally investigate or prosecute any alcohol or drug abuse patient.[facility] CenterIn the event this information is protected by the Federal Confidentiality of Alcohol and Drug Abuse Patient Records regulations: The Federal rules restrict any use of the information to criminally investigate or prosecute any alcohol or drug abuse patient.[facility] CenterIn the event this information is protected by the Federal Confidentiality of Alcohol and Drug Abuse Patient Records regulations: The Federal rules restrict any use of the information to criminally investigate or prosecute any alcohol or drug abuse patient.[facility] CenterIn the event this information is protected by the Federal Confidentiality of Alcohol and Drug Abuse Patient Records regulations: The Federal rules restrict any use of the information to criminally investigate or prosecute any alcohol or drug abuse patient.[facility] CenterIn the event this information is protected by the Federal Confidentiality of Alcohol and Drug Abuse Patient Records regulations: The Federal rules restrict any use of the information to criminally investigate or prosecute any alcohol or drug abuse patient.[facility] CenterIn the event this information is protected by the Federal Confidentiality of Alcohol and Drug Abuse Patient Records regulations: The Federal rules restrict any use of the information to criminally investigate or prosecute any alcohol or drug abuse patient.[facility] CenterIn the event this information is protected by the Federal Confidentiality of Alcohol and Drug Abuse Patient Records regulations: The Federal rules restrict any use of the information to criminally investigate or prosecute any alcohol or drug abuse patient.[facility] CenterIn the event this information is protected by the Federal Confidentiality of Alcohol and Drug Abuse Patient Records regulations: The Federal rules restrict any use of the information to criminally investigate or prosecute any alcohol or drug abuse patient.[facility] CenterIn the event this information is protected by the Federal Confidentiality of Alcohol and Drug Abuse Patient Records regulations: The Federal rules restrict any use of the information to criminally investigate or prosecute any alcohol or drug abuse patient.[facility] CenterIn the event this information is protected by the Federal Confidentiality of Alcohol and Drug Abuse Patient Records regulations: The Federal rules restrict any use of the information to criminally investigate or prosecute any alcohol or drug abuse patient.[facility] CenterIn the event this information is protected by the Federal Confidentiality of Alcohol and Drug Abuse Patient Records regulations: The Federal rules restrict any use of the information to criminally investigate or prosecute any alcohol or drug abuse patient.[facility] CenterIn the event this information is protected by the Federal Confidentiality of Alcohol and Drug Abuse Patient Records regulations: The Federal rules restrict any use of the information to criminally investigate or prosecute any alcohol or drug abuse patient.[facility] CenterIn the event this information is protected by the Federal Confidentiality of Alcohol and Drug Abuse Patient Records regulations: The Federal rules restrict any use of the information to criminally investigate or prosecute any alcohol or drug abuse patient.[facility] CenterIn the event this information is protected by the Federal Confidentiality of Alcohol and Drug Abuse Patient Records regulations: The Federal rules restrict any use of the information to criminally investigate or prosecute any alcohol or drug abuse patient.[facility] CenterIn the event this information is protected by the Federal Confidentiality of Alcohol and Drug Abuse Patient Records regulations: The Federal rules restrict any use of the information to criminally investigate or prosecute any alcohol or drug abuse patient.[facility] CenterIn the event this information is protected by the Federal Confidentiality of Alcohol and Drug Abuse Patient Records regulations: The Federal rules restrict any use of the information to criminally investigate or prosecute any alcohol or drug abuse patient.[facility] CenterIn the event this information is protected by the Federal Confidentiality of Alcohol and Drug Abuse Patient Records regulations: The Federal rules restrict any use of the information to criminally investigate or prosecute any alcohol or drug abuse patient.[facility] CenterIn the event this information is protected by the Federal Confidentiality of Alcohol and Drug Abuse Patient Records regulations: The Federal rules restrict any use of the information to criminally investigate or prosecute any alcohol or drug abuse patient.[facility] CenterIn the event this information is protected by the Federal Confidentiality of Alcohol and Drug Abuse Patient Records regulations: The Federal rules restrict any use of the information to criminally investigate or prosecute any alcohol or drug abuse patient.[facility] CenterIn the event this information is protected by the Federal Confidentiality of Alcohol and Drug Abuse Patient Records regulations: The Federal rules restrict any use of the information to criminally investigate or prosecute any alcohol or drug abuse patient.[facility] CenterIn the event this information is protected by the Federal Confidentiality of Alcohol and Drug Abuse Patient Records regulations: The Federal rules restrict any use of the information to criminally investigate or prosecute any alcohol or drug abuse patient.[facility] CenterIn the event this information is protected by the Federal Confidentiality of Alcohol and Drug Abuse Patient Records regulations: The Federal rules restrict any use of the information to criminally investigate or prosecute any alcohol or drug abuse patient.[facility] CenterIn the event this information is protected by the Federal Confidentiality of Alcohol and Drug Abuse Patient Records regulations: The Federal rules restrict any use of the information to criminally investigate or prosecute any alcohol or drug abuse patient.[facility] CenterIn the event this information is protected by the Federal Confidentiality of Alcohol and Drug Abuse Patient Records regulations: The Federal rules restrict any use of the information to criminally investigate or prosecute any alcohol or drug abuse patient.[facility] CenterIn the event this information is protected by the Federal Confidentiality of Alcohol and Drug Abuse Patient Records regulations: The Federal rules restrict any use of the information to criminally investigate or prosecute any alcohol or drug abuse patient.[facility] Reason for Visit (unrecogniz ed section and content) Reason Comments Chest Congestion cough, sore throat a nd mid back pain x several weeks Specialty Diagnoses / Procedures Referred By Raheel medina Referred To Contact Family Practice / [facility] Diagnoses Cough chest congestion, cough and sore throat Procedures OFFICE/OUTPATIENT ESTABLISHED MOD MDM 30-39 MIN URGENT CARE Self John Pires MD [address] [place] [address] Referral ID Status Reason Start Date Expiration Date Visits Re quested Visits Authorized [id number] Closed 12/25/2021 09/20/2022 1 1 Reason Comments Sinus Problem x 3 weeks Reason Comments Patient Update Reason Comments Prescription Refills Reason Onset Date Comments Refill Request 04/29/2022 Reason Comments Chest Congestion cough, sinus pressur e and headache x 6 days Specialty Diagnoses / Procedures Referred By Contac t Referred To Contact Family Practice / [facility] Diagnoses headache, chest congestion, sinus, cough Procedures EST SAME DAY Self, Ronald Singh APRN.WORD PROCESSOR TECHNICIAN [address] [id number] Referral ID Status Reason Start Date Expiration Date Visits Re quested Visits Authorized [id number] Closed 05/21/2022 09/20/2022 1 1 Reason Comments Recheck No concerns Specialty Diagnoses / Procedures Referred By Contact Referred To Contact Gastroenterology / GASTROENTEROLOGY Diagnoses Encounter for follow-up 6 month follow up Procedures OFFICE/OUTPATIENT ESTABLISHED MOD MDM 30-39 MIN EST DDI PATIENT Self Yaz Sotelo PA-C [address] [place] [address] Referral ID Status Reason Start Date Expiration Date Visits Re quested Visits Authorized [id number] Closed 06/16/2022 09/20/2022 1 1 Reason Comments Radiology US Specialty Diagnoses / Procedures Referred By Contac t Referred To Contact [facility] IMAGING Diagnoses Nonalcoholic steatohepatitis (ADAN) Procedures US ABD RT UPPER QUADRANT US ABDOMINAL REAL TIME W/IMAGE LIMITED Yaz Sotelo PA-C [address] [place] [address] [facility] Referral ID Status Reason Start Date Expiration Date V isits Requested Visits Authorized [id number] Closed Auto-Generate d Referral 06/16/2022 07/16/2023 1 1 Reason Comments Yearly Exam Specialty Diagnoses / Procedures Referred By Contac t Referred To Contact Internal Medicine / INTERNAL MEDICINE Diagnoses Annual physical exam Yearly Procedures OFFICE/OUTPATIENT ESTABLISHED MOD MDM 30-39 MIN 4C EST WELL Kristian Cadet MD [address] [place] [address] Kristian Cadet MD [address] [place] [address] Referral ID Status Reason Start Date Expiration Date Visits Re quested Visits Authorized [id number] Closed 06/23/2022 09/20/2022 1 1 Reason Comments Insurance Authorization Reason Comments Nasal Congestion Cough, right ear isai n, nausea x 1 day Specialty Diagnoses / Procedures Referred By Contac t Referred To Contact [facility] Diagnoses Ear pain congestion, right ear pain, nausea, cough Procedures OFFICE/OUTPATIENT ESTABLISHED MOD [facility] 30-39 MIN EST SAME DAY Self [facility] [address] [place] [address] Referral ID Status Reason Start Date Expiration Date Visits Re quested Visits Authorized [id number] Closed 07/16/2022 09/20/2022 1 1 Reason Comments Medication Problem Reason Comments Head Congestion Body aches, MARQUEZ x6 da ys Reason Comments Prior Authorization for Medication Reque st Reason Comments Cough Chest congestion, MARQUEZ , sinus x 1 day Specialty Diagnoses / Procedures Referred By Contac t Referred To Contact Family [facility] / [facility] Diagnoses Chest congestion Cough Sinus abscess chest congestion, cough, sinus, headache Procedures OFFICE/OUTPATIENT ESTABLISHED MOD [facility] 30-39 MIN EST SAME DAY Self Precious Singleton PA-C [address] [place] [address] Referral ID Status Reason Start Date Expiration Date Visits Re quested Visits Authorized [id number] Closed 09/04/2022 09/20/2022 1 1 Reason Comments F/U 3 Month Specialty Diagnoses / Procedures Referred By Contac t Referred To Contact Internal Medicine / INTERNAL MEDICINE Diagnoses 3 month follow-up - med Procedures OFFICE/OUTPATIENT ESTABLISHED MOD [facility] 30-39 MIN 4C EST Self Kristian Cadet MD [address] [place] [address] Referral ID Status Reason Start Date Expiration Date Visits Re quested Visits Authorized [id number] Closed 09/25/2022 09/20/2023 1 1 Reason Onset Date Comments Refill Request 10/16/2022 Reason Comments Imm/Inj Specialty Diagnoses / Procedures Referred By Contac t Referred To Contact Internal Medicine / [facility] Diagnoses 2nd Hep B vaccine Procedures NURSE Kristian Cadet MD [address] [place] [address] NurseLesli [address] [place] [address] Referral ID Status Reason Start Date Expiration Date V isits Requested Visits Authorized [id number] Pending Review 10/28/2022 01/26/2023 1 1 Reason Comments Orders Specialty Diagnoses / Procedures Referred By Contac t Referred To Contact Internal Medicine / INTERNAL MEDICINE Diagnoses Follow-up exam 3 month follow-up Procedures OFFICE/OUTPATIENT ESTABLISHED MOD MDM 30-39 MIN 4C EST Self Kristian Cadet MD [address] [place] [address] Referral ID Status Reason Start Date Expiration Date Visits Re quested Visits Authorized [id number] Closed 01/01/2023 09/20/2023 1 1 Reason Comments Medication Problem Refill Reason Comments Patient Question Medication Problem Reason Comments F/U 6 months F/U 6 Month Specialty Diagnoses / Procedures Referred By Contac t Referred To Contact Internal Medicine / INTERNAL MEDICINE Diagnoses Follow-up exam 6 month follow up Procedures OFFICE/OUTPATIENT ESTABLISHED MOD MDM 30-39 MIN 4C EST Self Kristian Cadet MD [address] [place] [address] Referral ID Status Reason Start Date Expiration Date Visits Re quested Visits Authorized [id number] Closed 07/14/2023 09/20/2023 1 1 Reason Comments Nausea Nausea, congestion a nd sinus pain x 1 week Reason Onset Date Comments Refill Request 10/24/2023 Reason Comments Medication Problem Reason Comments CPAP mask & hose request Reason Onset Date Comments Refill Request 02/20/2024 Reason Onset Date Comments Refill Request 03/02/2024 Reason Onset Date Comments Refill Request 03/15/2024 Reason Comments Physical Specialty Diagnoses / Procedures Referred By Contac t Referred To Contact Internal Medicine / INTERNAL MEDICINE Diagnoses Annual physical exam Yearly w/6 month follow-up Procedures OFFICE/OUTPATIENT ESTABLISHED MOD MDM 30 MIN 4C [place] WE[place] [address] [place] [id number] Ina Winston, DOCUMENTATION NURSE.WORD PROCESSOR TECHNICIAN [address] [place] [address] Referral ID Status Reason Start Date Expiration Date Visits Re quested Visits Authorized [id number] Closed 03/23/2024 09/20/2024 1 1 Reason Comments CPAP Supplies New Cpap and supplie s Reason Onset Date Comments Refill Request 05/27/2024 Reason Comments Sinus congestion Sinus pain and press ure, cough x3 weeks Reason Comments Follow Up 6 months Reason Comments Nausea & Vomiting Diarrhea, stomach cr amps, cough, sore throat x 4 days Specialty Diagnoses / Procedures Referred By Raheel t Referred To Contact US IMAGING Diagnoses Fatty liver disease, nonalcoholic Elevated LFTs Procedures US ABD RIGHT UPPER QUADRANT US ABDOMINAL REAL TIME W/IMAGE LIMITED Ina Winston, DOCUMENTATION NURSE.WORD PROCESSOR TECHNICIAN [address] [place] [id number] [place] [address] Referral ID Status Reason Start Date Expiration Date V isits Requested Visits Authorized [id number] Closed Auto-Generate d Referral 10/04/2024 11/03/2025 1 1 Reason Comments Results Reason Comments Pain, Sinus Sinus pain and press ure, congestion, MARQUEZ and bodyaches Reason Comments Sinus Problem sinus pressure and d rainage x 1 week Reason Onset Date Comments Refill Request 01/05/2025 Reason Onset Date Comments Refill Request 02/16/2025 Reason Comments Pain, Sinus Sinus pain and press ure, MARQUEZ and cough x 1 day Reason Onset Date Comments Refill Request 03/02/2025 Reason Comments Physical Specialty Diagnoses / Procedures Referred By Contaminta t Referred To Contact Internal Medicine / INTERNAL MEDICINE Diagnoses Wellness examination wellness exam Procedures OFFICE/OUTPATIENT ESTABLISHED MOD MDM 30 MIN 4C EST WELL Ina Winston, DOCUMENTATION NURSE.WORD PROCESSOR TECHNICIAN [address] [place] [address] Phone: tel: fax: Kristian Cadet MD [address] [place] [address] Phone: tel: fax: Referral ID Status Reason Start Date Expiration Date Visits Re quested Visits Authorized [id number] Closed 03/28/2025 09/20/2025 1 1 Reason Comments Consult Copy of CD Left Knee Reason Comments Follow Up Follow up. Denies GI problems Specialty Diagnoses / Procedures Referred By Raheel t Referred To Contact General Surgery / GENERAL SURGERY Diagnoses 04-11 colonoscopy follow up Procedures POST OP DDI Adele Davis MD [address] [place] [address] Phone: tel: fax: Reba Suarez APRN.WORD PROCESSOR TECHNICIAN [address] [place] [address] Phone: tel: fax: Referral ID Status Reason Start Date Expiration Date V isits Requested Visits Authorized [id number] Authorized 04/21/2025 09/20/2025 99 99 Reason Comments Rash Rash on right side o f face just noticed this morning Reason Comments Refill Request Care Teams (unrecognized sec tion and content) Care Team Personnel Name: KRISTIAN CADET MD Member Role: Primary Care Physician Address: [address] [place] [phone]- Telecom: Dairy Husbandry Worker Relationship Specialty Start Date End Date Kristian Cadet MD [address] [place], [place] [address] PCP - General 10/19/09 Dairy Husbandry Worker Relationship Specialty Start Date End Date Kristian Cadet MD [address] [place], [place] [address] PCP - General 10/19/09 Dairy Husbandry Worker Relationship Specialty [place] [address] [place] [id number] PCP - General 10/19/09 Dairy Husbandry Worker Relationship Specialty Start Date End Date Kristian Cadet MD [address] [place] [address] PCP - General 10/19/09 Dairy Husbandry Worker Relationship Specialty Start Date End Date Kristian Cadet MD [address] [place] [address] PCP - General 10/19/09 Dairy Husbandry Worker Relationship Specialty Start Date End Date Kristian Cadet MD [facility] [place] [address] PCP - General 10/19/09 Dairy Husbandry Worker Relationship Specialty Start Date End Date Kristian Cadet MD [address] [place] [address], [place] [address] PCP - General 10/19/09 Dairy Husbandry Worker Relationship Specialty Start Date End Date Kristian Cadet MD [address] [place] [address], [place] [address] PCP - General 10/19/09 Dairy Husbandry Worker Relationship Specialty Start Date End Date Kristian Cadet MD [facility] [place] [place] [address] PCP - General 10/19/09 Dairy Husbandry Worker Relationship Specialty Start Date End Date Kristian Cadet MD [facility] [place] [address] PCP - General 10/19/09 Dairy Husbandry Worker Relationship Specialty Start Date End Date Kristian Cadet MD [facility] [place] [address] PCP - General 10/19/09 Dairy Husbandry Worker Relationship Specialty Start Date End Date Kristian Cadet MD [facility] [place] [address] PCP - General 10/19/09 Dairy Husbandry Worker Relationship Specialty Start Date End Date Kristian Cadet MD [address] [place] [address], [place] [address] PCP - General 10/19/09 Dairy Husbandry Worker Relationship Specialty Start Date End Date Kristian Cadet MD [address] [place] [address] PCP - General 10/19/09 Dairy Husbandry Worker Relationship Specialty Start Date End Date Kristian Cadet MD [address] [place] [address] PCP - General 10/19/09 Dairy Husbandry Worker Relationship Specialty Start Date End Date Kristian Cadet MD [address] [place] [address] PCP - General 10/19/09 Dairy Husbandry Worker Relationship Specialty Start Date End Date Kristian Cadet MD [address] [place] [address] PCP - General 10/19/09 Dairy Husbandry Worker Relationship Specialty Start Date End Date Kristian Cadet MD [address] [place] [address] PCP - General 10/19/09 Dairy Husbandry Worker Relationship Specialty Start Date End Date Kristian Cadet MD [address] [place] [address] PCP - General 10/19/09 Dairy Husbandry Worker Relationship Specialty Start Date End Date Kristian Cadet MD [address] [place] [address] PCP - General 10/19/09 Dairy Husbandry Worker Relationship Specialty Start Date End Date Kristian Cadet MD [address] [place] [address] PCP - General 10/19/09 Dairy Husbandry Worker Relationship Specialty Start Date End Date Kristian Cadet MD [address] [place] [address] PCP - General 10/19/09 Dairy Husbandry Worker Relationship Specialty Start Date End Date Kristian Cadet MD [address] [place] [address] PCP - General 10/19/09 Dairy Husbandry Worker Relationship Specialty Start Date End Date Kristian Cadet MD [address] [place] [address] PCP - General 10/19/09 Dairy Husbandry Worker Relationship Specialty Start Date End Date Kristian Cadet MD [address] [place] [address] PCP - General 10/19/09 Dairy Husbandry Worker Relationship Specialty Start Date End Date Kristian Cadet MD [address] [place] [address] PCP - General 10/19/09 Dairy Husbandry Worker Relationship Specialty Start Date End Date Kristian Cadet MD [address] [place] [address] PCP - General 10/19/09 Dairy Husbandry Worker Relationship Specialty Start Date End Date Kristian Cadet MD [address] [place] [address] PCP - General 10/19/09 Dairy Husbandry Worker Relationship Specialty Start Date End Date Kristian Cadet MD [address] [place] [address] PCP - General 10/19/09 Dairy Husbandry Worker Relationship Specialty Start Date End Date Kristian Cadet MD [address] [place] [address] PCP - General 10/19/09 Ina Winston, DOCUMENTATION NURSE.WORD PROCESSOR TECHNICIAN [address] [facility] [place] [address] Inspector Rubber Stamp Die Internal Medicine 08/29/24 Dairy Husbandry Worker Relationship Specialty Start Date End Date Kristian Cadet MD [address] [facility] [place] [address] PCP - General 10/19/09 Ina Winston, DOCUMENTATION NURSE.WORD PROCESSOR TECHNICIAN [address] [place] [address] Inspector Rubber Stamp Die Internal Medicine 08/29/24 Dairy Husbandry Worker Relationship Specialty Start Date End Date Kristian Cadet MD [address] [facility] [place] [address] PCP - General 10/19/09 Ina Winston, DOCUMENTATION NURSE.WORD PROCESSOR TECHNICIAN [address] [place] [address] [facility] Internal Medicine 08/29/24 Dairy Husbandry Worker Relationship Specialty Start Date End Date Kristian Cadet MD [address] [place] [address] PCP - General 10/19/09 Ina Winston, DOCUMENTATION NURSE.WORD PROCESSOR TECHNICIAN [address] [place] [address] [facility] Internal Medicine 08/29/24 Dairy Husbandry Worker Relationship Specialty Start Date End Date Kristian Cadet MD [address] [place] [address] PCP - General 10/19/09 Ina Winston, DOCUMENTATION NURSE.WORD PROCESSOR TECHNICIAN [address] [place] [address] [facility] Internal Medicine 08/29/24 Dairy Husbandry Worker Relationship Specialty Start Date End Date Kristian Cadet MD [address] [place] [address] PCP - General 10/19/09 Ina Winston, DOCUMENTATION NURSE.WORD PROCESSOR TECHNICIAN [address] [place] [address] [facility] Internal Medicine 08/29/24 Dairy Husbandry Worker Relationship Specialty Start Date End Date Kristian Cadet MD [address] [place] [address] PCP - General 10/19/09 Ina Winston, DOCUMENTATION NURSE.WORD PROCESSOR TECHNICIAN [address] [place] [address] [facility] 08/29/24 Dairy Husbandry Worker Relationship Specialty Start Date End Date Kristian Cadet MD [address] [place] [address] PCP - General 10/19/09 Ina Winston, DOCUMENTATION NURSE.WORD PROCESSOR TECHNICIAN [address] [place] [address] [facility] 08/29/24 Dairy Husbandry Worker Relationship Specialty Start Date End Date Kristian Cadet MD [address] [place] [address] PCP - General 10/19/09 Ina Winston, DOCUMENTATION NURSE.WORD PROCESSOR TECHNICIAN [address] [place] [address] [employer] [facility] 08/29/24 Dairy Husbandry Worker Relationship Specialty Start Date End Date Kristian Cadet MD [address] [place] [address] PCP - General 10/19/09 Ina Winston, DOCUMENTATION NURSE.WORD PROCESSOR TECHNICIAN [address] [place] [address] [facility] 08/29/24 Dairy Husbandry Worker Relationship Specialty Start Date End Date Kristian Cadet MD [address] [place] [address] PCP - General 10/19/09 Ina Winston, DOCUMENTATION NURSE.WORD PROCESSOR TECHNICIAN [address] [place] [address] [facility] 08/29/24 Dairy Husbandry Worker Relationship Specialty Start Date End Date Kristian Cadet MD [address] [place] [address] PCP - General 10/19/09 Ina Winston, DOCUMENTATION NURSE.WORD PROCESSOR TECHNICIAN [address] [place] [address] [facility] 08/29/24 Team Status: Active Member Role/Relationship Status Dates Dr. Kristian Cadet MD Family Provider Active Dr. Kristian Cadet MD Primary Care Provider Active Team Status: Inactive Member Role/Relationship Status Dates Dr. Kristian Cadet MD Primary Care Provider Active Start: April 11, 2025 End: April 11, 2025 Dr. Adele Davis MD Attending Provider Active St art: April 11, 2025 End: April 11, 2025 Dr. Adele Davis MD Referring Provider Active St art: April 11, 2025 End: April 11, 2025 Dairy Husbandry Worker Relationship Specialty Start Date End Date Kristian Cadet MD [address] [place], [place] [id number] PCP - General 10/19/09 Ina Winston, DOCUMENTATION NURSE.WORD PROCESSOR TECHNICIAN [address] [place], [place] [address] [facility] 08/29/24 Dairy Husbandry Worker Relationship Specialty Start Date End Date Kristian Cadet MD [address] [place], [place] [id number] PCP - General 10/19/09 Ina Winston, DOCUMENTATION NURSE.WORD PROCESSOR TECHNICIAN [address] [place], [place] [address] [facility] 08/29/24 Goals (unrecognized section and content) Goals may be documented in a n alternate section No data available for this section No data available for this section FOR RECORDS PERTAINING TO PATIENTS WHO ARE OR HAVE BEEN ENROLLED IN A CHEMICAL DEPENDENCY/SUBSTANCEABUSE PROGRAM, SOME INFORMATION MAY BE OMITTED. This clinical summary was aggregated from multiple sources. Caution should be exercised in using it in the provision of clinical care. This summary normalizes information from multiple sources, and as a consequence, information in this document may materially change the coding, format and clinical context of patient data. In addition, data may be omitted in some cases. CLINICAL DECISIONS SHOULD BE BASED ON THE PRIMARY CLINICAL RECORDS. [facility] [employer] [facility]. provides no warranty or guarantee of the accuracy or completeness of information in this document.
[2025-09-15 13:15] LABS: Hematocrit 39.4 % (40-54); Hemoglobin 13.1 g/dL (13.0-16.5); Immature Granulocytes Count 0.050 X10^3/uL (0.0-0.0); Mean Corp Hgb Conc 33.2 g/dL (32-36); Mean Corpuscular Volume 90.6 fL (80-94); Mean Platelet Vol. 8.1 fl (6.2-12.0); NRBC Flagged by Analyzer 0 % (0-5); Platelet Count 485 K/mm3 (150-450); RBC Distribution Width CV 12.4 % (11.6-14.6); RBC Distribution Width SD 41.1 fl (35.1-43.9); Red Blood Count 4.35 M/mm3 (4.6-6.2); White Blood Count 9.9 K/mm3 (4.4-11.0)
--- NOTE | 2025-09-15 13:18 | ED.VIS.CHEST ---
HPI History of Present Illness Chief Complaint: Chest Pain Informant: patient and spouse/S.O. Narrative Narrative: 60-year-old male presenting to the emergency room for the evaluation of chest pain. Patient is 2 weeks postoperative. He has been having constipation and did an enema as well as Milk of Magnesia and is now having bowel movements. The patient states that he has been having some upper abdominal discomfort as well and is now developing chest pain since this morning in addition to a sore throat. He describes his chest pain as a burning sensation midsternal going towards the right axilla and into the upper shoulder blade region. He called his doctor who was recommended because of the chest pain to come to emergency. He notes a cough that is unchanged. No reported fevers. He notes chronic nasal congestion. states she feels fine. Patient states that he went to physical therapy this morning. Physical therapy is progressing. [facility] Medical History (Updated 09/15/25 @ 16:[address] Zach Harrison DO) Hypercholesterolemia Hypertension Home Medications ?Medication ?Instructions ?Recorded ?Last Taken ?Type lisinopril 20 mg tablet 20 mg PO DAILY 09/13/13 Unknown History meclizine 25 mg tablet 25 mg PO 4X/DAY PRN PRN Vertigo 09/13/13 Unknown Rx #20 tabs simvastatin 20 mg tablet 20 mg PO QHS 09/13/13 Unknown History ketorolac 10 mg tablet 10 mg PO Q8H PRN Pain #15 tabs 09/27/20 Unknown Rx Allergy/AdvReac Type Severity Reaction Status Date / Time No Known Allergies Allergy Verified 09/15/25 12:16 Surgical History Hx of total knee replacement Social History Smoking Status: Never smoker ROS ROS ED Constitutional Constitutional ED: Reports chills; Denies fever(s) or weight loss Eyes Eyes: Denies change in vision or diplopia ENT ENT ED: Reports rhinorrhea and sore throat; Denies ear pain Cardiovascular Cardiovascular: Reports as per HPI and chest pain; Denies orthopnea, palpitations or racing heartbeat Respiratory/Chest Respiratory/Chest: Reports cough; Denies dyspnea or orthopnea Gastrointestinal Gastrointestinal: Reports abdominal pain, constipation and nausea; Denies diarrhea or vomiting Genitourinary Genitourinary ED: Denies dysuria, hematuria or urinary frequency Musculoskeletal Musculoskeletal: Denies arthralgias or myalgias Integumentary Denies abscess or rash Neurologic Neurologic: Denies headache(s) or weakness Psychiatric Psychiatric: Denies anxiety, depression, suicidal ideation or suicidal thoughts Endocrine Endocrinology: Denies polydipsia, polyphagia or polyuria Allergic/Immunologic Allergic/Immunologic ED: Denies mouth swelling, tongue swelling or urticaria EXAM Physical Exam Const Vital Signs: 09/15/25 12:14 09/15/25 12:15 09/15/25 13:17 Temperature 96.8 F L 96.8 F L 98.3 F Temperature Source Oral Oral Oral Pulse Rate 53 L 57 L 99 Respiratory Rate 18 16 22 H Blood Pressure 133/96 H 133/96 H 157/82 H Blood Pressure Mean 108 108 107 Pulse Ox 96 96 95 Oxygen Delivery Method Room Air Room Air Room Air 09/15/25 14:15 09/15/25 14:32 09/15/25 15:00 Temperature Temperature Source Pulse Rate 92 103 H Respiratory Rate 26 H 22 H Blood Pressure 162/93 H 151/85 H Blood Pressure Mean 112 103 Pulse Ox 95 95 95 Oxygen Delivery Method 09/15/25 15:15 09/15/25 15:30 09/15/25 15:45 Temperature Temperature Source Pulse Rate 102 H 100 96 Respiratory Rate 25 H 30 H 20 H Blood Pressure 149/88 H 138/90 H 147/91 H Blood Pressure Mean 104 104 107 Pulse Ox 95 95 94 Oxygen Delivery Method 09/15/25 16:00 Temperature Temperature Source Pulse Rate 96 Respiratory Rate 23 H Blood Pressure 138/82 H Blood Pressure Mean 99 Pulse Ox 95 Oxygen Delivery Method MDM MDM MDM Narrative Medical decision making narrative: Differential diagnosis includes but not limited to pulmonary embolism acute coronary syndrome viral syndrome dehydration pneumonia Patient's EKG is nonischemic with normal sinus rhythm at 95 bpm. CTA of the chest does not demonstrate any significant pulmonary embolism. Is not hypoxic. 2 sets of cardiac enzymes are 17 and 13 proBNP is 311. Creatinine 1.09 hemoglobin 13.1. Patient's COVID influenza and RSV swab Clinically I think the patient most likely has a viral illness. Would recommend supportive care. Monitoring for changes return if worsening or concerns History & Record Review Discussion w/independent historian: Patient and Significant other Lab Data Attestation: I reviewed the patient's lab results. Labs: Laboratory Results - last 24 hr 09/15/25 09/15/25 12:47 15:13 WBC 9.9 RBC 4.35 L Hgb 13.1 Hct 39.4 L MCV 90.6 MCH 30.1 MCHC 33.2 RDW Std Deviation 41.1 RDW Coeff of Naman 12.4 Plt Count 485 H MPV 8.1 Immature Gran % (Auto) 0.500 Neut % (Auto) 69.6 Lymph % (Auto) 16.4 L [place] % (Auto) 6.2 Eos % (Auto) 6.4 H Baso % (Auto) 0.9 Absolute Neuts (auto) 6.9 Absolute Lymphs (auto) 1.62 Nucleated RBC % 0 Sodium 139 Potassium 4.3 Chloride 100 Carbon Dioxide 26.1 Anion Gap 13 BUN 21 H Creatinine 1.09 Estim Creat Clear Calc 88.40 Est GFR (MDRD) Non-Af 77 BUN/Creatinine Ratio 18.8 Glucose 122 H Calcium 9.6 Troponin T High Sens 17 Troponin T Hi Sens 2 Hr 13 NT pro BNP II 311 Radiography Diagnostic Testing: Clinical Impression(s) from Imaging Studies Chest CTA 09/15/25 13:01 IMPRESSION: 1. Suboptimal opacification of the pulmonary arterial tree secondary to contrast bolus timing limits evaluation of segmental and subsegmental pulmonary arterial tree. No central pulmonary embolism. 2. No evidence of thoracic aortic dissection. 3. No focal lung consolidation. Reading Location: [facility] EKG Initial EKG: Attestation: I personally reviewed and interpreted this EKG as follows: Comments: Normal sinus rhythm ventricular rate of 95 bpm Discharge Plan Triage Chief Complaint: Chest Pain ED Provider: Zach Harrison Dx/Rx/DC Orders Clinical Impression: Acute viral syndrome, Chest pain, Pharyngitis Instructions: ED Chest Pain, Noncardiac, ED Viral Syndrome (Adult) Prescriptions: No Action lisinopril 20 MG tablet 20 mg PO DAILY simvastatin 20 MG tablet 20 mg PO QHS meclizine 25 MG tablet 25 mg PO 4X/DAY PRN PRN (Reason: Vertigo) Qty: 20 0RF ketorolac 10 MG tablet 10 mg PO Q8H PRN (Reason: Pain) Qty: 15 0RF Primary Care Provider: Kristian Cadet Referrals: Kristian Cadet MD [Primary Care Provider, Internal Medicine] - 3-5 Days if not improving Print Language: Indonesian Disposition Disposition: Home, Self Care
[2025-09-15 13:41] LABS: Anion Gap 13 (7-18); BUN 21 mg/dL (4-19); BUN/Creat Ratio 18.8 RATIO (10-20); Calcium,Total 9.6 mg/dL (7.6-11.0); Carbon Dioxide 26.1 mmol/L (20.0-29.0); Chloride 100 mmol/L (96-106); Estimated Creatinine Clearance 88.40 ml/min (50-250); Glucose 122 mg/dL (70-99); Potassium 4.3 mmol/L (3.5-5.1); Pro- Brain NATRIURETIC PEPTIDE 311 pg/mL (<=900); Troponin T High Sensitivity 17 ng/L (<=22)
[2025-09-15 15:34] LABS: Troponin T High Sens 2 HR 13 ng/L (<=22)
== END 2025-09-15 16:20 | disposition home or self-care (01) ==
PROVIDERS: Emergency Provider Emergency Medicine; PCP Internal Medicine; Visit Provider Emergency Medicine
DX: B34.9 Viral infection, unspecified (principal); J02.9 Acute pharyngitis, unspecified; R07.89 Other chest pain; R10.10 Upper abdominal pain, unspecified; R09.81 Nasal congestion; I10 Essential (primary) hypertension; E78.00 Pure hypercholesterolemia, unspecified; Z79.899 Other long term (current) drug therapy
CPT/HCPCS: 71275; 80048; 83880; 84484; 85025; 87631; 93005; 99284; Q9967